=== PATIENT | female | born 1950 | race Caucasian/White ===

== ENCOUNTER → 2016-05-04 | Day surgery (SDC) | payer OTHER ==
[2016-04-28 13:15] VITALS: Ht 158.8 cm; Wt 145.4 kg
[~2016-05-04] VITALS: Ht 158.8 cm; Wt 145.4 kg
[~2016-05-04] MED LIST: 500ML BSS 0.3ML EPI 1:1000PF IRRIG ONE; ACET-1256 PO; ACETAMINOPHEN 325 MG TAB PO PRN; AMVISC PLUS 0.8ML SYRINGE INT OCU ONE; ASPI81TA28 PO; ATROPINE SULFATE 0.1 MG/ML 5ML SYR IV PRN; BRIMONIDINE TART 0.2% OP SOLN PER DROP CHARGE ONE; BSS FLUSH ONE; DXY100 PO; ENDOCOAT 0.85ML SYRINGE INT OCU ONE; EpHEDrine SULFATE INJ 50 MG/ML AMP IV PRN; EpINEphrine INJ 1MG/ML AMP 1 MG/ML AMP ONE; FENTANYL CITRATE INJ 50 MCG/1 ML 2 ML VIAL IV PRN; FURO-85 PO; HYDR-5688 PO; LACTATED RINGER'S 1000ML 500 ML IV SCH; LEVO1TAB34 PO; LIDOCAINE 4% OP SOLN DROP CHARGE ONE; LIDOCAINE 4% OP SOLN DROP CHARGE OPR SCH; LIDOCAINE HCL 1% MPF 2 ML VIAL ONE; LISI-789 PO; MELO7.5T5 PO; MIDAZOLAM HCL 1 MG/ML 2ML VIAL ONE; MOXIFLOXACIN OPH SOLN PER DROP CHARGE ONE; MOXIFLOXACIN OPH SOLN PER DROP CHARGE OPR SCH; ONDANSETRON INJ 2 MG/ML 2 ML VIAL IV PRN; POVIDONE-IODINE OP SOLN 30 ML BTL ONE; PROPARACAINE 0.5% OP SOLN PER DROP CHARGE OPR SCH; SULF800T23 PO; TOBRAMYCIN/DEXAMETHASONE OPH OINT PER APPLN CHARGE ONE; TRIMETHOPRIM/POLYMYXIN B ONE
[2016-05-04] MEDS: PHENYLEPHRINE HCL 2.5% OP SOLN PER DROP CHARGE OPR SCH ×2 (09:59→10:04)
[2016-05-04] MEDS: TROPICAMIDE 1% OP SOLN PER DROP CHARGE OPR SCH ×2 (10:00→10:05)
[2016-05-04] MEDS: CYCLOPENTOLATE HCL 1% OP SOLN PER DROP CHARGE OPR SCH ×2 (10:01→10:06)
[2016-05-04] MEDS: KETOROLAC 0.5% OP SOLN PER DROP CHARGE OPR SCH ×2 (10:02→10:07)
[2016-05-04] MEDS: TRIMETHOPRIM/POLYMYXIN B OP SCH ×2 (10:03→10:13)
--- NOTE | 2016-05-04 11:19 | History & Physical Bridge - [place] ---
H&P Re-Evaluation Bridge Note: I have examined the patient, reviewed the History & Physical and in the interval since the performance of the History & Physical I have noted the following changes of clinical significance: No changes noted
--- NOTE | 2016-05-04 11:44 | Discharge Instructions-SurgCtr ---
Discharge Instructions Visit Reason for Visit: Right Cataract Discharge Discharge Diagnosis / Problem: cataract right eye Discharge Goals Goal(s): Improve function Activity Recommendations Activity Limitations: per Instructions/Follow-up section Lifting Limitations: no more than 5 pounds Anesthesia . Post Anesthesia Instructions: If you have had General Anesthesia or IV Sedation: * Do not drive today. * Resume driving when surgeon permits. * Do not make important decisions or sign legal documents today. * Call surgeon for: 1. Temperature elevations greater than 101 degrees F. 2. Uncontrollable pain. 3. Excessive bleeding. 4. Persistent nausea and vomiting. 5. Medication intolerance (nausea, vomiting or rash). * For nausea and vomiting use only clear liquids such as: tea, soda, bouillon until nausea subsides, then gradually increase diet as tolerated. * If you have any concerns or questions, call your surgeon's office. If physician is unavailable and it is an emergency, call 911 or go to the nearest emergency room. . Instructions / Follow-Up Instructions / Follow-Up ACTIVITY RECOMMENDATIONS: * Light activities * You may walk outside, read, watch television. * Mild irritation and blurred vision are common for the first few days, redness around the white part of the eye is common. MEDICATIONS: Resume previous medications unless instructed otherwise by your surgeon. Eye drops (today and tomorrow): Polytrim - one drop in operative eye every 2 hours while awake Prednisolone 1% - one drop in operative eye every 2 hours while awake Ketorolac - one drop in operative eye every 2 hours while awake SPECIAL CARE INSTRUCTIONS: * If any problems or concerns, please call Dr. Almodovar's office at . * Keep plastic shield taped over eye to sleep at night. * Keep plastic shield taped over eye except to administer eye drops. * Keep plastic shield on until office visit the following day. FOLLOW UP VISIT: Follow-up with Dr. Almodovar in the [place] office as scheduled. If not already scheduled, please call the office at . Diet Recommendations Home Diet: resume previous diet Procedures Procedures Performed: Right Cataract Phacoemulsification With Intraocular Lens Implant Pending Studies Studies pending at discharge: no Medical Emergencies . Who to Call and When: Medical Emergencies: If at any time you feel your situation is an emergency, please call 911 immediately. . Non-Emergent Contact Non-Emergency issues call your: Day Porter . . "Provider Documentation" section prepared by Olvin Almodovar.
--- NOTE | 2016-05-04 11:44 | [facility] Post Operative Brief Note ---
Immediate Operative Summary Operative Date May 04, 2016. Pre-Operative Diagnosis Cataract Right Eye Post-Operative Diagnosis Same Procedure(s) Performed Right Cataract Phacoemulsification With Intraocular Lens Implant Surgeon Dr. Almodovar Home Health Care Case Manager Surgeon(s) None Estimated Blood Loss 0 mL Findings cataract right eye Specimens None Complication(s) None Disposition Recovery Room / PACU
[2016-05-04 11:46] VITALS: TEMP 36.1
[2016-05-04 12:20] VITALS: BP 156/64; PULSE 84; O2SAT 96
--- NOTE | 2016-05-04 12:28 | OPERATIVE REPORT ---
DATE OF OPERATION: 05/04/2016 PREOPERATIVE DIAGNOSIS: Cataract, right eye. POSTOPERATIVE DIAGNOSIS: Cataract, right eye. PROCEDURE: Phacoemulsification cataract extraction with intraocular lens placement, right eye. SURGEON: Dr. Almodovar. COMPLICATIONS: None. ESTIMATED BLOOD LOSS: None. ANESTHESIA: Topical with sedation. OPERATION AND FINDINGS: After informed consent was obtained in the holding area the patient was wheeled back to the Operating Room where cardiac monitoring leads and oxygen by nasal cannula was administered by Anesthesia. Gentle IV sedation was given, and the patient's right eye was prepped and draped in usual sterile fashion. A wire lid speculum was placed into the right eye and the operating microscope was swung into position. Using 0.12 forceps and a Supersharp blade a paracentesis port was made 3 o'clock hours away from the 9 o'clock position of patient's right eye. 1% non-preserved Lidocaine was then injected into the anterior chamber for anesthesia. A 2.2 mm keratotome blade was then used to make a shelved clear corneal incision at the 9 o'clock position of the patient's right eye. Amvisc was injected into the anterior chamber and a cystotome and Utrata forceps were used to perform a curvilinear capsulorrhexis. BSS on a hydrodissection cannula was used to hydrodissect the lens nucleus away from the capsular bag. The phacoemulsification handpiece was then used in a stop and chop fashion to remove the lens nucleus. The irrigation and aspiration handpiece was then used to remove the residual cortical material. Amvisc was injected into the capsular bag and anterior chamber and a Bausch \T\ Lomb MX60, 21.5 Diopter intraocular lens was injected into the capsular bag. Irrigation and aspiration handpiece was used to remove the residual viscoelastic material. The wounds were hydrated and noted to be watertight. The wire lid speculum was removed from the eye. Vigamox, Brimonidine, and TobraDex ointment were placed on the eye and it was shielded. It should be noted that EndoCoat was used throughout the case to protect the cornea endothelium. DISPOSITION: The patient tolerated the procedure well and was wheeled to the post anesthesia care unit in stable condition. I attest to the content of the Intraoperative Record and any orders documented therein. Any exceptions are noted below. I attest to the content of the Intraoperative Record and any orders documented therein. Any exceptio ns are noted below.
--- NOTE | 2016-05-04 12:32 | Anesthesia Progress Nt - [facility] ---
Anesthesia Post Op Note Date & Time May 04, 2016 at 12:31 Vital Signs Pain Intensity: 0 Vital Signs Past 12 Hours Date Time Temp Pulse Resp B/P Pulse Ox O2 Delivery O2 Flow Rate FiO2 05/04/16 11:46 36.1 85 18 120/60 97 Room Air 05/04/16 09:52 36.8 88 20 142/75 94 Room Air Notes Mental Status: alert / awake / arousable, participated in evaluation Pt Amnestic to Procedure: Yes Nausea / Vomiting: adequately controlled Pain: adequately controlled Airway Patency, RR, SpO2: stable & adequate BP & HR: stable & adequate Hydration State: stable & adequate Anesthetic Complications: no major complications apparent
== END | disposition home or self-care (01) ==
LOC: X.SURG 09:35
PROVIDERS: ATTEND Ophthalmology
DX: H25.11 Age-related nuclear cataract, right eye (principal); I10 Essential (primary) hypertension

== ENCOUNTER → 2016-05-25 | Outpatient (CLI) | payer OTHER ==
[~2016-05-25] MED LIST changes: -500ML BSS 0.3ML EPI 1:1000PF IRRIG ONE; -ACETAMINOPHEN 325 MG TAB PO PRN; -AMVISC PLUS 0.8ML SYRINGE INT OCU ONE; -ATROPINE SULFATE 0.1 MG/ML 5ML SYR IV PRN; -BRIMONIDINE TART 0.2% OP SOLN PER DROP CHARGE ONE; -BSS FLUSH ONE; -ENDOCOAT 0.85ML SYRINGE INT OCU ONE; -EpHEDrine SULFATE INJ 50 MG/ML AMP IV PRN; -EpINEphrine INJ 1MG/ML AMP 1 MG/ML AMP ONE; -FENTANYL CITRATE INJ 50 MCG/1 ML 2 ML VIAL IV PRN; -LACTATED RINGER'S 1000ML 500 ML IV SCH; -LIDOCAINE 4% OP SOLN DROP CHARGE ONE; -LIDOCAINE 4% OP SOLN DROP CHARGE OPR SCH; -LIDOCAINE HCL 1% MPF 2 ML VIAL ONE; -MIDAZOLAM HCL 1 MG/ML 2ML VIAL ONE; -MOXIFLOXACIN OPH SOLN PER DROP CHARGE ONE; -MOXIFLOXACIN OPH SOLN PER DROP CHARGE OPR SCH; -ONDANSETRON INJ 2 MG/ML 2 ML VIAL IV PRN; -POVIDONE-IODINE OP SOLN 30 ML BTL ONE; -PROPARACAINE 0.5% OP SOLN PER DROP CHARGE OPR SCH; -TOBRAMYCIN/DEXAMETHASONE OPH OINT PER APPLN CHARGE ONE; -TRIMETHOPRIM/POLYMYXIN B ONE
--- NOTE | 2016-05-25 16:42 | MAMMOGRAPHY REPORT ---
BILATERAL DIGITAL SCREENING MAMMOGRAM WITH CAD: 05/25/2016 CLINICAL HISTORY: Routine screening examination. TECHNIQUE: Bilateral CC, MLO and left CC M views were obtained. Current study was also evaluated wi th a Computer Aided Detection (CAD) system. COMPARISON: Comparison is made to exams dated: 02/26/2015 mammogram, 10/11/2013 mammogram, 09/23/2011 mammogram, 09/15/2010 mammogram, 09/10/2009 mammogram - [facility], and 08/29/2008. BREAST COMPOSITION: There are scattered areas of fibroglandular density in both breasts. FINDINGS: There is a 6.5 mm mass in the 12:00 middle one third of the left breast, for which additi onal spot compression tomosynthesis views and targeted ultrasound are recommended. No other suspicious mass, architectural distortion or cluster of microcalcifications is seen bilater ally. IMPRESSION: ACR BI-RADS CATEGORY 0: INCOMPLETE EVALUATION: NEED ADDITIONAL IMAGING EVALUATION The 6.5 mm mass in the 12:00 left breast needs additional evaluation. The patient will be called to schedule an appointment. Approximately 10% of breast cancers are not detected with mammography. A negative mammographic repor t should not delay biopsy if a clinically suggestive mass is present. Kristin Harding M.D. ay/:05/25/2016 15:36:52 Gas Line Installer: Norma TOMLIN)(M), [facility] letter sent: Addl Imaging 0 BI-RADS Code: ACR BI-RADS Category 0: Incomplete Evaluation: Need Additional Imaging Evaluation
== END | disposition home or self-care (01) ==
LOC: C.MAMM 14:35
PROVIDERS: ATTEND Family Medicine
DX: Z12.31 Encounter for screening mammogram for malignant neoplasm of breast (principal); N63 Unspecified lump in breast

== ENCOUNTER → 2016-06-17 | Outpatient (CLI) | payer OTHER ==
[~2016-06-17] MED LIST changes: -LEVO1TAB34 PO
--- NOTE | 2016-06-17 13:35 | MAMMOGRAPHY REPORT ---
UNILATERAL LEFT DIGITAL DIAGNOSTIC MAMMOGRAM TOMOSYNTHESIS AND TARGETED LEFT ULTRASOUND: 06/17/2016 CLINICAL HISTORY: 66 rolled woman with a history of prior trauma to the left breast proximally 1 yea r ago called back from screening mammography for increasingly conspicuous subcentimeter mass in the 12:00 to 1:00 axis. TECHNIQUE: Spot compression left CC and MLO 2-D digital and tomosynthesis images were obtained. COMPARISON: Comparison is made to exams dated: 05/25/2016 mammogram, 02/26/2015 mammogram, and 014 mammogram - [facility]. BREAST COMPOSITION: The tissue of the left breast is almost entirely fatty. FINDINGS: On the spot compression CC view there is persistence of a low-density circumscribed 8.6 x 5.9 mm mass. This is thought to project superiorly on the MLO view and measures 5.4 mm in cranioca udal dimension. No associated architectural distortion or obvious calcification. No other definite mass is seen mammographically. Targeted ultrasound was performed throughout the superior, lateral and inferior left breast. The ex am is slightly suboptimal due to inability of the patient to position for the exam. Within this rubio itation, there is an isoechoic lobulated solid appearing mass in the 2:00 left breast, 2 cm from the nipple, measuring 3.3 x 3.3 x 6.3 mm. It is unclear if this possibly correlates with the mammograp hic mass given differences in patient positioning. Nevertheless given the solid nature it is indete rminate and warranting further evaluation with tissue sampling. No other discrete solid or cystic m ass is seen. No other suspicious mass, architectural distortion or cluster of microcalcifications is seen. IMPRESSION: ACR BI-RADS CATEGORY 4: SUSPICIOUS, TARGETED ULTRASOUND ACR BI-RADS CATEGORY 4: SUSPICI OUS 1. Ultrasound guided core needle biopsy is recommended for an isoechoic solid 6.3 mm mass in the 2: 00 left breast. It is unclear if this correlates with the low-density circumscribed mammographic ma ss as that was expected in the 12:00 to 1:00 axis. However, correlation with postprocedure mammogra ms is recommended and additional follow-up recommendations may be made based on post procedure imagi ng. 2. These results and recommendations were discussed with the patient at the time of the exam. She tentatively scheduled the biopsy prior to leaving our department. Approximately 10% of breast cancers are not detected with mammography. A negative mammographic repor t should not delay biopsy if a clinically suggestive mass is present. Kristin Harding M.D. ay/:06/17/2016 12:20:38 Mechanical Manufacturing Engineer: Delmis ABEEB (R)), [facility] letter sent: Abnormal 4/5 BI-RADS Code: ACR BI-RADS Category 4: Suspicious Ultrasound BI-RADS: ACR BI-RADS Category 4: Suspic ious
== END | disposition home or self-care (01) ==
LOC: C.MAMM 11:00
PROVIDERS: ATTEND Family Medicine
DX: N63 Unspecified lump in breast (principal)

== ENCOUNTER → 2016-06-24 | Outpatient (CLI) | payer OTHER ==
--- NOTE | 2016-06-24 15:05 | Discharge Instructions ---
Discharge Instructions Procedure Procedure Date: Jun 24, 2016. Reason for visit: Left Mass. Discharge Discharge Date: Jun 24, 2016. Discharge Diagnosis: post left breast ultrasound guided core biopsy Medications Restart Stopped Medication(s): May restart Aspirin today Instructions Activity Recommendations: Additional Limitations (see below) Return to School/Work: no limitations Recommended Home Diet: No Limitations Provider Instructions: ACTIVITY RECOMMENDATIONS: * No lifting, pushing, pulling or exercising the affected side for three days. RETURN TO SCHOOL/WORK: * You may return to work/school after the procedure, but do not perform any strenuous activities for 24 to 48 hours. MEDICATIONS: * Tylenol (two 325 mg) every four to six hours if needed for mild pain (if not allergic to Tylenol). DIET: * Resume previous diet. SPECIAL CARE INSTRUCTIONS: * Keep biopsy site dry for 24 hours. May shower after 24 hours, but do not soak (bathe) incision. * May remove Tegaderm (plastic patch) tomorrow AFTER showering. * Leave the steri-strips on for one week. Allow the steri-strips to fall off by themselves. If not off after one week, you may remove them. You may place a Bandaid crosswise over the strips, if desired. * Apply ice 10 minutes on and 10 minutes off as needed. * Wear a bra at bedtime to sleep more comfortably for 2-3 days. * Your referring physician should have the results after approximately 5 to 7 business days. * Call for unusual bleeding, fever, drainage, etc or if you have any questions call [phone] during normal business hours or after hours call Dr Harding, . FOLLOW UP VISIT: Follow-up with Referring Physician as scheduled. Allergies Coded Allergies: Ciprofloxacin (Verified Adverse Reaction, Intermediate, makes mouth feel funny, 05/04/16) Metronidazole (Verified Adverse Reaction, Intermediate, makes mouth feel funny, 05/04/16) Shirley Ernandez Recommendations: Call your doctor if: * Temperature above 101 degrees * Pain not relieved by pain medicine ordered * There is increased drainage or redness from any incision * You have any unanswered questions or concerns. Your Doctors Instructions noted above were prepared by provider Kristin Harding. Patient Signature Section: Patient Instructions Signature Page Jena Colin Patient (or Guardian) Signature/Date: I have read and understand the instructions given to me by my caregivers. Caregiver/RN/Doctor Signature/Date: The above-named patient and/or guardian has received patient instructions on this date. + Original Patient Signature Page (only) stays with chart. Please make copy for patient.
--- NOTE | 2016-06-24 15:58 | MAMMOGRAPHY REPORT ---
UNILATERAL LEFT DIGITAL DIAGNOSTIC MAMMOGRAM TOMOSYNTHESIS: 06/24/2016 CLINICAL HISTORY: Status post ultrasound guided core biopsy in the left 2:00 breast. Please refer to the report from left breast ultrasound guided core biopsy performed at the same time for full detail. IMPRESSION: POST PROCEDURE IMAGING FOR MARKER PLACEMENT Please refer to the report from left breast ultrasound guided core biopsy performed at the same time for full detail. Approximately 10% of breast cancers are not detected with mammography. A negative mammographic repor t should not delay biopsy if a clinically suggestive mass is present. Kristin Harding M.D. ay/:06/24/2016 15:07:55 Entry Level Software Developer: Erma HARMON(R)(M), [facility] BI-RADS Code: Post Procedure Imaging For Marker Placement
--- NOTE | 2016-06-24 15:58 | MAMMOGRAPHY REPORT ---
ULTRASOUND GUIDED BIOPSY LEFT BREAST: 06/24/2016 CLINICAL HISTORY: Indeterminate isoechoic solid mass in the 2:00 left breast possibly correlating wi th a 6.5 mm mass in the 12:00 to 1:00 left breast. Patient presents for ultrasound-guided core need le biopsy. COMPARISON: Comparison is made to exams dated: 06/17/2016 ultrasound, 06/17/2016 mammogram, 05/25/2016 mammogram, 02/26/2015 mammogram, and 10/11/2013 mammogram - [facility]. PATIENT CONSENT: The procedure, risks and benefits were discussed with the patient and informed writ ten consent was obtained. Specific risks to this procedure include: bleeding, infection, puncture of adjacent structure, nontarget biopsy, sampling error, metal allergy and medication reaction. PROCEDURE DESCRIPTION: A time out was performed and the left breast was agreed as the site of biopsy . The skin was prepped and draped in the usual sterile fashion. The solid isoechoic mass in the 2:00 left breast was chosen as the target for biopsy. Subcutaneous and intraparenchymal 1% buffered lido darcie was administered as local anesthesia. A skin incision was made. Through the incision, 4 sampl es were taken with a 14 gauge Achieve biopsy device. A metallic marker was placed at the biopsy site . Hemostasis was achieved after manual compression. The patient tolerated the procedure well and the re was no immediate complication. The samples were sent to pathology in an appropriately labeled co ntainer. Postprocedure left CC and MLO to the digital and tomosynthesis images were obtained. There is a new ribbon-shaped metallic biopsy marker and no significant hematoma in the 2:00 anterior left breast, at the site of the biopsied isoechoic mass seen on ultrasound. The biopsy marker clip does not alig n with the 6.5 mm circumscribed mass in the 12:00 to 1:00 left breast. When comparing to prior full -field mammograms, this mass appears stable in size dating back to at least 09/15/2010. Given 6 yea rs of stability it is most likely benign, however, repeat assessment at follow-up diagnostic left ma mmograms with possible ultrasound is recommended in 6 months. IMPRESSION: ULTRASOUND GUIDED BIOPSY Status post ultrasound guided core biopsy of an isoechoic solid mass in the 2:00 left breast, with b iopsy marker placed at the site. Pending benign pathology results, follow-up diagnostic mammograms and possible ultrasound of the lef t breast are recommended in 6 months, to reassess the 6 mm circumscribed mass in the 12:00 to 1:00 m iddle one third of the left breast. The patient will receive written notification of the results. Kristin Harding M.D. ay/:06/24/2016 15:47:41 Associate Quality Engineer: Erma TOMLIN)(Malaika), [facility]
== END | disposition home or self-care (01) ==
LOC: C.MAMM 13:33
PROVIDERS: ATTEND Family Medicine
DX: N60.82 Other benign mammary dysplasias of left breast (principal)

== ENCOUNTER → 2016-06-29 | Outpatient (CLI) | payer OTHER ==
[2016-06-29 13:47] LABS: HEMATOCRIT 40.1 % (37-47); MEAN CELL VOLUME 86.2 fL (80-100); MEAN CORPUSCULAR HEMOGLOBIN 27.7 pg (25-34); MEAN CORPUSCULAR HGB CONC 32.2 g/dl (32-36); MEAN PLATELET VOLUME 9.8 fL (7.4-10.4); PLATELET COUNT 228 K/uL (130-400); RED BLOOD COUNT 4.65 M/uL (4.2-5.4)
[2016-06-29 13:55] LABS: ALT/SGPT 18 U/L (12-78); BLOOD UREA NITROGEN 11 mg/dl (7-18); BUN/CREATININE RATIO 20.4 (10-20); CALCIUM 8.8 mg/dl (8.5-10.1); CARBON DIOXIDE 24 mmol/L (21-32); CHLORIDE 107 mmol/L (98-107); CREATININE 0.54 mg/dl (0.60-1.20); GLUCOSE 93 mg/dl (70-99); POTASSIUM 4.1 mmol/L (3.5-5.1); SODIUM 141 mmol/L (136-145)
[2016-06-29 13:58] LABS: ALB/GLOB RATIO 0.8 (0.9-2); ALKALINE PHOSPHATASE 69 U/L (45-117); AST/SGOT 16 U/L (15-37)
--- NOTE | 2016-06-30 13:45 | CODING QUERY NO DIAGNOSIS ---
: 1950 TREATMENT RENDERED WITHOUT A DIAGNOSIS To promote full compliance with coding requirements relating to patient care, physician participation is requested in all cases of optoelectronic technician uncertainty. Please assist us with providing a diagnosis/symptom for the test(s) below: A diagnosis/symptom was not documented on your Order. A valid diagnosis/symptom is required to bill all insurances. Please remember that we are unable to code a diagnosis of rule out, probable, possible, questionable, or suspected. Tests that require a diagnosis: DOS: 06/29/16 * CBC W/O Differential DIAGNOSIS: * Comprehensive Metabolic Panel DIAGNOSIS: * Erythrocyte Sedimentation Rate DIAGNOSIS: Provider Signature: Date: Thank you Romy Guerin Health Information Management Once completed, please kindly fax back to [phone] For questions please call [phone]
== END | disposition home or self-care (01) ==
LOC: C.LABSPEC 12:27
PROVIDERS: ATTEND Internal Medicine Infectious Disease
DX: L03.119 Cellulitis of unspecified part of limb (principal)

== ENCOUNTER → 2016-07-06 | Outpatient (CLI) | payer OTHER ==
[2016-07-06 16:02] LABS: HEMATOCRIT 39.5 % (37-47); MEAN CELL VOLUME 86.8 fL (80-100); MEAN CORPUSCULAR HEMOGLOBIN 28.4 pg (25-34); MEAN CORPUSCULAR HGB CONC 32.7 g/dl (32-36); MEAN PLATELET VOLUME 9.8 fL (7.4-10.4); PLATELET COUNT 215 K/uL (130-400); RED BLOOD COUNT 4.55 M/uL (4.2-5.4); WHITE BLOOD COUNT 6.63 K/uL (4.8-10.8)
[2016-07-06 16:10] LABS: ALT/SGPT 16 U/L (12-78); BLOOD UREA NITROGEN 11 mg/dl (7-18); CALCIUM 8.8 mg/dl (8.5-10.1); CARBON DIOXIDE 24 mmol/L (21-32); CHLORIDE 108 mmol/L (98-107); CREATININE 0.53 mg/dl (0.60-1.20); GLUCOSE 85 mg/dl (70-99); POTASSIUM 3.7 mmol/L (3.5-5.1); SODIUM 142 mmol/L (136-145)
[2016-07-06 16:13] LABS: ALB/GLOB RATIO 0.8 (0.9-2); ALKALINE PHOSPHATASE 61 U/L (45-117); AST/SGOT 16 U/L (15-37)
--- NOTE | 2016-07-07 14:28 | CODING QUERY NO DIAGNOSIS ---
TREATMENT RENDERED WITHOUT A DIAGNOSIS To promote full compliance with coding requirements relating to patient care, physician participation is requested in all cases of radiosonde operator uncertainty. Please assist us with providing a diagnosis/symptom for the test(s) below: A diagnosis/symptom was not documented on your Order. A valid diagnosis/symptom is required to bill all insurances. Please remember that we are unable to code a diagnosis of rule out, probable, possible, questionable, or suspected. Tests that require a diagnosis for test performed on 07/06/16: * CBC DIAGNOSIS: * COMPREHENSIVE METABOLIC PROFILE DIAGNOSIS: * ERYTHROCYTE SEDIMENTATION RATE DIAGNOSIS: Provider Signature: Date: Thank you Aurora [facility] Information Management Once completed, please kindly fax back to [phone] For questions please call [phone]
== END ==
LOC: C.LABSPEC 12:59
PROVIDERS: ATTEND Internal Medicine Infectious Disease
DX: L03.119 Cellulitis of unspecified part of limb (principal)

== ENCOUNTER → 2016-07-13 | Outpatient (CLI) | payer OTHER ==
[2016-07-13 12:36] LABS: HEMATOCRIT 39.5 % (37-47); MEAN CELL VOLUME 86.1 fL (80-100); MEAN CORPUSCULAR HEMOGLOBIN 28.1 pg (25-34); MEAN CORPUSCULAR HGB CONC 32.7 g/dl (32-36); MEAN PLATELET VOLUME 9.8 fL (7.4-10.4); PLATELET COUNT 221 K/uL (130-400); RED BLOOD COUNT 4.59 M/uL (4.2-5.4); WHITE BLOOD COUNT 6.38 K/uL (4.8-10.8)
[2016-07-13 13:13] LABS: ALT/SGPT 17 U/L (12-78); AST/SGOT 13 U/L (15-37); BLOOD UREA NITROGEN 14 mg/dl (7-18); CALCIUM 8.9 mg/dl (8.5-10.1); CARBON DIOXIDE 26 mmol/L (21-32); CHLORIDE 107 mmol/L (98-107); CREATININE 0.54 mg/dl (0.60-1.20); GLUCOSE 87 mg/dl (70-99); POTASSIUM 3.9 mmol/L (3.5-5.1); SODIUM 141 mmol/L (136-145)
[2016-07-13 13:18] LABS: ALB/GLOB RATIO 0.8 (0.9-2); ALKALINE PHOSPHATASE 62 U/L (45-117)
--- NOTE | 2016-07-15 13:46 | CODING QUERY NO DIAGNOSIS ---
TREATMENT RENDERED WITHOUT A DIAGNOSIS To promote full compliance with coding requirements relating to patient care, physician participation is requested in all cases of broadcast designer uncertainty. Please assist us with providing a diagnosis/symptom for the test(s) below: A diagnosis/symptom was not documented on your Order. A valid diagnosis/symptom is required to bill all insurances. Please remember that we are unable to code a diagnosis of rule out, probable, possible, questionable, or suspected. Tests that require a diagnosis: DOS: 07/13/16 * CMP DIAGNOSIS: * CBC DIAGNOSIS: * ESR DIAGNOSIS: Provider Signature: Date: Thank you Cleine Cunningham [facility] Information Management Once completed, please kindly fax back to [phone] For questions please call [phone]
== END | disposition home or self-care (01) ==
LOC: C.LABSPEC 12:08
PROVIDERS: ATTEND Internal Medicine Infectious Disease
DX: L03.119 Cellulitis of unspecified part of limb (principal); B96.5 Pseudomonas (aeruginosa) (mallei) (pseudomallei) as the cause of diseases classified elsewhere

== ENCOUNTER → 2016-07-20 | Outpatient (CLI) | payer OTHER ==
[~2016-07-20] MED LIST changes: +CEPH500C2 PO
[2016-07-20 12:37] LABS: HEMATOCRIT 39.4 % (37-47); MEAN CELL VOLUME 87.8 fL (80-100); MEAN CORPUSCULAR HEMOGLOBIN 28.7 pg (25-34); MEAN CORPUSCULAR HGB CONC 32.7 g/dl (32-36); PLATELET COUNT 202 K/uL (130-400); RED BLOOD COUNT 4.49 M/uL (4.2-5.4); WHITE BLOOD COUNT 5.52 K/uL (4.8-10.8)
[2016-07-20 13:04] LABS: ALT/SGPT 17 U/L (12-78); BLOOD UREA NITROGEN 13 mg/dl (7-18); BUN/CREATININE RATIO 23.5 (10-20); CALCIUM 9.1 mg/dl (8.5-10.1); CARBON DIOXIDE 26 mmol/L (21-32); CHLORIDE 108 mmol/L (98-107); CREATININE 0.54 mg/dl (0.60-1.20); GLUCOSE 96 mg/dl (70-99); POTASSIUM 3.6 mmol/L (3.5-5.1); SODIUM 143 mmol/L (136-145)
[2016-07-20 13:07] LABS: ALB/GLOB RATIO 0.8 (0.9-2); ALKALINE PHOSPHATASE 61 U/L (45-117); AST/SGOT 17 U/L (15-37)
--- NOTE | 2016-07-22 07:06 | CODING QUERY NO DIAGNOSIS ---
: 1950 TREATMENT RENDERED WITHOUT A DIAGNOSIS To promote full compliance with coding requirements relating to patient care, physician participation is requested in all cases of solar development engineer uncertainty. Please assist us with providing a diagnosis/symptom for the test(s) below: A diagnosis/symptom was not documented on your Order. A valid diagnosis/symptom is required to bill all insurances. Please remember that we are unable to code a diagnosis of rule out, probable, possible, questionable, or suspected. Tests that require a diagnosis: DOS: 07/20/16 * CBC w/o Differential DIAGNOSIS: * Comprehensive Metabolic Panel DIAGNOSIS: * Erythrocyte Sedimentation Rate DIAGNOSIS: Provider Signature: Date: Thank you Romy Guerin Health Information Management Once completed, please kindly fax back to [phone] For questions please call [phone]
== END | disposition home or self-care (01) ==
LOC: C.LABSPEC 12:10
PROVIDERS: ATTEND Internal Medicine Infectious Disease
DX: L03.119 Cellulitis of unspecified part of limb (principal); B96.5 Pseudomonas (aeruginosa) (mallei) (pseudomallei) as the cause of diseases classified elsewhere

== ENCOUNTER 2016-12-20 14:03 | Inpatient (IN) | payer OTHER ==
[~2016-12-20] VITALS: Ht 160 cm; Wt 145.4 kg
[~2016-12-20 14:03] MED LIST changes: -CEPH500C2 PO; -DXY100 PO; -HYDR-5688 PO
[2016-12-20] MEDS ORDERED: CEFTRIAXONE SOD INJ 1 GM ADDVIAL IV STA (14:37)
[2016-12-20] MEDS ORDERED: VANCOMYCIN INJ 2,500 MG in SODIUM CHLORIDE 0.9% 500ML 500 ML IV STA (15:08)
[2016-12-20 15:26] LABS: BASO % 0.5 %; BASO ABS # 0.05 K/uL (0-0.2); COMPLETE YES; HEMATOCRIT 41.8 % (37-47); IG% 0.2 %; LYMPH % 12.9 %; MEAN CELL VOLUME 86.2 fL (80-100); MEAN CORPUSCULAR HEMOGLOBIN 27.4 pg (25-34); MEAN CORPUSCULAR HGB CONC 31.8 g/dl (32-36); MEAN PLATELET VOLUME 9.8 fL (7.4-10.4); MONO % 9.7 %; NEUT % 75.7 %; PLATELET COUNT 253 K/uL (130-400); RED BLOOD COUNT 4.85 M/uL (4.2-5.4); WHITE BLOOD COUNT 9.28 K/uL (4.8-10.8)
[2016-12-20] MEDS ORDERED: HYDR-5688 PO (15:29)
[2016-12-20 15:43] LABS: ALT/SGPT 16 U/L (12-78); AST/SGOT 11 U/L (15-37); BLOOD UREA NITROGEN 10 mg/dl (7-18); CALCIUM 9.2 mg/dl (8.5-10.1); CARBON DIOXIDE 31 mmol/L (21-32); CHLORIDE 107 mmol/L (98-107); CREATININE 0.52 mg/dl (0.60-1.20); GLUCOSE 92 mg/dl (70-99); SODIUM 141 mmol/L (136-145)
[2016-12-20 15:46] LABS: ALKALINE PHOSPHATASE 79 U/L (45-117)
--- NOTE | 2016-12-20 17:42 | DIAGNOSTIC IMAGING REPORT ---
BILATERAL LOWER EXTREMITY VENOUS DOPPLER HISTORY: Acute lower leg swelling, redness, L>R COMPARISON STUDY: None. FINDINGS: There is normal compressibility, flow, and augmentation within the bilateral lower extremity deep venous systems. Bilateral calf veins are not diagnostically visualized secondary to edema and body habitus. IMPRESSION: No DVT within the right or left lower extremity. Bilateral calf veins are not diagnostically visualized secondary to edema and body habitus. Electronically signed by: Jacques Yanes M.D. 12/20/2016 5:41 PM Dictated Date/Time: 12/20/2016 5:40 PM
--- NOTE | 2016-12-20 18:01 | EMERGENCY ROOM VISIT NOTE ---
History Report prepared by Asa: Obdulio Pacheco Under the Supervision of: Dr. Ivan Rain M.D. First contact with patient: 14:20 Chief Complaint: WOUND INFECTION Stated Complaint: OPEN WOUNDS ON BOTH LOWER LEGS History of Present Illness The patient is a 66 year old female who presents to the Emergency Room with complaints of a worsening wound infection to her bilateral lower extremities that started this week. She reports that she has been having wound infections in her legs for two years. The patient states that she has been put on antibiotics in the past through a PICC line and admits that it had worked. She states that shortly after, the infections returned. The patient states that the past week she has been more sedentary. She states that she has been changing her bandages and undressed them recently around 1700 yesterday. The patient states that she went to the [facility] recently and went to change her bandages after visiting the fair when she found white worms in her infection areas. She describes the worms like "rice". The patient also reports a burning and itching sensation in her left leg. The patient reports that the erythema in her legs has also been spreading up to her knees, which is not usual. She states that her legs have also been brighter and more erythematous than usual. The patient also reports an intermittent burning sensation when urinating, a "fluid" sensation in her left shoulder, diarrhea, and chills. She admits that she has been going to the lymphedema clinic. The patient states that she has had a history of cellulitis in the past. She states that she broke her hip 7 years ago and had pins in her hip. The patient states that she has an upcoming surgery to take the pins out and have a hip replacement. She denies taking blood thinners, a history of blood clots, any allergies, headache, fevers, diaphoresis, visual changes, neck pain, chest pain, breathing difficulties, nausea, vomiting, abdominal pain, back pain, melena, hematochezia, numbness, weakness, lymphadenopathy, rash, or other complaints. Source of History: patient Onset: this week Position: leg (bilateral) Quality: other (white mite like) Timing: worsening Associated Symptoms: + chills, + diarrhea, + urinary symptoms Review of Systems See HPI for pertinent positives and negatives. A total of ten systems were reviewed and were otherwise negative. Past Medical & Surgical Medical Problems: (1) Chronic Liver Dis Nec (2) Concussion (3) Concussion (4) Diverticulitis Colon (W/O Ment Of Hemorrhage) (5) Diverticulosis Colon (W/O Ment Of Hemorrhage) (6) Hyperglycemia (7) Hypertension Nos (8) Leukocytosis (9) Morbid Obesity (10) Nasal fracture (11) Osteoarthros Nos-L/Leg (12) Vitamin D Deficiency Nos Surgical Problems: (1) Fracture Acetabulum-Clos (2) Hx of cholecystectomy (3) Hx of colonoscopy Family History Patient reports no known family medical history. Social History Smoking Status: Never Smoker Alcohol Use: none Drug Use: none Marital Status: Occupation Status: retired Current/Historical Medications Scheduled Aspirin (Aspirin Ec), 81 MG PO DAILY Furosemide (Lasix), 20 MG PO 3XWK Lisinopril (Zestril), 2.5 MG PO QAM Scheduled PRN Acetaminophen (Tylenol), 500 MG PO Q8 PRN for Pain Hydrocodone/Acetaminophen 5MG/325MG ([place] 5MG/325MG), 1 TAB PO Q8H PRN for Pain Allergies Coded Allergies: Ciprofloxacin (Verified Adverse Reaction, Intermediate, makes mouth feel funny, 12/20/16) Metronidazole (Verified Adverse Reaction, Intermediate, makes mouth feel funny, 12/20/16) Physical Exam Vital Signs Date Time Temp Pulse Resp B/P (MAP) Pulse Ox O2 Delivery O2 Flow Rate FiO2 12/20/16 15:37 76 16 115/50 97 Room Air 12/20/16 14:08 37.2 70 18 154/73 99 Room Air Physical Exam GENERAL: Awake, alert, uncomfortable-appearing, in no distress HENT: Normocephalic, atraumatic. Oropharynx unremarkable. EYES: Normal conjunctiva. Sclera non-icteric. NECK: Supple. No nuchal rigidity. FROM. No JVD. RESPIRATORY: Clear to auscultation. CARDIAC: Regular rate, normal rhythm. Extremities warm and well perfused. Pulses equal. ABDOMEN: Soft, non-distended. No tenderness to palpation. No rebound or guarding. No masses. RECTAL: Deferred. MUSCULOSKELETAL: Chest examination reveals no tenderness. The back is symmetrical on inspection without obvious abnormality. There is no CVA tenderness to palpation. No joint edema. LOWER EXTREMITIES: Calves are equal size bilaterally and non-tender. No edema. Redness and induration to lower extremities, with left being worse than the right. The left redness is up to her knee joint. NEURO: Normal sensorium. No sensory or motor deficits noted. SKIN: No rash or jaundice noted. Medical Decision & Procedures ER Provider Diagnostic Interpretation: Radiology results as stated below per my review and radiologist interpretation: BILATERAL LOWER EXTREMITY VENOUS DOPPLER HISTORY: Acute lower leg swelling, redness, L>R COMPARISON STUDY: None. FINDINGS: There is normal compressibility, flow, and augmentation within the bilateral lower extremity deep venous systems. Bilateral calf veins are not diagnostically visualized secondary to edema and body habitus. IMPRESSION: No DVT within the right or left lower extremity. Bilateral calf veins are not diagnostically visualized secondary to edema and body habitus. Electronically signed by: Jacques Yanes M.D. 12/20/2016 5:41 PM Dictated Date/Time: 12/20/2016 5:40 PM Laboratory Results 12/20/16 15:06 Red Blood Count 4.85, Mean Corpuscular Volume 86.2, Mean Corpuscular Hemoglobin 27.4, Mean Corpuscular Hemoglobin Concent 31.8, Mean Platelet Volume 9.8, Neutrophils (%) (Auto) 75.7, Lymphocytes (%) (Auto) 12.9, Monocytes (%) (Auto) 9.7, Eosinophils (%) (Auto) 1.0, Basophils (%) (Auto) 0.5, Neutrophils # (Auto) 7.02, Lymphocytes # (Auto) 1.20, Monocytes # (Auto) 0.90, Eosinophils # (Auto) 0.09, Basophils # (Auto) 0.05 12/20/16 15:06 Test 12/20/16 15:06 White Blood Count 9.28 K/uL (4.8-10.8) Red Blood Count 4.85 M/uL (4.2-5.4) Hemoglobin 13.3 g/dL (12.0-16.0) Hematocrit 41.8 % (37-47) Mean Corpuscular Volume 86.2 fL (80-100) Mean Corpuscular Hemoglobin 27.4 pg (25-34) Mean Corpuscular Hemoglobin Concent 31.8 g/dl (32-36) Platelet Count 253 K/uL (130-400) Mean Platelet Volume 9.8 fL (7.4-10.4) Neutrophils (%) (Auto) 75.7 % Lymphocytes (%) (Auto) 12.9 % Monocytes (%) (Auto) 9.7 % Eosinophils (%) (Auto) 1.0 % Basophils (%) (Auto) 0.5 % Neutrophils # (Auto) 7.02 K/uL (1.4-6.5) Lymphocytes # (Auto) 1.20 K/uL (1.2-3.4) Monocytes # (Auto) 0.90 K/uL (0.11-0.59) Eosinophils # (Auto) 0.09 K/uL (0-0.5) Basophils # (Auto) 0.05 K/uL (0-0.2) RDW Standard Deviation 43.4 fL (36.4-46.3) RDW Coefficient of Variation 13.9 % (11.5-14.5) Immature Granulocyte % (Auto) 0.2 % Immature Granulocyte # (Auto) 0.02 K/uL (0.00-0.02) Anion Gap 3.0 mmol/L (3-11) Est Creatinine Clear Calc Drug Dose 152.5 ml/min Estimated GFR () 116.2 Estimated GFR (Non- 100.3 BUN/Creatinine Ratio 20.0 (10-20) Calcium Level 9.2 mg/dl (8.5-10.1) Total Bilirubin 0.3 mg/dl (0.2-1) Direct Bilirubin < 0.1 mg/dl (0-0.2) Aspartate Amino Transf (AST/SGOT) 11 U/L (15-37) Alanine Aminotransferase (ALT/SGPT) 16 U/L (12-78) Alkaline Phosphatase 79 U/L (45-117) Total Protein 7.2 gm/dl (6.4-8.2) Albumin 3.0 gm/dl (3.4-5.0) Laboratory results reviewed by me Medications Administered Medications (Trade) Dose Ordered Sig/Arielle Route Start Time Stop Time Status Last Admin Dose Admin Ceftriaxone Sodium (Rocephin Inj) 1 gm NOW STAT IV 12/20/16 14:37 12/20/16 14:40 DC 12/20/16 15:35 1 GM Vancomycin HCl 2500 mg/Sodium Chloride 550 ml @ 200 mls/hr ONE STAT IV 12/20/16 15:08 8/27/17 17:52 DC 12/20/16 16:03 200 MLS/HR ED Course 1429: The patient was evaluated in room C10. A complete history and physical exam was performed. 1437: Ordered Rocephin Injection 1 gm IV. 1508: Ordered Vancomycin HCl 2500 mg/ Sodium Chloride 550 @ 200 mls/hr IV. 1743: I reevaluated the patient and she is still in ultrasound. Medical Decision Triage Nursing notes reviewed. The patient's presentation and history were concerning for leg swelling and probable maggot infestation. Etiologies such as cellulitis, DVT, joint effusion, infection, trauma, muscular , lymphedema, idiopathic, CHF, as well as others were entertained. the patient was evaluated. By the 's description the patient had numerous maggots in the wound her left leg. She has redness that is 50% of the left leg. Bilateral lower extremity ultrasounds were negative for DVT. The patient's blood work was unremarkable. She was treated with IV Rocephin and IV vancomycin. The patient declined analgesia. She was reassessed. Further evaluation and management in the hospital will be necessary. I did discuss the case with Dr. Bob of the [facility] hospitalist service. The patient was evaluated in the Emergency Room for further management. Medication Reconcilliation Current Medication List: was personally reviewed by me Blood Pressure Screening Patient's blood pressure: Normal blood pressure Consults Time Called: 1750 Consulting Physician: Dr. Bob Returned Call: [phone] Impression Primary Impression: Cellulitis of left lower extremity Additional Impression: Lymphedema Scribe Attestation The scribe's documentation has been prepared under my direction and personally reviewed by me in its entirety. I confirm that the note above accurately reflects all work, treatment, procedures, and medical decision making performed by me. Departure Information Dispostion Being Evaluated By Hospitalist Referrals No Doctor, Assigned (PCP) Patient Instructions My [facility] Problem Qualifiers
[2016-12-20] MEDS ORDERED: CONSULT PHARMACY STA (18:26)
[2016-12-20] MEDS ORDERED: ONDANSETRON INJ 2 MG/ML 2 ML VIAL IV PRN (18:30)
[2016-12-20] MEDS ORDERED: ACETAMINOPHEN 325 MG TAB PO PRN (18:30)
[2016-12-20] MEDS ORDERED: PIPERACILL/TAZOBAC CONSULT ACTIVE PRN (19:45)
[2016-12-20] MEDS ORDERED: VANCOMYCIN CONSULT ACTIVE PRN (19:45)
[2016-12-20 19:53] LABS: PROTHROMBIN TIME (PATIENT) 10.6 SECONDS (9.0-12.0)
[2016-12-20] MEDS ORDERED: PIPERACILL/TAZOBAC IV 4.5 GM in DEXTROSE 5% 100ML IV ONE (20:00)
--- NOTE | 2016-12-20 20:02 | Pharmacy Progress Note ---
Pharmacy Antibiotic Consult Date of Service: Dec 20, 2016. Pharmacy Dosing Scope Pharmacy is consulted to initiate Vancomycin IV dosing therapy, order appropriate labs and adjust drug dose/frequency. Subjective The patient is a 66 year old female admitted on Dec 20, 2016 at 18:23 with bilateral lower extremity wound infections. Objective Height (Feet): 5 Height (Inches): 3.00 Weight (Kilograms): 145.400 Lab Results (24hrs): Test 12/20/16 15:06 12/20/16 18:39 White Blood Count 9.28 K/uL (4.8-10.8) Red Blood Count 4.85 M/uL (4.2-5.4) Hemoglobin 13.3 g/dL (12.0-16.0) Hematocrit 41.8 % (37-47) Mean Corpuscular Volume 86.2 fL (80-100) Mean Corpuscular Hemoglobin 27.4 pg (25-34) Mean Corpuscular Hemoglobin Concent 31.8 g/dl (32-36) Platelet Count 253 K/uL (130-400) Mean Platelet Volume 9.8 fL (7.4-10.4) Neutrophils (%) (Auto) 75.7 % Lymphocytes (%) (Auto) 12.9 % Monocytes (%) (Auto) 9.7 % Eosinophils (%) (Auto) 1.0 % Basophils (%) (Auto) 0.5 % Neutrophils # (Auto) 7.02 K/uL (1.4-6.5) Lymphocytes # (Auto) 1.20 K/uL (1.2-3.4) Monocytes # (Auto) 0.90 K/uL (0.11-0.59) Eosinophils # (Auto) 0.09 K/uL (0-0.5) Basophils # (Auto) 0.05 K/uL (0-0.2) RDW Standard Deviation 43.4 fL (36.4-46.3) RDW Coefficient of Variation 13.9 % (11.5-14.5) Immature Granulocyte % (Auto) 0.2 % Immature Granulocyte # (Auto) 0.02 K/uL (0.00-0.02) Sodium Level 141 mmol/L (136-145) Potassium Level 4.0 mmol/L (3.5-5.1) Chloride Level 107 mmol/L (98-107) Carbon Dioxide Level 31 mmol/L (21-32) Anion Gap 3.0 mmol/L (3-11) Blood Urea Nitrogen 10 mg/dl (7-18) Creatinine 0.52 mg/dl (0.60-1.20) Est Creatinine Clear Calc Drug Dose 152.5 ml/min Estimated GFR () 116.2 Estimated GFR (Non- 100.3 BUN/Creatinine Ratio 20.0 (10-20) Random Glucose 92 mg/dl (70-99) Calcium Level 9.2 mg/dl (8.5-10.1) Total Bilirubin 0.3 mg/dl (0.2-1) Direct Bilirubin < 0.1 mg/dl (0-0.2) Aspartate Amino Transf (AST/SGOT) 11 U/L (15-37) Alanine Aminotransferase (ALT/SGPT) 16 U/L (12-78) Alkaline Phosphatase 79 U/L (45-117) Total Protein 7.2 gm/dl (6.4-8.2) Albumin 3.0 gm/dl (3.4-5.0) Micro Results: Item Value Date Time Blood Culture Received 12/20/16 1515 Blood Pending Blood Culture Received 12/20/16 1506 Blood Pending Recent Pertinent Medications Item Value Date Time Vancomycin HCl 550 ml @ 200 mls/hr 12/20/16 1508 2500 mg/Sodium ONE STAT/IV 12/20/16 1603 Chloride Ceftriaxone Sodium 1 gm 12/20/16 1437 (Rocephin Inj) NOW STAT/IV 12/20/16 1535 Piperacillin Sod/ 120 ml @ 200 mls/hr 12/20/161999 Tazobactam Sod 2000 ONCE/IV 4.5 gm/Dextrose Piperacillin Sod/ 1 ea 12/20/161944 Tazobactam Sod UD PRN/N/A (Consult) Vancomycin HCl 1 ea 12/20/161944 (Consult) UD PRN/N/A Assessment & Plan [age] yo female patient, morbidly obese with BLE wound infection empirically starting IV Zosyn and IV Vancomycin. Due to BMI >35, will expect dose accumulation throughout course. Loading dose: Vancomycin 2500 mg (17.2 mg/kg) IV X 1 dose then: Vancomycin 2000 mg (13.7 mg/kg) IV every 12 hours. Goal peak level estimate: between 25 - 35 mcg/mL. Goal trough level estimate: between 13 - 20 mcg/mL. Vancomycin trough level has been ordered for: 12/22/18 prior to the 1500 hours dose Zosyn initiated at 4.5 gram IV q8 hours extended infusion per protocol for BMI > 35 and CrCl > 20 ml/minutes Pharmacy will continue to follow and will adjust dose/frequency as necessary. Thank you
[2016-12-20 20:15] LABS: HEMATOCRIT 41.4 % (37-47); MEAN CELL VOLUME 83.6 fL (80-100); MEAN CORPUSCULAR HEMOGLOBIN 27.7 pg (25-34); MEAN CORPUSCULAR HGB CONC 33.1 g/dl (32-36); PLATELET COUNT 231 K/uL (130-400); RED BLOOD COUNT 4.95 M/uL (4.2-5.4); WHITE BLOOD COUNT 9.78 K/uL (4.8-10.8)
--- NOTE | 2016-12-20 20:30 | HISTORY & PHYSICAL EXAMINATION ---
DATE OF ADMISSION: 12/20/2016 PRIMARY CARE PROVIDER: Dr. Dalila Mg. CHIEF COMPLAINT: Increasing swelling and worsening wound with redness involving both the lower legs. HISTORY OF PRESENT COMPLAINT: She is a 66-year-old female with significant past medical history including chronic venous stasis both the legs with lymphedema and chronic leg ulcers both sides with ongoing care at the wound care center, morbid obesity and lymphedema of both the legs, apparently has been going to the lymphedema clinic at [place] for chronic lymphedema of the legs. She was doing better with that, but for the last 2 weeks she has not been going there and since that time her leg wounds seems to be worsening. Her cleaned the wounds and dresses every day, as per their instructions. She has not been taking any antibiotics recently. The wound was noted to be very bad today with increasing swelling, redness, seeping and according to the patient when they took off the socks on both sides. She also did have some fever associated with it and increasing pain in both lower legs. In the Emergency Room, she was hemodynamically stable. She was noted to have bilateral leg ulceration with seeping and drainage of little yellow discharge, especially on the right side and ultrasound of the legs did not show any evidence of DVT. She was afebrile and her white count was not elevated. Blood cultures were taken, wound culture will be sent and she was started with intravenous vancomycin and ceftriaxone and asked for admission. She has had ongoing wound infection both the legs and previously the wound culture grew pseudomonas and MSSA, and she has been on Zosyn and Bactrim for the wound infection on multiple times. PAST MEDICAL HISTORY: Significant for: 1. Bilateral lymphedema with chronic leg ulcerations. 2. Morbid obesity. 3. Chronic venous stasis with chronic ulcers in both lower legs. PAST SURGICAL HISTORY: Carpal tunnel surgery, cholecystectomy, and repair of left hip in the past. FAMILY HISTORY: Significant that mother had a skin melanoma, father did have a high blood pressure and mother did have high blood pressure too. SOCIAL HISTORY: She is . She lives with her . She does not smoke and does not use any alcohol and she has been mobile with a walker. REVIEW OF SYSTEMS: CENTRAL NERVOUS SYSTEM: No headache, no blurred vision, no numbness or tingling in the extremities. No weakness involving any side of the body. RESPIRATORY: No fever, chills or rigors. No cough or phlegm. No shortness of breath. CARDIOVASCULAR: No chest pain, palpitation. GASTROINTESTINAL: No problem with nausea or vomiting or abdominal distention. GENITOURINARY: No problem with urine and/or bowel habit. MUSCULOSKELETAL: Does have some pain involving the left hip, but no acute arthritis in any other joints and generally she complained to have increasing redness and swelling involving both the legs. ALLERGIES: SHE IS ALLERGIC TO CIPROFLOXACIN AND METRONIDAZOLE. MEDICATIONS: She has been on Tylenol 500 mg q. 8 hourly as needed, furosemide 20 mg 3 times a week as directed, aspirin 81 mg daily, hydrocodone/acetaminophen 5/325 one tablet p.o. q. 8 hourly as needed, and lisinopril 2.5 mg in the morning. PHYSICAL EXAMINATION: GENERAL: On examination in the Emergency Room, she was not having any acute distress. VITAL SIGNS: Temperature 37.2, pulse of 78, blood pressure 133/72, saturation was 96% on room air. HEENT: Unremarkable. NECK: Supple. No JVD, no bruit. CHEST: Clear to auscultation bilaterally. HEART: S1, S2 regular. ABDOMEN: Soft and nontender, distended, difficult to feel for any organs. Bowel sounds present. EXTREMITIES: She has bilateral leg edema with chronic skin changes on both sides. She has ulceration involving the lower lateral part of leg on the left side with seeping of fluid and also at the back with a smaller lesion and on the right side she has a quarter-sized lesion on the anteromedial botello area and that has been oozing and seeping and there is some yellowish discharge as well. MUSCULOSKELETAL: No acute arthritis in any joint CENTRAL NERVOUS SYSTEM: She was alert, awake, oriented x3. LABORATORY DATA: Noted today - white count was 9.28, H&H 13.3/41.8, platelet was 253. Sodium 141, potassium 4.0, chloride 107, carbon dioxide 31, BUN 10, creatinine 0.52, random glucose 92. LFTs unremarkable. Venous Doppler of the legs - no evidence of deep venous thrombosis on the side. IMPRESSION AND PLAN: 1. Bilateral leg ulceration, worse in the left than the right, recurrent episode with a prior culture positive for methicillin- susceptible Staphylococcus aureus and pseudomonas and those are treated with Zosyn and Bactrim. She received one dose of ceftriaxone, will change it to Zosyn and will continue with vancomycin. ID consultation in the hospital and wound care consult while in the hospital too. Elevate the legs to decrease the edema. 2. Chronic lymphedema. She was advised to follow up with the lymphedema clinic at [place]. 3. Morbid obesity. She was again advised to lose weight and go to the obesity clinic. 4. Gastrointestinal prophylaxis with Maalox, Mylanta. 5. Deep venous thrombosis prophylaxis with subcutaneous heparin. 6. Code status - she will be a full code. In my clinical judgment, the beneficiary meets criteria as per CMS for 2-midnight stay in the hospital. SVETA
[2016-12-20 20:33] LABS: BUN/CREATININE RATIO 14.5 (10-20); CALCIUM 8.9 mg/dl (8.5-10.1); CREATININE 0.64 mg/dl (0.60-1.20); POTASSIUM 4.1 mmol/L (3.5-5.1)
[2016-12-20 20:34] LABS: PHOSPHORUS 3.1 mg/dl (2.5-4.9)
[2016-12-20] MEDS: HYDROCODONE/ACETAMOPHEN 5/325MG TAB PO PRN (20:51)
[2016-12-20] MEDS: HEPARIN SOD 5000 UNIT/0.5 ML CARP SQ SCH (21:53)
[2016-12-20 22:12] VITALS: BP 133/75; PULSE 83; TEMP 36.8; O2SAT 96; Ht 160 cm; Wt 145.4 kg
[2016-12-21 00:06] VITALS: BP 136/73; PULSE 80; TEMP 36.9; O2SAT 93
[2016-12-21] MEDS: VANCOMYCIN INJ 2,000 MG in SODIUM CHLORIDE 0.9% 500ML 500 ML IV SCH ×2 (02:35→14:41)
[2016-12-21] MEDS: PIPERACILL/TAZOBAC IV 4.5 GM in DEXTROSE 5% 100ML 100 ML IV SCH ×3 (02:35→17:52)
[2016-12-21] MEDS: HEPARIN SOD 5000 UNIT/0.5 ML CARP SQ SCH ×3 (06:27→20:47)
[2016-12-21 08:01] VITALS: BP 114/69; PULSE 83; TEMP 36.8; O2SAT 96
[2016-12-21] MEDS: LISINOPRIL 2.5 MG TAB PO SCH (08:11)
[2016-12-21] MEDS: ASPIRIN 81 MG ECTAB PO SCH (08:11)
--- NOTE | 2016-12-21 11:57 | Progress Note ---
Progress Note Date of Service Dec 21, 2016. Progress Note ID Consult Dictated #[id number] A/P: 1. b/l le wounds -continue abx, follow culture, if drainage, obtain wound culture -continue local wound care -Will follow, thank you
--- NOTE | 2016-12-21 14:20 | INFECT. DISEASE CONSULTATION ---
DATE OF CONSULTATION: 12/21/2016 REQUESTING PHYSICIAN: Dr. Bob. HISTORY OF PRESENT ILLNESS: This is a 66-year-old female who was admitted to the hospital after worsening lower extremity edema and pain. She was previously a patient at the wound care center for chronic lower extremity wounds; however, she was discharged from the wound clinic in May secondary to healing wound; however, a few months ago, she developed worsening edema and was referred by her primary care physician to the lymphedema clinic. She was following there regularly and states she was having significant results with this; however, for the past 2 weeks, she has not followed with her clinic as she was at the [facility]. She returned home on Wednesday and noticed worsening erythema and burning pain in her right lower extremity. She states she was doing dressing changes throughout this time with the help of her ; however, yesterday, she had worsening pain and unwrapped dressing and found maggots in her wound. She subsequently came to the Emergency Room for further treatment. She was placed empirically on vancomycin and Zosyn. Her white blood cell count has been normal at 9.7. She is afebrile. She does have a history of MSSA and pseudomonas growing from her wound back in March of 2016. She has not been on any antibiotics recently. She is tolerating her antibiotics. She states the pain and swelling are so much better today. She denies any nausea, vomiting, diarrhea or abdominal pain. She currently denies any fevers or chills. She denies any chest pain, cough or shortness of breath. Remaining review of systems are reviewed and are unremarkable. PAST MEDICAL HISTORY: Significant for lymphedema with chronic leg ulcerations, obesity and venous stasis ulcers. PAST SURGICAL HISTORY: Significant for carpal tunnel surgery, cholecystectomy and left hip repair. FAMILY HISTORY: Noncontributory. SOCIAL HISTORY: Negative for tobacco use, alcohol use or drug use. ALLERGIES: SHE STATES SHE IS ALLERGIC TO CIPRO AND FLAGYL, but is unable to recall her allergies. CURRENT MEDICATIONS: Include aspirin, lisinopril, vancomycin, Zosyn, subQ heparin, Percocet, Tylenol and Zofran. PHYSICAL EXAMINATION: VITAL SIGNS: She is afebrile since admission to the hospital, pulse 83, respiratory rate is 20, blood pressure is 114/69, and oxygen saturation is 96% on room air. GENERAL: She is awake, alert and oriented x3. She is in no acute distress. HEENT: Mucous membranes are moist. Extraocular muscles are intact. HEART: Regular. LUNGS: Clear bilaterally. ABDOMEN: Soft, nontender, and nondistended. EXTREMITIES: Lower extremity exam shows bilateral significant edema. Dressings are clean, dry and intact. There is some pain to palpation of the right lower extremity. LABORATORY STUDIES: CBC today reveals a white blood cell count of 9.7, hemoglobin 13.7, hematocrit 27.7 and platelets are 231. Chemistry panel reveals a sodium of 142, potassium 4.1, chloride 108, bicarbonate 26, BUN 9, creatinine 0.64, and glucose is 95. LFTs are within normal limits. A hep C antibody screen is negative. Blood cultures are pending. The wound culture has been obtained. Dopplers were done in the Emergency Room and are negative for DVT. ASSESSMENT AND PLAN: Bilateral lower extremity ulcerations. She can remain on empiric antibiotics. If there is any drainage from the wound, culture should be obtained. We will follow along with you. Thank you for this consultation.
[2016-12-21 15:40] VITALS: BP 125/70; PULSE 74; TEMP 36.6; O2SAT 94
--- NOTE | 2016-12-21 16:06 | Progress Note ---
Internal Med Progress Note Date of Service: Dec 21, 2016. Provider Documentation: SUBJECTIVE: The patient was seen and examined Clinically a lot better today Leg swelling is a little better Decreasing in sipping of fluid and no drainage OBJECTIVE: Vital Signs-as noted below Exam: General-No distress at rest Eyes-normal ENT-normal Neck-Supple Lungs-Decreased breath sound ,no crackles and or wheezing Heart-Regular Abdomen-Benign Extremities-1+ edema bilaterally,chronic lymphedema Both the legs are bandaged Neuro-AAOx3 Lab data as noted below. ASSESSMENT & PLAN: Bilateral leg ulceration, worse in the left than the right, -recurrent episode with a prior culture positive for MSSA and pseudomonas and those are treated with Zosyn and Bactrim. -She received one dose of ceftriaxone, will change it to Zosyn and continue with vancomycin. ID consultation in the hospital and wound care consult while in the hospital too. Elevate the legs to decrease the edema. Culture any Drainage Clinically better Appreciate ID input and Wound care nurse input Chronic lymphedema. She was advised to follow up with the lymphedema clinic at [place]. Not nakia going there for the last 2 weeks Advised to have regular follow up with them Morbid obesity. She was again advised to lose weight and go to the obesity clinic. Gastrointestinal prophylaxis with Maalox, Mylanta. Deep venous thrombosis prophylaxis with subcutaneous heparin. Code status - she will be a full code. Vital Signs: Date Time Temp Pulse Resp B/P (MAP) Pulse Ox O2 Delivery O2 Flow Rate FiO2 12/21/16 15:40 36.6 74 18 125/70 (88) 94 Room Air 12/21/16 08:01 36.8 83 20 114/69 (84) 96 Room Air 12/21/16 08:00 Room Air 12/21/16 00:59 Room Air 12/21/16 00:06 36.9 80 20 136/73 (94) 93 Room Air 12/20/16 22:12 36.8 83 20 133/75 96 Room Air 12/20/16 18:00 78 20 133/72 96 Room Air Lab Results: Results Past 24 Hours Test 12/20/16 20:00 Range/Units White Blood Count 9.78 4.8-10.8 K/uL Red Blood Count 4.95 4.2-5.4 M/uL Hemoglobin 13.7 12.0-16.0 g/dL Hematocrit 41.4 37-47 % Mean Corpuscular Volume 83.6 80-100 fL Mean Corpuscular Hemoglobin 27.7 25-34 pg Mean Corpuscular Hemoglobin Concent 33.1 32-36 g/dl RDW Standard Deviation 42.6 36.4-46.3 fL RDW Coefficient of Variation 13.9 11.5-14.5 % Platelet Count 231 130-400 K/uL Mean Platelet Volume 10.0 7.4-10.4 fL Sodium Level 142 136-145 mmol/L Potassium Level 4.1 3.5-5.1 mmol/L Chloride Level 108 98-107 mmol/L Carbon Dioxide Level 26 21-32 mmol/L Anion Gap 8.0 3-11 mmol/L Blood Urea Nitrogen 9 7-18 mg/dl Creatinine 0.64 0.60-1.20 mg/dl Est Creatinine Clear Calc Drug Dose 123.9 ml/min Estimated GFR () 108.5 Estimated GFR (Non- 93.6 BUN/Creatinine Ratio 14.5 10-20 Random Glucose 95 70-99 mg/dl Calcium Level 8.9 8.5-10.1 mg/dl Phosphorus Level 3.1 2.5-4.9 mg/dl Magnesium Level 2.0 1.8-2.4 mg/dl Hepatitis C Antibody Screen NEG NEG Microbiology Results 12/21/16 MRSA DNA Surveillance Screen - Final, Complete Specimen Negative for MRSA by DNA Probe
[2016-12-21] MEDS: HYDROCODONE/ACETAMOPHEN 5/325MG TAB PO PRN (20:44)
[2016-12-21] MEDS ORDERED: LACTOBACILLUS ACIDOPHILUS (FLORANEX) TAB PO ONE (22:00)
[2016-12-22 00:19] VITALS: BP 110/56; PULSE 69; TEMP 37; O2SAT 94
[2016-12-22] MEDS: PIPERACILL/TAZOBAC IV 4.5 GM in DEXTROSE 5% 100ML 100 ML IV SCH ×2 (02:19→08:10)
[2016-12-22] MEDS: VANCOMYCIN INJ 2,000 MG in SODIUM CHLORIDE 0.9% 500ML 500 ML IV SCH ×2 (02:20→14:45)
[2016-12-22] MEDS: HYDROCODONE/ACETAMOPHEN 5/325MG TAB PO PRN ×2 (06:05→21:52)
[2016-12-22] MEDS: HEPARIN SOD 5000 UNIT/0.5 ML CARP SQ SCH ×3 (06:12→21:49)
[2016-12-22 07:40] VITALS: BP 115/68; PULSE 68; TEMP 36.5; O2SAT 96
[2016-12-22] MEDS: LACTOBACILLUS ACIDOPHILUS (FLORANEX) TAB PO SCH ×3 (08:07→17:41)
[2016-12-22] MEDS: LISINOPRIL 2.5 MG TAB PO SCH (08:08)
[2016-12-22] MEDS: ASPIRIN 81 MG ECTAB PO SCH (08:08)
[2016-12-22 08:09] LABS: CREATININE 0.48 mg/dl (0.60-1.20)
[2016-12-22] MEDS ORDERED: VANCOMYCIN TROUGH SCH (14:30)
--- NOTE | 2016-12-22 14:42 | Progress Note ---
Medicine Progress Note Date & Time of Visit: Dec 22, 2016 at 14:28. Subjective Pt was seen and examined Sitting in chair comfortable with no distress Pt said her legs swelling improved She denies any fever, SOB, chest pain and palpitation Objective Last 8 Hrs Date Time Temp Pulse Resp B/P (MAP) Pulse Ox O2 Delivery O2 Flow Rate FiO2 12/22/16 08:00 Room Air 12/22/16 07:40 36.5 68 20 115/68 (84) 96 Room Air Physical Exam: General- No acute distress, obese Head- atraumatic Eyes- PERRL, EOMI ENT- oropharynx clear Neck- supple, no JVD Lungs- clear to auscultation Heart- regular rhythm; +murmur Abdomen- normal bowel sounds,nontender Extremities- +B/L edema, chronic lymphedema Neuro- alert, oriented x 3; PERRL, EOMI; no facial palsy Skin- warm & dry Laboratory Results: Last 24 Hours Test 12/22/16 07:22 Creatinine 0.48 mg/dl Est Creatinine Clear Calc Drug Dose 165.3 ml/min Estimated GFR () 119.3 Estimated GFR (Non- 102.9 Assessment & Plan Bilateral leg ulceration L>R Recurrent episode with a prior culture positive for MSSA and pseudomonas that was treated with Zosyn and Bactrim. Continue Zosyn and vancomycin. ID on board recommended to continue abx Continue daily wound care Advised pt to keep legs elevated Clinically improved Chronic lymphedema. She was advised to follow up with the lymphedema clinic at [place]. Not nakia going there for the last 2 weeks Advised to have regular follow up with them Morbid obesity. Counseling on weight loss Advised pt to follow up with the obesity clinic Gastrointestinal prophylaxis with Maalox, Mylanta. DVT px on heparin subQ Code status - full code. Consultants: Wound care ID Current Inpatient Medications: Current Inpatient Medications Medications (Trade) Dose Ordered Sig/Arielle Route Start Time Stop Time Status Last Admin Dose Admin Heparin Sodium (Porcine) (Heparin Sq 5000 Unit/0.5ml) 5,000 unit Q8H SQ 12/20/16 22:00 01/19/17 21:59 12/22/16 06:12 5,000 UNIT Acetaminophen (Tylenol Tab) 650 mg Q4H PRN PO 12/20/16 18:30 01/19/17 18:29 Ondansetron HCl (Zofran Inj) 4 mg Q6H PRN IV 12/20/16 18:30 01/19/17 18:29 Aspirin (Ecotrin Tab) 81 mg DAILY PO 12/21/16 08:00 01/20/17 08:59 12/22/16 08:08 81 MG Lisinopril (Zestril Tab) 2.5 mg QAM PO 12/21/16 08:00 01/20/17 08:59 12/22/16 08:08 2.5 MG Acetaminophen/ Hydrocodone Bitart ([place] 5/325 Tab) 1 tab Q8H PRN PO 12/20/16 19:30 01/03/17 19:29 12/22/16 06:05 1 TAB Piperacillin Sod/ Tazobactam Sod 4.5 gm/Dextrose 120 ml @ 30 mls/hr Q8H IV 12/21/16 02:00 12/31/16 01:59 12/22/16 08:10 30 MLS/HR Piperacillin Sod/ Tazobactam Sod (Consult) 1 ea UD PRN N/A 12/20/16 19:45 12/30/16 19:44 Vancomycin HCl (Consult) 1 ea UD PRN N/A 12/20/16 19:45 12/30/16 19:44 Vancomycin HCl 2000 mg/Sodium Chloride 540 ml @ 200 mls/hr Q12H IV 12/21/16 03:00 12/30/16 14:59 12/22/16 02:20 200 MLS/HR Lactobacillus Acidophilus (Floranex Tab) 4 tab TIDM PO 12/22/16 08:00 01/21/17 07:59 12/22/16 12:18 4 TAB
--- NOTE | 2016-12-22 15:00 | Progress Note ---
Subjective Date of Service: Dec 22, 2016. Subjective Pt evaluation today including: conversation w/ patient, physical exam, chart review, lab review pt seen in followup, doing better. less pain. states weeping from lle overnight , increased dressing change. blood cultures negative, afebrile overnight. wbc nml. tolerating abx but loose stool today, no abd pain, no n/v/d. all remaining ros reviewed and are negative. Problem List Medical Problems: (1) Cellulitis of left lower extremity Status: Acute (2) Chronic Liver Dis Nec Status: Chronic (3) Diverticulosis Colon (W/O Ment Of Hemorrhage) Status: Chronic (4) Hyperglycemia Status: Chronic (5) Hypertension Nos Status: Chronic (6) Lymphedema Status: Acute (7) Morbid Obesity Status: Chronic (8) Osteoarthros Nos-L/Leg Status: Chronic (9) Vitamin D Deficiency Nos Status: Chronic Objective Vital Signs Date Time Temp Pulse Resp B/P (MAP) Pulse Ox O2 Delivery O2 Flow Rate FiO2 12/22/16 08:00 Room Air 12/22/16 07:40 36.5 68 20 115/68 (84) 96 Room Air 12/22/16 00:19 37.0 69 20 110/56 (74) 94 Room Air 12/22/16 00:00 Room Air 12/21/16 20:00 Room Air 12/21/16 17:02 Room Air 12/21/16 15:40 36.6 74 18 125/70 (88) 94 Room Air Physical Exam General Appearance: WD/WN, no apparent distress Eyes: normal inspection, EOMI Neck: supple Respiratory/Chest: normal breath sounds, no respiratory distress Abdomen: soft Extremities: + inflammation, + swelling Neurologic/Psychiatric: alert, oriented x 3 Skin: normal color, warm/dry Comments: lle with erythema, dressing c/d/i. rle dressing removed. no erythema + b/l le edema Laboratory Results Item Value Date Time Blood Culture - Preliminary Resulted 12/20/16 1506 Blood NO GROWTH TO DATE. Blood Culture - Preliminary Resulted 12/20/16 1515 Blood NO GROWTH TO DATE. Last 24 Hours Test 12/22/16 07:22 12/22/16 14:47 Creatinine 0.48 mg/dl Est Creatinine Clear Calc Drug Dose 165.3 ml/min Estimated GFR () 119.3 Estimated GFR (Non- 102.9 Assessment and Plan (1) Cellulitis of left lower extremity Assessment & Plan: stop zosyn, continue vanco for now. continue local wound care. follow cultures. hopefully can change to po abx soon, planning on doxy 100mg po bid if cultures remain negative. will need continued follow up with lymphedema clinic post d/c. elevate legs.
[2016-12-22 15:39] VITALS: BP 121/57; PULSE 78; TEMP 36.7; O2SAT 100
--- NOTE | 2016-12-22 15:58 | Pharmacy Progress Note ---
Pharmacy Abx Dose Short Note Date of Service Dec 22, 2016. Assessment & Plan Assessment 66 year old female receiving vancomycin for treatment of wound infection. Day # 3 of antimicrobial therapy. Plan Vancomycin * Trough level of 15.2 mcg/mL is therapeutic * Continue dose of 2000 mg q12H * Goal trough level for 15-20 mcg/mL * Per ID plan to switch to po doxycyline if blood cultures remain negative. Pharmacy will continue to follow and will adjust dose/frequency as necessary. Thank you.
[2016-12-23 00:24] VITALS: BP 117/76; PULSE 81; TEMP 36.8; O2SAT 95
[2016-12-23] MEDS: VANCOMYCIN INJ 2,000 MG in SODIUM CHLORIDE 0.9% 500ML 500 ML IV SCH ×2 (03:17→14:23)
[2016-12-23] MEDS: HEPARIN SOD 5000 UNIT/0.5 ML CARP SQ SCH ×3 (05:47→21:37)
[2016-12-23] MEDS: LACTOBACILLUS ACIDOPHILUS (FLORANEX) TAB PO SCH ×3 (08:08→17:14)
[2016-12-23] MEDS: LISINOPRIL 2.5 MG TAB PO SCH (08:08)
[2016-12-23 08:09] VITALS: BP 117/73; PULSE 74; TEMP 36.6; O2SAT 98
[2016-12-23] MEDS: ASPIRIN 81 MG ECTAB PO SCH (08:09)
[2016-12-23] MEDS: HYDROCODONE/ACETAMOPHEN 5/325MG TAB PO PRN ×2 (08:11→21:36)
--- NOTE | 2016-12-23 14:18 | Progress Note ---
Subjective Date of Service: Dec 23, 2016. Subjective Pt evaluation today including: conversation w/ patient, physical exam, chart review, lab review pt feeling better, states overall rle improving, less pain, less burining, still with weeping but improved. no f/c. tolerating abx. deann stopped yesterday due to loose stools, she continues to deny diarrhea but states she has more frequent bowel movements. no pain. no bleeding. no cp, sob, n/v. no abd pain. All remaining ros reviewed and are negative. Problem List Medical Problems: (1) Cellulitis of left lower extremity Status: Acute (2) Chronic Liver Dis Nec Status: Chronic (3) Diverticulosis Colon (W/O Ment Of Hemorrhage) Status: Chronic (4) Hyperglycemia Status: Chronic (5) Hypertension Nos Status: Chronic (6) Lymphedema Status: Acute (7) Morbid Obesity Status: Chronic (8) Osteoarthros Nos-L/Leg Status: Chronic (9) Vitamin D Deficiency Nos Status: Chronic Objective Vital Signs Date Time Temp Pulse Resp B/P (MAP) Pulse Ox O2 Delivery O2 Flow Rate FiO2 12/23/16 08:10 Room Air 12/23/16 08:09 36.6 74 16 117/73 (88) 98 Room Air 12/23/16 00:24 36.8 81 20 117/76 (90) 95 Room Air 12/23/16 00:01 Room Air 12/22/16 20:00 Room Air 12/22/16 15:39 36.7 78 18 121/57 (78) 100 Room Air 12/22/16 15:37 Room Air Physical Exam General Appearance: WD/WN, no apparent distress Eyes: normal inspection, PERRL Neck: supple Respiratory/Chest: lungs clear, no respiratory distress Cardiovascular: regular rate, rhythm Abdomen: non tender, soft Extremities: + inflammation, + pedal edema Neurologic/Psychiatric: alert, oriented x 3 Skin: normal color, warm/dry Comments: pt rle improving erythema, warmth, tenderness. still with edema but suspect will be skilled nursing Laboratory Results Item Value Date Time Blood Culture - Preliminary Resulted 12/20/16 1506 Blood NO GROWTH TO DATE. Blood Culture - Preliminary Resulted 12/20/16 1515 Blood NO GROWTH TO DATE. Last 24 Hours Test 12/22/16 14:47 Vancomycin Level Trough 15.2 mcg/ml Assessment and Plan (1) Cellulitis of left lower extremity Assessment & Plan: stopped zosyn yesterday, monitor stool, follow. , continue vanco for now. continue local wound care. follow cultures. hopefully can change to po abx soon, planning on doxy 100mg po bid if cultures remain negative. will need continued follow up with lymphedema clinic post d/c. elevate legs.
[2016-12-23 15:45] VITALS: BP 165/84; PULSE 70; TEMP 36.4; O2SAT 90
--- NOTE | 2016-12-23 19:48 | Progress Note ---
Medicine Progress Note Date & Time of Visit: Dec 23, 2016 at 19:42. Subjective Pt was seen and examined Sitting in chair with no distress Pt said that the swelling improved she said that she is having diarrhea Denies any chest pain, palpitation, dizziness and SOB Objective Last 8 Hrs Date Time Temp Pulse Resp B/P (MAP) Pulse Ox O2 Delivery O2 Flow Rate FiO2 12/23/16 15:45 Room Air 12/23/16 15:45 36.4 70 18 165/84 (111) 90 Room Air Physical Exam: General- No acute distress, obese Head- atraumatic Eyes- PERRL, EOMI ENT- oropharynx clear Neck- supple, no JVD Lungs- clear to auscultation Heart- regular rhythm; +murmur Abdomen- normal bowel sounds,nontender Extremities- +B/L edema, chronic lymphedema Neuro- alert, oriented x 3; PERRL, EOMI; no facial palsy Skin- warm & dry Assessment & Plan Bilateral leg ulceration L>R Recurrent episode with a prior culture positive for MSSA and pseudomonas that was treated with Zosyn and Bactrim. Continue Zosyn and vancomycin. ID on board recommended to continue abx Continue daily wound care Advised pt to keep legs elevated Clinically improved 12/23 Zosyn d/c yesterday blood cx no growth Continue Vanco as per ID If cx remains negative, will change abx to doxycycline as per ID continue monitor cbc Diarrhea possible related to abx if diarrhea worsening, will check stool for Cdiff Chronic lymphedema. She was advised to follow up with the lymphedema clinic at [place]. Not nakia going there for the last 2 weeks Advised to have regular follow up with lymphedema clinic once discharge Morbid obesity. Counseling on weight loss Advised pt to follow up with the obesity clinic Gastrointestinal prophylaxis with Maalox, Mylanta. DVT px on heparin subQ Code status - full code. Consultants: Wound care ID Current Inpatient Medications: Current Inpatient Medications Medications (Trade) Dose Ordered Sig/Arielle Route Start Time Stop Time Status Last Admin Dose Admin Heparin Sodium (Porcine) (Heparin Sq 5000 Unit/0.5ml) 5,000 unit Q8H SQ 12/20/16 22:00 01/19/17 21:59 12/23/16 14:25 5,000 UNIT Acetaminophen (Tylenol Tab) 650 mg Q4H PRN PO 12/20/16 18:30 01/19/17 18:29 Ondansetron HCl (Zofran Inj) 4 mg Q6H PRN IV 12/20/16 18:30 01/19/17 18:29 Aspirin (Ecotrin Tab) 81 mg DAILY PO 12/21/16 08:00 01/20/17 08:59 12/23/16 08:09 81 MG Lisinopril (Zestril Tab) 2.5 mg QAM PO 12/21/16 08:00 01/20/17 08:59 12/23/16 08:08 2.5 MG Acetaminophen/ Hydrocodone Bitart ([place] 5/325 Tab) 1 tab Q8H PRN PO 12/20/16 19:30 01/03/17 19:29 12/23/16 08:11 1 TAB Vancomycin HCl (Consult) 1 ea UD PRN N/A 12/20/16 19:45 12/30/16 19:44 Vancomycin HCl 2000 mg/Sodium Chloride 540 ml @ 200 mls/hr Q12H IV 12/21/16 03:00 12/30/16 14:59 12/23/16 14:23 200 MLS/HR Lactobacillus Acidophilus (Floranex Tab) 4 tab TIDM PO 12/22/16 08:00 01/21/17 07:59 12/23/16 17:14 4 TAB
[2016-12-23 23:07] VITALS: BP 147/76; PULSE 74; TEMP 36.6; O2SAT 97
[2016-12-24] MEDS: VANCOMYCIN INJ 2,000 MG in SODIUM CHLORIDE 0.9% 500ML 500 ML IV SCH ×2 (03:15→14:48)
[2016-12-24] MEDS: HEPARIN SOD 5000 UNIT/0.5 ML CARP SQ SCH ×3 (06:22→21:42)
[2016-12-24 07:49] VITALS: BP 120/72; PULSE 75; TEMP 36.6; O2SAT 97
[2016-12-24] MEDS: LACTOBACILLUS ACIDOPHILUS (FLORANEX) TAB PO SCH ×3 (07:55→17:20)
[2016-12-24] MEDS: ASPIRIN 81 MG ECTAB PO SCH (07:55)
[2016-12-24] MEDS: LISINOPRIL 2.5 MG TAB PO SCH (07:56)
[2016-12-24] MEDS: HYDROCODONE/ACETAMOPHEN 5/325MG TAB PO PRN ×2 (10:16→21:41)
--- NOTE | 2016-12-24 13:34 | Progress Note ---
Subjective Date of Service: Dec 24, 2016. Subjective Pt evaluation today including: conversation w/ patient, physical exam, chart review, lab review Pt seen in followup, diarrhea improving, almost resolved. tolerating IV abx. less pain overall in legs but still with weeping from rle. no f/c. blood cultures remain negative. she is asking to go home, feeling much better. has plans to follow at edema clinic post d/c.No new labs. all remaining ros reviewed and are negative. Problem List Medical Problems: (1) Cellulitis of left lower extremity Status: Acute (2) Chronic Liver Dis Nec Status: Chronic (3) Diverticulosis Colon (W/O Ment Of Hemorrhage) Status: Chronic (4) Hyperglycemia Status: Chronic (5) Hypertension Nos Status: Chronic (6) Lymphedema Status: Acute (7) Morbid Obesity Status: Chronic (8) Osteoarthros Nos-L/Leg Status: Chronic (9) Vitamin D Deficiency Nos Status: Chronic Objective Vital Signs Date Time Temp Pulse Resp B/P (MAP) Pulse Ox O2 Delivery O2 Flow Rate FiO2 12/24/16 08:00 Room Air 12/24/16 07:49 36.6 75 20 120/72 (88) 97 Room Air 12/24/16 00:42 Room Air 12/23/16 23:07 36.6 74 20 147/76 (99) 97 Room Air 12/23/16 15:45 Room Air 12/23/16 15:45 36.4 70 18 165/84 (111) 90 Room Air Physical Exam General Appearance: WD/WN, no apparent distress Eyes: normal inspection, EOMI Neck: supple Respiratory/Chest: lungs clear, normal breath sounds, no respiratory distress Cardiovascular: regular rate, rhythm Abdomen: non tender, soft Extremities: + pedal edema, + swelling, + pertinent finding (dressing b/l le c/ d/i. less erythema rle, no warmth, no tenderness) Neurologic/Psychiatric: alert, oriented x 3 Skin: normal color, warm/dry Laboratory Results Item Value Date Time Blood Culture - Preliminary Resulted 12/20/16 1506 Blood NO GROWTH TO DATE. Blood Culture - Preliminary Resulted 12/20/16 1515 Blood NO GROWTH TO DATE. Assessment and Plan (1) Cellulitis of left lower extremity Assessment & Plan: diarrhea resolved, feeling better, blood cultures negative, ok from ID standpoint to d/c on po doxy x 14 days with plans to follow at edema clinic.
[2016-12-24] MEDS ORDERED: VANCOMYCIN TROUGH SCH (14:30)
[2016-12-24 15:09] VITALS: BP 147/72; PULSE 70; TEMP 36.9; O2SAT 97
--- NOTE | 2016-12-24 19:06 | Progress Note ---
Medicine Progress Note Date & Time of Visit: Dec 24, 2016 at 19:02. Subjective Pt was seen and examined Sitting in chair with no distress Pt said that her legs was sipping a lot last night she said that her diarrhea improved denies any chest pain, palpitation, dizziness and sob Objective Last 8 Hrs Date Time Temp Pulse Resp B/P (MAP) Pulse Ox O2 Delivery O2 Flow Rate FiO2 12/24/16 15:45 Room Air 12/24/16 15:09 36.9 70 18 147/72 (97) 97 Room Air Physical Exam: General- No acute distress, obese Head- atraumatic Eyes- PERRL, EOMI ENT- oropharynx clear Neck- supple, no JVD Lungs- clear to auscultation Heart- regular rhythm; +murmur Abdomen- normal bowel sounds,nontender Extremities- +B/L edema, chronic lymphedema Neuro- alert, oriented x 3; PERRL, EOMI; no facial palsy Skin- warm & dry Laboratory Results: Last 24 Hours Test 12/24/16 14:42 Vancomycin Level Trough 19.2 mcg/ml Assessment & Plan Bilateral leg ulceration L>R Recurrent episode with a prior culture positive for MSSA and pseudomonas that was treated with Zosyn and Bactrim. Continue Zosyn and vancomycin. ID on board recommended to continue abx Continue daily wound care Advised pt to keep legs elevated Clinically improved 12/24 Zosyn d/c on 12/22 blood cx no growth Continue Vanco as per ID OK from ID to discharge on doxycycline 100mg BID for 14 days as per ID Will need to follow with the lymphedema clinic Diarrhea possible related to abx if diarrhea worsening, will check stool for Cdiff improved Chronic lymphedema. She was advised to follow up with the lymphedema clinic at [place]. Not nakia going there for the last 2 weeks Advised to have regular follow up with lymphedema clinic once discharge Morbid obesity. Counseling on weight loss Advised pt to follow up with the obesity clinic Gastrointestinal prophylaxis with Maalox, Mylanta. DVT px on heparin subQ Code status - full code. Disposition Will discharge home tomorrow Consultants: Wound care ID Current Inpatient Medications: Current Inpatient Medications Medications (Trade) Dose Ordered Sig/Arielle Route Start Time Stop Time Status Last Admin Dose Admin Heparin Sodium (Porcine) (Heparin Sq 5000 Unit/0.5ml) 5,000 unit Q8H SQ 12/20/16 22:00 01/19/17 21:59 12/24/16 14:48 5,000 UNIT Acetaminophen (Tylenol Tab) 650 mg Q4H PRN PO 12/20/16 18:30 01/19/17 18:29 Ondansetron HCl (Zofran Inj) 4 mg Q6H PRN IV 12/20/16 18:30 01/19/17 18:29 Aspirin (Ecotrin Tab) 81 mg DAILY PO 12/21/16 08:00 01/20/17 08:59 12/24/16 07:55 81 MG Lisinopril (Zestril Tab) 2.5 mg QAM PO 12/21/16 08:00 01/20/17 08:59 12/24/16 07:56 2.5 MG Acetaminophen/ Hydrocodone Bitart ([place] 5/325 Tab) 1 tab Q8H PRN PO 12/20/16 19:30 01/03/17 19:29 12/24/16 10:16 1 TAB Lactobacillus Acidophilus (Floranex Tab) 4 tab TIDM PO 12/22/16 08:00 01/21/17 07:59 12/24/16 17:20 4 TAB Doxycycline Hyclate (Vibramycin Cap) 100 mg BID PO 12/24/16 20:00 01/07/17 19:59
[2016-12-24] MEDS: DOXYCYCLINE HYCLATE 100 MG CAP PO SCH (20:17)
[2016-12-24 23:49] VITALS: BP 120/70; PULSE 76; TEMP 36.8; O2SAT 95
[2016-12-25] MEDS: HEPARIN SOD 5000 UNIT/0.5 ML CARP SQ SCH ×2 (06:45→14:19)
[2016-12-25 07:22] VITALS: BP 169/76; PULSE 70; TEMP 36.5; O2SAT 97
[2016-12-25] MEDS: ASPIRIN 81 MG ECTAB PO SCH (08:17)
[2016-12-25] MEDS: LACTOBACILLUS ACIDOPHILUS (FLORANEX) TAB PO SCH ×2 (08:17→12:21)
[2016-12-25] MEDS: LISINOPRIL 2.5 MG TAB PO SCH (08:18)
[2016-12-25] MEDS: DOXYCYCLINE HYCLATE 100 MG CAP PO SCH (08:18)
[2016-12-25] MEDS: HYDROCODONE/ACETAMOPHEN 5/325MG TAB PO PRN (12:23)
[2016-12-25 14:20] VITALS: BP 169/76; PULSE 70; TEMP 36.5; O2SAT 97
--- NOTE | 2016-12-25 14:39 | Progress Note ---
Medicine Progress Note Date & Time of Visit: Dec 25, 2016 at 14:36. Subjective Pt was seen and examined Sitting in chair comfortable with no distress Pt said that she feels fine she said she does not have any diarrhea she said that her legs improved she denies any chest pain, palpitation, dizziness and sob Objective Last 8 Hrs Date Time Temp Pulse Resp B/P (MAP) Pulse Ox O2 Delivery O2 Flow Rate FiO2 12/25/16 14:20 36.5 70 20 97 Room Air 12/25/16 08:20 Room Air 12/25/16 07:22 36.5 70 20 169/76 (107) 97 Room Air Physical Exam: General- No acute distress, obese Head- atraumatic Eyes- PERRL, EOMI ENT- oropharynx clear Neck- supple, no JVD Lungs- clear to auscultation Heart- regular rhythm; +murmur Abdomen- normal bowel sounds,nontender Extremities- +B/L edema, chronic lymphedema Neuro- alert, oriented x 3; PERRL, EOMI; no facial palsy Skin- warm & dry Laboratory Results: Last 24 Hours Test 12/24/16 14:42 Vancomycin Level Trough 19.2 mcg/ml Assessment & Plan Bilateral leg ulceration L>R Recurrent episode with a prior culture positive for MSSA and pseudomonas that was treated with Zosyn and Bactrim. Continue Zosyn and vancomycin. ID on board recommended to continue abx Continue daily wound care Advised pt to keep legs elevated Clinically improved 12/25 Zosyn d/c on 12/22 blood cx no growth Continue Vanco as per ID OK from ID to discharge on doxycycline 100mg BID for 14 days as per ID follow with the lymphedema clinic Diarrhea possible related to abx if diarrhea worsening, will check stool for Cdiff Resolved Chronic lymphedema. She was advised to follow up with the lymphedema clinic at [place]. Not nakia going there for the last 2 weeks Advised to have regular follow up with lymphedema clinic once discharge Morbid obesity. Counseling on weight loss Advised pt to follow up with the obesity clinic Gastrointestinal prophylaxis with Maalox, Mylanta. DVT px on heparin subQ Code status - full code. Disposition Will discharge home today Consultants: Wound care ID Current Inpatient Medications: Current Inpatient Medications Medications (Trade) Dose Ordered Sig/Arielle Route Start Time Stop Time Status Last Admin Dose Admin Heparin Sodium (Porcine) (Heparin Sq 5000 Unit/0.5ml) 5,000 unit Q8H SQ 12/20/16 22:00 01/19/17 21:59 12/25/16 14:19 5,000 UNIT Acetaminophen (Tylenol Tab) 650 mg Q4H PRN PO 12/20/16 18:30 01/19/17 18:29 Ondansetron HCl (Zofran Inj) 4 mg Q6H PRN IV 12/20/16 18:30 01/19/17 18:29 Aspirin (Ecotrin Tab) 81 mg DAILY PO 12/21/16 08:00 01/20/17 08:59 12/25/16 08:17 81 MG Lisinopril (Zestril Tab) 2.5 mg QAM PO 12/21/16 08:00 01/20/17 08:59 12/25/16 08:18 2.5 MG Acetaminophen/ Hydrocodone Bitart ([place] 5/325 Tab) 1 tab Q8H PRN PO 12/20/16 19:30 01/03/17 19:29 12/25/16 12:23 1 TAB Lactobacillus Acidophilus (Floranex Tab) 4 tab TIDM PO 12/22/16 08:00 01/21/17 07:59 12/25/16 12:21 4 TAB Doxycycline Hyclate (Vibramycin Cap) 100 mg BID PO 12/24/16 20:00 01/07/17 19:59 12/25/16 08:18 100 MG
[2016-12-25] MEDS ORDERED: DXY100 PO (14:44)
--- NOTE | 2016-12-25 15:08 | Discharge Instructions ---
Discharge Instructions Date of Service Dec 25, 2016. Admission Reason for Admission: Bilateral Lower Leg Cellulitis Discharge Discharge Diagnosis / Problem: Bilateral leg ulceration L>R , Chronic lymphedema, Diarrhea Discharge Goals Goal(s): Decrease discomfort, Improve function, Improve disease control Activity Recommendations Activity Limitations: resume your previous activity (as tolerated) . Instructions / Follow-Up Instructions / Follow-Up Follow up with your primary care provider Dr. Mg on 12/31/16 @ 4:45 PM Follow up with the lymphedema clinic Follow up appointment with Infectious disease Complete the course of doxycycline Daily wound care Keep legs elevate Current Hospital Diet Patient's current hospital diet: Regular Diet Discharge Diet Recommended Diet: Regular Diet Pending Studies Studies pending at discharge: no Medical Emergencies . Who to Call and When: Medical Emergencies: If at any time you feel your situation is an emergency, please call 911 immediately. . Non-Emergent Contact Non-Emergency issues call your: Primary Care Provider Call Non-Emergent contact if: you have a fever, you have any medication questions . . "Provider Documentation" section prepared by Sridhar Suero. . VTE Core Measure Inpt VTE Proph given/why not?: Unfractionated heparin SQ
--- NOTE | 2016-12-27 16:19 | Discharge Summary ---
Discharge Summary Date of Service Dec 27, 2016. Discharge Summary Admission Date: Dec 20, 2016 at 18:23 Discharge Date: Dec 25, 2016 Discharge Disposition: Home Principal Diagnosis: Bilateral leg ulceration L>R with hx Chronic lymphedema Secondary Diagnoses/Problems: Chronic lymphedema Diarrhea Morbid obesity Procedures: BILATERAL LOWER EXTREMITY VENOUS DOPPLER HISTORY: Acute lower leg swelling, redness, L>R COMPARISON STUDY: None. FINDINGS: There is normal compressibility, flow, and augmentation within the bilateral lower extremity deep venous systems. Bilateral calf veins are not diagnostically visualized secondary to edema and body habitus. IMPRESSION: No DVT within the right or left lower extremity. Bilateral calf veins are not diagnostically visualized secondary to edema and body habitus. Electronically signed by: Jacques Yanes M.D. 12/20/2016 5:41 PM Dictated Date/Time: 12/20/2016 5:40 PM Consultations: Wound care ID Medication Reconciliation New Medications: Doxycycline Hyclate (Doxycycline Hyclate) 100 Mg Cap 100 MG PO BID for 13 Days, CAP Continued Medications: Acetaminophen (Tylenol) 500 Mg Tab 500 MG PO Q8 PRN for Pain for 3 Days, #10 TAB Aspirin (Aspirin Ec) 81 Mg Tab 81 MG PO DAILY Furosemide (Lasix) 20 Mg Tab 20 MG PO 3XWK, TAB PT TAKES 3X A WEEK FOR LEG EDEMA Hydrocodone/Acetaminophen 5MG/325MG ([place] 5MG/325MG) Unknown Strength Tab 1 TAB PO Q8H PRN for Pain, TAB PRN PAIN Lisinopril (Zestril) 2.5 Mg Tab 2.5 MG PO QAM Admission Information HPI (per Admitting provider): CHIEF COMPLAINT: Increasing swelling and worsening wound with redness involving both the lower legs. HISTORY OF PRESENT COMPLAINT: She is a 66-year-old female with significant past medical history including chronic venous stasis both the legs with lymphedema and chronic leg ulcers both sides with ongoing care at the wound care center, morbid obesity and lymphedema of both the legs, apparently has been going to the lymphedema clinic at [place] for chronic lymphedema of the legs. She was doing better with that, but for the last 2 weeks she has not been going there and since that time her leg wounds seems to be worsening. Her cleaned the wounds and dresses every day, as per their instructions. She has not been taking any antibiotics recently. The wound was noted to be very bad today with increasing swelling, redness, seeping and according to the patient when they took off the socks on both sides. She also did have some fever associated with it and increasing pain in both lower legs. In the Emergency Room, she was hemodynamically stable. She was noted to have bilateral leg ulceration with seeping and drainage of little yellow discharge, especially on the right side and ultrasound of the legs did not show any evidence of DVT. She was afebrile and her white count was not elevated. Blood cultures were taken, wound culture will be sent and she was started with intravenous vancomycin and ceftriaxone and asked for admission. She has had ongoing wound infection both the legs and previously the wound culture grew pseudomonas and MSSA, and she has been on Zosyn and Bactrim for the wound infection on multiple times. Physical Exam (per Admitting): PHYSICAL EXAMINATION: GENERAL: On examination in the Emergency Room, she was not having any acute distress. VITAL SIGNS: Temperature 37.2, pulse of 78, blood pressure 133/72, saturation was 96% on room air. HEENT: Unremarkable. NECK: Supple. No JVD, no bruit. CHEST: Clear to auscultation bilaterally. HEART: S1, S2 regular. ABDOMEN: Soft and nontender, distended, difficult to feel for any organs. Bowel sounds present. EXTREMITIES: She has bilateral leg edema with chronic skin changes on both sides. She has ulceration involving the lower lateral part of leg on the left side with seeping of fluid and also at the back with a smaller lesion and on the right side she has a quarter-sized lesion on the anteromedial botello area and that has been oozing and seeping and there is some yellowish discharge as well. MUSCULOSKELETAL: No acute arthritis in any joint CENTRAL NERVOUS SYSTEM: She was alert, awake, oriented x3. Hospital Course Bilateral leg ulceration L>R Recurrent episode with a prior culture positive for MSSA and pseudomonas that was treated with Zosyn and Bactrim. Continue Zosyn and vancomycin. ID on board recommended to continue abx Continue daily wound care Advised pt to keep legs elevated Clinically improved 12/25 Zosyn d/c on 12/22 blood cx no growth Continue Vanco as per ID OK from ID to discharge on doxycycline 100mg BID for 14 days as per ID follow with the lymphedema clinic Diarrhea possible related to abx if diarrhea worsening, will check stool for Cdiff Resolved Chronic lymphedema. She was advised to follow up with the lymphedema clinic at [place]. Not nakia going there for the last 2 weeks Advised to have regular follow up with lymphedema clinic once discharge Morbid obesity. Counseling on weight loss Advised pt to follow up with the obesity clinic Gastrointestinal prophylaxis with Maalox, Mylanta. DVT px on heparin subQ Code status - full code. Disposition Will discharge home today Total time spent on discharge = 35 minutes This includes examination of the patient, discharge planning, medication reconciliation, and communication with other providers. Discharge Instructions Discharge Instructions Date of Service Dec 25, 2016. Admission Reason for Admission: Bilateral Lower Leg Cellulitis Discharge Discharge Diagnosis / Problem: Bilateral leg ulceration L>R , Chronic lymphedema, Diarrhea Discharge Goals Goal(s): Decrease discomfort, Improve function, Improve disease control Activity Recommendations Activity Limitations: resume your previous activity (as tolerated) . Instructions / Follow-Up Instructions / Follow-Up Follow up with your primary care provider Dr. Mg on 12/31/16 @ 4:45 PM Follow up with the lymphedema clinic Follow up appointment with Infectious disease Complete the course of doxycycline Daily wound care Keep legs elevate Current Hospital Diet Patient's current hospital diet: Regular Diet Discharge Diet Recommended Diet: Regular Diet Pending Studies Studies pending at discharge: no Medical Emergencies . Who to Call and When: Medical Emergencies: If at any time you feel your situation is an emergency, please call 911 immediately. . Non-Emergent Contact Non-Emergency issues call your: Primary Care Provider Call Non-Emergent contact if: you have a fever, you have any medication questions . . "Provider Documentation" section prepared by Sridhar Suero. . VTE Core Measure Inpt VTE Proph given/why not?: Unfractionated heparin SQ Additional Copies To Dalila Mg D.O.
[2017-01-08] MEDS ORDERED: SULF800T23 PO (14:04)
[2017-01-21] MEDS ORDERED: SULF800T23 PO (15:08)
== END 2016-12-25 15:45 | disposition home or self-care (01) | DRG 603 ==
LOC: C.EDB 14:05 → C.4E 18:23 → ENRESERV 18:53
PROVIDERS: ADMIT Internal Medicine; ATTEND Internal Medicine
DX: L03.116 Cellulitis of left lower limb (principal); Z68.43 Body mass index [BMI] 50.0-59.9, adult; I10 Essential (primary) hypertension; R19.7 Diarrhea, unspecified; E66.01 Morbid (severe) obesity due to excess calories; I89.0 Lymphedema, not elsewhere classified; Z90.49 Acquired absence of other specified parts of digestive tract; Z79.82 Long term (current) use of aspirin

== ENCOUNTER → 2017-04-27 | Outpatient (CLI) | payer OTHER ==
[~2017-04-27] MED LIST changes: +HYDR-5688 PO; -MELO7.5T5 PO
== END | disposition home or self-care (01) ==
LOC: C.LABSPEC 13:30
PROVIDERS: ATTEND Physician Assistant
DX: T81.9XXA Unspecified complication of procedure, initial encounter (principal); X58.XXXA Exposure to other specified factors, initial encounter

== ENCOUNTER 2019-05-26 17:57 | Inpatient (IN) ==
--- OUTSIDE RECORDS SUMMARY | 2019-05-26 17:59 | External Medical Summary | Continuity of Care Document ---
:1950 Author Name Michael Lama, Provider Address Unavailable Unavailable , Care Team Providers Name Role Phone Aurora Dong DO Unavailable [email or web address] Vascular, Studies SC1 Unavailable Angie Lama, [email or web address] Malaika SYED Unavailable Unavailable Unavailable Unavailable Unavailable Problems History of Closed Fracture Of The Left Acetabulum (808.0) Status: Resolved A Fall Due To Slipping, Tripping, Or Stumbling (E885.9) Fracture Of The Nasal Bones (802.0) Fever (780.60) (R50.9) Diarrhea (787.91) (R19.7) Abdominal pain (789.00) (R10.9) Diverticulitis of colon (562.11) (K57.32) Hypertension (401.9) (I10) Intertrigo (695.89) (L30.4) Urinary tract infection (599.0) (N39.0) Open wound of face (873.40) (S01.80XA) Encounter for routine gynecological examination (V72.31) (Z0 1.419) Morbid obesity (278.01) (E66.01) Vitamin D deficiency (268.9) (E55.9) Nonspecific abnormal finding (796.9) (R68.89) Gait disturbance (781.2) (R26.9) Osteoarthritis of knee (715.36) (M17.10) Solitary pulmonary nodule (793.11) (R91.1) Infected ulcer of skin (707.9) (L98.499) MSSA (methicillin susceptible Staphyloco ccus aureus) infection (041.11) (A49.01) Pseudomonas infection (041.7) (A49.8) Colitis (558.9) (K52.9) Allergies and Adverse Reactions Cipro TABS (Allergy) Flagyl CAPS (Allergy) Medications Aleve 220 MG Oral Capsule; 1-2 tablets daily as needed Refills: 0 Aspirin 81 MG TABS; TAKE 1 TABLET DAILY. Start: 11-Apr-2013 Refills: 0 Roxicodone 5 MG Oral Tablet; TAKE 1 TO 2 TABLETS EVERY 4 TO 6 HOURS NEEDED FOR PAIN. Start: 16-Nov-2013 Refills: 0 Augmentin 875-125 MG TABS; TAKE 1 TABLET TWICE DAILY AFTER M EALS Start: 16-Nov-2013 Refills: 0 levoFLOXacin 500 MG Oral Tablet; TAKE 1 TABLET DAILY A S DIRECTED. DO Aurora Dong Start: 23-Apr-2016 Quantity: 21 Refills: 0 Sulfamethoxazole-Trimethoprim 800-160 MG Oral Tablet; TAKE ONE TABLET BY MOUTH 2 TIMES A DAY Kelby Adams Start: 19-May-2016 Quantity: 30 Refills: 0 Procedures History of Gallbladder Surgery Status: C ompleted History of Cholecystectomy Status: Compl eted History of Complete Colonoscopy Status: Completed History of Open Treatment Of Fracture Of Proximal Femoral Ne ck Status: Completed Immunizations Td On: 16-Mar-1996 Influenza On: 30-Mar-2012 10:28 Lot #: [id number], [employer] Influenza On: Mar-2013 Social History - Smoking Status Unknown if ever smoked Never smoker Plan of Treatment Planned Observations Planned Goals not documented Results No Known Results Results not documented Encounters Appointment; Vascular, Studies MO1 21-Jan-2017 14:00 Encounter Diagnosis: Problem not documented
--- OUTSIDE RECORDS SUMMARY | 2019-05-26 17:59 | External Medical Summary | Continuity of Care Document ---
:1950 Author Name Michael Lama, Provider Address Unavailable Unavailable , Care Team Providers Name Role Phone Aurora Dong DO Unavailable [email or web address] Vascular, Studies SC1 Unavailable Angie Lama, Florencio Torres Unavailable [email or web address] Malaika SYED Unavailable Unavailable Unavailable Unavailable Unavailable Problems A Fall Due To Slipping, Tripping, Or Stumbling (E885.9) Fever (780.60) (R50.9) Diarrhea (787.91) (R19.7) Abdominal pain (789.00) (R10.9) Osteoarthritis of knee (715.36) (M17.10) Colitis (558.9) (K52.9) Pseudomonas infection (041.7) (A49.8) MSSA (methicillin susceptible Staphyloco ccus aureus) infection (041.11) (A49.01) Solitary pulmonary nodule (793.11) (R91.1) Nonspecific abnormal finding (796.9) (R68.89) Encounter for routine gynecological examination (V72.31) (Z0 1.419) Diverticulitis of colon (562.11) (K57.32) Gait disturbance (781.2) (R26.9) Intertrigo (695.89) (L30.4) Hypertension (401.9) (I10) Vitamin D deficiency (268.9) (E55.9) Morbid obesity (278.01) (E66.01) Urinary tract infection (599.0) (N39.0) Open wound of face (873.40) (S01.80XA) Infected ulcer of skin (707.9) (L98.499) Fracture Of The Nasal Bones (802.0) History of Closed Fracture Of The Left Acetabulum (808.0) Status: Resolved Allergies and Adverse Reactions Cipro TABS (Allergy) Flagyl CAPS (Allergy) Medications Aspirin 81 MG TABS; TAKE 1 TABLET [...] Adams Start: 19-May-2016 Quantity: 30 Refills: 0 Aleve 220 MG Oral Capsule; 1-2 tablets daily as needed Refills: 0 Procedures History of Gallbladder Surgery Status: C ompleted History of Cholecystectomy Status: Compl eted History of Complete Colonoscopy Status: Completed History of Open Treatment Of Fracture Of Proximal Femoral Ne ck Status: Completed Immunizations Td On: 16-Mar-1996 Influenza On: 30-Mar-2012 10:28 Lot #: [id number], [employer] Influenza On: Mar-2013 Social History - Smoking Status Unknown if ever smoked Never smoker Plan of Treatment Planned Observations Planned Goals not documented Results No Known Results Results not documented Encounters Appointment; Vascular, Studies PR1 21-Jan-2017 14:00 Encounter Diagnosis: Problem not documented
[2019-05-26] MEDS ORDERED: ACETAMINOPHEN 500 MG TAB PO STA (18:33)
[2019-05-26] MEDS ORDERED: SODIUM CHLORIDE 0.9% 1000ML 500 ML IV ONE (18:34)
[2019-05-26] MEDS ORDERED: SODIUM CHLORIDE 0.9% 1000ML 1,000 ML IV STA (18:34)
[2019-05-26] MEDS ORDERED: ALBUT/IPRATROP 3MG/0.5MG NEB 3 ML VIAL NEB STA (18:37)
[2019-05-26 19:12] LABS: Basophils # (auto) 0.01 K/uL (0-0.2); Basophils % (auto) 0.1 %; Eosinophils # (auto) 0.01 K/uL (0-0.5); Eosinophils % (auto) 0.1 %; Hematocrit (blood only) 43.7 % (37-47); Hemoglobin 13.9 g/dL (12.0-16.0); Immature Granulocytes # (auto) 0.03 K/uL (0.00-0.02); Immature Granulocytes % (auto) 0.3 %; Lymphocytes # (auto) 0.39 K/uL (1.2-3.4); Lymphocytes % (auto) 4.1 %; Mean Corpuscular Hgb Conc 31.8 g/dL (32-36); Mean Corpuscular Volume 87.9 fL (80-100); Mean Platelet Volume 9.8 fL (7.4-10.4); Monocytes # (auto) 0.08 K/uL (0.11-0.59); Monocytes % (auto) 0.8 %; Neutrophils # (auto) 8.99 K/uL (1.4-6.5); Neutrophils % (auto) 94.6 %; Platelet Count 224 K/uL (130-400); RDW Coefficient of Variation 13.9 % (11.5-14.5); RDW Standard Deviation 45.1 fL (36.4-46.3); Red Blood Count 4.97 M/uL (4.2-5.4); White Blood Count 9.51 K/uL (4.8-10.8)
--- NOTE | 2019-05-26 19:20 | XRay Report ---
XR chest 1V portable HISTORY: 69 years-old Female SEPSIS acute sepsis COMPARISON: Chest radiograph 11/10/2013 TECHNIQUE: Portable AP view of the chest FINDINGS: Cardiac silhouette is enlarged, unchanged. Pulmonary vascular congestion. No pneumothorax, or pleural effusion. Mild ill-defined bibasilar densities. Degenerative changes of the shoulders and spine. IMPRESSION: 1. Cardiomegaly with pulmonary vascular congestion. 2. Ill-defined bibasilar densities are likely secondary to summation density with atelectasis. Pneumo nitis considered less likely. Findings could be correlated with PA and lateral views of the chest is of further clinical concern. ACT 112: Negative or not required by law. The above report was generated using voice recognition software. It may contain grammatical, syntax o r spelling errors. Electronically signed by: Jacques Yanes M.D. 05/26/2019 7:19 PM
[2019-05-26 19:24] LABS: Partial Thromboplastin Ratio 0.8; Partial Thromboplastin Time 21.1 Seconds (21.0-31.0); Prothrombin Time 10.7 Seconds (9.0-12.0)
[2019-05-26 19:29] LABS: BUN Creatinine Ratio 18.1 (10-20); Creatinine Clr Calc Pharmacy 99.9 ml/min; Est GFR (African American) 90.5; Est GFR (Non-African American) 78.1; Magnesium 1.8 mg/dl (1.8-2.4); Potassium 3.9 mmol/L (3.5-5.1)
[2019-05-26 19:42] LABS: Albumin Globulin Ratio 0.6 (0.9-2); Bilirubin,Total 0.4 mg/dl (0.2-1); Globulin 4.7 gm/dl (2.5-4.0); Total Protein 7.7 gm/dl (6.4-8.2); Troponin I 0.125 ng/ml (0-0.045)
[2019-05-26] MEDS ORDERED: PIPERACILL/TAZOBAC CONSULT ACTIVE PRN (20:02)
[2019-05-26] MEDS ORDERED: VANCOMYCIN HCL 2,750 MG in SODIUM CHLORIDE 0.9% 500 ML IV ONE (20:02)
[2019-05-26] MEDS ORDERED: PIPERACILLIN/TAZOBACTAM 4.5 GM/120 ML BAG IV ONE (20:02)
[2019-05-26] MEDS ORDERED: VANCOMYCIN CONSULT ACTIVE PRN (20:02)
[2019-05-26] MEDS ORDERED: OPTIRAY 320 125ml IV PRN (20:30)
--- NOTE | 2019-05-26 20:52 | CT Scan Report ---
CT angio chest PE protocol CT DOSE: 794.44 mGy.cm HISTORY: 69 years-old Female with PE. Acute shortness of breath TECHNIQUE: Multiple CTA images of the chest were obtained after the intravenous administration of 118 ml Optiray 320. Coronal and sagittal MIPS were obtained from the axial data set and were submitted for review. All measurements were obtained according to NASCET criteria. A dose lowering technique w as utilized adhering to the principles of ALARA. COMPARISON: Chest radiograph of same day, chest CT 07/03/2013 FINDINGS: CTA: Moderate cardiomegaly. No pericardial effusion. Moderate coronary arterial calcifications. No thoraci c aortic aneurysm or dissection. 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 Patenc y of the imaged great vessels. Mild to moderate mixed plaque of the aorta. Main pulmonary artery is d ilated, 3.9 cm. Pulmonary artery is opacified to the level of the lobar branches. The segmental and s ubsegmental branches are not well opacified secondary to contrast bolus timing. No central pulmonary emboli are identified. CT CHEST: Calcification noted within the expected location of the right thyroid lobe. No adenopathy by CT size criteria. The inferior right lung base is not imaged, outside the [id number]. There is no pneumoth orax or pleural effusion. Mild bibasilar groundglass and linear consolidative opacities are noted, le ft greater than right suggestive of atelectasis. No overt pulmonary edema, suspicious pulmonary nodul es or masses identified. 7 mm fissural nodule of the right midlung on image 108 series 4 suggests pro bable lymph node and is unchanged. Unchanged 5 mm fissural nodule of the left lung base on image 111 series 4 compatible with benign etiology. 5 mm nodular opacity of the right upper lobe, image 141 ser ies 4 is new from comparison. There are a few additional ill-defined nodular opacities of the right u pper lobe apical segment. Central airways appear patent. Hepatosplenomegaly with probable hepatic steatosis. No acute processes of the imaged upper abdomen. S oft tissues are unremarkable. Degenerative changes of the shoulders and spine. Right shoulder rotator cuff calcific tendinosis. 1.4 cm lesion lesion of the manubrium is unchanged and likely a benign hem angioma. Previously noted left adrenal gland is not imaged. IMPRESSION: 1. Suboptimal contrast opacification of the pulmonary arterial tree. No central pulmonary emboli iden tified. 2. Cardiomegaly with findings suggestive of pulmonary arterial hypertension. 3. No adenopathy or pleural effusion. 4. Left greater than right dependent bibasilar predominant opacities suggest atelectasis. Minimal nod ular consolidative opacities of the right upper lobe are suggestive of a nonspecific infectious or in flammatory pneumonitis. 5. Additional findings as above include aberrant course of the right subclavian artery.. ACT 112: Negative or not required by law. The above report was generated using voice recognition software. It may contain grammatical, syntax o r spelling errors. Electronically signed by: Jacques Yanes M.D. 05/26/2019 8:50 PM
[2019-05-26 21:34] LABS: Appearance Urine Clear (Clear); Bilirubin Urine Negative (Negative); Blood Urine 3+ (Negative); Color Urine Yellow; Glucose Urine UA Negative (Negative); Ketones Urine Negative (Negative); Leukocyte Esterase Urine 1+ (Negative); Nitrite Urine Negative (Negative); Protein Urine Trace (Negative); RBC Urine Automated >30 /hpf (0-4); Specific Gravity Urine > 1.045 (1.000-1.030); Urobilinogen Urine Negative (Negative); WBC Urine Automated >30 /hpf (0-5)
[2019-05-26] MEDS ORDERED: SODIUM CHLORIDE 0.9% 1000ML 1,000 ML IV ONE (21:35)
[2019-05-26 21:44] LABS: Bacteria Urine Automated 1+ (Negative)
[2019-05-26 21:45] LABS: Epithelial Cell Urine Auto >30 /lpf (0-5)
[2019-05-26] MEDS ORDERED: DOXYCYCLINE HYCLATE 100 MG in DEXTROSE 5% 100 ML IV STA (21:50)
[2019-05-26 22:21] LABS: Thyroid Stimulating Hormone 4.97 uIu/ml (0.300-4.500)
[2019-05-26] MEDS: MAGNESIUM SULFATE / D5W 1 GM/100 ML BAG IV SCH (22:24)
[2019-05-26 22:25] LABS: Amphetamines+Metham, Urine Neg (Neg); Barbiturates, Urine Neg (Neg); Benzodiazepine, Urine Neg (Neg); Cocaine, Urine Neg (Neg); MDMA (Ecstacy), Urine Neg (Neg); Methadone, Urine Neg (Neg); Opiate, Urine Pos (Neg); Phencyclidine, Urine Neg (Neg)
[2019-05-26 22:34] LABS: T4 Free Thyroxine 0.85 ng/dl (0.8-1.6)
[2019-05-26] MEDS ORDERED: NORMOSOL-R 1,000 ML IV ONE (22:35)
--- NOTE | 2019-05-26 22:52 | History & Physical Report ---
Date of Service May 26, 2019 Assessment & Plan (1) Severe sepsis: SIRS plus lactic acid elevation plus hypoxemia (suspect OHS given patient family account of snoring/apneic events at home, patient averse to sleep study recommendation by PCP as per family) Possible sources : atypical pneumonia LLE cellulitis, hx chronic lymphedema rule out DVT hypertension, BP on the lower side Troponin elevation secondary to illness mood disorder, at baseline Hyperglycemia, possible prediabetes, hemoglobin A1c of 5.9 in 2014 PCU Continue BiPAP for now Baseline ABG Cultures, Doxycycline Nebs, steroids given pneumonia causing hypoxemia IVF, follow lactic acid Hold home diuretics, antihypertensives until BP stable Follow troponin, TTE RE troponin elevation LLE Dopplers rule out DVT Outpatient sleep study Check hemoglobin A1c DVT prophylaxis. Lovenox subcu Full code Total critical care time was 50 minutes. History of Present Illness Retired [employer] employee Chief Complaint: Shortness of breath Primary Care Provider: Dalila Mg, DO History obtained from patient, family, and records. Medical history significant for hypertension, hyperlipidemia, mood disorder, chronic lymphedema. Recent confinement December 2016 for bilateral leg ulcerations/colitis status post antibiotic Rx. Few days ago, patient noted dry cough symptoms without chest pain and shortness of breath.. Patient somewhat confused as per . No aspiration. Subsequent worsening of symptoms along with worsening swelling of the left leg. At the ER, patient received vancomycin and and Zosyn for sepsis. BiPAP initiated for hypoxemia, respiratory distress. SBP initially 70s, currently 90s after IVF administration. Medical History as above Recent [facility] wound care center follow-up for recurrent BLE edema/stasis related ulceration last week. 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 Allergies Allergy/AdvReac Type Severity Reaction Status Date / Time Cipro AdvReac Intermediate makes Verified 12/20/16 15:25 mouth feel funny ciprofloxacin AdvReac Intermediate makes Verified 05/26/19 19:50 mouth feel funny metronidazole AdvReac Intermediate makes Verified 05/26/19 19:50 mouth feel funny Home Medications Home Medications Medication Instructions Recorded Confirmed Type acetaminophen [Tylenol Extra 500 - 1,000 mg PO DIRECTED PRN 05/26/19 05/26/19 History Strength] aspirin [Aspir-81] 81 mg PO DAILY 05/26/19 05/26/19 History furosemide [Lasix] 20 mg PO DAILY 05/26/19 05/26/19 History hydrocodone-acetaminophen [[place]] 1 tab PO Q8H PRN 05/26/19 05/26/19 History lisinopril 2.5 mg PO DAILY 05/26/19 05/26/19 History Past Med/Surg History Medical History Fall Hip fracture Surgical History History of hip surgery Social History Preferred Language: Niuean Communication Ability: Effective 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 Beliefs That Will Affect Care: None marital status: Current Living Situation: Spouse Other Information That Helps Us Care for You: No Feels Safe at Home: Yes Safety Concerns: Feels Safe At This Time Smoking Status: Never smoker Do You Dip or Chew Tobacco: No ; Second Hand Exposure: No ; Tobacco Cessation Education Requested by Patient: No Hx Alcohol Use: No Hx Substance Use: No Review of Systems Review of Systems: As per HPI, all 10 systems reviewed, all other ROS negative Physical Exam Physical Exam: GENERAL: Slightly uncomfortable, morbidly obese, minimal respiratory distress SKIN: Normal color, warm HEENT: [place] palpebral conjunctivae, no ptosis, short neck, dry buccal mucosa; BiPAP in place NECK : Supple, short neck, no tenderness CHEST : Decreased breath sounds, occasional expiratory wheezes, no tenderness HEART : Tachycardic , no obvious murmurs ABDOMEN: Some distention, nontender EXTREMITIES : Bilateral LE swelling L> R, LLE noted to be erythematous, minimal LLE tenderness, no other conspicuous deformities noted NEUROLOGIC : Coherent, no facial asymmetry, no other gross focality Results & Data Vital Signs (Past 12 Hours) Vital Signs Temp Pulse Pulse Resp BP BP Pulse Ox 05/26/19 22:45 106 H 25 H 100/53 L 97 05/26/19 22:30 107 H 26 H 89/54 L 97 05/26/19 21:57 109 H 21 93/43 L 97 05/26/19 21:30 108 H 20 76/55 L 97 05/26/19 20:59 37.5 C 116 H 24 109/73 97 05/26/19 20:39 114 H 24 97/65 L 98 05/26/19 20:03 121 H 28 H 99/53 L 100 05/26/19 19:46 124 H 28 H 99/61 L 100 05/26/19 19:31 127 H 33 H 105/52 L 98 05/26/19 19:30 127 H 30 H 100 05/26/19 19:01 132 H 38 H 107/43 L 100 05/26/19 18:43 142 H 98 05/26/19 18:32 138 H 26 H 114/72 98 05/26/19 18:30 138 H 48 H 96 05/26/19 18:17 39.2 C H 139 H 22 156/68 H 83 L Laboratory Results Laboratory Results WBC 9.51 K/uL (4.8-10.8) 05/26/19 19:00 RBC 4.97 M/uL (4.2-5.4) 05/26/19 19:00 Hgb 13.9 g/dL (12.0-16.0) 05/26/19 19:00 Hct 43.7 % (37-47) 05/26/19 19:00 MCV 87.9 fL (80-100) 05/26/19 19:00 MCH 28.0 pg (25-34) 05/26/19 19:00 MCHC 31.8 g/dL (32-36) L 05/26/19 19:00 RDW Std Deviation 45.1 fL (36.4-46.3) 05/26/19 19:00 RDW Coeff of Brittny 13.9 % (11.5-14.5) 05/26/19 19:00 Plt Count 224 K/uL (130-400) 05/26/19 19:00 MPV 9.8 fL (7.4-10.4) 05/26/19 19:00 Immature Gran % (Auto) 0.3 % 05/26/19 19:00 Neut % (Auto) 94.6 % 05/26/19 19:00 Lymph % (Auto) 4.1 % 05/26/19 19:00 [place] % (Auto) 0.8 % 05/26/19 19:00 Eos % (Auto) 0.1 % 05/26/19 19:00 Baso % (Auto) 0.1 % 05/26/19 19:00 Immature Gran # (Auto) 0.03 K/uL (0.00-0.02) H 05/26/19 19:00 Neut # (Auto) 8.99 K/uL (1.4-6.5) H 05/26/19 19:00 Lymph # (Auto) 0.39 K/uL (1.2-3.4) L 05/26/19 19:00 [place] # (Auto) 0.08 K/uL (0.11-0.59) L 05/26/19 19:00 Eos # (Auto) 0.01 K/uL (0-0.5) 05/26/19 19:00 Baso # (Auto) 0.01 K/uL (0-0.2) 05/26/19 19:00 PT 10.7 Seconds (9.0-12.0) 05/26/19 19:00 INR 1.0 (0.9-1.1) 05/26/19 19:00 APTT 21.1 Seconds (21.0-31.0) 05/26/19 19:00 PTT Ratio 0.8 05/26/19 19:00 Sodium 139 mmol/L (136-145) 05/26/19 19:00 Potassium 3.9 mmol/L (3.5-5.1) 05/26/19 19:00 Chloride 105 mmol/L (98-107) 05/26/19 19:00 Carbon Dioxide 28 mmol/L (21-32) 05/26/19 19:00 Anion Gap 6.0 (3-11) 05/26/19 19:00 BUN 14 mg/dl (7-18) 05/26/19 19:00 Creatinine 0.78 mg/dl (0.6-1.2) 05/26/19 19:00 Est Cr Clr Drug Dosing 99.9 ml/min 05/26/19 19:00 Est GFR ( Amer) 90.5 05/26/19 19:00 Est GFR (Non-Af Amer) 78.1 05/26/19 19:00 BUN/Creatinine Ratio 18.1 (10-20) 05/26/19 19:00 Glucose 151 mg/dl (70-99) H 05/26/19 19:00 Lactate 2.4 mmol/L (0.4-2.0) H* 05/26/19 20:49 Calcium 9.0 mg/dl (8.5-10.1) 05/26/19 19:00 Magnesium 1.8 mg/dl (1.8-2.4) 05/26/19 19:00 Total Bilirubin 0.4 mg/dl (0.2-1) 05/26/19 19:00 AST 23 U/L (15-37) 05/26/19 19:00 ALT 19 U/L (12-78) 05/26/19 19:00 Alkaline Phosphatase 126 U/L (45-117) H 05/26/19 19:00 Troponin I 0.125 ng/ml (0-0.045) H* 05/26/19 19:00 NT-Pro-B Natriuret Pep 209 pg/ml (0-900) 05/26/19 19:00 Total Protein 7.7 gm/dl (6.4-8.2) 05/26/19 19:00 Albumin 3.0 gm/dl (3.4-5.0) L 05/26/19 19:00 Globulin 4.7 gm/dl (2.5-4.0) H 05/26/19 19:00 Albumin/Globulin Ratio 0.6 (0.9-2) L 05/26/19 19:00 TSH 4.970 uIu/ml (0.300-4.500) H 05/26/19 19:00 Free T4 0.85 ng/dl (0.8-1.6) 05/26/19 19:00 Urine Color Yellow 05/26/19 21:16 Urine Appearance Clear (Clear) 05/26/19 21:16 Urine pH 5.0 (4.5-7.5) 05/26/19 21:16 Ur Specific [place] > 1.045 (1.000-1.030) H 05/26/19 21:16 Urine Protein Trace (Negative) H 05/26/19 21:16 Urine Glucose (UA) Negative (Negative) 05/26/19 21:16 Urine Ketones Negative (Negative) 05/26/19 21:16 Urine Blood 3+ (Negative) H 05/26/19 21:16 Urine Nitrite Negative (Negative) 01/31/20 21:16 Urine Bilirubin Negative (Negative) 05/26/19 21:16 Urine Urobilinogen Negative (Negative) 05/26/19 21:16 Ur Leukocyte Esterase 1+ (Negative) H 05/26/19 21:16 Urine WBC (Auto) >30 /hpf (0-5) H 05/26/19 21:16 Urine RBC (Auto) >30 /hpf (0-4) H 05/26/19 21:16 U Hyaline Cast (Auto) Not Reportable 05/26/19 21:16 U Epithel Cells (Auto) >30 /lpf (0-5) H 05/26/19 21:16 Urine Bacteria (Auto) 1+ (Negative) H 05/26/19 21:16 Urine Opiates Screen Pos (Neg) H 05/26/19 21:15 Ur Methadone, Qual Neg (Neg) 05/26/19 21:15 Urine Barbiturates Neg (Neg) 05/26/19 21:15 Ur Phencyclidine (PCP) Neg (Neg) 05/26/19 21:15 U Amphetamin/Meth Scrn Neg (Neg) 05/26/19 21:15 MDMA (Ecstasy) Screen Neg (Neg) 05/26/19 21:15 U Benzodiazepines Scrn Neg (Neg) 05/26/19 21:15 Ur Cocaine Metabolite Neg (Neg) 05/26/19 21:15 U Marijuana (THC) Screen Neg (Neg) 05/26/19 21:15 Influenza Type A Ag Neg for Influ A (Neg) 05/26/19 18:40 Influenza Type B Ag Neg for Influ B (Neg) 05/26/19 18:[address] chest: 1. Suboptimal contrast opacification of the pulmonary arterial tree. No central pulmonary emboli identified. 2. Cardiomegaly with findings suggestive of pulmonary arterial hypertension. 3. No adenopathy or pleural effusion. 4. Left greater than right dependent bibasilar predominant opacities suggest atelectasis. Minimal nodular consolidative opacities of the right upper lobe are suggestive of a nonspecific infectious or inflammatory pneumonitis. 5. Additional findings as above include aberrant course of the right subclavian artery.. EKG as per my interpretation rate 140, sinus tachycardia, LAD, LAFB ST depression anterolateral leads, low voltage
[2019-05-26 23:41] LABS: Base Excess ABG -3.3 mEq/L (-9-1.8); HCO3 ABG 24 mmol/L (19-24); Oxygen Saturation ABG 97.2 % (90-95); PCO2 ABG 51 mmHg (35-46); PO2 ABG 102 mmHg (80-95); pH ABG 7.29 (7.35-7.45)
[2019-05-27] MEDS ORDERED: PROMETHAZINE HCL 12.5 MG in SODIUM CHLORIDE 0.9% 50 ML IV PRN (00:18)
[2019-05-27] MEDS ORDERED: MoRPHine SULFATE 2 MG/ML CARP IV PRN (00:18)
[2019-05-27] MEDS ORDERED: INSULIN GLARGINE SOLOSTAR 100 UNITS/ML 3 ML PEN SC STA (00:18)
[2019-05-27] MEDS ORDERED: HYDROCODONE/ACETAMOPHEN 5/325MG TAB PO PRN (00:18)
[2019-05-27] MEDS ORDERED: GLUCOSE 10 TABS/TUBE PO PRN (00:18)
[2019-05-27] MEDS ORDERED: GLUCAGON FOR INJ 1 MG VIAL SQ PRN (00:18)
[2019-05-27] MEDS ORDERED: DEXTROSE 50% 50 ML SYRINGE IV PRN (00:18)
[2019-05-27] MEDS ORDERED: CARBOHYDRATES FOR HYPOGLYCEMIA PO PRN (00:18)
[2019-05-27] MEDS ORDERED: GLUCOSE 40% GEL 15 GM TUBE PO PRN (00:18)
[2019-05-27] MEDS: LEVALBUTEROL 1.25MG/0.5ML NEB INH SCH ×4 (00:58→19:09)
[2019-05-27] MEDS: IPRATROPIUM BROMIDE NEB SOLN 0.02% 2.5 ML VIAL INH SCH ×4 (00:58→19:09)
[2019-05-27] MEDS ORDERED: XOPENEX/ATROVENT 1.25mg/0.5MG NEB COMBO NEB SCH (01:00)
[2019-05-27] MEDS: MAGNESIUM SULFATE / D5W 1 GM/100 ML BAG IV SCH (01:33)
[2019-05-27] MEDS: INSULIN ASPART 100 UNITS/ML 3 ML PEN SC SCH ×5 (01:34→20:45)
[2019-05-27] MEDS: guaiFENesin 600 MG TABCR PO SCH ×3 (01:35→20:44)
--- NOTE | 2019-05-27 01:53 | Emergency Department Note ---
Entered by Jade Yu acting as a scribe for Ivan Rain MD ED Provider Note CHIEF COMPLAINT: Flu like symptoms HISTORY OF PRESENT ILLNESS: The patient is a 69 year old female who presents to the Emergency Room with complaints of flu like symptoms. The patient states that she has been experiencing intermittent shortness of breath for the past 3 months. Today she experienced a worsened episode of SOB around 3:30PM. Additionally she has been experiencing recent chills and tiredness as well as a fever in the ED today. The patient admits that she does not wear oxygen at home and has not had any recent sickness exposure. Of note, she reports a history of severe bilateral leg edema and follows with [facility] wound care for this. The patient also does not have a history of CHF. Pt denies LOC, headache, diaphoresis, visual changes, neck pain, chest pain, nausea, vomiting, abdominal pain, back pain, melena, hematochezia, urinary symptoms, numbness, lymphadenopathy, rash, or other complaints. REVIEW OF SYSTEMS: See HPI for pertinent positives and negatives. A total of ten systems were reviewed and were otherwise negative. PMHx/PSHx: Bilateral leg edema, bilateral lower leg cellulitis, fall, hip fracture, hip surgery SOCIAL HISTORY: Patient lives at home. PHYSICAL EXAM: GENERAL: Awake, alert, uncomfortable-appearing, in no distress HENT: Normocephalic, atraumatic. Oropharynx unremarkable. EYES: PERRL. Normal conjunctiva. Sclera non-icteric. NECK: Inspection normal. Non-tender. Supple. No nuchal rigidity. FROM. No masses. RESPIRATORY: Clear to auscultation. No wheezes. No rales. Diminished breath sounds bilaterally. Increased work of breathing. CARDIAC: Tachycardic rate. Normal rhythm. No murmurs. No rubs. Extremities warm and well perfused. Pulses equal. No JVD. GI: Soft, non-distended. No tenderness to palpation. No rebound or guarding. No masses. RECTAL: Deferred. MUSCULOSKELETAL: Atraumatic. Chest examination reveals no tenderness. The back is symmetrical on inspection without obvious abnormality. There is no CVA tenderness to palpation. No joint edema. LOWER EXTREMITIES: Calves are equal size bilaterally and non-tender. 2+ LE edema. Erythematous discoloration worse on the left side and mild skin breakdown on left side. NEURO: Normal sensorium. No sensory or motor deficits noted. SKIN: No rash or jaundice noted. EMERGENCY DEPARTMENT COURSE: 1830: Past medical records reviewed. The patient was evaluated in room B01, and a complete history and physical examination were performed. 1924: I checked on the patient and she states that she is feeling improved. Her dressings have been removed from her legs and family states that her skin breakdown has improved compared to her last check up and her erythema still persists. 2009: I re-checked the patient and she is breathing easier and feeling better after bi-pap placement. I discussed getting a CT and starting her on antibiotics and she is agreeable. CT and antibiotics were ordered. 2137: I re-assessed the patient and updated him on plan to admit. I spoke to Dr. Huggins who will further evaluate the patient. MEDICAL DECISION MAKING: Prior records/ancillary studies reviewed. Triage Nursing notes reviewed and agree them. Additional history obtained from the family. The patient's history was concerning for flulike symptoms and shortness of breath. Differential diagnosis: Etiologies such as pneumonia, COPD, reactive airway disease, CHF, cardiac ischemia, pulmonary embolism, pneumothorax, musculoskeletal, infections, gastrointestinal, as well as others were entertained. Physical examination: The patient was acutely ill. She was tachypneic. Increased work of breathing. She was tachycardic. ER treatment provided: Supplemental oxygen BiPAP Saline hydration Oral Tylenol IV vancomycin IV Zosyn On reassessment the patient felt better. Diagnostic interpretation by me: The electrocardiogram was negative for pathologic change. The labs revealed an unremarkable CBC and chemistry panel. Flu testing negative . Troponin and lactate were both elevated. Imaging studies: Chest x-ray revealed vascular congestion. CT PE study was performed. No pulmonary embolus. There is pneumonitis present. Patient had hypoxia and impending respiratory failure. With BiPAP and the above treatment she felt much better. She has pneumonitis on CT scan. She does have an elevated troponin. She will need further management in the hospital. Consultation: A consultation was placed with the hospitalist. The case was discussed and diagnostics were reviewed. The patient was evaluated in the ER for further treatment. CRITICAL CARE TIME: I have personally spent 80 minutes of critical care time in the direct management of this patient. This includes bedside care, interpretation of diagnostic studies, and testing, discussion with consultants, patient, and family members, and other required patient management activities. This 80 minutes is in excess of all separately billable procedures. IMPRESSION: Pneumonitis, elevated troponin, sepsis, hypoxia PLAN: Admitted; being evaluated by hospitalist The renata's documentation has been prepared under my direction and personally reviewed by me in its entirety. I confirm that the note above accurately reflects all work, treatment, procedures, and medical decision making performed by me. 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 Required: No Beliefs That Will Affect Care: None Current Living Situation: Spouse Other Information That Helps Us Care for You: No Feels Safe at Home: Yes Safety Concerns: Feels Safe At This Time Smoking Status: Never smoker Do You Dip or Chew Tobacco: No ; Second Hand Exposure: No ; Tobacco Cessation Education Requested by Patient: No Hx Alcohol Use: No Hx Substance Use: No Results & Data Vital Signs Vital Signs - 24 hr 05/26/19 18:17 05/26/19 18:30 05/26/19 18:32 Temperature 39.2 C H Temperature Source Oral Pulse Rate 139 H 138 H Pulse Rate [Right Finger] 138 H Pulse Rhythm Regular Pulse Strength Normal Respiratory Rate 22 48 H 26 H Respiratory Effort / Characteristics Non-Labored Respiratory Depth Respiratory Pattern Regular Blood Pressure 156/68 H Blood Pressure [Right Arm] 114/72 Blood Pressure Mean 97 Blood Pressure Mean [Right Arm] 86 Blood Pressure Position Sitting Pulse Oximetry 83 L 96 98 Oxygen Delivery Method Room Air Nasal Cannula Nasal Cannula Oxygen Flow Rate 6 6 Fraction of Inspired Oxygen Sepsis Recent Fever Within 48 Hours No Sepsis Action Taken by Nursing No Action Required 05/26/19 18:43 05/26/19 19:01 05/26/19 19:30 Temperature Temperature Source Pulse Rate 142 H 127 H Pulse Rate [Right Finger] 132 H Pulse Rhythm Pulse Strength Respiratory Rate 38 H 30 H Respiratory Effort / Characteristics Non-Labored Spontaneous Respiratory Depth Normal Respiratory Pattern Regular Blood Pressure Blood Pressure [Right Arm] 107/43 L Blood Pressure Mean Blood Pressure Mean [Right Arm] 64 Blood Pressure Position Pulse Oximetry 98 100 100 Oxygen Delivery Method Nasal Cannula Nasal Cannula Oxygen Flow Rate 6 6 Fraction of Inspired Oxygen 40 Sepsis Recent Fever Within 48 Hours Sepsis Action Taken by Nursing 05/26/19 19:31 05/26/19 19:46 05/26/19 20:03 Temperature Temperature Source Pulse Rate Pulse Rate [Right Finger] 127 H 124 H 121 H Pulse Rhythm Pulse Strength Respiratory Rate 33 H 28 H 28 H Respiratory Effort / Characteristics Respiratory Depth Respiratory Pattern Blood Pressure Blood Pressure [Right Arm] 105/52 L 99/61 L 99/53 L Blood Pressure Mean Blood Pressure Mean [Right Arm] 69 73 68 Blood Pressure Position Pulse Oximetry 98 100 100 Oxygen Delivery Method Nasal Cannula BiPAP BiPAP Oxygen Flow Rate 6 Fraction of Inspired Oxygen Sepsis Recent Fever Within 48 Hours Sepsis Action Taken by Nursing 05/26/19 20:39 05/26/19 20:59 05/26/19 21:30 Temperature 37.5 C Temperature Source Oral Pulse Rate Pulse Rate [Right Finger] 114 H 116 H 108 H Pulse Rhythm Pulse Strength Respiratory Rate 24 24 20 Respiratory Effort / Characteristics Respiratory Depth Respiratory Pattern Blood Pressure Blood Pressure [Right Arm] 97/65 L 109/73 76/55 L Blood Pressure Mean Blood Pressure Mean [Right Arm] 75 85 62 Blood Pressure Position Pulse Oximetry 98 97 97 Oxygen Delivery Method BiPAP BiPAP BiPAP Oxygen Flow Rate Fraction of Inspired Oxygen Sepsis Recent Fever Within 48 Hours Sepsis Action Taken by Nursing 05/26/19 21:57 05/26/19 22:30 05/26/19 22:45 Temperature Temperature Source Pulse Rate Pulse Rate [Right Finger] 109 H 107 H 106 H Pulse Rhythm Pulse Strength Respiratory Rate 21 26 H 25 H Respiratory Effort / Characteristics Respiratory Depth Respiratory Pattern Blood Pressure Blood Pressure [Right Arm] 93/43 L 89/54 L 100/53 L Blood Pressure Mean Blood Pressure Mean [Right Arm] 59 65 68 Blood Pressure Position Pulse Oximetry 97 97 97 Oxygen Delivery Method BiPAP BiPAP BiPAP Oxygen Flow Rate Fraction of Inspired Oxygen Sepsis Recent Fever Within 48 Hours Sepsis Action Taken by Retirement Medications Current Medication List: was personally reviewed by me Laboratory Data Attestation: I reviewed the patient's lab results. Result diagrams: 05/26/19 19:00 05/26/19 19:00 Lab Results 05/26/19 05/26/19 05/26/19 Range/Units 18:40 19:00 19:00 WBC 9.51 (4.8-10.8) K/uL RBC 4.97 (4.2-5.4) M/uL Hgb 13.9 (12.0-16.0) g/dL Hct 43.7 (37-47) % MCV 87.9 (80-100) fL MCH 28.0 (25-34) pg MCHC 31.8 L (32-36) g/dL RDW Std Deviation 45.1 (36.4-46.3) fL RDW Coeff of Brittny 13.9 (11.5-14.5) % Plt Count 224 (130-400) K/uL MPV 9.8 (7.4-10.4) fL Immature Gran % (Auto) 0.3 % Neut % (Auto) 94.6 % Lymph % (Auto) 4.1 % [place] % (Auto) 0.8 % Eos % (Auto) 0.1 % Baso % (Auto) 0.1 % Immature Gran # (Auto) 0.03 H (0.00-0.02) K/uL Neut # (Auto) 8.99 H (1.4-6.5) K/uL Lymph # (Auto) 0.39 L (1.2-3.4) K/uL Baldwin # (Auto) 0.08 L (0.11-0.59) K/uL Eos # (Auto) 0.01 (0-0.5) K/uL Baso # (Auto) 0.01 (0-0.2) K/uL PT 10.7 (9.0-12.0) Seconds INR 1.0 (0.9-1.1) APTT 21.1 (21.0-31.0) Seconds PTT Ratio 0.8 Sodium (136-145) mmol/L Potassium (3.5-5.1) mmol/L Chloride (98-107) mmol/L Carbon Dioxide (21-32) mmol/L Anion Gap (3-11) BUN (7-18) mg/dl Creatinine (0.6-1.2) mg/dl Est Cr Clr Drug Dosing ml/min Est GFR ( Amer) Est GFR (Non-Af Amer) BUN/Creatinine Ratio (10-20) Glucose (70-99) mg/dl Lactate (0.4-2.0) mmol/L Calcium (8.5-10.1) mg/dl Magnesium (1.8-2.4) mg/dl Total Bilirubin (0.2-1) mg/dl AST (15-37) U/L ALT (12-78) U/L Alkaline Phosphatase (45-117) U/L Troponin I (0-0.045) ng/ml NT-Pro-B Natriuret Pep (0-900) pg/ml Total Protein (6.4-8.2) gm/dl Albumin (3.4-5.0) gm/dl Globulin (2.5-4.0) gm/dl Albumin/Globulin Ratio (0.9-2) TSH (0.300-4.500) uIu/ml Free T4 (0.8-1.6) ng/dl Urine Color Urine Appearance (Clear) Urine pH (4.5-7.5) Ur Specific [place] (1.000-1.030) Urine Protein (Negative) Urine Glucose (UA) (Negative) Urine Ketones (Negative) Urine Blood (Negative) Urine Nitrite (Negative) Urine Bilirubin (Negative) Urine Urobilinogen (Negative) Ur Leukocyte Esterase (Negative) Urine WBC (Auto) (0-5) /hpf Urine RBC (Auto) (0-4) /hpf U Hyaline Cast (Auto) U Epithel Cells (Auto) (0-5) /lpf Urine Bacteria (Auto) (Negative) Urine Opiates Screen (Neg) Ur Methadone, Qual (Neg) Urine Barbiturates (Neg) Ur Phencyclidine (PCP) (Neg) U Amphetamin/Meth Scrn (Neg) MDMA (Ecstasy) Screen (Neg) U Benzodiazepines Scrn (Neg) Ur Cocaine Metabolite (Neg) U Marijuana (THC) Screen (Neg) Influenza Type A Ag Neg for Influ A (Neg) Influenza Type B Ag Neg for Influ B (Neg) 05/26/19 05/26/19 05/26/19 Range/Units 19:00 19:00 19:00 WBC (4.8-10.8) K/uL RBC (4.2-5.4) M/uL Hgb (12.0-16.0) g/dL Hct (37-47) % MCV (80-100) fL MCH (25-34) pg MCHC (32-36) g/dL RDW Std Deviation (36.4-46.3) fL RDW Coeff of Brittny (11.5-14.5) % Plt Count (130-400) K/uL MPV (7.4-10.4) fL Immature Gran % (Auto) % Neut % (Auto) % Lymph % (Auto) % [place] % (Auto) % Eos % (Auto) % Baso % (Auto) % Immature Gran # (Auto) (0.00-0.02) K/uL Neut # (Auto) (1.4-6.5) K/uL Lymph # (Auto) (1.2-3.4) K/uL [place] # (Auto) (0.11-0.59) K/uL Eos # (Auto) (0-0.5) K/uL Baso # (Auto) (0-0.2) K/uL PT (9.0-12.0) Seconds INR (0.9-1.1) APTT (21.0-31.0) Seconds PTT Ratio Sodium 139 (136-145) mmol/L Potassium 3.9 (3.5-5.1) mmol/L Chloride 105 (98-107) mmol/L Carbon Dioxide 28 (21-32) mmol/L Anion Gap 6.0 (3-11) BUN 14 (7-18) mg/dl Creatinine 0.78 (0.6-1.2) mg/dl Est Cr Clr Drug Dosing 99.9 ml/min Est GFR ( Amer) 90.5 Est GFR (Non-Af Amer) 78.1 BUN/Creatinine Ratio 18.1 (10-20) Glucose 151 H (70-99) mg/dl Lactate 3.6 H* (0.4-2.0) mmol/L Calcium 9.0 (8.5-10.1) mg/dl Magnesium 1.8 (1.8-2.4) mg/dl Total Bilirubin 0.4 (0.2-1) mg/dl AST 23 (15-37) U/L ALT 19 (12-78) U/L Alkaline Phosphatase 126 H (45-117) U/L Troponin I 0.125 H* (0-0.045) ng/ml NT-Pro-B Natriuret Pep 209 (0-900) pg/ml Total Protein 7.7 (6.4-8.2) gm/dl Albumin 3.0 L (3.4-5.0) gm/dl Globulin 4.7 H (2.5-4.0) gm/dl Albumin/Globulin Ratio 0.6 L (0.9-2) TSH 4.970 H (0.300-4.500) uIu/ml Free T4 0.85 (0.8-1.6) ng/dl Urine Color Urine Appearance (Clear) Urine pH (4.5-7.5) Ur Specific [place] (1.000-1.030) Urine Protein (Negative) Urine Glucose (UA) (Negative) Urine Ketones (Negative) Urine Blood (Negative) Urine Nitrite (Negative) Urine Bilirubin (Negative) Urine Urobilinogen (Negative) Ur Leukocyte Esterase (Negative) Urine WBC (Auto) (0-5) /hpf Urine RBC (Auto) (0-4) /hpf U Hyaline Cast (Auto) U Epithel Cells (Auto) (0-5) /lpf Urine Bacteria (Auto) (Negative) Urine Opiates Screen (Neg) Ur Methadone, Qual (Neg) Urine Barbiturates (Neg) Ur Phencyclidine (PCP) (Neg) U Amphetamin/Meth Scrn (Neg) MDMA (Ecstasy) Screen (Neg) U Benzodiazepines Scrn (Neg) Ur Cocaine Metabolite (Neg) U Marijuana (THC) Screen (Neg) Influenza Type A Ag (Neg) Influenza Type B Ag (Neg) 05/26/19 05/26/19 05/26/19 Range/Units 20:49 21:15 21:16 WBC (4.8-10.8) K/uL RBC (4.2-5.4) M/uL Hgb (12.0-16.0) g/dL Hct (37-47) % MCV (80-100) fL MCH (25-34) pg MCHC (32-36) g/dL RDW Std Deviation (36.4-46.3) fL RDW Coeff of Brittny (11.5-14.5) % Plt Count (130-400) K/uL MPV (7.4-10.4) fL Immature Gran % (Auto) % Neut % (Auto) % Lymph % (Auto) % [place] % (Auto) % Eos % (Auto) % Baso % (Auto) % Immature Gran # (Auto) (0.00-0.02) K/uL Neut # (Auto) (1.4-6.5) K/uL Lymph # (Auto) (1.2-3.4) K/uL [place] # (Auto) (0.11-0.59) K/uL Eos # (Auto) (0-0.5) K/uL Baso # (Auto) (0-0.2) K/uL PT (9.0-12.0) Seconds INR (0.9-1.1) APTT (21.0-31.0) Seconds PTT Ratio Sodium (136-145) mmol/L Potassium (3.5-5.1) mmol/L Chloride (98-107) mmol/L Carbon Dioxide (21-32) mmol/L Anion Gap (3-11) BUN (7-18) mg/dl Creatinine (0.6-1.2) mg/dl Est Cr Clr Drug Dosing ml/min Est GFR ( Amer) Est GFR (Non-Af Amer) BUN/Creatinine Ratio (10-20) Glucose (70-99) mg/dl Lactate 2.4 H* (0.4-2.0) mmol/L Calcium (8.5-10.1) mg/dl Magnesium (1.8-2.4) mg/dl Total Bilirubin (0.2-1) mg/dl AST (15-37) U/L ALT (12-78) U/L Alkaline Phosphatase (45-117) U/L Troponin I (0-0.045) ng/ml NT-Pro-B Natriuret Pep (0-900) pg/ml Total Protein (6.4-8.2) gm/dl Albumin (3.4-5.0) gm/dl Globulin (2.5-4.0) gm/dl Albumin/Globulin Ratio (0.9-2) TSH (0.300-4.500) uIu/ml Free T4 (0.8-1.6) ng/dl Urine Color Yellow Urine Appearance Clear (Clear) Urine pH 5.0 (4.5-7.5) Ur Specific [place] > 1.045 H (1.000-1.030) Urine Protein Trace H (Negative) Urine Glucose (UA) Negative (Negative) Urine Ketones Negative (Negative) Urine Blood 3+ H (Negative) Urine Nitrite Negative (Negative) Urine Bilirubin Negative (Negative) Urine Urobilinogen Negative (Negative) Ur Leukocyte Esterase 1+ H (Negative) Urine WBC (Auto) >30 H (0-5) /hpf Urine RBC (Auto) >30 H (0-4) /hpf U Hyaline Cast (Auto) Not Reportable U Epithel Cells (Auto) >30 H (0-5) /lpf Urine Bacteria (Auto) 1+ H (Negative) Urine Opiates Screen Pos H (Neg) Ur Methadone, Qual Neg (Neg) Urine Barbiturates Neg (Neg) Ur Phencyclidine (PCP) Neg (Neg) U Amphetamin/Meth Scrn Neg (Neg) MDMA (Ecstasy) Screen Neg (Neg) U Benzodiazepines Scrn Neg (Neg) Ur Cocaine Metabolite Neg (Neg) U Marijuana (THC) Screen Neg (Neg) Influenza Type A Ag (Neg) Influenza Type B Ag (Neg) Administered Medications Guaifenesin (Mucinex) 600 mg PO Q12 [facility] Stop: 06/26/19 00:17 Last Admin: 05/27/19 01:35 Dose: 600 mg Documented by: [id number] Parenteral Electrolytes (Normosol-R) 1,000 mls @ 250 mls/hr IV .Q4H ONE Stop: 05/27/19 02:34 Last Admin: 05/26/19 22:24 Dose: 250 mls/hr Documented by: [id number] Insulin Aspart (Novolog Flexpen) 0 units SC Q6 [facility] Stop: 06/26/19 00:17 Last Admin: 05/27/19 01:34 Dose: Not Given Documented by: [id number] Cosigned by: [id number] Ipratropium [place] (Atrovent 0.02% 0.5mg/2.5ml) 0.5 mg INH Q6R [facility] Stop: 06/26/19 00:59 Last Admin: 05/27/19 00:58 Dose: 0.5 mg Documented by: [id number] Levalbuterol HCl (Xopenex 1.25mg/0.5ml Neb) 1.25 mg INH Q6R [facility] Stop: 06/26/19 00:59 Last Admin: 05/27/19 00:58 Dose: 1.25 mg Documented by: [id number] Discontinued Medications Acetaminophen (Tylenol) 1,000 mg PO NOW STA Stop: 05/26/19 18:34 Last Admin: 05/26/19 19:04 Dose: 1,000 mg Documented by: [id number] Albuterol (Duoneb) 3 ml NEB NOW STA Stop: 05/26/19 18:38 Last Admin: 05/26/19 19:23 Dose: Not Given Documented by: [id number] Sodium Chloride (Nss 1000ml) 500 mls @ 999 mls/hr IV .Q31M ONE Stop: 05/26/19 19:04 Last Infusion: 05/26/19 19:42 Dose: 0 mls/hr Documented by: [id number] Admin: 05/26/19 19:06 Dose: 999 mls/hr Documented by: [id number] Sodium Chloride (Nss 1000ml) 1,000 mls @ 125 mls/hr IV .Q8H STA Stop: 05/27/19 02:33 Last Infusion: 05/26/19 22:32 Dose: 0 mls/hr Documented by: [id number] Admin: 05/26/19 19:05 Dose: 125 mls/hr Documented by: [id number] Piperacillin Sod/Tazobactam Sod (Zosyn) 4.5 gm in 120 mls @ 240 mls/hr IV NOW ONE Stop: 05/26/19 20:31 Last Infusion: 05/26/19 21:24 Dose: 0 mls/hr Documented by: [id number] Admin: 05/26/19 20:38 Dose: 240 mls/hr Documented by: [id number] Vancomycin HCl 2,750 mg/ (Sodium Chloride) 555 mls @ 200 mls/hr IV NOW ONE Stop: 05/26/19 22:48 Last Infusion: 05/27/19 01:07 Dose: 0 mls/hr Documented by: [id number] Admin: 05/26/19 21:21 Dose: 200 mls/hr Documented by: [id number] Sodium Chloride (Nss 1000ml) 1,000 mls @ 999 mls/hr IV .Q1H1M ONE Stop: 05/26/19 22:35 Last Infusion: 05/26/19 22:46 Dose: 0 mls/hr Documented by: [id number] Admin: 05/26/19 21:39 Dose: 999 mls/hr Documented by: [id number] Magnesium Sulfate/Dextrose (Magnesium Sulfate / D5w) 1 gm in 100 mls @ 100 mls/hr IV Q1H LIZZY Stop: 05/26/19 23:46 Last Admin: 05/27/19 01:33 Dose: 100 mls/hr Documented by: [id number] Infusion: 05/27/19 00:13 Dose: 0 mls/hr Documented by: [id number] Admin: 05/26/19 22:24 Dose: 100 mls/hr Documented by: [id number] Doxycycline Hyclate 100 mg/ (Dextrose) 110 mls @ 50 mls/hr IV NOW STA Stop: 05/27/19 00:01 Last Infusion: 05/27/19 01:07 Dose: 0 mls/hr Documented by: [id number] Admin: 05/26/19 22:41 Dose: 50 mls/hr Documented by: [id number] Insulin Glargine (Lantus Solostar Pen) 5 units SC NOW STA Stop: 05/27/19 00:19 Last Admin: 05/27/19 01:35 Dose: 5 units Documented by: [id number] Cosigned by: [id number] Ioversol (Optiray 320 125ml) 118 ml IV ONCE PRN PRN Reason: Interaction Checking Stop: 05/30/19 20:29 Last Admin: 05/26/19 20:30 Dose: 118 ml Documented by: [id number] Methylprednisolone (Solumedrol) 40 mg IV NOW STA Stop: 05/26/19 21:47 Last Admin: 05/26/19 22:23 Dose: 40 mg Documented by: [id number] Imaging Data Radiologist's Impression: Radiology results as stated below per my review and the radiologist's interpretation: XR chest 1V portable HISTORY: 69 years-old Female SEPSIS acute sepsis COMPARISON: Chest radiograph 11/10/2013 TECHNIQUE: Portable AP view of the chest FINDINGS: Cardiac silhouette is enlarged, unchanged. Pulmonary vascular congestion. No pneumothorax, or pleural effusion. Mild ill-defined bibasilar densities. Degenerative changes of the shoulders and spine. IMPRESSION: 1. Cardiomegaly with pulmonary vascular congestion. 2. Ill-defined bibasilar densities are likely secondary to summation density with atelectasis. Pneumonitis considered less likely. Findings could be correlated with PA and lateral views of the chest is of further clinical concern. ACT 112: Negative or not required by law. The above report was generated using voice recognition software. It may contain grammatical, syntax or spelling errors. Electronically signed by: Jacques Yanes M.D. 05/26/2019 7:[address] angio chest PE protocol CT DOSE: 794.44 mGy.cm HISTORY: 69 years-old Female with PE. Acute shortness of breath TECHNIQUE: Multiple CTA images of the chest were obtained after the intravenous administration of 118 ml Optiray 320. Coronal and sagittal MIPS were obtained from the axial data set and were submitted for review. All measurements were obtained according to NASCET criteria. A dose lowering technique was utilized adhering to the principles of ALARA. COMPARISON: Chest radiograph of same day, chest CT 07/03/2013 FINDINGS: CTA: Moderate cardiomegaly. No pericardial effusion. Moderate coronary arterial calcifications. No thoracic aortic aneurysm or dissection. 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 Patency of the imaged great vessels. Mild to moderate mixed plaque of the aorta. Main pulmonary artery is dilated, 3.9 cm. Pulmonary artery is opacified to the level of the lobar branches. The segmental and subsegmental branches are not well opacified secondary to contrast bolus timing. No central pulmonary emboli are identified. CT CHEST: Calcification noted within the expected location of the right thyroid lobe. No adenopathy by CT size criteria. The inferior right lung base is not imaged, outside the [id number]. There is no pneumothorax or pleural effusion. Mild bibasilar groundglass and linear consolidative opacities are noted, left greater than right suggestive of atelectasis. No overt pulmonary edema, suspicious pulmonary nodules or masses identified. 7 mm fissural nodule of the right midlung on image 108 series 4 suggests probable lymph node and is unchanged. Unchanged 5 mm fissural nodule of the left lung base on image 111 series 4 compatible with benign etiology. 5 mm nodular opacity of the right upper lobe, image 141 series 4 is new from comparison. There are a few additional ill- defined nodular opacities of the right upper lobe apical segment. Central airways appear patent. Hepatosplenomegaly with probable hepatic steatosis. No acute processes of the imaged upper abdomen. Soft tissues are unremarkable. Degenerative changes of the shoulders and spine. Right shoulder rotator cuff calcific tendinosis. 1.4 cm le catherine lesion of the manubrium is unchanged and likely a benign hemangioma. Previously noted left adrenal gland is not imaged. IMPRESSION: 1. Suboptimal contrast opacification of the pulmonary arterial tree. No central pulmonary emboli identified. 2. Cardiomegaly with findings suggestive of pulmonary arterial hypertension. 3. No adenopathy or pleural effusion. 4. Left greater than right dependent bibasilar predominant opacities suggest atelectasis. Minimal nodular consolidative opacities of the right upper lobe are suggestive of a nonspecific infectious or inflammatory pneumonitis. 5. Additional findings as above include aberrant course of the right subclavian artery.. ACT 112: Negative or not required by law. The above report was generated using voice recognition software. It may contain grammatical, syntax or spelling errors. Electronically signed by: Jacques Yanes M.D. 05/26/2019 8:50 PM ECG Data Attestation: I personally reviewed and interpreted this ECG as follows: Indication: + other (sepsis) Rate (beats per minute): 138 Rhythm: sinus tachycardia ECG Intervals/blocks: + Normal QRS ECG [place]: + Normal ECG Findings: + Other (Nonspecific ST changes ); no PVCs Blood Pressure Blood Pressure Findings: Low blood pressure Blood Pressure Disposition: further management by hospitalist Discharge Plan Visit Data *Final* Discharge Date/Time: 05/26/19 23:25 Chief Complaint: Flu Like Symptoms Stated Complaint: CHILLS, ACHES [facility], [facility] ED Provider: Ivan Rain Discharge Problem: Sepsis, Pneumonitis, Elevated troponin, Hypoxia Patient Disposition: Admitted As Inpatient Discharge Instructions Interventions: ED Discharge Assessment Last Done: 05/26/19 23:25 Discharge Problem: Sepsis Qualifiers: Sepsis type: sepsis due to unspecified organism Sepsis acute organ dysfunction status: unspecified Qualified Code(s): A41.9 - Sepsis, unspecified organism The scribe's documentation has been prepared under my direction and personally reviewed by me in its entirety. I confirm that the note above accurately refle cts all work, treatment, procedures, and medical decision making performed by me.
[2019-05-27 03:33] LABS: Base Excess ABG 5.5 mEq/L (-9-1.8); HCO3 ABG 31 mmol/L (19-24); Oxygen Saturation ABG 96.6 % (90-95); PCO2 ABG 50 mmHg (35-46); PO2 ABG 88 mmHg (80-95); pH ABG 7.41 (7.35-7.45)
[2019-05-27 03:34] LABS: Allen Test Pos (Pos)
[2019-05-27 03:46] LABS: BUN Creatinine Ratio 19.1 (10-20); Calcium 8.2 mg/dl (8.5-10.1); Creatinine Clr Calc Pharmacy 103.8 ml/min; Est GFR (African American) 104.2; Est GFR (Non-African American) 89.9; Potassium 4.1 mmol/L (3.5-5.1)
[2019-05-27 03:55] LABS: Troponin I 0.994 ng/ml (0-0.045)
[2019-05-27] MEDS: NORMOSOL-R 1,000 ML IV SCH ×3 (04:54→14:01)
[2019-05-27 06:32] LABS: Estimated Average Glucose 128 mg/dl; Hemoglobin A1C 6.1 % (4.5-5.6)
[2019-05-27] MEDS: DOXYCYCLINE HYCLATE 100 MG CAP PO SCH ×2 (08:12→20:44)
[2019-05-27] MEDS: ASPIRIN 81 MG ECTAB PO SCH (08:13)
[2019-05-27] MEDS: ENOXAPARIN INJ 40 MG/0.4 ML SYR SQ SCH (08:13)
[2019-05-27] MEDS: INSULIN GLARGINE SOLOSTAR 100 UNITS/ML 3 ML PEN SC SCH (08:14)
[2019-05-27 08:29] LABS: Partial Thromboplastin Time 27.1 Seconds (21.0-31.0)
[2019-05-27] MEDS ORDERED: methylPREDNISolone 40 MG in SYRINGE 0 ML IV SCH (09:00)
[2019-05-27] MEDS: cefTRIAXone SODIUM 2,000 MG in DEXTROSE 5% 50 ML IV SCH ×2 (10:20→11:44)
--- NOTE | 2019-05-27 12:17 | Ultrasound Report ---
LEFT LOWER EXTREMITY VENOUS DOPPLER HISTORY: Left leg swelling. COMPARISON STUDY: None. FINDINGS: There is normal compressibility, flow, and augmentation within the left lower extremity tim p venous system. IMPRESSION: No DVT within the left lower extremity. ACT 112: Negative or not required by law. Electronically signed by: Kam Clark M.D. 05/27/2019 12:16 PM
--- NOTE | 2019-05-27 16:59 | Hospitalist Progress Note ---
Date of Service May 27, 2019 Assessment & Plan (1) Severe sepsis: Present on admission with fever, tachycardia, elevated lactic acid and low BP CXR showed cardiomegaly with pulmonary vascular congestion. CTA chest showed left greater than right dependent bibasilar predominant opacities suggest atelectasis. Minimal nodular consolidative opacities of the right upper lobe are suggestive of a nonspecific infectious or inflammatory pneumonitis. Blood cx positive for gram negative bacilli Received IV vanco and Zosyn in the ER Starting on IV doxycycline, now transition to oral Rocephin 2g IV added since blood cx positive for gram negative bacilli Received IVF Lactic acid trending down to normal Will repeat Blood cx in am Continue monitor closely Acute hypoxia respiratory failure ABG on admission showed respiratory acidosis with pH 7.29 and PCO2 51 CTA chest showed no PE Received IV Solumedrol Was placed on Bipap, now transition to NC Does not use oxygen Continue oxygen supplement Consider pulmonology consult if no improvement Will need outpatient sleep study will resume lasix once BP stable Bacteremia Blood cx positive for gram negative bacilli Continue IV Rocephin and doxy Repeat blood cx in am Follow up sensitivity Elevated Troponin Mostly related to sepsis EKG showed no ischemic changes Trop trending down ECHO pending Continue aspirin denies any chest pain Hypotension Related to sever sepsis received adequate IVF hydration Lisinopril on hold Monitor for sign of overload while on IVF Continue monitor BP DM type 2 HBa1c 6.1 on 05/27/19 Continue insulin sliding scale Monitor BS B/L LE extremity Edema Left LE erythema Doppler of LLE negative for DVT Continue Doxycycline Will consult wound care DVT prophylaxis on Lovenox subcu CODE Full code Subjective Pt was seen and examined Sitting in chair with no distress Pt said that she is hungry and would like to eat something She said that her breathing is not back to baseline because she continue to require oxygen Denies any chest pain, palpitation and fever Physical Exam Physical Exam: General- No acute distress Head- atraumatic Eyes- PERRL, EOMI, ENT- oropharynx clear Neck- supple, no JVD Lungs- Diminished BS Heart- regular rhythm; no murmur Abdomen- normal bowel sounds, soft, nontender Extremities- no calf tenderness, +edema, open skin area in left LE with no drainage, LLE with mild erythema Neuro- alert, oriented x 3; PERRL, EOMI; no facial palsy; no dysarthria Skin- warm & dry Results & Data ([facility]) Vital Signs (Past 12 Hours) Vital Signs Temp Pulse Pulse Resp BP Pulse Ox 05/27/19 15:51 36.7 C 68 18 115/68 96 05/27/19 13:22 67 18 96 05/27/19 07:12 96 H 96 H 30 H 96
--- NOTE | 2019-05-27 17:09 | Electrocardiogram Report ---
Test Reason : Blood Pressure : / mmHG Vent. Rate : 138 BPM Atrial Rate : 138 BPM P-R Int : 176 ms QRS Dur : 070 ms QT Int : 274 ms P-R-T Axes : 000 -19 049 degrees QTc Int : 415 ms Poor data quality, interpretation may be adversely affected Possible Sinus tachycardia Low voltage QRS Nonspecific ST abnormality Abnormal ECG When compared with ECG of 11-SEP-2015 16:00, Vent. rate has increased BY 73 BPM T wave inversion no longer evident in Inferior leads Confirmed by Rajan Renee ([id number]) on 05/27/2019 5:08:50 PM Referred By: REFERRED SELF Confirmed By:Rajan Renee
[2019-05-28] MEDS: IPRATROPIUM BROMIDE NEB SOLN 0.02% 2.5 ML VIAL INH SCH ×4 (00:42→19:09)
[2019-05-28] MEDS: LEVALBUTEROL 1.25MG/0.5ML NEB INH SCH ×4 (00:42→19:09)
[2019-05-28] MEDS: ASPIRIN 81 MG ECTAB PO SCH (07:32)
[2019-05-28] MEDS: guaiFENesin 600 MG TABCR PO SCH ×2 (07:32→20:08)
[2019-05-28] MEDS: ENOXAPARIN INJ 40 MG/0.4 ML SYR SQ SCH (07:33)
[2019-05-28] MEDS: DOXYCYCLINE HYCLATE 100 MG CAP PO SCH ×2 (07:33→20:08)
[2019-05-28] MEDS: predniSONE 20 MG TAB PO SCH (07:33)
[2019-05-28] MEDS: ACETAMINOPHEN 325 MG TAB PO PRN (07:36)
[2019-05-28] MEDS: INSULIN ASPART 100 UNITS/ML 3 ML PEN SC SCH ×4 (07:52→20:08)
[2019-05-28] MEDS: cefTRIAXone SODIUM 2,000 MG in DEXTROSE 5% 50 ML IV SCH (08:30)
[2019-05-28] MEDS: INSULIN GLARGINE SOLOSTAR 100 UNITS/ML 3 ML PEN SC SCH (08:30)
[2019-05-28 08:35] LABS: Hematocrit (blood only) 40.5 % (37-47); Hemoglobin 12.7 g/dL (12.0-16.0); Mean Corpuscular Hemoglobin 27.8 pg (25-34); Mean Corpuscular Hgb Conc 31.4 g/dL (32-36); Mean Corpuscular Volume 88.6 fL (80-100); Mean Platelet Volume 9.5 fL (7.4-10.4); Platelet Count 212 K/uL (130-400); RDW Coefficient of Variation 14.2 % (11.5-14.5); RDW Standard Deviation 46.1 fL (36.4-46.3); Red Blood Count 4.57 M/uL (4.2-5.4); White Blood Count 15.35 K/uL (4.8-10.8)
[2019-05-28 08:41] LABS: BUN Creatinine Ratio 31.6 (10-20); Calcium 8.9 mg/dl (8.5-10.1); Creatinine Clr Calc Pharmacy 140.4 ml/min; Est GFR (Non-African American) 95.8; Potassium 3.8 mmol/L (3.5-5.1)
[2019-05-28] MEDS: FUROSEMIDE 20 MG TAB PO SCH (11:28)
--- NOTE | 2019-05-28 17:15 | Hospitalist Progress Note ---
Date of Service May 28, 2019 Assessment & Plan (1) Severe sepsis: Present on admission with fever, tachycardia, elevated lactic acid and low BP CXR showed cardiomegaly with pulmonary vascular congestion. CTA chest showed left greater than right dependent bibasilar predominant opacities suggest atelectasis. Minimal nodular consolidative opacities of the right upper lobe are suggestive of a nonspecific infectious or inflammatory pneumonitis. Blood cx positive for gram negative bacilli Received IV vanco and Zosyn in the ER Starting on IV doxycycline, now transition to oral Continue Rocephin 2g IV since blood cx positive for gram negative bacilli Lactic acid trending down to normal Repeat Blood cx pending Continue monitor closely Acute hypoxia respiratory failure ABG on admission showed respiratory acidosis with pH 7.29 and PCO2 51 CTA chest showed no PE Received IV Solumedrol Was placed on Bipap, now transition to NC Does not use oxygen at home Continue oxygen supplement was not able to tolerate Bipap machine last night Will get an ABG in am Consider pulmonology consult if no improvement Will need outpatient sleep study Resumed lasix po Bacteremia Blood cx positive for gram negative bacilli Continue IV Rocephin and doxy Repeat blood cx pending Follow up sensitivity Elevated Troponin Mostly related to sepsis EKG showed no ischemic changes Trop trending down No information was able to obtain on the ECHO, will repeat the ECHO in am Continue aspirin denies any chest pain Hypotension Related to sever sepsis received adequate IVF hydration Continue to hold Lisinopril Monitor for sign of overload while on IVF Continue monitor BP Resolved DM type 2 HBa1c 6.1 on 05/27/19 Continue insulin sliding scale Monitor BS B/L LE extremity Edema Left LE erythema Doppler of LLE negative for DVT Continue Doxycycline Wound care nurse consulted DVT prophylaxis on Lovenox subcu CODE Full code Subjective Pt was seen and examined Sitting in chair with no distress Pt said that breathing alittle better She said last night she could not tolerate the BIpap machine She does not want to take lasix 40mg because it will cause her to urinate too much Denies any chest pain, palpitation dizziness and fever Physical Exam Physical Exam: General- No acute distress Head- atraumatic Eyes- PERRL, EOMI, ENT- oropharynx clear Neck- supple, no JVD Lungs- Diminished BS Heart- regular rhythm; no murmur Abdomen- normal bowel sounds, soft, nontender Extremities- no calf tenderness, +edema, open skin area in left LE with no drainage, LLE with mild erythema Neuro- alert, oriented x 3; PERRL, EOMI; no facial palsy; no dysarthria Skin- warm & dry Results & Data ([facility]) Vital Signs (Past 12 Hours) Vital Signs Temp Pulse Resp BP Pulse Ox 05/28/19 15:39 36.7 C 85 18 116/64 93 05/28/19 13:29 94 H 18 91 05/28/19 12:04 37.1 C 84 20 149/70 H 91 05/28/19 07:04 36.5 C 82 19 135/72 94 05/28/19 06:48 81 18 94
[2019-05-29] MEDS: IPRATROPIUM BROMIDE NEB SOLN 0.02% 2.5 ML VIAL INH SCH ×4 (00:55→19:08)
[2019-05-29] MEDS: LEVALBUTEROL 1.25MG/0.5ML NEB INH SCH ×4 (00:55→19:08)
[2019-05-29 07:19] LABS: Base Excess ABG 3.7 mEq/L (-9-1.8); HCO3 ABG 30 mmol/L (19-24); Oxygen Saturation ABG 95.5 % (90-95); PCO2 ABG 50 mmHg (35-46); PO2 ABG 77 mmHg (80-95); pH ABG 7.39 (7.35-7.45)
[2019-05-29 07:20] LABS: Allen Test Pos (Pos)
[2019-05-29 07:44] LABS: Calcium 8.8 mg/dl (8.5-10.1); Creatinine Clr Calc Pharmacy 137.2 ml/min; Est GFR (African American) 110.4; Est GFR (Non-African American) 95.3; Potassium 3.7 mmol/L (3.5-5.1)
[2019-05-29 08:01] LABS: Codeine Urine NEGATIVE ng/mL (<50); Hydrocodone Urine 1040 ng/mL (<50); Hydromor Urine NEGATIVE ng/mL (<50); Morphine Urine NEGATIVE ng/mL (<50); Norhydrocodone Conf Ur 476 ng/mL (<50); Noroxycodone Urine NEGATIVE ng/mL (<50); Oxycodone Urine NEGATIVE ng/mL (<50); Oxymorph Urine NEGATIVE ng/mL (<50)
[2019-05-29] MEDS: guaiFENesin 600 MG TABCR PO SCH ×2 (08:12→20:37)
[2019-05-29] MEDS: INSULIN GLARGINE SOLOSTAR 100 UNITS/ML 3 ML PEN SC SCH (08:12)
[2019-05-29] MEDS: ASPIRIN 81 MG ECTAB PO SCH (08:12)
[2019-05-29] MEDS: predniSONE 20 MG TAB PO SCH (08:12)
[2019-05-29] MEDS: DOXYCYCLINE HYCLATE 100 MG CAP PO SCH ×2 (08:12→20:37)
[2019-05-29] MEDS: ENOXAPARIN INJ 40 MG/0.4 ML SYR SQ SCH (08:12)
[2019-05-29] MEDS: INSULIN ASPART 100 UNITS/ML 3 ML PEN SC SCH ×4 (08:14→21:08)
[2019-05-29] MEDS: cefTRIAXone SODIUM 2,000 MG in DEXTROSE 5% 50 ML IV SCH (08:18)
[2019-05-29] MEDS: FUROSEMIDE 20 MG TAB PO SCH (13:08)
[2019-05-29] MEDS ORDERED: FUROSEMIDE 40 MG in SYRINGE 0 ML IV ONE (16:15)
--- NOTE | 2019-05-29 18:58 | Hospitalist Progress Note ---
Date of Service May 29, 2019 Assessment & Plan (1) Severe sepsis: Present on admission with fever, tachycardia, elevated lactic acid and low BP CXR showed cardiomegaly with pulmonary vascular congestion. CTA chest showed left greater than right dependent bibasilar predominant opacities suggest atelectasis. Minimal nodular consolidative opacities of the right upper lobe are suggestive of a nonspecific infectious or inflammatory pneumonitis. Blood cx positive for gram negative bacilli Received IV vanco and Zosyn in the ER Starting on IV doxycycline, now transition to oral Continue Rocephin 2g IV since blood cx positive for gram negative bacilli Lactic acid trending down to normal Blood cx on 05/26 positive for Ecoli (tsang sentitive) Repeat Blood cx on 05/28, no growth so far Continue monitor closely Acute hypoxia respiratory failure ABG on admission showed respiratory acidosis with pH 7.29 and PCO2 51 CTA chest showed no PE Received IV Solumedrol Was placed on Bipap, now transition to NC Does not use oxygen at home Continue oxygen supplement was not able to tolerate Bipap machine last night Will get an ABG in am Consider pulmonology consult if no improvement Will need outpatient sleep study lasix 40mg IV given today Monitor BMP Bacteremia Blood cx positive for gram negative bacilli Continue IV Rocephin and doxy Blood cx on 05/26 positive for Ecoli (tsang sentitive) Repeat Blood cx on 05/28, no growth so far Elevated Troponin Mostly related demand ischemia from sepsis and hypoxia EKG showed no ischemic changes Trop trending down No information was able to obtain on the ECHO ( discussed with cardiology and said it is due to her body size) No point to repeat it because cardiology will not be able to read it Continue aspirin denies any chest pain Hypotension Related to sever sepsis received adequate IVF hydration Continue to hold Lisinopril Monitor for sign of overload while on IVF Continue monitor BP Resolved DM type 2 HBa1c 6.1 on 05/27/19 Continue insulin sliding scale Monitor BS B/L LE extremity Edema Left LE erythema Doppler of LLE negative for DVT Continue Doxycycline Continue daily wound care Has appt with [facility] wound care Morbid Obesity BMP above 50 Counseling on weight loss DVT prophylaxis on Lovenox subcu CODE Full code Subjective Pt was seen and examined Pt said that breathing is slightly improves Pt refused to take the lasix this morning Pt said that she does not take the lasix every day I explained to her that she needs the lasix to keep the watter to accumulate in her lung She agreed to take 40mg IV lasix today Se said that she does not like the lasix because she has to urinate alot after taking the lasix She would like to go home tomorrow Denies any chest pain, palpitation, dizziness and SOB Physical Exam Physical Exam: General- No acute distress Head- atraumatic Eyes- PERRL, EOMI, ENT- oropharynx clear Neck- supple, no JVD Lungs- Diminished BS Heart- regular rhythm; no murmur Abdomen- normal bowel sounds, soft, nontender Extremities- no calf tenderness, +edema, open skin area in left LE with no drainage, LLE with mild erythema Neuro- alert, oriented x 3; PERRL, EOMI; no facial palsy; no dysarthria Skin- warm & dry Results & Data ([facility]) Vital Signs (Past 12 Hours) Vital Signs Temp Pulse Pulse Resp BP Pulse Ox 05/29/19 16:13 37.0 C 80 18 156/66 H 92 05/29/19 15:50 88 05/29/19 13:13 93 H 16 95 05/29/19 11:08 37.0 C 77 20 136/63 92 05/29/19 07:05 79 16 98
[2019-05-30] MEDS: IPRATROPIUM BROMIDE NEB SOLN 0.02% 2.5 ML VIAL INH SCH ×4 (01:04→19:20)
[2019-05-30] MEDS: LEVALBUTEROL 1.25MG/0.5ML NEB INH SCH ×4 (01:05→19:20)
[2019-05-30 07:46] LABS: Hematocrit (blood only) 38.9 % (37-47); Hemoglobin 12.2 g/dL (12.0-16.0); Mean Corpuscular Hemoglobin 26.9 pg (25-34); Mean Corpuscular Hgb Conc 31.4 g/dL (32-36); Mean Corpuscular Volume 85.9 fL (80-100); Mean Platelet Volume 9.1 fL (7.4-10.4); Platelet Count 205 K/uL (130-400); Red Blood Count 4.53 M/uL (4.2-5.4)
[2019-05-30] MEDS: FUROSEMIDE 20 MG TAB PO SCH (07:53)
[2019-05-30 08:13] LABS: BUN Creatinine Ratio 33.6 (10-20); Calcium 8.9 mg/dl (8.5-10.1); Creatinine Clr Calc Pharmacy 145.6 ml/min; Est GFR (African American) 113.1; Est GFR (Non-African American) 97.6; Potassium 3.5 mmol/L (3.5-5.1)
[2019-05-30] MEDS: INSULIN ASPART 100 UNITS/ML 3 ML PEN SC SCH ×4 (08:16→20:53)
[2019-05-30] MEDS: ASPIRIN 81 MG ECTAB PO SCH (08:22)
[2019-05-30] MEDS: INSULIN GLARGINE SOLOSTAR 100 UNITS/ML 3 ML PEN SC SCH (08:24)
[2019-05-30] MEDS: ENOXAPARIN INJ 40 MG/0.4 ML SYR SQ SCH (08:26)
[2019-05-30] MEDS: predniSONE 20 MG TAB PO SCH (08:27)
[2019-05-30] MEDS: guaiFENesin 600 MG TABCR PO SCH ×2 (08:27→20:07)
[2019-05-30] MEDS: DOXYCYCLINE HYCLATE 100 MG CAP PO SCH ×2 (08:28→20:06)
[2019-05-30] MEDS: cefTRIAXone SODIUM 2,000 MG in DEXTROSE 5% 50 ML IV SCH (08:42)
[2019-05-30] MEDS ORDERED: FUROSEMIDE 40 MG in SYRINGE 0 ML IV ONE (09:00)
[2019-05-30] MEDS ORDERED: POTASSIUM CHLORIDE 20 MEQ TABCR PO STA (11:48)
--- NOTE | 2019-05-30 19:31 | Hospitalist Progress Note ---
Date of Service May 30, 2019 Assessment & Plan (1) Severe sepsis: Present on admission with fever, tachycardia, elevated lactic acid and low BP CXR showed cardiomegaly with pulmonary vascular congestion. CTA chest showed left greater than right dependent bibasilar predominant opacities suggest atelectasis. Minimal nodular consolidative opacities of the right upper lobe are suggestive of a nonspecific infectious or inflammatory pneumonitis. Blood cx positive for gram negative bacilli Received IV vanco and Zosyn in the ER Starting on IV doxycycline, now transition to oral Continue Rocephin 2g IV since blood cx positive for gram negative bacilli Lactic acid trending down to normal Blood cx on 05/26 positive for Ecoli (tsang sentitive) Repeat Blood cx on 05/28, no growth so far Continue monitor closely Will transition to oral abx on discharge Acute hypoxia respiratory failure ABG on admission showed respiratory acidosis with pH 7.29 and PCO2 51 CTA chest showed no PE Received IV Solumedrol Was placed on Bipap, now transition to [place] Does not use oxygen at home Continue oxygen supplement was not able to tolerate Bipap machine last night Will get an ABG in am Consider pulmonology consult if no improvement Will need outpatient sleep study lasix 40mg IV given today Will give an additional 20mg lasix later Monitor BMP while getting IV diuresis Bacteremia Blood cx positive for gram negative bacilli Continue IV Rocephin and doxy Blood cx on 05/26 positive for Ecoli (tsang sentitive) Repeat Blood cx on 05/28, no growth so far Will transition to oral abx on discharge Elevated Troponin Mostly related demand ischemia from sepsis and hypoxia EKG showed no ischemic changes Trop trending down No information was able to obtain on the ECHO ( discussed with cardiology and said it is due to her body size) No point to repeat it because cardiology will not be able to read it Continue aspirin denies any chest pain Hypotension Related to sever sepsis received adequate IVF hydration Continue to hold Lisinopril Monitor for sign of overload while on IVF Continue monitor BP Resolved DM type 2 HBa1c 6.1 on 05/27/19 Continue insulin sliding scale Monitor BS B/L LE extremity Edema Left LE erythema Doppler of LLE negative for DVT Continue Doxycycline Continue daily wound care Has appt with [facility] wound care Morbid Obesity BMP above 50 Counseling on weight loss DVT prophylaxis on Lovenox subcu CODE Full code Disposition Possible discharge tomorrow Subjective Pt was seen and examined Sitting in chair with no distress Pt said that she feels a little better She said that she urinated alot after getting lasix She continues to require oxygen Denies any chest pain, palpitation, dizziness and SOB Physical Exam Physical Exam: General- No acute distress Head- atraumatic Eyes- PERRL, EOMI, ENT- oropharynx clear Neck- supple, no JVD Lungs- Diminished BS Heart- regular rhythm; no murmur Abdomen- normal bowel sounds, soft, nontender Extremities- no calf tenderness, +edema, open skin area in left LE with no drainage, LLE with mild erythema Neuro- alert, oriented x 3; PERRL, EOMI; no facial palsy; no dysarthria Skin- warm & dry Results & Data ([facility]) Vital Signs (Past 12 Hours) Vital Signs Temp Pulse Resp BP Pulse Ox 05/30/19 19:20 84 18 94 05/30/19 18:59 36.7 C 86 18 144/73 H 94 05/30/19 15:12 37.2 C 75 18 137/76 96 05/30/19 13:03 83 18 97 05/30/19 11:03 36.7 C 72 20 133/76 94 05/30/19 07:43 37.0 C 71 22 172/87 H 95
[2019-05-30] MEDS ORDERED: FUROSEMIDE 20 MG in SYRINGE 0 ML IV ONE (20:00)
[2019-05-30] MEDS: ACETAMINOPHEN 325 MG TAB PO PRN (20:52)
[2019-05-31] MEDS: IPRATROPIUM BROMIDE NEB SOLN 0.02% 2.5 ML VIAL INH SCH ×4 (00:27→19:03)
[2019-05-31] MEDS: LEVALBUTEROL 1.25MG/0.5ML NEB INH SCH ×4 (00:29→19:04)
[2019-05-31 07:54] LABS: BUN Creatinine Ratio 35.4 (10-20); Calcium 9.1 mg/dl (8.5-10.1); Creatinine Clr Calc Pharmacy 121.2 ml/min; Est GFR (African American) 106.8; Est GFR (Non-African American) 92.2; Potassium 3.6 mmol/L (3.5-5.1)
[2019-05-31] MEDS: INSULIN ASPART 100 UNITS/ML 3 ML PEN SC SCH ×4 (08:05→21:21)
[2019-05-31] MEDS: INSULIN GLARGINE SOLOSTAR 100 UNITS/ML 3 ML PEN SC SCH (08:06)
[2019-05-31] MEDS: DOXYCYCLINE HYCLATE 100 MG CAP PO SCH ×2 (08:07→21:19)
[2019-05-31] MEDS: ENOXAPARIN INJ 40 MG/0.4 ML SYR SQ SCH (08:07)
[2019-05-31] MEDS: guaiFENesin 600 MG TABCR PO SCH ×2 (08:07→21:19)
[2019-05-31] MEDS: predniSONE 20 MG TAB PO SCH (08:07)
[2019-05-31] MEDS: ASPIRIN 81 MG ECTAB PO SCH (08:07)
[2019-05-31] MEDS: cefTRIAXone SODIUM 2,000 MG in DEXTROSE 5% 50 ML IV SCH (08:42)
[2019-05-31] MEDS ORDERED: FUROSEMIDE 40 MG in SYRINGE 0 ML IV ONE (14:00)
--- NOTE | 2019-05-31 17:11 | Hospitalist Progress Note ---
Date of Service May 31, 2019 Assessment & Plan (1) Severe sepsis: Present on admission with fever, tachycardia, elevated lactic acid and low BP CXR showed cardiomegaly with pulmonary vascular congestion. CTA chest showed left greater than right dependent bibasilar predominant opacities suggest atelectasis. Minimal nodular consolidative opacities of the right upper lobe are suggestive of a nonspecific infectious or inflammatory pneumonitis. Blood cx positive for gram negative bacilli -pansensitive Received IV vanco and Zosyn in the ER Starting on IV doxycycline, now transition to oral Continue Rocephin 2g IV since blood cx positive for gram negative bacilli Repeat Blood cx on 05/28, no growth so far Like to have a third-generation cephalosporin on discharge orally and to continue 14 days in total Acute hypoxia respiratory failure ABG on admission showed respiratory acidosis with pH 7.29 and PCO2 51 CTA chest showed no PE Received IV Solumedrol Was placed on Bipap, now transition to NC Does not use oxygen at home Continue oxygen supplement Will need outpatient sleep study Received intermittent doses of Lasix intravenously for the last day or 2 Will give another dose of 40 mg Lasix intravenously today Check chest x-ray Likely discharge tomorrow on oral Lasix Bacteremia As above Elevated Troponin Mostly related demand ischemia from sepsis and hypoxia EKG showed no ischemic changes Trop trending down No information was able to obtain on the ECHO ( discussed with cardiology and said it is due to her body size) No point to repeat it because cardiology will not be able to read it Continue aspirin denies any chest pain Hypotension Related to sever sepsis received adequate IVF hydration Continue to hold Lisinopril Monitor for sign of overload while on IVF Blood pressure remains stable DM type 2 HBa1c 6.1 on 05/27/19 Continue insulin sliding scale Monitor BS B/L LE extremity Edema Left LE erythema Doppler of LLE negative for DVT Continue Doxycycline Continue daily wound care Has appt with [facility] wound care Morbid Obesity BMP above 50 Counseling on weight loss DVT prophylaxis on Lovenox subcu CODE Full code Disposition Continue PT and OT Increase ambulation Discharge tomorrow 2 steps O2 saturation before discharge Subjective 05/31/2019 The patient was seen and examined in telemetry unit She has been tired and denies any shortness of breath at rest Complains to have shortness of breath with exertion He is worried about fluid retention in the chest and in the legs Denies any fever and/or chills Review of Systems Review of Systems: All systems reviewed and are unremarkable except as noted below Respiratory: + cough and + dyspnea on exertion Cardiovascular: + edema (Bilateral leg edema more on the left than the right with ulcers over left lateral leg); no chest pain Physical Exam Physical Exam: Lying in bed comfortably Constitutional: well developed, well nourished and + obese; no acute distress and not ill appearing Eyes: PERRL, conjunctivae normal, anicteric sclerae ENMT: external ear and nose normal, oropharynx normal Neck: trachea midline, no thyromegaly Respiratory: normal respiratory effort; no respiratory distress Auscultation: + diminished lung sounds and + crackles (Minimal crackles b ibasilar) Cardiovascular: Rate/Rhythm: regular rate and regular rhythm Heart Sounds: no murmur Gastrointestinal (Abdomen): Inspection/Auscultation: abdomen normal to inspection, + abdomen distended and normal bowel sounds Percussion/Palpation: abdomen soft; abdomen nontender Musculoskeletal: No acute arthritis in any joints Skin: Chronic bilateral skin changes involving the legs with left lateral leg ulceration Lymphatic: no cervical or axillary lymphadenopathy Results & Data ([facility]) Vital Signs (Past 12 Hours) Vital Signs Temp Pulse Pulse Resp BP Pulse Ox 05/31/19 15:27 97 H 05/31/19 15:05 36.7 C 94 H 20 134/72 93 05/31/19 14:02 96 H 16 98 05/31/19 11:10 37.1 C 67 22 127/73 91 05/31/19 08:00 68 05/31/19 07:16 36.7 C 72 20 148/68 H 93 05/31/19 06:46 74 16 98 Laboratory Results [facility] 05/31/19 06:56 Sodium 140 Potassium 3.6 Chloride 104 Carbon Dioxide 32 BUN 22 H Creatinine 0.63 Glucose 101 H Calcium 9.1 Medications Administered Current Inpatient Medications Acetaminophen (Tylenol) 650 mg PO Q4H PRN PRN Reason: Pain or Fever Stop: 06/26/19 00:17 Last Admin: 05/30/19 20:52 Dose: 650 mg Documented by: Hydrocodone Bitart/Acetaminophen ([place] 5/325) 1 tab PO Q8H PRN PRN Reason: Pain Stop: 06/10/19 00:17 Aspirin (Ecotrin Ectab) 81 mg PO DAILY LIZZY Stop: 06/26/19 08:59 Last Admin: 05/31/19 08:07 Dose: 81 mg Documented by: Dextrose (Dextrose 50%) 25 - 50 ml IV UD PRN; Protocol PRN Reason: Hypoglycemia Protocol Stop: 06/26/19 00:17 Doxycycline Hyclate (Vibramycin) 100 mg PO BID [facility] Stop: 06/03/19 08:59 Last Admin: 05/31/19 08:07 Dose: 100 mg Documented by: Enoxaparin Sodium (Lovenox) 40 mg SQ QAM [facility] Stop: 06/26/19 08:59 Last Admin: 05/31/19 08:07 Dose: 40 mg Documented by: Furosemide (Lasix) 20 mg PO QAM [facility] Stop: 06/27/19 10:29 Last Admin: 05/30/19 07:53 Dose: 20 mg Documented by: Glucagon (Glucagen) 1 mg SQ UD PRN; Protocol PRN Reason: Hypoglycemia Protocol Stop: 06/26/19 00:17 Glucose (Dex4 Glucose) 4 - 8 tabs PO UD PRN; Protocol PRN Reason: Hypoglycemia Protocol Stop: 06/26/19 00:17 Glucose (Glucose 40%) 15 - 30 gm PO UD PRN; Protocol PRN Reason: Hypoglycemia Protocol Stop: 06/26/19 00:17 Guaifenesin (Mucinex) 600 mg PO Q12 [facility] Stop: 06/26/19 00:17 Last Admin: 05/31/19 08:07 Dose: 600 mg Documented by: Promethazine HCl 12.5 mg/ (Sodium Chloride) 50.5 mls @ 202 mls/hr IV Q6H PRN PRN Reason: Nausea And Vomiting Stop: 06/26/19 00:17 Ceftriaxone Sodium 2,000 mg/ (Dextrose) 70 mls @ 100 mls/hr IV DAILY [facility]; Protocol Stop: 06/10/19 09:59 Last Infusion: 05/31/19 09:28 Dose: Infused Documented by: Insulin Aspart (Novolog Flexpen) 0 units SC ACHS [facility] Stop: 06/26/19 16:29 Last Admin: 05/31/19 12:15 Dose: 2 units Documented by: Insulin Glargine (Lantus Solostar Pen) 5 units SC DAILY [facility] Stop: 06/26/19 08:59 Last Admin: 05/31/19 08:06 Dose: 5 units Documented by: Ipratropium [place] (Atrovent 0.02% 0.5mg/2.5ml) 0.5 mg INH Q6R [facility] Stop: 06/26/19 00:59 Last Admin: 05/31/19 14:01 Dose: 0.5 mg Documented by: Levalbuterol HCl (Xopenex 1.25mg/0.5ml Neb) 1.25 mg INH Q6R [facility] Stop: 06/26/19 00:59 Last Admin: 05/31/19 14:01 Dose: 1.25 mg Documented by: Miscellaneous (Carbohydrates For Hypoglycemia) 15 - 30 gm PO UD PRN PRN Reason: Hypoglycemia Protocol Stop: 06/26/19 00:17 Prednisone (Prednisone) 40 mg PO DAILY [facility] Stop: 06/27/19 08:59 Last Admin: 05/31/19 08:07 Dose: 40 mg Documented by:
--- NOTE | 2019-05-31 18:02 | XRay Report ---
TWO VIEW CHEST CLINICAL HISTORY: Congestive heart failure.. FINDINGS: AP and lateral chest radiographs are compared to chest x-ray and chest CT dated 05/26/2019. The examination is degraded by large body habitus. The heart is enlarged noting atherosclerotic calci fication of the thoracic ureter. The pulmonary vasculature is noncongested. Chronic residual thickeni ng is similar to previous. No airspace consolidation or pleural effusion is identified. There is no p neumothorax. The skeletal structures are osteopenic. The bony thorax appears intact. Degenerative jenae nges noted in the thoracic spine. There is calcific tendinopathy of the right shoulder. Cholecystecto my clips are noted in the right upper quadrant. IMPRESSION: Cardiomegaly with no acute cardiopulmonary abnormality. ACT 112: Negative or not required by law. Electronically signed by: Reyes Aldridge M.D. 05/31/2019 6:01 PM
[2019-05-31] MEDS: ACETAMINOPHEN 325 MG TAB PO PRN (21:28)
[2019-06-01] MEDS: IPRATROPIUM BROMIDE NEB SOLN 0.02% 2.5 ML VIAL INH SCH ×3 (00:43→13:38)
[2019-06-01] MEDS: LEVALBUTEROL 1.25MG/0.5ML NEB INH SCH ×3 (00:43→13:38)
[2019-06-01 07:53] LABS: Basophils # (auto) 0.04 K/uL (0-0.2); Basophils % (auto) 0.4 %; Eosinophils # (auto) 0.11 K/uL (0-0.5); Hematocrit (blood only) 44.1 % (37-47); Hemoglobin 13.8 g/dL (12.0-16.0); Immature Granulocytes # (auto) 0.07 K/uL (0.00-0.02); Immature Granulocytes % (auto) 0.7 %; Mean Corpuscular Hemoglobin 27.5 pg (25-34); Mean Corpuscular Hgb Conc 31.3 g/dL (32-36); Mean Corpuscular Volume 87.8 fL (80-100); Mean Platelet Volume 9.4 fL (7.4-10.4); Monocytes # (auto) 0.92 K/uL (0.11-0.59); Monocytes % (auto) 8.8 %; Neutrophils # (auto) 7.36 K/uL (1.4-6.5); Neutrophils % (auto) 70.1 %; Platelet Count 242 K/uL (130-400); RDW Coefficient of Variation 14.2 % (11.5-14.5); RDW Standard Deviation 45.3 fL (36.4-46.3); Red Blood Count 5.02 M/uL (4.2-5.4)
[2019-06-01] MEDS: ASPIRIN 81 MG ECTAB PO SCH (08:02)
[2019-06-01] MEDS: predniSONE 20 MG TAB PO SCH (08:02)
[2019-06-01] MEDS: DOXYCYCLINE HYCLATE 100 MG CAP PO SCH (08:02)
[2019-06-01] MEDS: guaiFENesin 600 MG TABCR PO SCH (08:02)
[2019-06-01] MEDS: ENOXAPARIN INJ 40 MG/0.4 ML SYR SQ SCH (08:02)
[2019-06-01] MEDS: cefTRIAXone SODIUM 2,000 MG in DEXTROSE 5% 50 ML IV SCH (08:12)
[2019-06-01] MEDS: INSULIN GLARGINE SOLOSTAR 100 UNITS/ML 3 ML PEN SC SCH (08:13)
[2019-06-01] MEDS: INSULIN ASPART 100 UNITS/ML 3 ML PEN SC SCH ×2 (08:13→12:42)
[2019-06-01 08:34] LABS: BUN Creatinine Ratio 33.9 (10-20); Calcium 9.1 mg/dl (8.5-10.1); Est GFR (African American) 105.7; Est GFR (Non-African American) 91.2; Magnesium 2.3 mg/dl (1.8-2.4); Phosphorus 4.1 mg/dl (2.5-4.9); Potassium 3.5 mmol/L (3.5-5.1)
[2019-06-01] MEDS ORDERED: FUROSEMIDE 40 MG TAB PO SCH (09:00)
[2019-06-01] MEDS ORDERED: CEFDINIR 300 MG CAP PO SCH (09:00)
--- NOTE | 2019-06-01 13:33 | Hospitalist Progress Note ---
Date of Service June 01, 2019 Assessment & Plan (1) Severe sepsis: Present on admission with fever, tachycardia, elevated lactic acid and low BP CXR showed cardiomegaly with pulmonary vascular congestion. CTA chest showed left greater than right dependent bibasilar predominant opacities suggest atelectasis. Minimal nodular consolidative opacities of the right upper lobe are suggestive of a nonspecific infectious or inflammatory pneumonitis. Blood cx positive for gram negative bacilli -pansensitive Received IV vanco and Zosyn in the ER Starting on IV doxycycline, now transition to oral Continue Rocephin 2g IV since blood cx positive for gram negative bacilli Repeat Blood cx on 05/28, no growth so far Like to have a third-generation cephalosporin on discharge orally and to continue 14 days in total Started on Cefdinir 300 mg twice daily Acute hypoxia respiratory failure ABG on admission showed respiratory acidosis with pH 7.29 and PCO2 51 CTA chest showed no PE Received IV Solumedrol Was placed on Bipap, now transition to [place] Does not use oxygen at home Continue oxygen supplement Will need outpatient sleep study Received intermittent doses of Lasix intravenously for the last day or 2 Will give another dose of 40 mg Lasix intravenously today Check chest x-ray Likely discharge tomorrow on oral Lasix Past 2 days step O2 saturation test Bacteremia As above Elevated Troponin Mostly related demand ischemia from sepsis and hypoxia EKG showed no ischemic changes Trop trending down No information was able to obtain on the ECHO ( discussed with cardiology and said it is due to her body size) No point to repeat it because cardiology will not be able to read it Continue aspirin denies any chest pain Hypotension Related to sever sepsis received adequate IVF hydration Continue to hold Lisinopril Monitor for sign of overload while on IVF Blood pressure remains stable DM type 2 HBa1c 6.1 on 05/27/19 Continue insulin sliding scale Monitor BS B/L LE extremity Edema Left LE erythema Doppler of LLE negative for DVT Continue Doxycycline Continue daily wound care Has appt [facility] Morbid Obesity BMP above 50 Counseling on weight loss DVT prophylaxis on Lovenox subcu CODE Full code Disposition Continue PT and OT Increase ambulation Will go home this afternoon Subjective 05/31/2019 The patient was seen and examined in telemetry unit She has been tired and denies any shortness of breath at rest Complains to have shortness of breath with exertion He is worried about fluid retention in the chest and in the legs Denies any fever and/or chills 06/01/2019 The patient was seen and examined in medical telemetry unit She has been doing a lot better and denies any symptoms whatsoever She has had 2 steps saturation test and that came out to be negative Review of Systems Review of Systems: All systems reviewed and are unremarkable except as noted below Respiratory: no cough and no dyspnea on exertion Cardiovascular: + edema (Bilateral leg edema more on the left than the right with ulcers over left lateral leg); no chest pain Physical Exam Physical Exam: Lying in bed comfortably Sitting on a chair outside bed without any symptoms Constitutional: well developed, well nourished and + obese; no acute distress and not ill appearing Eyes: PERRL, conjunctivae normal, anicteric sclerae ENMT: external ear and nose normal, oropharynx normal Neck: trachea midline, no thyromegaly Respiratory: normal respiratory effort; no respiratory distress Auscultation: + diminished lung sounds and + crackles (Minimal crackles bibasilar) Cardiovascular: Rate/Rhythm: regular rate and regular rhythm Heart Sounds: no murmur Gastrointestinal (Abdomen): Inspection/Auscultation: abdomen normal to inspection, + abdomen distended and normal bowel sounds Percussion/Palpation: abdomen soft; abdomen nontender Musculoskeletal: No acute arthritis in any joints Neurologic: Alert, awake and oriented x3. No focal neuro deficit Lymphatic: no cervical or axillary lymphadenopathy Results & Data ([facility]) Vital Signs (Past 12 Hours) Vital Signs Temp Pulse Pulse Pulse Pulse Resp Resp 06/01/19 11:13 36.9 C 65 18 06/01/19 09:06 112 H 85 75 22 06/01/19 07:43 36.7 C 76 20 06/01/19 06:58 77 18 06/01/19 04:11 36.5 C 67 18 Resp Resp BP Pulse Ox Pulse Ox Pulse Ox Pulse Ox 06/01/19 11:13 119/70 94 06/01/19 09:06 18 18 90 91 94 06/01/19 07:43 122/72 91 06/01/19 06:58 94 06/01/19 04:11 129/65 97 Laboratory Results Short CBC 06/01/19 Range/Units 07:25 WBC 10.50 (4.8-10.8) K/uL Hgb 13.8 (12.0-16.0) g/dL Hct 44.1 (37-47) % Plt Count 242 (130-400) K/uL BMP 06/01/19 07:25 Sodium 138 Potassium 3.5 Chloride 103 Carbon Dioxide 30 BUN 22 H Creatinine 0.65 Glucose 105 H Calcium 9.1 Medications Administered Current Inpatient Medications Acetaminophen (Tylenol) 650 mg PO Q4H PRN PRN Reason: Pain or Fever Stop: 06/26/19 00:17 Last Admin: 05/31/19 21:28 Dose: 325 mg Documented by: Hydrocodone Bitart/Acetaminophen ([place] 5/325) 1 tab PO Q8H PRN PRN Reason: Pain Stop: 06/10/19 00:17 Aspirin (Ecotrin Ectab) 81 mg PO DAILY [facility] Stop: 06/26/19 08:59 Last Admin: 06/01/19 08:02 Dose: 81 mg Documented by: Cefdinir (Omnicef Cap) 300 mg PO BID LIZZY Stop: 06/15/19 08:59 Last Admin: 06/01/19 10:59 Dose: 300 mg Documented by: Dextrose (Dextrose 50%) 25 - 50 ml IV UD PRN; Protocol PRN Reason: Hypoglycemia Protocol Stop: 06/26/19 00:17 Doxycycline Hyclate (Vibramycin) 100 mg PO BID [facility] Stop: 06/03/19 08:59 Last Admin: 06/01/19 08:02 Dose: 100 mg Documented by: Enoxaparin Sodium (Lovenox) 40 mg SQ QAM LIZZY Stop: 06/26/19 08:59 Last Admin: 06/01/19 08:02 Dose: 40 mg Documented by: Furosemide (Lasix) 40 mg PO QAM LIZZY Stop: 07/01/19 08:59 Glucagon (Glucagen) 1 mg SQ UD PRN; Protocol PRN Reason: Hypoglycemia Protocol Stop: 06/26/19 00:17 Glucose (Dex4 Glucose) 4 - 8 tabs PO UD PRN; Protocol PRN Reason: Hypoglycemia Protocol Stop: 06/26/19 00:17 Glucose (Glucose 40%) 15 - 30 gm PO UD PRN; Protocol PRN Reason: Hypoglycemia Protocol Stop: 06/26/19 00:17 Guaifenesin (Mucinex) 600 mg PO Q12 LIZZY Stop: 06/26/19 00:17 Last Admin: 06/01/19 08:02 Dose: 600 mg Documented by: Promethazine HCl 12.5 mg/ (Sodium Chloride) 50.5 mls @ 202 mls/hr IV Q6H PRN PRN Reason: Nausea And Vomiting Stop: 06/26/19 00:17 Insulin Aspart (Novolog Flexpen) 0 units SC ACHS [facility] Stop: 06/26/19 16:29 Last Admin: 06/01/19 12:42 Dose: 3 units Documented by: Insulin Glargine (Lantus Solostar Pen) 5 units SC DAILY [facility] Stop: 06/26/19 08:59 Last Admin: 06/01/19 08:13 Dose: 5 units Documented by: Ipratropium [place] (Atrovent 0.02% 0.5mg/2.5ml) 0.5 mg INH Q6R [facility] Stop: 06/26/19 00:59 Last Admin: 06/01/19 06:56 Dose: 0.5 mg Documented by: Levalbuterol HCl (Xopenex 1.25mg/0.5ml Neb) 1.25 mg INH Q6R [facility] Stop: 06/26/19 00:59 Last Admin: 06/01/19 06:56 Dose: 1.25 mg Documented by: Miscellaneous (Carbohydrates For Hypoglycemia) 15 - 30 gm PO UD PRN PRN Reason: Hypoglycemia Protocol Stop: 06/26/19 00:17 Prednisone (Prednisone) 40 mg PO DAILY [facility] Stop: 06/27/19 08:59 Last Admin: 06/01/19 08:02 Dose: 40 mg Documented by:
--- NOTE | 2019-06-12 09:46 | Discharge Summary ---
Date of Service June 12, 2019 Admission HPI Per Admitting Provider History obtained from patient, family, and records. Medical history significant for hypertension, hyperlipidemia, mood disorder, chronic lymphedema. Recent confinement December 2016 for bilateral leg ulcerations/colitis status post antibiotic Rx. Few days ago, patient noted dry cough symptoms without chest pain and shortness of breath.. Patient somewhat confused as per . No aspiration. Subsequent worsening of symptoms along with worsening swelling of the left leg. At the ER, patient received vancomycin and and Zosyn for sepsis. BiPAP initiated for hypoxemia, respiratory distress. SBP initially 70s, currently 90s after IVF administration. Medical History as above Recent [facility] [place] follow-up for recurrent BLE edema/stasis related ulceration last week. 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 Admission Exam Per Admitting Provider Physical Exam: GENERAL: Slightly uncomfortable, morbidly obese, minimal respiratory distress SKIN: Normal color, warm HEENT: [place] palpebral conjunctivae, no ptosis, short neck, dry buccal mucosa; BiPAP in place NECK : Supple, short neck, no tenderness CHEST : Decreased breath sounds, occasional expiratory wheezes, no tenderness HEART : Tachycardic , no obvious murmurs ABDOMEN: Some distention, nontender EXTREMITIES : Bilateral LE swelling L> R, LLE noted to be erythematous, minimal LLE tenderness, no other conspicuous deformities noted NEUROLOGIC : Coherent, no facial asymmetry, no other gross focality Principal Diagnosis Severe sepsis, E. coli bacteremia, hypoxic respiratory failure -resolved ,hypertension, type 2 diabetes, bilateral leg edema with leg ulcer on the left side Discharge Exam Constitutional well developed, well nourished and + obese; no acute distress and not ill appearing Eyes PERRL, conjunctivae normal, anicteric sclerae ENMT external ear and nose normal, oropharynx normal Neck trachea midline, no thyromegaly Respiratory normal respiratory effort; no respiratory distress Auscultation: + diminished lung sounds and + crackles (Minimal crackles bibasilar) Cardiovascular Rate/Rhythm: regular rate and regular rhythm Heart Sounds: no murmur Gastrointestinal (Abdomen) Inspection/Auscultation: abdomen normal to inspection, + abdomen distended and normal bowel sounds Percussion/Palpation: abdomen soft; abdomen nontender Lymphatic no cervical or axillary lymphadenopathy Discharge Data Allergies Allergy/AdvReac Type Severity Reaction Status Date / Time Cipro AdvReac Intermediate makes Verified 12/20/16 15:25 mouth feel funny ciprofloxacin AdvReac Intermediate makes Verified 05/26/19 19:50 mouth feel funny metronidazole AdvReac Intermediate makes Verified 05/26/19 19:50 mouth feel funny Consultations 05/26/19 21:50 ED Decision to Admit Stat 05/27/19 00:18 Consult Case Management - Discharge Planning Routine Ordered Studies 05/26/19 20:03 CT angio chest PE protocol Stat 05/27/19 00:18 US venous doppler LE LT Urgent Hospital Course (1) Severe sepsis: Present on admission with fever, tachycardia, elevated lactic acid and low BP CXR showed cardiomegaly with pulmonary vascular congestion. CTA chest showed left greater than right dependent bibasilar predominant opacities suggest atelectasis. Minimal nodular consolidative opacities of the right upper lobe are suggestive of a nonspecific infectious or inflammatory pneumonitis. Blood cx positive for gram negative bacilli -pansensitive Received IV vanco and Zosyn in the ER Starting on IV doxycycline, now transition to oral Continue Rocephin 2g IV since blood cx positive for gram negative bacilli Repeat Blood cx on 05/28, no growth so far Like to have a third-generation cephalosporin on discharge orally and to continue 14 days in total Started on Cefdinir 300 mg twice daily Acute hypoxia respiratory failure ABG on admission showed respiratory acidosis with pH 7.29 and PCO2 51 CTA chest showed no PE Received IV Solumedrol Was placed on Bipap, now transition to [place] Does not use oxygen at home Continue oxygen supplement Will need outpatient sleep study Received intermittent doses of Lasix intravenously for the last day or 2 Will give another dose of 40 mg Lasix intravenously today Check chest x-ray Likely discharge tomorrow on oral Lasix Past 2 days step O2 saturation test Bacteremia As above Elevated Troponin Mostly related demand ischemia from sepsis and hypoxia EKG showed no ischemic changes Trop trending down No information was able to obtain on the ECHO ( discussed with cardiology and said it is due to her body size) No point to repeat it because cardiology will not be able to read it Continue aspirin denies any chest pain Hypotension Related to sever sepsis received adequate IVF hydration Continue to hold Lisinopril Monitor for sign of overload while on IVF Blood pressure remains stable DM type 2 HBa1c 6.1 on 05/27/19 Continue insulin sliding scale Monitor BS B/L LE extremity Edema Left LE erythema Doppler of LLE negative for DVT Continue Doxycycline Continue daily wound care Has appt with [facility] wound care Morbid Obesity BMP above 50 Counseling on weight loss DVT prophylaxis on Lovenox subcu CODE Full code Disposition Continue PT and OT Increase ambulation Will go home this afternoon Total Time Total Time Spent Total Time Spent (In Minutes): 35 mnutes Total Time Includes: Examination of the Patient, Discharge Planning, Medication Reconciliation and Communication With Other Providers Discharge Plan Discharge Items Patient Disposition: Home - Self-Care Reason For Visit: RESPIRATORY FAILURE Discharge Diagnosis: Severe sepsis, E. coli bacteremia, hypoxic respiratory failure -resolved ,hypertension, type 2 diabetes, bilateral leg edema with leg ulcer on the left side Condition on Discharge: Fair Activity: Resume your previous activity Non-emergency contact: Primary Care Provider Call non-emergency contact if: you have any medication questions and your symptoms worsen Follow-up/Referrals: Dalila Mg DO [Primary Care Provider] - 06/07/19 10:45 am (If you need to change this appointment, please call [phone].) Diet: Carb Consistent or DM2 and Heart Healthy Addtl Attending Provider Instructions: Please take precaution to avoid falls. Keep appointment with wound clinic at [facility] Pending Studies at Discharge: No Stand-Alone Forms: [facility] Sm[facility] Cessation Medications and DC Order Prescriptions: New Lactinex 1 million cell tablet,chewable 1 tab PO BID Qty: 30 RF: 0 Continued hydrocodone-acetaminophen [[place]] 5-325 mg Tablet 1 tab PO Q8H PRN (Reason: Pain) RF: 0 aspirin [Aspir-81] 81 mg Tablet,Delayed Release (Dr/Ec) 81 mg PO DAILY RF: 0 acetaminophen [Tylenol Extra Strength] 500 mg Tablet 500 - 1,000 mg PO DIRECTED PRN (Reason: Fever Or Pain) RF: 0 lisinopril 2.5 mg Tablet 2.5 mg PO DAILY RF: 0 Changed furosemide [Lasix] 20 mg Tablet 40 mg PO DAILY Qty: 0 RF: 0 Discharge Orders: Discharge Order (Routine); Ordered 06/01/19 Ordered By: Papo Clement/Other Patient Handouts: Prediabetes, A1C Admission Data Admit Date/Time: 05/26/19 22:55 Attending Provider: Papo Bob Admit Provider: Hussain Huggins Primary Care Provider: Dalila Mg Other Providers: Sridhar Suero ; Hussain Huggins Other Interventions: Discharge Summary Assessment (RN) Last Done: 06/01/19 14:01 DC Date/Time DO NOT enter until pt leaves facility: 06/01/19 14:59
== END 2019-06-01 14:59 | disposition home or self-care (01) | DRG 871 ==
LOC: ED 17:57 → 2S 22:55 → SUATTDRO 22:55 → 2S 23:25 → 2N 06-01 07:20

== ENCOUNTER 2020-01-16 08:57 | Inpatient (IN) ==
[2020-01-16] MEDS ORDERED: NALOXONE HCL 0.4 MG/1 ML VIAL/CARP IV STA (09:04)
[2020-01-16] MEDS ORDERED: LEVALBUTEROL HCL 1.25 MG/3 ML NEB NEB STA ×3 (09:10→09:11)
[2020-01-16] MEDS ORDERED: methylPREDNISolone 125 MG/2 ML VIAL IV STA (09:11)
[2020-01-16] MEDS ORDERED: MAGNESIUM SULFATE / D5W 1 GM/100 ML BAG IV ONE (09:11)
[2020-01-16] MEDS ORDERED: VANCOMYCIN HCL 2,000 MG in SODIUM CHLORIDE 0.9% 500 ML IV ONE (09:13)
[2020-01-16] MEDS ORDERED: PIPERACILL/TAZOBAC CONSULT ACTIVE PRN ×2 (09:13→13:34)
[2020-01-16] MEDS ORDERED: VANCOMYCIN CONSULT ACTIVE PRN (09:13)
[2020-01-16] MEDS ORDERED: PIPERACILLIN/TAZOBACTAM 4.5 GM/120 ML BAG IV ONE (09:13)
[2020-01-16] MEDS ORDERED: LEVOFLOXACIN/D5W 750 MG/150 ML BAG IV STA (09:13)
[2020-01-16] MEDS ORDERED: SODIUM CHLORIDE 0.9% 1000ML 1,000 ML IV ONE (09:15)
[2020-01-16 09:21] LABS: Basophils # (auto) 0.04 K/uL (0-0.2); Basophils % (auto) 0.2 %; Hematocrit (blood only) 45.2 % (37-47); Hemoglobin 13.8 g/dL (12.0-16.0); Immature Granulocytes # (auto) 0.12 K/uL (0.00-0.02); Immature Granulocytes % (auto) 0.7 %; Lymphocytes % (auto) 12.2 %; Mean Corpuscular Hemoglobin 27.8 pg (25-34); Mean Corpuscular Hgb Conc 30.5 g/dL (32-36); Mean Corpuscular Volume 90.9 fL (80-100); Monocytes % (auto) 6.1 %; Neutrophils # (auto) 14.56 K/uL (1.4-6.5); Neutrophils % (auto) 80.8 %; Platelet Count 291 K/uL (130-400); RDW Coefficient of Variation 14.6 % (11.5-14.5); RDW Standard Deviation 47.8 fL (36.4-46.3); Red Blood Count 4.97 M/uL (4.2-5.4); White Blood Count 18.02 K/uL (4.8-10.8)
--- NOTE | 2020-01-16 09:24 | XRay Report ---
XR chest 1V portable HISTORY: SEPSIS COMPARISON: Chest 05/31/2019. FINDINGS: No pneumothorax. The heart is enlarged. There is progressive interstitial and vascular thic kening consistent with mild pulmonary edema. Possible trace right pleural effusion. No new focal lung consolidations to suggest pneumonia. IMPRESSION: Interval progression of the cardiomegaly and mild interstitial pulmonary edema. ACT 112: Negative or not required by law. Electronically signed by: Kam Clark M.D. 01/16/2020 9:23 AM
[2020-01-16 09:26] LABS: Base Excess VBG -8.2 mEq/L; Oxygen Saturation VBG 87.2 %; pH VBG 7.19 (7.36-7.41)
[2020-01-16 09:29] LABS: iSTAT Creatinine 1.2 mg/dl (0.6-1.3); iSTAT Hemoglobin 15.3 g/dl (12.0-16.0); iSTAT Ionized Calcium 1.18 mmol/l (1.12-1.32); iSTAT Potassium 4.2 mmol/L (3.3-5.0)
[2020-01-16] MEDS ORDERED: NALOXONE HCL 5 MG in 0.9 % SODIUM CHLORIDE 100 ML IV SCH (09:40)
[2020-01-16 09:42] LABS: INR 1.1 (0.9-1.1); Partial Thromboplastin Ratio 0.9; Partial Thromboplastin Time 24.9 Seconds (21.0-31.0); Prothrombin Time 11.9 Seconds (9.0-12.0)
[2020-01-16 10:00] LABS: Alanine Aminotransferase 50 U/L (12-78); Albumin Globulin Ratio 0.6 (0.9-2); Albumin Level 2.8 gm/dl (3.4-5.0); Alkaline Phosphatase 160 U/L (45-117); Aspartate Aminotransferase 80 U/L (15-37); BUN Creatinine Ratio 13.7 (10-20); Bilirubin,Total 0.4 mg/dl (0.2-1); Blood Urea Nitrogen 20 mg/dl (7-18); Calcium 8.8 mg/dl (8.5-10.1); Carbon Dioxide 24 mmol/L (21-32); Chloride 106 mmol/L (98-107); Creatine Kinase 43 U/L (26-192); Creatine Kinase MB 3.2 ng/ml (0.5-3.6); Est GFR (African American) 42.1; Est GFR (Non-African American) 36.3; Ferritin 1906.1 ng/ml (8-388); Globulin 4.8 gm/dl (2.5-4.0); Glucose 295 mg/dl (70-99); Magnesium 2.4 mg/dl (1.8-2.4); Potassium 4.3 mmol/L (3.5-5.1); Sodium 141 mmol/L (136-145); Total Protein 7.6 gm/dl (6.4-8.2); Troponin I 0.403 ng/ml (0-0.045)
[2020-01-16] MEDS ORDERED: OPTIRAY 320 125ml IV ONE (10:00)
[2020-01-16] MEDS ORDERED: ALTEPLASE 100mg IV over 2hr **For PE (FDA Approved) IV ONE (10:15)
[2020-01-16] MEDS ORDERED: PRIMARY PLUMSET--Send if TPA given as SVP IV ONE (10:15)
[2020-01-16] MEDS ORDERED: NSS 50 ML--Send if TPA given as SVP IV ONE ×2 (10:15→12:00)
--- NOTE | 2020-01-16 10:16 | CT Scan Report ---
HEAD CT NONCONTRAST CT DOSE: HISTORY: Pt obtunded, Resp failure TECHNIQUE: Multiaxial CT images of the head were performed without the use of intravenous contrast. A utomated exposure control was utilized for this study. A dose lowering technique was utilized adheri ng to the principles of ALARA. Comparison: Head CT 11/10/2013. Findings: Mild mucosal thickening within the left maxillary sinus. The mastoid air cells are clear. M ild motion artifact results in suboptimal evaluation. The calvarium and skull base are intact. The ve ntricles and sulci are within normal limits. There is no mass, hematoma, midline shift, or acute infa rct. Impression: No acute intracranial abnormality. ACT 112: Negative or not required by law. Electronically signed by: Kam Clark M.D. 01/16/2020 10:15 AM
--- NOTE | 2020-01-16 10:19 | CT Scan Report ---
CT angio chest PE protocol CT DOSE: 3425.87 mGy.cm HISTORY: 69 years-old Female with PE. Acute respiratory failure with obesity and acute renal failur e. TECHNIQUE: Multiple CTA images of the chest were obtained after the intravenous administration of 120 ml Optiray 320. Coronal and sagittal MIPS were obtained from the axial data set and were submitted for review. All measurements were obtained according to NASCET criteria. A dose lowering technique w as utilized adhering to the principles of ALARA. COMPARISON: CTA chest 05/26/2019 FINDINGS: CTA: Moderate cardiomegaly with moderate coronary artery calcifications. There is no thoracic aortic aneur ysm or dissection. Aberrant course of the right subclavian artery. Dilated pulmonary artery redemonst rated suggestive of pulmonary artery hypertension. Filling defects are present within the left distal main pulmonary artery with extensive pulmonary bullae of the bilateral lobar, segmental and subsegme ntal branches. There is straightening of the intraventricular septum. CT CHEST: No large thyroid nodule or adenopathy. There is no pneumothorax, pleural effusion or overt pulmonary edema. Respiratory motion artifact limits evaluation of the lungs. There is minimal subsegmental biba silar atelectasis. Decreased AP dimension of the trachea and bronchi may reflect a component of trach eobronchomalacia. Previously noted fissural nodules are not well seen on today's study. Cholecystectomy. 3.2 cm left adrenal gland adenoma. Patient body habitus limits the study. Degenerati ve changes of the shoulders and spine. Lesion of the manubrium suggestive of a hemangioma appears sta ble. Subcentimeter sclerotic focus of the posterior left eighth rib suggestive of bone island is unch anged. IMPRESSION: 1. Extensive bilateral pulmonary emboli with straightening of the intraventricular septum suggestive of right heart strain. 2. No pleural effusion or pulmonary infarct. 3. Moderate cardiomegaly with findings suggestive of pulmonary artery hypertension. 4. Additional findings as above. ACT 112: Negative or not required by law. The above report was generated using voice recognition software. It may contain grammatical, syntax o r spelling errors. Electronically signed by: Jacques Yanes M.D. 01/16/2020 10:17 AM
--- NOTE | 2020-01-16 10:22 | CT Scan Report ---
CT SCAN OF THE ABDOMEN AND PELVIS WITH IV CONTRAST CLINICAL HISTORY: Acute renal failure. Respiratory failure. COMPARISON STUDY: Abdominal CT dated 12/15/2014. TECHNIQUE: Following the IV administration of 120 cc of Optiray 320, CT scan of the abdomen and pelv is is performed from the lung bases to the proximal femora. Images are reviewed in the axial, sagitta l, and coronal planes. IV contrast was administered without complication. A dose lowering technique w as utilized adhering to the principles of ALARA. The examination is degraded by large body habitus, a nd by streak artifact from the body wall abutting the CT gantry. There is also streak artifact from t he arms which could not be elevated above the abdomen and motion artifact. FINDINGS: Lung bases: The heart is top normal in size and without pericardial effusion. There are coronary fransisca ry calcifications. There is lipomatous hypertrophy of the interatrial septum. There is a small hiatal hernia. The lung bases are clear. There are bilateral lower lobe pulmonary emboli. Liver: The contrast-enhanced liver is enlarged, measuring 23.4 cm in length. The liver demonstrates d iffusely diminished attenuation consistent with hepatic steatosis. There is no intrahepatic biliary d uctal dilatation. The hepatic veins and portal veins are patent. Gallbladder: Surgically absent noting clips in the gallbladder fossa. Spleen: The spleen is mildly enlarged measuring 14.6 cm in length. Pancreas: Atrophic and grossly unremarkable. Adrenal glands: A 3.1 cm left adrenal nodule is unchanged from 2015. The right adrenal gland is denice l in appearance. Kidneys: The contrast enhanced kidneys demonstrate mild cortical atrophy and are without hydronephros is. The kidneys enhance symmetrically. Abdominal vasculature: The abdominal aorta is normal in course and caliber noting moderate to advance d atherosclerotic calcification. Bowel: There is moderate colonic diverticulosis without CT evidence of acute diverticulitis. No bowel obstruction is seen. A large umbilical hernia contains nonobstructed small bowel loops. The appendix is well-visualized and normal. Peritoneum: There is no intraperitoneal free air or abdominal ascites. Lymphadenopathy: None. Pelvic viscera: The bladder is decompressed and cannot be evaluated. The uterus and adnexa are normal as imaged. Skeletal structures: The skeletal structures are osteopenic. There is moderate to advanced lumbosacra l spondylosis. No lytic or blastic lesions are seen. Advanced arthritic and postoperative change is s een in the left hip. IMPRESSION: 1. Streak and motion compromised examination. 2. There are bilateral lower lobe pulmonary emboli. 3. No acute infectious or inflammatory findings are identified in the abdomen or pelvis. 4. Hepatomegaly and hepatic steatosis. 5. Splenomegaly. 6. Moderate colonic diverticulosis without CT evidence of acute diverticulitis. 7. A large umbilical hernia contains nonobstructed small bowel loops. 8. Additional findings as above. ACT 112: Negative or not required by law. Electronically signed by: Reyes Aldridge M.D. 01/16/2020 10:21 AM
[2020-01-16] MEDS ORDERED: ALTEPLASE IV ONE ×2 (10:30→10:45)
[2020-01-16] MEDS ORDERED: ALTEPLASE, RECOMBINANT 10 MG in SYRINGE 0 ML IV ONE (10:30)
[2020-01-16] MEDS ORDERED: RECOMBINANT IV ONE ×2 (10:30→10:45)
--- NOTE | 2020-01-16 11:10 | XRay Report ---
XR chest 1V portable HISTORY: Central venous catheter placement. COMPARISON: Chest 01/16/2020. FINDINGS: The heart remains enlarged. Diffuse interstitial thickening, unchanged. This favors mild co ngestive change. No pneumothorax. No pleural effusions. Interval placement left jugular central venou s catheter. This terminates in the expected location of the distal left brachiocephalic vein when com pared to the same day chest CTA. IMPRESSION: 1. Interval placement of a left jugular central venous catheter. This terminates at the expected loca tion of the distal left brachiocephalic vein. No pneumothorax. 2. No change in the cardiomegaly and mild congestive change. ACT 112: Negative or not required by law. Electronically signed by: Kam Clark M.D. 01/16/2020 11:09 AM
--- NOTE | 2020-01-16 11:29 | History & Physical Report ---
Date of Service January 16, 2020 Assessment & Plan (1) Acute respiratory failure with hypoxia: (2) Bilateral pulmonary embolism: (3) Acute respiratory acidosis: (4) Lactic acidosis: (5) Elevated troponin: (6) Acute heart failure: (7) CHERRY (acute kidney injury): (8) Hyperglycemia: (9) Leukocytosis: This is a 69-year-old female who has significant past medical history of hypertension, hyperlipidemia, morbid obesity, depression, bilateral lymphedema who presents to ED secondary to shortness of breath x2 days. Pt is being admitted to ICU s/p TPA 2/2 to bilateral pulmonary emboli Continue BIPAP Continue TPA NPO Please refer to bottom sprayer consultation for details regarding ICU assessment and plan. (10) HTN (hypertension): controlled on lisinopril as outpt (11) HLD (hyperlipidemia): on atorvastatin 20mg as outpt (12) Lymphedema: follows wound clinic [place] 05/28 to recurrent BLE edema/stasis ulcerations with compressive dressings/lymphedema pumps as outpt Per wound clinic: Ag foam/Coban 2 (with extra cohesive layer for additional compression) to LLE, changed weekly with size F tubigrips (13) Depression: on prozac as outpt (14) Morbid obesity: BMI 54.9 encourage lifestyle and diet modifications when able Disposition: admit to ICU under care of Machine Tailer Dr. Carrion Follow up: PCP Dr. Mg upon discharge Pt was seen and examined in collaboration with Dr. Solo, please see addendum History of Present Illness Chief Complaint: SOB x 2 days. Primary Care Provider: Dalila Mg, This is a 69-year-old female who has significant past medical history of hypertension, hyperlipidemia, morbid obesity, depression, bilateral lymphedema who presents to ED secondary to shortness of breath x2 days. History obtained from patient medical records and communication with ED provider. Unable to obtain history from patient secondary to reduced consciousness and on BiPAP therapy. According to notes patient developed shortness of breath Wednesday afternoon, initially was intermittent but has been constant since yesterday. She has been tachycardic and has never had similar symptoms in past. Per ED provider patient arrived to ED with acute respiratory distress, tachypnea and tachycardia. She was placed on BiPAP therapy. Imaging revealed extensive bilateral pulmonary emboli with straightening of the interventricular septum suggestive of right heart strain, no pleural effusion, moderate cardiomegaly with findings suggestive of pulmonary arterial hypertension.Head CT was without acute abnormality. CT scan of abdomen pelvis revealed bilateral no PE otherwise no acute infectious or inflammatory findings. ICU physician called and notified. A central line was placed and pt was given TPA. She is being admitted to ICU under bottom sprayer for further management of acute hypoxic respiratory failure secondary to extensive bilateral pulmonary emboli with right heart strain, respiratory acidosis, lactic acidosis, acute heart failure, elevated troponin, CHERRY, hyperglycemia and leukocytosis. She did receive IV TPA in ED along with broad-spectrum IV antibiotics including vancomycin, Zosyn and Levaquin until severe sepsis ruled out. She is also undergoing COVID screening and [employer] fire screening. Allergies Allergy/AdvReac Type Severity Reaction Status Date / Time Cipro AdvReac Intermediate makes Verified 12/20/16 15:25 mouth feel funny ciprofloxacin AdvReac Intermediate makes Verified 05/26/19 19:50 mouth feel funny metronidazole AdvReac Intermediate makes Verified 05/26/19 19:50 mouth feel funny Home Medications Home Medications Medication Instructions Recorded Confirmed Type acetaminophen [Tylenol Extra 500 - 1,000 mg PO DIRECTED PRN 05/26/19 01/16/20 History Strength] aspirin [Aspir-81] 81 mg PO DAILY 05/26/19 01/16/20 History lisinopril 2.5 mg PO DAILY 05/26/19 01/16/20 History Lactobacillus acidoph-L.bulgar 1 tab PO BID #30 tab 06/01/19 01/16/20 Rx [Lactinex] atorvastatin 20 mg PO DAILY 01/16/20 01/16/20 History fluoxetine 20 mg PO DAILY 01/16/20 01/16/20 History furosemide 40 mg PO DAILY 01/16/20 01/16/20 History Past Med/Surg History Medical History Acute massive pulmonary embolism Depression Fall Hip fracture HLD (hyperlipidemia) HTN (hypertension) Hyperglycemia Lymphedema Morbid obesity Morbid obesity due to excess calories Rectal bleeding Right heart failure Shock Surgical History History of carpal tunnel surgery History of cholecystectomy History of colonoscopy History of hip surgery 2/2 to fracture Family History Mother Cancer melanoma AMD (age related macular degeneration) Father Hypertension Denies family history of Diabetes Stroke Social History Smoking Status: Never smoker Second Hand Exposure: No; Hx Alcohol Use: No Hx Substance Use: No Preferred Language: Greenlandic Communication Ability: Effective 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 Beliefs That Will Affect Care: None marital status: Current Living Situation: Spouse Feels Safe at Home: Yes Assistive Devices: None Review of Systems Review of Systems: Unobtainable due to reduced consciousness Physical Exam Physical Exam: Constitutional: WD/WN,obese, F, on bipap, vitals as above, tachypneic, sitting up in bed, reduced consciousness Head: Normocephalic, Atraumatic Eyes: PERRL, conjunctivae normal, anicteric sclerae ENMT: external ear and nose normal, oropharynx normal Neck: trachea midline, no thyromegaly normal visual inspection Respiratory: increased respiratory effort, on bipap, lungs clear to auscultation, no wheeze, rales, rhonchi. no accessory muscle use Cardiovascular: L jugular central venous cath, Tachycardic rate, regular rhythm, no murmur, bilateral lower extreme lymphedema with compressive dressings in place, bilateral pedal pulses +2 and equal Vessels: no JVD or carotid bruit Chest: normal inspection of chest Abdomen: obese abd, normal bowel sounds, soft, nontender, no hepatosplenomegaly Musculoskeletal: no cyanosis or clubbing, Skin: no rashes, warm and dry normal turgor Neurologic: unable to assess due to reduced consciousness Psychiatric: unable to assess due to reduced consciousness Lymphatic: no cervical or axillary lymphadenopathy : deferred Results & Data Results & Data ([facility]) Vital Signs (Past 12 Hours) Vital Signs Temp Pulse Resp BP Pulse Ox 01/16/20 11:16 105 H 30 H 99/56 L 98 01/16/20 11:15 101 H 28 H 93 01/16/20 11:10 104 H 27 H 138/103 H 98 01/16/20 11:01 108 H 30 H 99 01/16/20 11:00 109 H 27 H 117/57 L 97 01/16/20 10:46 105 H 28 H 94 01/16/20 10:45 106 H 25 H 100/68 95 01/16/20 10:31 107 H 22 94 01/16/20 10:30 107 H 31 H 86/60 L 93 01/16/20 10:16 110 H 27 H 95 01/16/20 10:15 109 H 31 H 116/48 L 97 01/16/20 10:01 114 H 38 H 91/50 L 96 01/16/20 10:00 114 H 31 H 01/16/20 09:58 115 H 36 H 86/67 L 95 01/16/20 09:55 117 H 34 H 01/16/20 09:30 116 H 39 H 95 01/16/20 09:22 36 H 97 01/16/20 09:20 123 H 37 H 97 01/16/20 09:15 125 H 46 H 96 01/16/20 09:09 94 01/16/20 09:06 92/66 L 95 01/16/20 08:50 36.7 C 125 H 47 H 100 Laboratory Results Short CBC 01/16/20 01/16/20 Range/Units 09:09 09:09 WBC 18.02 H (4.8-10.8) K/uL Hgb 13.8 (12.0-16.0) g/dL Hct 45.2 (37-47) % Plt Count 291 (130-400) K/uL Creatinine 1.47 H (0.6-1.2) mg/dl BMP 01/16/20 09:09 Sodium 141 Potassium 4.3 Chloride 106 Carbon Dioxide 24 BUN 20 H Creatinine 1.47 H Glucose 295 H Calcium 8.8 Cardiac Enzymes 01/16/20 Range/Units 09:09 Total Creatine Kinase 43 (26-192) U/L CK-MB (CK-2) 3.2 (0.5-3.6) ng/ml Troponin I 0.403 H* (0-0.045) ng/ml Liver Function 01/16/20 Range/Units 09:09 Total Bilirubin 0.4 (0.2-1) mg/dl AST 80 H (15-37) U/L ALT 50 (12-78) U/L Alkaline Phosphatase 160 H (45-117) U/L Albumin 2.8 L (3.4-5.0) gm/dl Diagnostic Findings CXR: IMPRESSION: Interval progression of the cardiomegaly and mild interstitial pulmonary edema. Head CT: Impression: No acute intracranial abnormality. CTA Chest: IMPRESSION: 1. Extensive bilateral pulmonary emboli with straightening of the intraventricular septum suggestive of right heart strain. 2. No pleural effusion or pulmonary infarct. 3. Moderate cardiomegaly with findings suggestive of pulmonary artery hypertension. 4. Additional findings as above. CT ABD/PELVIS: IMPRESSION: 1. Streak and motion compromised examination. 2. There are bilateral lower lobe pulmonary emboli. 3. No acute infectious or inflammatory findings are identified in the abdomen or pelvis. 4. Hepatomegaly and hepatic steatosis. 5. Splenomegaly. 6. Moderate colonic diverticulosis without CT evidence of acute diverticulitis. 7. A large umbilical hernia contains nonobstructed small bowel loops. 8. Additional findings as above. CXR2: HISTORY: Central venous catheter placement. COMPARISON: Chest 01/16/2020. FINDINGS: The heart remains enlarged. Diffuse interstitial thickening, unchanged. This favors mild congestive change. No pneumothorax. No pleural effusions. Interval placement left jugular central venous catheter. This terminates in the expected location of the distal left brachiocephalic vein when compared to the same day chest CTA. IMPRESSION: 1. Interval placement of a left jugular central venous catheter. This terminates at the expected location of the distal left brachiocephalic vein. No pneumothorax. 2. No change in the cardiomegaly and mild congestive change. Medications Administered Naloxone HCl 5 mg/ Sodium (Chloride) 112.5 mls @ 5.85 mls/hr IV .[id number] [facility]; Protocol Stop: 02/15/20 09:39 Last Admin: 01/16/20 10:49 Dose: Not Given Documented by: [id number] N/A (Primary [place], Pe Lined Tubing ([id number])) 1 mls @ 0.0033 mls/hr IV ONE ONE Stop: 01/29/20 01:16 Last Infusion: 01/16/20 11:12 Dose: 0 mls/hr Documented by: [id number] Admin: 01/16/20 10:49 Dose: 45 mls/hr Documented by: [id number] Alteplase, Recombinant 90 mg/ (EMPTY BAG) 90 mls @ 45 mls/hr IV NOW ONE; Protocol Stop: 01/16/20 12:44 Last Admin: 01/16/20 10:53 Dose: 45 mls/hr Documented by: [id number] Cosigned by: [id number] Discontinued Medications Magnesium Sulfate/Dextrose (Magnesium Sulfate / D5w) 1 gm in 100 mls @ 50 mls/hr IV ONE ONE Stop: 01/16/20 11:10 Last Infusion: 01/16/20 09:33 Dose: 0 mls/hr Documented by: [id number] Admin: 01/16/20 09:18 Dose: 400 mls/hr Documented by: [id number] Piperacillin Sod/Tazobactam Sod (Zosyn) 4.5 gm in 120 mls @ 240 mls/hr IV NOW ONE Stop: 01/16/20 09:42 Last Infusion: 01/16/20 11:20 Dose: 0 mls/hr Documented by: [id number] Admin: 01/16/20 10:50 Dose: 240 mls/hr Documented by: [id number] Levofloxacin/Dextrose (Levaquin/D5w) 750 mg in 150 mls @ 100 mls/hr IV NOW STA Stop: 01/16/20 10:42 Last Admin: 01/16/20 10:53 Dose: 100 mls/hr Documented by: [id number] Vancomycin HCl 2,000 mg/ (Sodium Chloride) 540 mls @ 200 mls/hr IV NOW ONE Stop: 01/16/20 11:42 Last Admin: 01/16/20 10:51 Dose: 200 mls/hr Documented by: [id number] Sodium Chloride (Nss 1000ml) 1,000 mls @ 999 mls/hr IV .[id number] ONE Stop: 01/16/20 10:15 Last Admin: 01/16/20 10:51 Dose: Not Given Documented by: [id number] Alteplase, Recombinant 10 mg/ (Syringe) 10 mls @ 600 mls/hr IV NOW ONE; Protocol Stop: 01/16/20 10:31 Last Infusion: 01/16/20 10:54 Dose: 0 mls/hr Documented by: [id number] Cosigned by: [id number] Admin: 01/16/20 10:52 Dose: 600 mls/hr Documented by: [id number] Cosigned by: [id number] Ioversol (Optiray 320 125ml) 120 ml IV ONCE ONE Stop: 01/16/20 10:01 Last Admin: 01/16/20 10:01 Dose: 120 ml Documented by: [id number] Levalbuterol HCl (Levalbuterol Hcl 1.25 Mg/3 Ml Neb) 1.25 mg NEB NOW STA Stop: 01/16/20 09:11 Last Admin: 01/16/20 09:19 Dose: 1.25 mg Documented by: [id number] Levalbuterol HCl (Levalbuterol Hcl 1.25 Mg/3 Ml Neb) 1.25 mg NEB NOW STA Stop: 01/16/20 09:11 Last Admin: 01/16/20 09:20 Dose: 1.25 mg Documented by: [id number] Levalbuterol HCl (Levalbuterol Hcl 1.25 Mg/3 Ml Neb) 1.25 mg NEB NOW STA Stop: 01/16/20 09:12 Last Admin: 01/16/20 09:20 Dose: 1.25 mg Documented by: [id number] Methylprednisolone (Methylprednisolone 125 Mg/2 Ml Vial) 125 mg IV NOW STA Stop: 01/16/20 09:12 Last Admin: 01/16/20 09:18 Dose: 125 mg Documented by: [id number] Naloxone HCl (Naloxone Hcl 0.4 Mg/1 Ml Vial/Carp) 0.4 mg IV NOW STA Stop: 01/16/20 09:05 Last Admin: 01/16/20 09:12 Dose: 0.4 mg Documented by: [id number] ECG Rate (beats per minute): 121 Rhythm: junctional and sinus tachycardia Findings: + RBBB Additional Comments: [id number] Code Status & VTE Plan Code Status Full Code VTE Prophylaxis Plan VTE Prophylaxis will be ordered: Yes Supervising Physician Co-Signing Physician Notes I saw this patient with the physician life science research assistant, I participated in the history, physical, review of systems, and physical exam. I reviewed the medications with the patient and the physician life science research assistant and helped reconcile the medications. I helped take a detailed family and social history as well. I formulated the assessment and plan personally with the physician life science research assistant and went over it with the patient. Physical Exam Gen-somnolent on BiPAP, obese Head-NCAT, EOMI, PERRLA, Anicteric Sclera Neck-Supple, No JVD, No Thyromegaly, No Masses, No LAD, No Bruits Lungs-Clear to Auscultation Bilaterally, No Rales, No Rhonchi, No Wheezing, No Crepitus Chest-No S4, +S1, +S2, No S3, No Murmurs, No Rubs, No Gallops, No Ectopy Abdomen-Soft, Bowel Sounds Present, Non Tender, obese, No Hepatomegaly, No Splenomegaly, No Palpable Masses, No Rebound, No Rigidity, No Guarding Musculoskeletal-not assessed Extremities-No Cyanosis, No Clubbing, No Edema, bilateral gauze wraps for lymphedema and compression stockings Nuero-Cranial Nerves II-XII grossly intact, Non Focal Psych-somnolent
[2020-01-16 12:19] LABS: Adenovirus PCR Not Detected (NotDetected); Bordetella parapertussis PCR Not Detected (NotDetected); Bordetella pertussis PCR Not Detected (NotDetected); Chlamydia pneumoniae PCR Not Detected (NotDetected); Coronavirus 229E PCR Not Detected (NotDetected); Coronavirus CoV-2 (COVID19)PCR Not Detected (NotDetected); Coronavirus HKU1 PCR Not Detected (NotDetected); Coronavirus NL63 PCR Not Detected (NotDetected); Coronavirus OC43PCR Not Detected (NotDetected); Human Metapneumovirus PCR Not Detected (NotDetected); Influenza A PCR Not Detected (NotDetected); Influenza B PCR Not Detected (NotDetected); Mycoplasma pneumoniae PCR Not Detected (NotDetected); Parainfluenza Virus 1 PCR Not Detected (NotDetected); Parainfluenza Virus 2 PCR Not Detected (NotDetected); Parainfluenza Virus 3 PCR Not Detected (NotDetected); Parainfluenza Virus 4 PCR Not Detected (NotDetected); Respiratory Syncytial VirusPCR Not Detected (NotDetected); Rhinovirus/Enterovirus PCR Not Detected (NotDetected)
[2020-01-16] MEDS ORDERED: ICU PROTOCOL FOR HYPERGLYCEMIA PRN (13:26)
[2020-01-16] MEDS ORDERED: PANTOPRAZOLE BOLUS/DRIP 1 EA IV STA (13:31)
--- NOTE | 2020-01-16 13:34 | Emergency Department Note ---
History of Present Illness General Chief complaint: Respiratory Distress Stated complaint: kathy arrest Source: patient, family (), EMS, RN notes reviewed and old records reviewed Mode of arrival: EMS Limitations: altered mental status History of Present Illness Provider complaint: Hypoxic, hypotension, tachycardia Onset (ago): day(s) 1 Location: chest Radiation: non-radiation Severity: severe Pain Consistency: + colicky Current Pain Intensity: 0 Quality: + aching Relieved By: + immobilization Exacerbated By: + movement Associated symptoms: + shortness of breath; no chest pain, no cough, no diaphoresis, no fever/chills, no headaches, no nausea/vomiting and no weakness Treatments prior to arrival: other (CPAP) This is a 69-year-old female who presents the emergency department in acute distress. The patient yesterday began complaining of shortness of breath. This morning the patient was found by her unresponsive. He immediately called EMS who arrived to find the patient hypoxic and bradycardic. The patient was placed on CPAP. She gradually became more responsive. Upon arrival to the emergency department the patient is hypoxic tachycardic and hypotensive. Home Medications Home Medications Medication Instructions Recorded Confirmed Type acetaminophen [Tylenol Extra 500 - 1,000 mg PO DIRECTED PRN 05/26/19 01/16/20 History Strength] aspirin [Aspir-81] 81 mg PO DAILY 05/26/19 01/16/20 History lisinopril 2.5 mg PO DAILY 05/26/19 01/16/20 History Lactobacillus acidoph-L.bulgar 1 tab PO BID #30 tab 06/01/19 01/16/20 Rx [Lactinex] atorvastatin 20 mg PO DAILY 01/16/20 01/16/20 History fluoxetine 20 mg PO DAILY 01/16/20 01/16/20 History furosemide 40 mg PO DAILY 01/16/20 01/16/20 History Allergies Allergy/AdvReac Type Severity Reaction Status Date / Time Cipro AdvReac Intermediate makes Verified 12/20/16 15:25 mouth feel funny ciprofloxacin AdvReac Intermediate makes Verified 05/26/19 19:50 mouth feel funny metronidazole AdvReac Intermediate makes Verified 05/26/19 19:50 mouth feel funny Past Med/Surg History Medical History Acute massive pulmonary embolism Depression Fall Hip fracture HLD (hyperlipidemia) HTN (hypertension) Hyperglycemia Lymphedema Morbid obesity Morbid obesity due to excess calories Rectal bleeding Right heart failure Shock Surgical History History of carpal tunnel surgery History of cholecystectomy History of colonoscopy History of hip surgery 2/2 to fracture Family History Mother Cancer melanoma AMD (age related macular degeneration) Father Hypertension Denies family history of Diabetes Stroke Social History Smoking Status: Never smoker Second Hand Exposure: No; Hx Alcohol Use: No Hx Substance Use: No Preferred Language: Irish Communication Ability: Effective Travel Manager Required: No Beliefs That Will Affect Care: None marital status: Current Living Situation: Spouse How many Children do You have: 2 Feels Safe at Home: Yes Assistive Devices: Oxygen - Continuous Review of Systems A total of 10 systems reviewed and were otherwise negative Physical Exam Vital Signs Vital Signs - 24 hr 01/16/20 08:50 01/16/20 09:04 01/16/20 09:06 Temperature 36.7 C Temperature Source Oral Pulse Rate 125 H Pulse Rate from SpO2 Sensor 122 H Pulse Rhythm Regular Pulse Strength Normal Respiratory Rate 47 H Respiratory Effort / Characteristics Short of Breath Short of Breath Respiratory Depth Shallow Respiratory Pattern Tachypnea Blood Pressure 92/66 L Blood Pressure Mean 77 Pulse Oximetry 100 95 Oxygen Delivery Method CPAP CPAP Fraction of Inspired Oxygen 40 SaO2/FiO2 Ratio 250 Sepsis Recent Fever Within 48 Hours No Sepsis New/Unexplained Change in Mental Status Yes Sepsis Action Taken by Nursing Physician Notified 01/16/20 09:09 01/16/20 09:15 01/16/20 09:20 Temperature Temperature Source Pulse Rate 125 H 123 H Pulse Rate from SpO2 Sensor 121 H 122 H Pulse Rhythm Pulse Strength Respiratory Rate 46 H 37 H Respiratory Effort / Characteristics Spontaneous Respiratory Depth Shallow Respiratory Pattern Tachypnea Blood Pressure Blood Pressure Mean Pulse Oximetry 94 96 97 Oxygen Delivery Method Fraction of Inspired Oxygen 40 SaO2/FiO2 Ratio Sepsis Recent Fever Within 48 Hours Sepsis New/Unexplained Change in Mental Status Sepsis Action Taken by Nursing 01/16/20 09:22 01/16/20 09:30 01/16/20 09:34 Temperature Temperature Source Pulse Rate 116 H Pulse Rate from SpO2 Sensor 115 H Pulse Rhythm Pulse Strength Respiratory Rate 36 H 39 H Respiratory Effort / Characteristics Spontaneous Short of Breath Respiratory Depth Respiratory Pattern Blood Pressure Blood Pressure Mean Pulse Oximetry 97 95 Oxygen Delivery Method BiPAP CPAP Fraction of Inspired Oxygen 40 SaO2/FiO2 Ratio Sepsis Recent Fever Within 48 Hours Sepsis New/Unexplained Change in Mental Status Sepsis Action Taken by Nursing 01/16/20 09:55 01/16/20 09:58 01/16/20 10:00 Temperature Temperature Source Pulse Rate 117 H 115 H 114 H Pulse Rate from SpO2 Sensor 115 H Pulse Rhythm Pulse Strength Respiratory Rate 34 H 36 H 31 H Respiratory Effort / Characteristics Respiratory Depth Respiratory Pattern Blood Pressure 86/67 L Blood Pressure Mean 72 Pulse Oximetry 95 Oxygen Delivery Method Fraction of Inspired Oxygen SaO2/FiO2 Ratio Sepsis Recent Fever Within 48 Hours Sepsis New/Unexplained Change in Mental Status Sepsis Action Taken by Nursing 01/16/20 10:01 01/16/20 10:04 01/16/20 10:15 Temperature Temperature Source Pulse Rate 114 H 109 H Pulse Rate from SpO2 Sensor 114 H 109 H Pulse Rhythm Pulse Strength Respiratory Rate 38 H 31 H Respiratory Effort / Characteristics Short of Breath Respiratory Depth Respiratory Pattern Blood Pressure 91/50 L 116/48 L Blood Pressure Mean 67 62 Pulse Oximetry 96 97 Oxygen Delivery Method CPAP Fraction of Inspired Oxygen SaO2/FiO2 Ratio Sepsis Recent Fever Within 48 Hours Sepsis New/Unexplained Change in Mental Status Sepsis Action Taken by Nursing 01/16/20 10:16 01/16/20 10:30 01/16/20 10:31 Temperature Temperature Source Pulse Rate 110 H 107 H 107 H Pulse Rate from SpO2 Sensor 111 H 107 H 107 H Pulse Rhythm Pulse Strength Respiratory Rate 27 H 31 H 22 Respiratory Effort / Characteristics Respiratory Depth Respiratory Pattern Blood Pressure 86/60 L Blood Pressure Mean 64 Pulse Oximetry 95 93 94 Oxygen Delivery Method Fraction of Inspired Oxygen SaO2/FiO2 Ratio Sepsis Recent Fever Within 48 Hours Sepsis New/Unexplained Change in Mental Status Sepsis Action Taken by Nursing 01/16/20 10:34 01/16/20 10:45 01/16/20 10:46 Temperature Temperature Source Pulse Rate 106 H 105 H Pulse Rate from SpO2 Sensor 106 H 106 H Pulse Rhythm Pulse Strength Respiratory Rate 25 H 28 H Respiratory Effort / Characteristics Short of Breath Respiratory Depth Respiratory Pattern Blood Pressure 100/68 Blood Pressure Mean 80 Pulse Oximetry 95 94 Oxygen Delivery Method CPAP Fraction of Inspired Oxygen SaO2/FiO2 Ratio Sepsis Recent Fever Within 48 Hours Sepsis New/Unexplained Change in Mental Status Sepsis Action Taken by Nursing VITAL SIGNS - Vital signs and nursing notes were reviewed. GENERAL - 69-year-old female appearing stated age who is in acute distress. Communicates poorly due to distress SKIN - Without rashes. HEAD - NC/AT. EYES - PERRL with EOMI bilaterally. Sclera anicteric. Palpebral conjunctiva pink and moist with no injection noted. EARS - No deformities of external structures noted on gross examination bilaterally. No pain elicited with palpation of the tragus bilaterally. External auditory canals without discharge or otorrhea. Tympanic membranes pearly naqvi without retraction or bulging. No fluid or purulent material visualized behind the TM. Handle of malleus, umbo, cone of light, pars tensa/flaccid all easily visualized. NOSE - Midline and without cyanosis. No epistaxis or purulent drainage noted. Septum midline without deviation or septal hematoma noted. MOUTH/OROPHARYNX - Without perioral cyanosis. Buccal mucosa pink and moist and without leukoplakia. Tongue midline with equal elevation of palate bilaterally. No tonsillar hypertrophy, erythema, or exudates noted. dentition noted. NECK - Neck with FROM. Supple to palpation. lymphadenopathy noted. No nuchal rigidity. LUNGS - Chest wall symmetric without accessory muscle use, intercostals retractions, or central cyanosis. Normal vesicular breath sounds CTA B/L. No wheezes, rales, or rhonchi appreciated. CARDIAC - RRR with S1/S2. No murmur, rubs, or gallops appreciated. ABDOMEN - Abdominal contour without pulsations or visible masses. BS normoactive all four quadrants. No tenderness, palpable masses, hepatosplenomegaly, or ascites noted. EXTREMITIES - No clubbing or peripheral cyanosis. No pretibial edema present. +3/5 radial, posterior tibial, and dorsalis pedis pulses palpated throughout. +5/5 strength noted in UE/LE bilaterally. NEUROLOGIC - Cranial nerves II through XII grossly intact. Sensory intact to light touch throughout. Patellar reflexes +2/4. PSYCH - originally obtunded, became more arouseable as pt woke up Procedures Central Line Placement Left IJ: Time Out Performed: Yes (I performed the procedure) Patient Placed on Monitor/Pulse Ox: Yes Prep: mask, gown and gloves Central Line Prep: Povidone-Iodine 1%, Chlorhexidine scrub and sterile drapes applied Local Anesthetic: lidocaine 1% Amount of anesthesia used (mL): 10 Ultrasound Used for Placement: Yes Central Line Lumen Inserted: triple Post Procedure: sutured in place, good blood return, all ports aspirated, flushed, capped and sterile dressing applied Post Procedure X-Ray: tip of catheter in good position and no pneumothorax seen Patient Tolerated Procedure: well and no complications Complications: none Course Administered Medications Atorvastatin Calcium (Atorvastatin 20 Mg Tab) 20 mg PO DAILY [facility] Stop: 02/17/20 08:59 Last Admin: 01/18/20 07:55 Dose: 20 mg Documented by: [id number] Fluoxetine HCl (Fluoxetine Hcl 20 Mg Cap) 20 mg PO DAILY [facility] Stop: 02/17/20 08:59 Last Admin: 01/18/20 07:55 Dose: 20 mg Documented by: [id number] Heparin Sodium/Dextrose (Heparin Sodium/Dextrose) 25,000 units in 500 mls @ 33 mls/hr IV .[id number] [facility]; Protocol Stop: 02/15/20 19:14 Last Admin: 01/18/20 16:35 Dose: 1,650 units/hr, 33 mls/hr Documented by: [id number] Cosigned by: [id number] Titration: 01/18/20 16:35 Dose: 1,650 units/hr, 33 mls/hr Documented by: [id number] Cosigned by: [id number] Titration: 01/18/20 06:49 Dose: 1,650 units/hr, 33 mls/hr Documented by: [id number] Cosigned by: [id number] Admin: 01/18/20 03:05 Dose: 1,650 units/hr, 33 mls/hr Documented by: [id number] Cosigned by: [id number] Titration: 01/18/20 03:05 Dose: 1,650 units/hr, 33 mls/hr Documented by: [id number] Cosigned by: [id number] Titration: 01/17/20 16:00 Dose: 1,650 units/hr, 33 mls/hr Documented by: [id number] Cosigned by: [id number] Admin: 01/17/20 11:55 Dose: 1,650 units/hr, 33 mls/hr Documented by: [id number] Cosigned by: [id number] Titration: 01/17/20 11:55 Dose: 1,650 units/hr, 33 mls/hr Documented by: [id number] Cosigned by: [id number] Titration: 01/17/20 06:52 Dose: 1,650 units/hr, 33 mls/hr Documented by: [id number] Cosigned by: [id number] Admin: 01/16/20 21:03 Dose: 1,650 units/hr, 33 mls/hr Documented by: [id number] Cosigned by: [id number] Ampicillin Sodium/Sulbactam Sodium 3,000 mg/ Sodium Chloride 108 mls @ 216 mls/hr IV Q6H [facility] Stop: 01/23/20 15:59 Last Infusion: 01/19/20 05:29 Dose: 0 mls/hr Documented by: [id number] Admin: 01/19/20 04:30 Dose: 216 mls/hr Documented by: [id number] Infusion: 01/18/20 21:37 Dose: 0 mls/hr Documented by: [id number] Admin: 01/18/20 20:39 Dose: 216 mls/hr Documented by: [id number] Infusion: 01/18/20 17:38 Dose: 0 mls/hr Documented by: [id number] Admin: 01/18/20 16:36 Dose: 216 mls/hr Documented by: [id number] Infusion: 01/18/20 10:58 Dose: 0 mls/hr Documented by: [id number] Admin: 01/18/20 10:13 Dose: 216 mls/hr Documented by: [id number] Infusion: 01/18/20 05:37 Dose: 0 mls/hr Documented by: [id number] Admin: 01/18/20 03:26 Dose: 216 mls/hr Documented by: [id number] Infusion: 01/17/20 23:00 Dose: 0 mls/hr Documented by: [id number] Admin: 01/17/20 21:17 Dose: 216 mls/hr Documented by: [id number] Infusion: 01/17/20 17:42 Dose: 0 mls/hr Documented by: [id number] Admin: 01/17/20 16:55 Dose: 216 mls/hr Documented by: [id number] Insulin Aspart (Insulin Aspart 100 Units/Ml 3 Ml Pen) 0 units SC ACHS [facility]; Protocol Stop: 02/16/20 16:29 Last Admin: 01/18/20 20:56 Dose: Not Given Documented by: [id number] Cosigned by: [id number] Admin: 01/18/20 16:38 Dose: 3 units Documented by: [id number] Cosigned by: [id number] Admin: 01/18/20 12:45 Dose: Not Given Documented by: [id number] Cosigned by: [id number] Admin: 01/18/20 07:54 Dose: 9 units Documented by: [id number] Cosigned by: [id number] Admin: 01/17/20 21:30 Dose: Not Given Documented by: [id number] Cosigned by: [id number] Admin: 01/17/20 16:58 Dose: 8 units Documented by: [id number] Cosigned by: [id number] Pantoprazole Sodium (Pantoprazole 40 Mg Tab) 40 mg PO BID [facility] Stop: 02/16/20 20:59 Last Admin: 01/18/20 20:38 Dose: 40 mg Documented by: [id number] Admin: 01/18/20 07:55 Dose: 40 mg Documented by: [id number] Admin: 01/17/20 21:11 Dose: 40 mg Documented by: [id number] Discontinued Medications Heparin Sodium/Dextrose (Heparin Iv Standard *No* Bolus) 1 ea IV Q15M [facility]; Protocol Stop: 02/15/20 19:09 Last Admin: 01/17/20 16:30 Dose: Not Given Documented by: [id number] Admin: 01/17/20 16:30 Dose: Not Given Documented by: [id number] Admin: 01/17/20 16:29 Dose: Not Given Documented by: [id number] Admin: 01/16/20 21:43 Dose: Not Given Documented by: [id number] Admin: 01/16/20 21:43 Dose: Not Given Documented by: [id number] Magnesium Sulfate/Dextrose (Magnesium Sulfate / D5w) 1 gm in 100 mls @ 50 mls/hr IV ONE ONE Stop: 01/16/20 11:10 Last Infusion: 01/16/20 09:33 Dose: 0 mls/hr Documented by: [id number] Admin: 01/16/20 09:18 Dose: 400 mls/hr Documented by: [id number] Piperacillin Sod/Tazobactam Sod (Zosyn) 4.5 gm in 120 mls @ 240 mls/hr IV NOW ONE Stop: 01/16/20 09:42 Last Infusion: 01/16/20 11:20 Dose: 0 mls/hr Documented by: [id number] Admin: 01/16/20 10:50 Dose: 240 mls/hr Documented by: [id number] Levofloxacin/Dextrose (Levaquin/D5w) 750 mg in 150 mls @ 100 mls/hr IV NOW STA Stop: 01/16/20 10:42 Last Infusion: 01/16/20 12:26 Dose: 0 mls/hr Documented by: [id number] Admin: 01/16/20 10:53 Dose: 100 mls/hr Documented by: [id number] Vancomycin HCl 2,000 mg/ (Sodium Chloride) 540 mls @ 200 mls/hr IV NOW ONE Stop: 01/16/20 11:42 Last Infusion: 01/16/20 13:44 Dose: 0 mls/hr Documented by: [id number] Admin: 01/16/20 10:51 Dose: 200 mls/hr Documented by: [id number] Sodium Chloride (Nss 1000ml) 1,000 mls @ 999 mls/hr IV .[id number] ONE Stop: 01/16/20 10:15 Last Admin: 01/16/20 10:51 Dose: Not Given Documented by: [id number] Naloxone HCl 5 mg/ Sodium (Chloride) 112.5 mls @ 5.85 mls/hr IV .[id number] [facility]; Protocol Stop: 02/15/20 09:39 Last Admin: 01/16/20 10:49 Dose: Not Given Documented by: [id number] N/A (Primary [place], [place] ([id number])) 1 mls @ 0.0033 mls/hr IV ONE ONE Stop: 01/29/20 01:16 Last Infusion: 01/16/20 11:12 Dose: 0 mls/hr Documented by: [id number] Admin: 01/16/20 10:49 Dose: 45 mls/hr Documented by: [id number] Alteplase, Recombinant 10 mg/ (Syringe) 10 mls @ 600 mls/hr IV NOW ONE; Protocol Stop: 01/16/20 10:31 Last Infusion: 01/16/20 10:54 Dose: 0 mls/hr Documented by: [id number] Cosigned by: [id number] Admin: 01/16/20 10:52 Dose: 600 mls/hr Documented by: [id number] Cosigned by: [id number] Alteplase, Recombinant 90 mg/ (EMPTY BAG) 90 mls @ 45 mls/hr IV NOW ONE; Protocol Stop: 01/16/20 12:44 Last Infusion: 01/16/20 12:53 Dose: 0 mls/hr Documented by: [id number] Cosigned by: [id number] Admin: 01/16/20 10:53 Dose: 45 mls/hr Documented by: [id number] Cosigned by: [id number] Sodium Chloride (Nss) 50 mls @ 45 mls/hr IV TODAY@1200 ONE; Protocol Stop: 01/16/20 13:06 Last Infusion: 01/16/20 13:43 Dose: 0 mls/hr Documented by: [id number] Admin: 01/16/20 12:45 Dose: 45 mls/hr Documented by: [id number] Pantoprazole Sodium 40 mg/ (Dextrose) 100 mls @ 20 mls/hr IV Q5H [facility] Stop: 02/15/20 13:54 Last Infusion: 01/17/20 09:35 Dose: 0 mg/hr, 0 mls/hr Documented by: [id number] Admin: 01/17/20 06:05 Dose: 8 mg/hr, 20 mls/hr Documented by: [id number] Infusion: 01/17/20 06:05 Dose: 8 mg/hr, 20 mls/hr Documented by: [id number] Admin: 01/17/20 01:05 Dose: 8 mg/hr, 20 mls/hr Documented by: [id number] Infusion: 01/17/20 01:05 Dose: 8 mg/hr, 20 mls/hr Documented by: [id number] Admin: 01/16/20 21:04 Dose: 8 mg/hr, 20 mls/hr Documented by: [id number] Infusion: 01/16/20 19:04 Dose: 8 mg/hr, 20 mls/hr Documented by: [id number] Admin: 01/16/20 14:04 Dose: 8 mg/hr, 20 mls/hr Documented by: [id number] Pantoprazole Sodium 80 mg/ (Dextrose) 120 mls @ 400 mls/hr IV NOW ONE Stop: 01/16/20 13:52 Last Infusion: 01/16/20 14:27 Dose: 0 mls/hr Documented by: [id number] Admin: 01/16/20 14:04 Dose: 400 mls/hr Documented by: [id number] Piperacillin Sod/Tazobactam (Sod 4.5 gm/ Dextrose) 120 mls @ 28.75 mls/hr IV Q8H [facility]; Protocol Stop: 01/18/20 15:59 Last Infusion: 01/17/20 11:44 Dose: 0 mls/hr Documented by: [id number] Admin: 01/17/20 08:16 Dose: 28.8 mls/hr Documented by: [id number] Infusion: 01/17/20 05:15 Dose: 28.8 mls/hr Documented by: [id number] Admin: 01/17/20 01:04 Dose: 28.8 mls/hr Documented by: [id number] Infusion: 01/16/20 20:11 Dose: 28.8 mls/hr Documented by: [id number] Admin: 01/16/20 16:00 Dose: 28.8 mls/hr Documented by: [id number] Insulin Aspart (Insulin Aspart 100 Units/Ml 3 Ml Pen) 0 units SC Q4 [facility]; Protocol Stop: 02/15/20 15:59 Last Admin: 01/17/20 11:56 Dose: 5 units Documented by: [id number] Cosigned by: [id number] Admin: 01/17/20 08:15 Dose: Not Given Documented by: [id number] Cosigned by: [id number] Admin: 01/17/20 04:26 Dose: 1 units Documented by: [id number] Cosigned by: [id number] Admin: 01/17/20 00:57 Dose: Not Given Documented by: [id number] Cosigned by: [id number] Admin: 01/16/20 21:04 Dose: 2 units Documented by: [id number] Cosigned by: [id number] Admin: 01/16/20 16:00 Dose: 2 units Documented by: [id number] Cosigned by: [id number] Ioversol (Optiray 320 125ml) 120 ml IV ONCE ONE Stop: 01/16/20 10:01 Last Admin: 01/16/20 10:01 Dose: 120 ml Documented by: [id number] Levalbuterol HCl (Levalbuterol Hcl 1.25 Mg/3 Ml Neb) 1.25 mg NEB NOW STA Stop: 01/16/20 09:11 Last Admin: 01/16/20 09:19 Dose: 1.25 mg Documented by: [id number] Levalbuterol HCl (Levalbuterol Hcl 1.25 Mg/3 Ml Neb) 1.25 mg NEB NOW STA Stop: 01/16/20 09:11 Last Admin: 01/16/20 09:20 Dose: 1.25 mg Documented by: [id number] Levalbuterol HCl (Levalbuterol Hcl 1.25 Mg/3 Ml Neb) 1.25 mg NEB NOW STA Stop: 01/16/20 09:12 Last Admin: 01/16/20 09:20 Dose: 1.25 mg Documented by: [id number] Methylprednisolone (Methylprednisolone 125 Mg/2 Ml Vial) 125 mg IV NOW STA Stop: 01/16/20 09:12 Last Admin: 01/16/20 09:18 Dose: 125 mg Documented by: [id number] Naloxone HCl (Naloxone Hcl 0.4 Mg/1 Ml Vial/Carp) 0.4 mg IV NOW STA Stop: 01/16/20 09:05 Last Admin: 01/16/20 09:12 Dose: 0.4 mg Documented by: [id number] Warfarin Sodium (Warfarin Sod 10 Mg Tab) 10 mg PO NOW ONE Stop: 01/17/20 15:31 Last Admin: 01/17/20 16:54 Dose: 10 mg Documented by: [id number] Warfarin Sodium (Warfarin Sod 10 Mg Tab) 10 mg PO ONE ONE Stop: 01/18/20 16:01 Last Admin: 01/18/20 16:36 Dose: 10 mg Documented by: [id number] Critical Care Time I have personally spent greater than 90 minutes of critical care time in the direct management of this patient. This includes bedside care, interpretation of diagnostic studies, and testing, discussion with consultants, patient, and family members, and other required patient management activities. This 90 minutes is in excess of all separately billable procedures. Medical Decision Making Differential Diagnosis Reactive airway disease, pneumonia, pneumothorax, COPD, CHF, infections, cardiac ischemia, pulmonary embolism, musculoskeletal, gastrointestinal, as well as other pathologies. Medical Records Attestation: I reviewed the patient's medical records. Home Medications Current Medication List: was personally reviewed by me Laboratory Data Attestation: I reviewed the patient's lab results. Result diagrams: 01/19/20 05:49 01/19/20 05:49 Lab Results 01/16/20 01/16/20 01/16/20 Range/Units 09:09 09:09 09:09 WBC 18.02 H (4.8-10.8) K/uL RBC 4.97 (4.2-5.4) M/uL Hgb 13.8 (12.0-16.0) g/dL POC Hgb (12.0-16.0) g/dl Hct 45.2 (37-47) % POC Hct (37-47) % MCV 90.9 (80-100) fL MCH 27.8 (25-34) pg MCHC 30.5 L (32-36) g/dL RDW Std Deviation 47.8 H (36.4-46.3) fL RDW Coeff of Brittny 14.6 H (11.5-14.5) % Plt Count 291 (130-400) K/uL MPV 10.0 (7.4-10.4) fL Immature Gran % (Auto) 0.7 % Neut % (Auto) 80.8 % Lymph % (Auto) 12.2 % [place] % (Auto) 6.1 % Eos % (Auto) 0.0 % Baso % (Auto) 0.2 % Neut # (Auto) 14.56 H (1.4-6.5) K/uL Lymph # (Auto) 2.20 (1.2-3.4) K/uL [place] # (Auto) 1.10 H (0.11-0.59) K/uL Eos # (Auto) 0.00 (0-0.5) K/uL Baso # (Auto) 0.04 (0-0.2) K/uL Immature Gran # (Auto) 0.12 H (0.00-0.02) K/uL ESR (0-21) mm/hr PT 11.9 (9.0-12.0) Seconds INR 1.1 (0.9-1.1) APTT 24.9 (21.0-31.0) Seconds PTT Ratio 0.9 VBG pH 7.19 L (7.36-7.41) VBG pCO2 54 H (38-50) mmHg VBG pO2 67 mmHg VBG HCO3 20 mmol/L VBG O2 Saturation 87.2 % VBG Base Excess -8.2 mEq/L Barometric Pressure 738.6 mm/Hg POC Sodium (135-144) mmol/L Sodium (136-145) mmol/L POC Potassium (3.3-5.0) mmol/L Potassium (3.5-5.1) mmol/L POC Chloride (101-112) mmol/L Chloride (98-107) mmol/L Carbon Dioxide (21-32) mmol/L POC Total CO2 (24-31) mmol/L Anion Gap (3-11) POC Anion Gap (16-25) mmol/L POC BUN (7-18) mg/dl BUN (7-18) mg/dl Creatinine (0.6-1.2) mg/dl POC Creatinine (0.6-1.3) mg/dl Est Cr Clr Drug Dosing Est GFR ( Amer) Est GFR (Non-Af Amer) BUN/Creatinine Ratio (10-20) Glucose (70-99) mg/dl POC Glucose (other) (70-99) mg/dl Lactate (0.4-2.0) mmol/L Calcium (8.5-10.1) mg/dl POC Ioniz Calcium Janice (1.12-1.32) mmol/l Magnesium (1.8-2.4) mg/dl Ferritin (8-388) ng/ml Total Bilirubin (0.2-1) mg/dl AST (15-37) U/L ALT (12-78) U/L Alkaline Phosphatase (45-117) U/L Lactate Dehydrogenase (84-246) U/L Total Creatine Kinase (26-192) U/L CK-MB (CK-2) (0.5-3.6) ng/ml CK/CKMB % Calc (0-3.0) Troponin I (0-0.045) ng/ml C-Reactive Protein (0-0.29) mg/dl NT-Pro-B Natriuret Pep (0-900) pg/ml Total Protein (6.4-8.2) gm/dl Albumin (3.4-5.0) gm/dl Globulin (2.5-4.0) gm/dl Albumin/Globulin Ratio (0.9-2) Procalcitonin (0-0.5) ng/ml Ethyl Alcohol mg/dL (0-3) mg/dl 01/16/20 01/16/20 01/16/20 Range/Units 09:09 09:09 09:09 WBC (4.8-10.8) K/uL RBC (4.2-5.4) M/uL Hgb (12.0-16.0) g/dL POC Hgb (12.0-16.0) g/dl Hct (37-47) % POC Hct (37-47) % MCV (80-100) fL MCH (25-34) pg MCHC (32-36) g/dL RDW Std Deviation (36.4-46.3) fL RDW Coeff of Brittny (11.5-14.5) % Plt Count (130-400) K/uL MPV (7.4-10.4) fL Immature Gran % (Auto) % Neut % (Auto) % Lymph % (Auto) % [place] % (Auto) % Eos % (Auto) % Baso % (Auto) % Neut # (Auto) (1.4-6.5) K/uL Lymph # (Auto) (1.2-3.4) K/uL [place] # (Auto) (0.11-0.59) K/uL Eos # (Auto) (0-0.5) K/uL Baso # (Auto) (0-0.2) K/uL Immature Gran # (Auto) (0.00-0.02) K/uL ESR 34 H (0-21) mm/hr PT (9.0-12.0) Seconds INR (0.9-1.1) APTT (21.0-31.0) Seconds PTT Ratio VBG pH (7.36-7.41) VBG pCO2 (38-50) mmHg VBG pO2 mmHg VBG HCO3 mmol/L VBG O2 Saturation % VBG Base Excess mEq/L Barometric Pressure mm/Hg POC Sodium (135-144) mmol/L Sodium 141 (136-145) mmol/L POC Potassium (3.3-5.0) mmol/L Potassium 4.3 (3.5-5.1) mmol/L POC Chloride (101-112) mmol/L Chloride 106 (98-107) mmol/L Carbon Dioxide 24 (21-32) mmol/L POC Total CO2 (24-31) mmol/L Anion Gap 11.0 (3-11) POC Anion Gap (16-25) mmol/L POC BUN (7-18) mg/dl BUN 20 H (7-18) mg/dl Creatinine 1.47 H (0.6-1.2) mg/dl POC Creatinine (0.6-1.3) mg/dl Est Cr Clr Drug Dosing Not Reportable Est GFR ( Amer) 42.1 Est GFR (Non-Af Amer) 36.3 BUN/Creatinine Ratio 13.7 (10-20) Glucose 295 H (70-99) mg/dl POC Glucose (other) (70-99) mg/dl Lactate 8.4 H* (0.4-2.0) mmol/L Calcium 8.8 (8.5-10.1) mg/dl POC Ioniz Calcium Janice (1.12-1.32) mmol/l Magnesium 2.4 (1.8-2.4) mg/dl Ferritin 1906.1 H (8-388) ng/ml Total Bilirubin 0.4 (0.2-1) mg/dl AST 80 H (15-37) U/L ALT 50 (12-78) U/L Alkaline Phosphatase 160 H (45-117) U/L Lactate Dehydrogenase (84-246) U/L Total Creatine Kinase 43 (26-192) U/L CK-MB (CK-2) 3.2 (0.5-3.6) ng/ml CK/CKMB % Calc 7.4 H (0-3.0) Troponin I 0.403 H* (0-0.045) ng/ml C-Reactive Protein 2.80 H (0-0.29) mg/dl NT-Pro-B Natriuret Pep (0-900) pg/ml Total Protein 7.6 (6.4-8.2) gm/dl Albumin 2.8 L (3.4-5.0) gm/dl Globulin 4.8 H (2.5-4.0) gm/dl Albumin/Globulin Ratio 0.6 L (0.9-2) Procalcitonin (0-0.5) ng/ml Ethyl Alcohol mg/dL (0-3) mg/dl 01/16/20 01/16/20 01/16/20 Range/Units 09:09 09:09 09:10 WBC (4.8-10.8) K/uL RBC (4.2-5.4) M/uL Hgb (12.0-16.0) g/dL POC Hgb (12.0-16.0) g/dl Hct (37-47) % POC Hct (37-47) % MCV (80-100) fL MCH (25-34) pg MCHC (32-36) g/dL RDW Std Deviation (36.4-46.3) fL RDW Coeff of Brittny (11.5-14.5) % Plt Count (130-400) K/uL MPV (7.4-10.4) fL Immature Gran % (Auto) % Neut % (Auto) % Lymph % (Auto) % [place] % (Auto) % Eos % (Auto) % Baso % (Auto) % Neut # (Auto) (1.4-6.5) K/uL Lymph # (Auto) (1.2-3.4) K/uL [place] # (Auto) (0.11-0.59) K/uL Eos # (Auto) (0-0.5) K/uL Baso # (Auto) (0-0.2) K/uL Immature Gran # (Auto) (0.00-0.02) K/uL ESR (0-21) mm/hr PT (9.0-12.0) Seconds INR (0.9-1.1) APTT (21.0-31.0) Seconds PTT Ratio VBG pH (7.36-7.41) VBG pCO2 (38-50) mmHg VBG pO2 mmHg VBG HCO3 mmol/L VBG O2 Saturation % VBG Base Excess mEq/L Barometric Pressure mm/Hg POC Sodium (135-144) mmol/L Sodium (136-145) mmol/L POC Potassium (3.3-5.0) mmol/L Potassium (3.5-5.1) mmol/L POC Chloride (101-112) mmol/L Chloride (98-107) mmol/L Carbon Dioxide (21-32) mmol/L POC Total CO2 (24-31) mmol/L Anion Gap (3-11) POC Anion Gap (16-25) mmol/L POC BUN (7-18) mg/dl BUN (7-18) mg/dl Creatinine (0.6-1.2) mg/dl POC Creatinine (0.6-1.3) mg/dl Est Cr Clr Drug Dosing Est GFR ( Amer) Est GFR (Non-Af Amer) BUN/Creatinine Ratio (10-20) Glucose (70-99) mg/dl POC Glucose (other) (70-99) mg/dl Lactate (0.4-2.0) mmol/L Calcium (8.5-10.1) mg/dl POC Ioniz Calcium Janice (1.12-1.32) mmol/l Magnesium (1.8-2.4) mg/dl Ferritin (8-388) ng/ml Total Bilirubin (0.2-1) mg/dl AST (15-37) U/L ALT (12-78) U/L Alkaline Phosphatase (45-117) U/L Lactate Dehydrogenase 281 H (84-246) U/L Total Creatine Kinase (26-192) U/L CK-MB (CK-2) (0.5-3.6) ng/ml CK/CKMB % Calc (0-3.0) Troponin I (0-0.045) ng/ml C-Reactive Protein (0-0.29) mg/dl NT-Pro-B Natriuret Pep 9221 H (0-900) pg/ml Total Protein (6.4-8.2) gm/dl Albumin (3.4-5.0) gm/dl Globulin (2.5-4.0) gm/dl Albumin/Globulin Ratio (0.9-2) Procalcitonin 1.37 H (0-0.5) ng/ml Ethyl Alcohol mg/dL (0-3) mg/dl 01/16/20 01/16/20 01/16/20 Range/Units 09:17 10:35 10:47 WBC (4.8-10.8) K/uL RBC (4.2-5.4) M/uL Hgb (12.0-16.0) g/dL POC Hgb 15.3 (12.0-16.0) g/dl Hct (37-47) % POC Hct 45 (37-47) % MCV (80-100) fL MCH (25-34) pg MCHC (32-36) g/dL RDW Std Deviation (36.4-46.3) fL RDW Coeff of Brittny (11.5-14.5) % Plt Count (130-400) K/uL MPV (7.4-10.4) fL Immature Gran % (Auto) % Neut % (Auto) % Lymph % (Auto) % [place] % (Auto) % Eos % (Auto) % Baso % (Auto) % Neut # (Auto) (1.4-6.5) K/uL Lymph # (Auto) (1.2-3.4) K/uL [place] # (Auto) (0.11-0.59) K/uL Eos # (Auto) (0-0.5) K/uL Baso # (Auto) (0-0.2) K/uL Immature Gran # (Auto) (0.00-0.02) K/uL ESR (0-21) mm/hr PT (9.0-12.0) Seconds INR (0.9-1.1) APTT (21.0-31.0) Seconds PTT Ratio VBG pH (7.36-7.41) VBG pCO2 (38-50) mmHg VBG pO2 mmHg VBG HCO3 mmol/L VBG O2 Saturation % VBG Base Excess mEq/L Barometric Pressure mm/Hg POC Sodium 141 (135-144) mmol/L Sodium (136-145) mmol/L POC Potassium 4.2 (3.3-5.0) mmol/L Potassium (3.5-5.1) mmol/L POC Chloride 103 (101-112) mmol/L Chloride (98-107) mmol/L Carbon Dioxide (21-32) mmol/L POC Total CO2 20 L (24-31) mmol/L Anion Gap (3-11) POC Anion Gap 23.0 (16-25) mmol/L POC BUN 20 H (7-18) mg/dl BUN (7-18) mg/dl Creatinine (0.6-1.2) mg/dl POC Creatinine 1.2 (0.6-1.3) mg/dl Est Cr Clr Drug Dosing Est GFR ( Amer) Est GFR (Non-Af Amer) BUN/Creatinine Ratio (10-20) Glucose (70-99) mg/dl POC Glucose (other) 306 H (70-99) mg/dl Lactate 2.9 H* (0.4-2.0) mmol/L Calcium (8.5-10.1) mg/dl POC Ioniz Calcium Janice 1.18 (1.12-1.32) mmol/l Magnesium (1.8-2.4) mg/dl Ferritin (8-388) ng/ml Total Bilirubin (0.2-1) mg/dl AST (15-37) U/L ALT (12-78) U/L Alkaline Phosphatase (45-117) U/L Lactate Dehydrogenase (84-246) U/L Total Creatine Kinase (26-192) U/L CK-MB (CK-2) (0.5-3.6) ng/ml CK/CKMB % Calc (0-3.0) Troponin I (0-0.045) ng/ml C-Reactive Protein (0-0.29) mg/dl NT-Pro-B Natriuret Pep (0-900) pg/ml Total Protein (6.4-8.2) gm/dl Albumin (3.4-5.0) gm/dl Globulin (2.5-4.0) gm/dl Albumin/Globulin Ratio (0.9-2) Procalcitonin (0-0.5) ng/ml Ethyl Alcohol mg/dL < 3.0 (0-3) mg/dl Imaging Data Radiologist's Impression: [place], [place] [phone] XRay Report Patient: YISSEL VENEGAS Admit Date: 01/16/20 MR#: [id number] Address1: [address] [place] [address] Acct ID:[id number] Address2: Date: [address] [facility] Zip: [place] [address] Age: 69 Location: ED Sex: F Room/Bed: Att Phy: Diagnosis: kathy arrest Rosina Phy: Dalila Mg DO Service Date: 01/16/20 Fam Phy: Interpreting Phy: Kam Clakr MD Admit Phy: Ordering Phy: Amos Sanford MD cc: ~ XR chest 1V portable HISTORY: Central venous catheter placement. COMPARISON: Chest 01/16/2020. FINDINGS: The heart remains enlarged. Diffuse interstitial thickening, unchanged. This favors mild congestive change. No pneumothorax. No pleural effusions. Interval placement left jugular central venous catheter. This terminates in the expected location of the distal left brachiocephalic vein when compared to the same day chest CTA. IMPRESSION: 1. Interval placement of a left jugular central venous catheter. This terminates at the expected location of the distal left brachiocephalic vein. No pneumothorax. 2. No change in the cardiomegaly and mild congestive change. ACT 112: Negative or not required by law. Electronically signed by: Kam Clark M.D. 01/16/2020 11:09 AM Dictated: 01/16/20 1106 Transcribed: 01/16/20 1106 [facility], [place] [phone] CT Scan Report Patient: YISSEL VENEGAS Admit Date: 01/16/20 MR#: [id number] Address1: [address] [facility] Acct ID:[id number] Address2: Date: [address] [facility] Zip: [place] [address] Age: 69 Location: ED Sex: F Room/Bed: Att Phy: Diagnosis: kathy arrest Rosina Phy: Dalila Mg DO Service Date: 01/16/20 Fam Phy: Interpreting Phy: Kam Clark MD Admit Phy: Ordering Phy: Amos Sanford MD cc: ~ HEAD CT NONCONTRAST CT DOSE: HISTORY: Pt obtunded, Resp failure TECHNIQUE: Multiaxial CT images of the head were performed without the use of intravenous contrast. Automated exposure control was utilized for this study. A dose lowering technique was utilized adhering to the principles of ALARA. Comparison: Head CT 11/10/2013. Findings: Mild mucosal thickening within the left maxillary sinus. The mastoid air cells are clear. Mild motion artifact results in suboptimal evaluation. The calvarium and skull base are intact. The ventricles and sulci are within normal limits. There is no mass, hematoma, midline shift, or acute infarct. Impression: No acute intracranial abnormality. ACT 112: Negative or not required by law. Electronically signed by: Kam Clark M.D. 01/16/2020 10:15 AM Dictated: 01/16/20 1010 Transcribed: 01/16/20 1010 [facility], [place] [phone] CT Scan Report Patient: YISSEL VENEGAS Admit Date: 01/16/20 MR#: [id number] Address1: [address] [facility] Acct ID:[id number] Address2: Date: [address] [facility] Zip: [place] [address] Age: 69 Location: ED Sex: F Room/Bed: Att Phy: Diagnosis: kathy arrest Rosina Phy: Dalila Mg DO Service Date: 01/16/20 [facility] Phy: Interpreting Phy: Jose A Yanes Admit Phy: Ordering Phy: Amos Sanford MD cc: ~ CT angio chest PE protocol CT DOSE: 3425.87 mGy.cm HISTORY: 69 years-old Female with PE. Acute respiratory failure with obesity and acute renal failure. TECHNIQUE: Multiple CTA images of the chest were obtained after the intravenous administration of 120 ml Optiray 320. Coronal and sagittal MIPS were obtained from the axial data set and were submitted for review. All measurements were obtained according to NASCET criteria. A dose lowering technique was utilized adhering to the principles of ALARA. COMPARISON: CTA chest 05/26/2019 FINDINGS: CTA: Moderate cardiomegaly with moderate coronary artery calcifications. There is no thoracic aortic aneurysm or dissection. Aberrant course of the right subclavian artery. Dilated pulmonary artery redemonstrated suggestive of pulmonary artery hypertension. Filling defects are present within the left distal main pulmonary artery with extensive pulmonary bullae of the bilateral lobar, segmental and subsegmental branches. There is straightening of the intraventricular septum. CT CHEST: No large thyroid nodule or adenopathy. There is no pneumothorax, pleural effusion or overt pulmonary edema. Respiratory motion artifact limits evaluation of the lungs. There is minimal subsegmental bibasilar atelectasis. Decreased AP dimension of the trachea and bronchi may reflect a component of tracheobronchomalacia. Previously noted fissural nodules are not well seen on today's study. Cholecystectomy. 3.2 cm left adrenal gland adenoma. Patient body habitus limits the study. Degenerative changes of the shoulders and spine. Lesion of the manubrium suggestive of a hemangioma appears stable. Subcentimeter sclerotic fo cus of the posterior left eighth rib suggestive of bone island is unchanged. IMPRESSION: 1. Extensive bilateral pulmonary emboli with straightening of the intraventricular septum suggestive of right heart strain. 2. No pleural effusion or pulmonary infarct. 3. Moderate cardiomegaly with findings suggestive of pulmonary artery hypertension. 4. Additional findings as above. ACT 112: Negative or not required by law. The above report was generated using voice recognition software. It may contain grammatical, syntax or spelling errors. Electronically signed by: Jacques Yanes M.D. 01/16/2020 10:17 AM Dictated: 01/16/20 1008 Transcribed: 01/16/20 1008 [place], [place] [phone] CT Scan Report Patient: YISSEL VENEGAS Admit Date: 01/16/20 MR#: [id number] Address1: [address] [facility] Acct ID:[id number] Address2: Date: [address] [facility] Zip: [place] [address] Age: 69 Location: ED Sex: F Room/Bed: Att Phy: Diagnosis: kathy arrest Rosina Phy: Dalila Mg DO Service Date: 01/16/20 Fam Phy: Interpreting Phy: Reyes Aldridge MD Admit Phy: Ordering Phy: Amos Sanford MD cc: ~ CT SCAN OF THE ABDOMEN AND PELVIS WITH IV CONTRAST CLINICAL HISTORY: Acute renal failure. Respiratory failure. COMPARISON STUDY: Abdominal CT dated 12/15/2014. TECHNIQUE: Following the IV administration of 120 cc of Optiray 320, CT scan of the abdomen and pelvis is performed from the lung bases to the proximal femora. Images are reviewed in the axial, sagittal, and coronal planes. IV contrast was administered without complication. A dose lowering technique was utilized adhering to the principles of ALARA. The examination is degraded by large body habitus, and by streak artifact from the body wall abutting the CT gantry. There is also streak artifact from the arms which could not be elevated above the abdomen and motion artifact. FINDINGS: Lung bases: The heart is top normal in size and without pericardial effusion. There are coronary artery calcifications. There is lipomatous hypertrophy of the interatrial septum. There is a small hiatal hernia. The lung bases are clear. There are bilateral lower lobe pulmonary emboli. Liver: The contrast-enhanced liver is enlarged, measuring 23.4 cm in length. The liver demonstrates diffusely diminished attenuation consistent with hepatic steatosis. There is no intrahepatic biliary ductal dilatation. The hepatic veins and portal veins are patent. Gallbladder: Surgically absent noting clips in the gallbladder fossa. Spleen: The spleen is mildly enlarged measuring 14.6 cm in length. Pancreas: Atrophic and grossly unremarkable. Adrenal glands: A 3.1 cm left adrenal nodule is unchanged from 2015. The right adrenal gland is normal in appearance. Kidneys: The contrast enhanced kidneys demonstrate mild cortical atrophy and are without hydronephrosis. The kidneys enhance symmetrically. Abdominal vasculature: The abdominal aorta is normal in course and caliber noting moderate to advanced atherosclerotic calcification. Bowel: There is moderate colonic diverticulosis without CT evidence of acute diverticulitis. No bowel obstruction is seen. A large umbilical hernia contains nonobstructed small bowel loops. The appendix is well-visualized and normal. Peritoneum: There is no intraperitoneal free air or abdominal ascites. Lymphadenopathy: None. Pelvic viscera: The bladder is decompressed and cannot be evaluated. The uterus and adnexa are normal as imaged. Skeletal structures: The skeletal structures are osteopenic. There is moderate to advanced lumbosacral spondylosis. No lytic or blastic lesions are seen. Advanced arthritic and postoperative change is seen in the left hip. IMPRESSION: 1. Streak and motion compromised examination. 2. There are bilateral lower lobe pulmonary emboli. 3. No acute infectious or inflammatory findings are identified in the abdomen or pelvis. 4. Hepatomegaly and hepatic steatosis. 5. Splenomegaly. 6. Moderate colonic diverticulosis without CT evidence of acute diverticulitis. 7. A large umbilical hernia contains nonobstructed small bowel loops. 8. Additional findings as above. ACT 112: Negative or not required by law. Electronically signed by: Reyes Aldridge M.D. 01/16/2020 10:21 AM Dictated: 01/16/20 1011 Transcribed: 01/16/20 1011 [place], [place] [phone] XRay Report Patient: YISSEL VENEGAS Admit Date: 01/16/20 MR#: [id number] Address1: [address] [facility] Acct ID:[id number] Address2: Date: [address] [facility] Zip: [place] [address] Age: 69 Location: ED Sex: F Room/Bed: Att Phy: Diagnosis: kathy arrest Rosina Phy: Dalila Mg DO Service Date: 01/16/20 [facility] Phy: Interpreting Phy: Kam Clark MD Admit Phy: Ordering Phy: Amos Sanford MD cc: ~ XR chest 1V portable HISTORY: SEPSIS COMPARISON: Chest 05/31/2019. FINDINGS: No pneumothorax. The heart is enlarged. There is progressive interstitial and vascular thickening consistent with mild pulmonary edema. Possible trace right pleural effusion. No new focal lung consolidations to suggest pneumonia. IMPRESSION: Interval progression of the cardiomegaly and mild interstitial pulmonary edema. ACT 112: Negative or not required by law. Electronically signed by: Kam Clark M.D. 01/16/2020 9:23 AM Dictated: 01/16/20921 Transcribed: 01/16/20921 ECG Data Attestation: I personally reviewed and interpreted this ECG as follows: Indication: + SOB/dyspnea Rate (beats per minute): 121 Rhythm: + junctional (tachycardia) ECG Intervals/blocks: + Incomplete right bundle branch block ECG [place]: + Normal ECG ST segments: + T-wave inversions (Anterior); no ST depression and no ST elevation Comparison ECG Date: from (05/26/2019) Change: the following changes noted (incomplete RBBB) Blood Pressure Blood Pressure Findings: Low blood pressure MDM Narrative Patient was seen and evaluated as above in room A1. Review was performed of nursing notes and vital signs. I did review pertinent previous visits and patient history. After obtaining a thorough history and physical examination the above work up was performed. This is a 69-year-old female who presents emergency department in acute distress. The patient arrives on BiPAP. The patient is hypotensive and tachycardic and hypoxic. Because of the sudden change in the patient's altered mental status she was originally given Narcan and a Narcan drip was ordered however on reassessment I suspect that this was more from the BiPAP. The patient began receiving Xopenex as well as Solu-Medrol magnesium. Due to the acute nature she was immediately sent for CAT scan of the chest which is concerning for bilateral PEs with cardiac strain. Based on this I had a lengthy discussion with both the patient and her about the acute nature of her medical problems. I recommended TPA based on the fact that the patient is hypotensive tachycardic and hypoxic. TPA checklist was gone over by both myself as well as nursing staff. I did discuss the case with the aviation ordnance officer who also recommended TPA. I did discuss the risks and benefits of TPA with the both pat ient and . signed the consent to give TPA. A central line was placed prior to TPA administration. I also discussed the case with the hospitalist service who did agreed admit the patient. An order was placed for continuous cardiac monitoring. The monitor shows a rate of NSR with 90 rhythm. The patient was evaluated during the global COVID-19 pandemic, and that diagnosis was suspected/considered upon their initial presentation. Their evaluation, treatment and testing was consistent with current guidelines for patients who present with complaints or symptoms that may be related to COVID- 19. Impression & Plan Shock, Acute massive pulmonary embolism, Hypoxia, Lactic acidosis, Elevated troponin Discharge Plan Visit Data Chief Complaint: Respiratory Distress Stated Complaint: kathy arrest ED Provider: Amos Sanford Discharge Problem: Shock, Acute massive pulmonary embolism, Hypoxia, Lactic acidosis, Elevated troponin Patient Disposition: Admitted As Inpatient Discharge Instructions Interventions: ED Discharge Assessment Last Done: 01/16/20 12:55
[2020-01-16] MEDS ORDERED: PANTOprazole 80 MG in DEXTROSE 5% 100 ML IV ONE (13:35)
[2020-01-16] MEDS: PANTOprazole 40 MG in DEXTROSE 5% 100 ML IV SCH ×2 (14:04→21:04)
[2020-01-16 14:08] LABS: Hematocrit (blood only) 43.1 % (37-47); Hemoglobin 13.4 g/dL (12.0-16.0); Mean Corpuscular Hemoglobin 27.9 pg (25-34); Mean Corpuscular Volume 89.8 fL (80-100); Mean Platelet Volume 9.3 fL (7.4-10.4); Platelet Count 175 K/uL (130-400); RDW Coefficient of Variation 14.4 % (11.5-14.5); RDW Standard Deviation 47.1 fL (36.4-46.3); White Blood Count 15.95 K/uL (4.8-10.8)
[2020-01-16 14:10] LABS: Mean Corpuscular Hgb Conc 31.1 g/dL (32-36)
--- NOTE | 2020-01-16 14:35 | Pulmonary Consultation ---
Date of Consultation January 16, 2020 Assessment & Plan (1) Acute massive pulmonary embolism: 69-year-old female with a past medical history of morbid obesity, hypertension and depression presenting to the hospital due to a massive pulmonary embolism requiring systemic TPA for thrombolysis. She has improved dramatically after TPA bolus infusion. She has some bleeding from her left IJ site and from her rectum. I empirically started her on a Protonix drip and asked gastroenterology to evaluate the patient. Will follow CBC every 6 hours. I will hold the heparin drip infusion until after the next CBC is available around 7 PM. If at that time the hemoglobin is stable, we will start heparin drip. Echocardiogram is currently being obtained. Likely to be used to be limited given her body habitus. Lower extremity Dopplers have been ordered as well. INR, PTT and fibrinogen labs are pending after TPA infusion. BiPAP is currently being used for increased work of breathing. She will need BiPAP at night. Blood pressure has improved substantially after thrombolysis. Lactic acid has also improved. She is hyperglycemic. Will have pharmacy manage her hyperglycemia. Given her elevated procalcitonin, I will continue Zosyn for now. MRSA screen is pending. We will repeat a procalcitonin level tomorrow. I discussed CODE STATUS with the patient and she indicated very clearly that she would like to be a DNR/DNI in the event that she has a respiratory or cardiac arrest. I had numerous discussions with the bedside nurse, pharmacist and emergency department physician regarding this patient's case. CRITICAL CARE TIME - I have personally spent 59 minutes of critical care time in the direct management of this patient. This is a life/limb threatening event. This includes time spent evaluating patient, direct bedside care, chart review, placing orders, interpretation of diagnostic studies, discussion with consultants, patient, and family members, as well as other required patient management activities. This time is exclusive of all separately billable procedures, and teaching time and separate from and in addition to any other critical care service time. (2) Right heart failure: (3) Lactic acidosis: (4) Rectal bleeding: (5) Hypoxia: (6) Morbid obesity due to excess calories: (7) Hyperglycemia: (8) Shock: History of Present Illness Reason for Consultation: Massive pulmonary embolism status post TPA administration Requesting Physician: Dr. Gerardo Attending Physician: Lobo Gerardo MD History of Present Illness 69-year-old female with a past medical history of morbid obesity, lymphedema, hyperlipidemia and hypertension who presented to the hospital via EMS on BiPAP due to hypotension, tachycardia and hypoxia. Patient notes that she has been short of breath since 10 AM yesterday morning and this morning she had altered mental status and her family called 911. Patient denies any history of prior pulmonary emboli. Currently she is feeling much better and her shortness of breath has improved. She is still requiring BiPAP due to some mild tachypnea. She denies any chest pain. She does have some rectal bleeding and some oozing and bleeding from the left IJ site. She is status post 100 mg IV TPA. CTA of her chest today demonstrated extensive bilateral pulmonary emboli with straightening of the interventricular septum suggestive of right heart strain. Moderate cardiomegaly with findings suggestive of pulmonary arterial hypertension were noted. Head CT was negative for acute intracranial abnormality. CT abdomen and pelvis demonstrated hepatomegaly, splenomegaly, moderate colonic diverticulosis without CT evidence of acute diverticulitis. Large umbilical hernia noted with nonobstructing small bowel loops. Her lactate on presentation was 8.4 and has down trended to 2.9. Nasal MRSA PCR is pending. VBG on presentation demonstrated respiratory acidosis with a pH of 7.19 and a PCO2 of 54. Viral PCR panel was negative in the ER along with COVID-19 testing. WBC count is currently 15,900. Hemoglobin is 13.4. Procalcitonin elevated to 1.37. Glucose is 306. BNP and troponin were both elevated. Allergies Allergy/AdvReac Type Severity Reaction Status Date / Time Cipro AdvReac Intermediate makes Verified 12/20/16 15:25 mouth feel funny ciprofloxacin AdvReac Intermediate makes Verified 05/26/19 19:50 mouth feel funny metronidazole AdvReac Intermediate makes Verified 05/26/19 19:50 mouth feel funny Home Medications Home Medications Medication Instructions Recorded Confirmed Type acetaminophen [Tylenol Extra 500 - 1,000 mg PO DIRECTED PRN 05/26/19 01/16/20 History Strength] aspirin [Aspir-81] 81 mg PO DAILY 05/26/19 01/16/20 History lisinopril 2.5 mg PO DAILY 05/26/19 01/16/20 History Lactobacillus acidoph-L.bulgar 1 tab PO BID #30 tab 06/01/19 01/16/20 Rx [Lactinex] atorvastatin 20 mg PO DAILY 01/16/20 01/16/20 History fluoxetine 20 mg PO DAILY 01/16/20 01/16/20 History furosemide 40 mg PO DAILY 01/16/20 01/16/20 History Patient History Medical History (Updated 01/16/20 @ 14:33 by Gregory Carrion MD) Acute massive pulmonary embolism Depression Fall Hip fracture HLD (hyperlipidemia) HTN (hypertension) Hyperglycemia Lymphedema Morbid obesity Morbid obesity due to excess calories Rectal bleeding Right heart failure Shock Surgical History History of carpal tunnel surgery History of cholecystectomy History of colonoscopy History of hip surgery 2/2 to fracture Family History Mother Cancer melanoma AMD (age related macular degeneration) Father Hypertension Denies family history of Diabetes Stroke Social History Smoking Status: Never smoker Second Hand Exposure: No; Do You Dip or Chew Tobacco: No; Hx Alcohol Use: No Hx Substance Use: No Preferred Language: Australian Communication Ability: Effective 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 Beliefs That Will Affect Care: None marital status: Current Living Situation: Spouse Other Information That Helps Us Care for You: No Feels Safe at Home: Yes Safety Concerns: Feels Safe At This Time Assistive Devices: None Review of Systems Review of Systems: All systems reviewed & are unremarkable except as noted in HPI & below Physical Exam Constitutional: + morbidly obese and + in distress Eyes: PERRL, conjunctivae normal, anicteric sclerae ENMT: external ear and nose normal, oropharynx normal Neck: + thick neck Respiratory: + labored breathing and + tachypneic Auscultation: + diminished lung sounds Cardiovascular: Rate/Rhythm: regular rate, regular rhythm and + tachycardic Gastrointestinal (Abdomen): Inspection/Auscultation: abdomen normal to inspection; abdomen not distended Rectal Exam: + heme positive stool and + rectal lesions Musculoskeletal: no cyanosis or clubbing, extremities motor strength 5/5 Skin: no rashes, warm and dry Neurologic: PERRL, EOMI, accommodation nl, no face palsy, no dysarthria Psychiatric: A+Ox3, euthymic affect Results & Data Results & Data ([facility]) Vital Signs (Past 12 Hours) Vital Signs Temp Pulse Pulse Resp BP BP Pulse Ox 01/16/20 14:03 100 H 33 H 98 01/16/20 13:52 98.6 F 20 L 20 120/72 97 01/16/20 13:29 88 01/16/20 13:26 24 120/76 95 01/16/20 13:10 99.0 F 92 H 24 120/76 96 01/16/20 12:52 87 28 H 108/56 L 97 01/16/20 12:37 92 H 28 H 99/70 L 98 01/16/20 12:22 94 H 25 H 93/66 L 98 01/16/20 12:07 107 H 26 H 104/65 97 01/16/20 11:52 91 H 30 H 96/59 L 96 01/16/20 11:37 89 38 H 90/62 L 96 01/16/20 11:32 101 H 23 96 01/16/20 11:31 100 H 32 H 83/67 L 96 01/16/20 11:30 98 H 25 H 77/61 L 96 01/16/20 11:17 103 H 28 H 97 01/16/20 11:16 105 H 30 H 99/56 L 98 01/16/20 11:15 101 H 28 H 93 01/16/20 11:10 104 H 27 H 138/103 H 98 01/16/20 11:01 108 H 30 H 99 01/16/20 11:00 109 H 27 H 117/57 L 97 01/16/20 10:46 105 H 28 H 94 01/16/20 10:45 106 H 25 H 100/68 95 01/16/20 10:31 107 H 22 94 01/16/20 10:30 107 H 31 H 86/60 L 93 01/16/20 10:16 110 H 27 H 95 01/16/20 10:15 109 H 31 H 116/48 L 97 01/16/20 10:01 114 H 38 H 91/50 L 96 01/16/20 10:00 114 H 31 H 01/16/20 09:58 115 H 36 H 86/67 L 95 01/16/20 09:55 117 H 34 H 01/16/20 09:30 116 H 39 H 95 01/16/20 09:22 36 H 97 01/16/20 09:20 123 H 37 H 97 01/16/20 09:15 125 H 46 H 96 01/16/20 09:09 94 01/16/20 09:06 92/66 L 95 01/16/20 08:50 98.1 F 125 H 47 H 100 I reviewed vital signs, labs and chest imaging PG Care Time/CCT Total # of Minutes Spent Total Time Spent with Patient: Total time spent is greater than 50% in coordination of care (as documented) at patient's floor/unit and/or counseling patient: Coding Diagnoses Acute massive pulmonary embolism I26.99 Right heart failure I50.810 Lactic acidosis E87.2 Rectal bleeding K62.5 Hypoxia R09.02 Morbid obesity due to excess calories E66.01 Hyperglycemia R73.9 Shock R57.9
[2020-01-16 14:41] LABS: INR 1.4 (0.9-1.1); Partial Thromboplastin Ratio 1.2; Partial Thromboplastin Time 33.8 Seconds (21.0-31.0); Prothrombin Time 14.1 Seconds (9.0-12.0)
[2020-01-16 14:43] LABS: Fibrinogen 128 mg/dl (184-400)
[2020-01-16] MEDS ORDERED: PHARMACY GLYCEMIC MGMT CONSULT PRN (14:54)
--- NOTE | 2020-01-16 14:55 | Critical Care Consultation ---
Date of Consultation January 16, 2020 Assessment & Plan (1) Acute massive pulmonary embolism: 69-year-old female with a past medical history of morbid obesity, hypertension and depression presenting to the hospital due to a massive pulmonary embolism requiring systemic TPA for thrombolysis. She has improved dramatically after TPA bolus infusion. She has some bleeding from her left IJ site and from her rectum. I empirically started her on a Protonix drip and asked gastroenterology to evaluate the patient. Will follow CBC every 6 hours. I will hold the heparin drip infusion until after the next CBC is available around 7 PM. If at that time the hemoglobin is stable, we will start heparin drip. Echocardiogram is currently being obtained. Likely to be used to be limited given her body habitus. Lower extremity Dopplers have been ordered as well. INR, PTT and fibrinogen labs are pending after TPA infusion. BiPAP is currently being used for increased work of breathing. She will need BiPAP at night. Blood pressure has improved substantially after thrombolysis. Lactic acid has also improved. She is hyperglycemic. Will have pharmacy manage her hyperglycemia. Given her elevated procalcitonin, I will continue Zosyn for now. MRSA screen is pending. We will repeat a procalcitonin level tomorrow. I discussed CODE STATUS with the patient and she indicated very clearly that she would like to be a DNR/DNI in the event that she has a respiratory or cardiac arrest. I had numerous discussions with the bedside nurse, pharmacist and emergency department physician regarding this patient's case. CRITICAL CARE TIME - I have personally spent 59 minutes of critical care time in the direct management of this patient. This is a life/limb threatening event. This includes time spent evaluating patient, direct bedside care, chart review, placing orders, interpretation of diagnostic studies, discussion with consultants, patient, and family members, as well as other required patient management activities. This time is exclusive of all separately billable procedures, and teaching time and separate from and in addition to any other critical care service time. (2) Right heart failure: (3) Lactic acidosis: (4) Rectal bleeding: (5) Hypoxia: (6) Morbid obesity due to excess calories: (7) Hyperglycemia: (8) Shock: History of Present Illness Reason for Consultation: Massive pulmonary embolism status post TPA administration Requesting Physician: Dr. Gerardo Attending Physician: Lobo Gerardo MD History of Present Illness 69-year-old female with a past medical history of morbid obesity, lymphedema, hyperlipidemia and hypertension who presented to the hospital via EMS on BiPAP due to hypotension, tachycardia and hypoxia. Patient notes that she has been short of breath since 10 AM yesterday morning and this morning she had altered mental status and her family called 911. Patient denies any history of prior pulmonary emboli. Currently she is feeling much better and her shortness of breath has improved. She is still requiring BiPAP due to some mild tachypnea. She denies any chest pain. She does have some rectal bleeding and some oozing and bleeding from the left IJ site. She is status post 100 mg IV TPA. CTA of her chest today demonstrated extensive bilateral pulmonary emboli with straightening of the interventricular septum suggestive of right heart strain. Moderate cardiomegaly with findings suggestive of pulmonary arterial hypertension were noted. Head CT was negative for acute intracranial abnormality. CT abdomen and pelvis demonstrated hepatomegaly, splenomegaly, moderate colonic diverticulosis without CT evidence of acute diverticulitis. Large umbilical hernia noted with nonobstructing small bowel loops. Her lactate on presentation was 8.4 and has down trended to 2.9. Nasal MRSA PCR is pending. VBG on presentation demonstrated respiratory acidosis with a pH of 7.19 and a PCO2 of 54. Viral PCR panel was negative in the ER along with COVID-19 testing. WBC count is currently 15,900. Hemoglobin is 13.4. Procalcitonin elevated to 1.37. Glucose is 306. BNP and troponin were both elevated. Allergies Allergy/AdvReac Type Severity Reaction Status Date / Time Cipro AdvReac Intermediate makes Verified 12/20/16 15:25 mouth feel funny ciprofloxacin AdvReac Intermediate makes Verified 05/26/19 19:50 mouth feel funny metronidazole AdvReac Intermediate makes Verified 05/26/19 19:50 mouth feel funny Home Medications Home Medications Medication Instructions Recorded Confirmed Type acetaminophen [Tylenol Extra 500 - 1,000 mg PO DIRECTED PRN 05/26/19 01/16/20 History Strength] aspirin [Aspir-81] 81 mg PO DAILY 05/26/19 01/16/20 History lisinopril 2.5 mg PO DAILY 05/26/19 01/16/20 History Lactobacillus acidoph-L.bulgar 1 tab PO BID #30 tab 06/01/19 01/16/20 Rx [Lactinex] atorvastatin 20 mg PO DAILY 01/16/20 01/16/20 History fluoxetine 20 mg PO DAILY 01/16/20 01/16/20 History furosemide 40 mg PO DAILY 01/16/20 01/16/20 History Patient History Medical History Acute massive pulmonary embolism Depression Fall Hip fracture HLD (hyperlipidemia) HTN (hypertension) Hyperglycemia Lymphedema Morbid obesity Morbid obesity due to excess calories Rectal bleeding Right heart failure Shock Surgical History History of carpal tunnel surgery History of cholecystectomy History of colonoscopy History of hip surgery 2/2 to fracture Family History Mother Cancer melanoma AMD (age related macular degeneration) Father Hypertension Denies family history of Diabetes Stroke Social History Smoking Status: Never smoker Second Hand Exposure: No; Do You Dip or Chew Tobacco: No; Hx Alcohol Use: No Hx Substance Use: No Preferred Language: Syriac Communication Ability: Effective Feed Miller Required: No Beliefs That Will Affect Care: None marital status: Current Living Situation: Spouse Other Information That Helps Us Care for You: No Feels Safe at Home: Yes Safety Concerns: Feels Safe At This Time Assistive Devices: None Physical Exam Constitutional: + morbidly obese and + in distress Eyes: PERRL, conjunctivae normal, anicteric sclerae ENMT: external ear and nose normal, oropharynx normal Neck: + thick neck Respiratory: + labored breathing and + tachypneic Auscultation: + diminished lung sounds Cardiovascular: Rate/Rhythm: regular rate, regular rhythm and + tachycardic Gastrointestinal (Abdomen): Inspection/Auscultation: abdomen normal to inspection; abdomen not distended Rectal Exam: + heme positive stool and + rectal lesions Musculoskeletal: no cyanosis or clubbing, extremities motor strength 5/5 Skin: no rashes, warm and dry Neurologic: PERRL, EOMI, accommodation nl, no face palsy, no dysarthria Psychiatric: A+Ox3, euthymic affect Results & Data Results & Data ([place]) Vital Signs (Past 12 Hours) Vital Signs Temp Pulse Pulse Resp BP BP Pulse Ox 01/16/20 14:03 100 H 33 H 98 01/16/20 13:52 98.6 F 20 L 20 120/72 97 01/16/20 13:29 88 01/16/20 13:26 24 120/76 95 01/16/20 13:10 99.0 F 92 H 24 120/76 96 01/16/20 12:52 87 28 H 108/56 L 97 01/16/20 12:37 92 H 28 H 99/70 L 98 01/16/20 12:22 94 H 25 H 93/66 L 98 01/16/20 12:07 107 H 26 H 104/65 97 01/16/20 11:52 91 H 30 H 96/59 L 96 01/16/20 11:37 89 38 H 90/62 L 96 01/16/20 11:32 101 H 23 96 01/16/20 11:31 100 H 32 H 83/67 L 96 01/16/20 11:30 98 H 25 H 77/61 L 96 01/16/20 11:17 103 H 28 H 97 01/16/20 11:16 105 H 30 H 99/56 L 98 01/16/20 11:15 101 H 28 H 93 01/16/20 11:10 104 H 27 H 138/103 H 98 01/16/20 11:01 108 H 30 H 99 01/16/20 11:00 109 H 27 H 117/57 L 97 01/16/20 10:46 105 H 28 H 94 01/16/20 10:45 106 H 25 H 100/68 95 01/16/20 10:31 107 H 22 94 01/16/20 10:30 107 H 31 H 86/60 L 93 01/16/20 10:16 110 H 27 H 95 01/16/20 10:15 109 H 31 H 116/48 L 97 01/16/20 10:01 114 H 38 H 91/50 L 96 01/16/20 10:00 114 H 31 H 01/16/20 09:58 115 H 36 H 86/67 L 95 01/16/20 09:55 117 H 34 H 01/16/20 09:30 116 H 39 H 95 01/16/20 09:22 36 H 97 01/16/20 09:20 123 H 37 H 97 01/16/20 09:15 125 H 46 H 96 01/16/20 09:09 94 01/16/20 09:06 92/66 L 95 01/16/20 08:50 98.1 F 125 H 47 H 100 Coding Level of Care Code Critical Care 1st 30-74 mins Diagnoses Acute massive pulmonary embolism I26.99 Right heart failure I50.810 Lactic acidosis E87.2 Rectal bleeding K62.5 Hypoxia R09.02 Morbid obesity due to excess calories E66.01 Hyperglycemia R73.9 Shock R57.9 Time Spent (min) 59
--- NOTE | 2020-01-16 14:57 | Gastrointestinal Consultation ---
Date of Consultation January 16, 2020 Assessment & Plan (1) Rectal bleeding: possibly diverticular bleeding s/p TPA vs. hemorrhoidal or other etiology such as PUD. No signs of further bleeding at this time, would monitor serial H/H, can continue PPI for now, protonix 40 mg IV BID. Recs: --protonix 40 mg BID for now --avoid NSAIDS as they can precipitate recurrent diverticular bleeding --trend H/H, transfuse prn hgb <7 --would benefit from a colonoscopy when more stable and able to tolerate a prep, likely as an outpatient --will continue to follow with you Thank you for allowing me to participate in the care of this patient (2) Diverticulosis: History of Present Illness Attending Physician: Lobo Gerardo MD 69 yo female with hx morbid obesity, HTN, HLD, depression, lymphedema here with dyspnea. GI consulted for rectal bleeding. She was found to be tachycardic and dyspneic in the ER in acute respiratory distress. She was placed on BIPAP, imaging revealed bilateral pulmonary emboli with findings suggestive of right heart strain. CT head unremarkable, CT A?p showed diverticulosis. She was given TPA with improvement and was noted to have some rectal bleeding and bleeding from her central line after TPA administration. Currently she is minimally arousable on BIPAP, HD stable in the ICU. She was given abx in the ER. labs reviewed, hgb wnl, BUN and creatinine elevated. Allergies Allergy/AdvReac Type Severity Reaction Status Date / Time Cipro AdvReac Intermediate makes Verified 12/20/16 15:25 mouth feel funny ciprofloxacin AdvReac Intermediate makes Verified 05/26/19 19:50 mouth feel funny metronidazole AdvReac Intermediate makes Verified 05/26/19 19:50 mouth feel funny Home Medications Home Medications Medication Instructions Recorded Confirmed Type acetaminophen [Tylenol Extra 500 - 1,000 mg PO DIRECTED PRN 05/26/19 01/16/20 History Strength] aspirin [Aspir-81] 81 mg PO DAILY 05/26/19 01/16/20 History lisinopril 2.5 mg PO DAILY 05/26/19 01/16/20 History Lactobacillus acidoph-L.bulgar 1 tab PO BID #30 tab 06/01/19 01/16/20 Rx [Lactinex] atorvastatin 20 mg PO DAILY 01/16/20 01/16/20 History fluoxetine 20 mg PO DAILY 01/16/20 01/16/20 History furosemide 40 mg PO DAILY 01/16/20 01/16/20 History Patient History Medical History Acute massive pulmonary embolism Depression Fall Hip fracture HLD (hyperlipidemia) HTN (hypertension) Hyperglycemia Lymphedema Morbid obesity Morbid obesity due to excess calories Rectal bleeding Right heart failure Shock Surgical History History of carpal tunnel surgery History of cholecystectomy History of colonoscopy History of hip surgery 2/2 to fracture Family History Mother Cancer melanoma AMD (age related macular degeneration) Father Hypertension Denies family history of Diabetes Stroke Social History Smoking Status: Never smoker Second Hand Exposure: No; Hx Alcohol Use: No Hx Substance Use: No Preferred Language: Lithuanian Communication Ability: Effective 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 Beliefs That Will Affect Care: None marital status: Current Living Situation: Spouse Feels Safe at Home: Yes Assistive Devices: None Review of Systems Review of Systems: Unobtainable due to reduced consciousness Physical Exam Constitutional: WD/WN, vitals as above Eyes: no eyelid abnormality Neck: normal visual inspection Respiratory: normal respiratory effort, lungs clear to auscultation Cardiovascular: RRR, no murmur, no edema Gastrointestinal (Abdomen): Inspection/Auscultation: abdomen normal to inspection (obese); abdomen not distended Percussion/Palpation: + abdomen tender (LUQ tenderness noted) and abdomen soft; no hepatosplenomegaly Musculoskeletal: Extremities: no cyanosis Gait: normal gait Skin: no rashes, warm and dry Neurologic: moves all extremities Psychiatric: A+Ox3, euthymic affect Results & Data ([facility]) Vital Signs (Past 12 Hours) Vital Signs Temp Pulse Pulse Resp BP BP Pulse Ox 01/16/20 14:03 100 H 33 H 98 01/16/20 13:52 37.0 C 20 L 20 120/72 97 01/16/20 13:29 88 01/16/20 13:26 24 120/76 95 01/16/20 13:10 37.2 C 92 H 24 120/76 96 01/16/20 12:52 87 28 H 108/56 L 97 01/16/20 12:37 92 H 28 H 99/70 L 98 01/16/20 12:22 94 H 25 H 93/66 L 98 01/16/20 12:07 107 H 26 H 104/65 97 01/16/20 11:52 91 H 30 H 96/59 L 96 01/16/20 11:37 89 38 H 90/62 L 96 01/16/20 11:32 101 H 23 96 01/16/20 11:31 100 H 32 H 83/67 L 96 01/16/20 11:30 98 H 25 H 77/61 L 96 01/16/20 11:17 103 H 28 H 97 01/16/20 11:16 105 H 30 H 99/56 L 98 01/16/20 11:15 101 H 28 H 93 01/16/20 11:10 104 H 27 H 138/103 H 98 01/16/20 11:01 108 H 30 H 99 01/16/20 11:00 109 H 27 H 117/57 L 97 01/16/20 10:46 105 H 28 H 94 01/16/20 10:45 106 H 25 H 100/68 95 01/16/20 10:31 107 H 22 94 01/16/20 10:30 107 H 31 H 86/60 L 93 01/16/20 10:16 110 H 27 H 95 01/16/20 10:15 109 H 31 H 116/48 L 97 01/16/20 10:01 114 H 38 H 91/50 L 96 01/16/20 10:00 114 H 31 H 01/16/20 09:58 115 H 36 H 86/67 L 95 01/16/20 09:55 117 H 34 H 01/16/20 09:30 116 H 39 H 95 01/16/20 09:22 36 H 97 01/16/20 09:20 123 H 37 H 97 01/16/20 09:15 125 H 46 H 96 01/16/20 09:09 94 01/16/20 09:06 92/66 L 95 01/16/20 08:50 36.7 C 125 H 47 H 100 PG Care Time/CCT Total # of Minutes Spent Total Time Spent with Patient: Total time spent is greater than 50% in coordination of care (as documented) at patient's floor/unit and/or counseling patient: Coding Level of Care Code 29970 Initial Inpt Care Lvl 3 Diagnoses Rectal bleeding K62.5 Diverticulosis K57.90
[2020-01-16] MEDS ORDERED: INSULIN REGULAR 250 UNITS in SODIUM CHLORIDE 0.9% 247.5 ML IV SCH (15:00)
[2020-01-16] MEDS ORDERED: GLUCOSE 10 TABS/TUBE PO PRN (15:15)
[2020-01-16] MEDS ORDERED: NovoLIN-R BOLUS FROM BAG IV ONE (15:15)
[2020-01-16] MEDS ORDERED: DEXTROSE 50% 50 ML SYRINGE IV PRN (15:15)
[2020-01-16] MEDS ORDERED: GLUCOSE 40% GEL 15 GM TUBE PO PRN (15:15)
[2020-01-16] MEDS ORDERED: GLUCAGON FOR INJ 1 MG VIAL IM PRN (15:15)
[2020-01-16] MEDS ORDERED: CARBOHYDRATES FOR HYPOGLYCEMIA PO PRN (15:15)
--- NOTE | 2020-01-16 15:37 | Pharmacy Report ---
Pharmacy Glycemic Short Note 2 - Date of Service January 16, 2020 - Glycemic Short BSG Results (Last 24 hours): 01/16/20 01/16/20 01/16/20 09:09 09:17 15:14 Glucose 295 H POC Glucose 172 H POC Glucose (other) 306 H OUTPATIENT ANTIDIABETIC REGIMEN: * None * Previous A1c indicative of pre-diabetes but outdated. Repeat ordered for tomorrow ASSESSMENT: * 69 yo F with previous HbA1c indicative of pre-diabetes on no outpatient medications for diabetes now with stress-induced hyperglycemia 2nd massive PE * BSG's initially ~300 mg/dL therefore insulin drip was going to start. However, BSG's trended down to 172 mg/dL with no insulin administration. Will therefore refrain from initiating insulin drip at this time. Patient may require it at some point if BSG's again severely increase * Will initiate weight-based Novolog for now and watch BSG trend after 1st dose of Novolog to determine if Lantus is indicated this evening PLAN FOR INPATIENT GLYCEMIC CONTROL: * Insulin drip - hold off for now. May require if BSG's again significantly increase * Basal insulin - none for now. May require some tonight * Bolus insulin * NovoLog per scale q4h * Goal Range: 120-150 mg/dL * Correction Factor: 15 mg/dL/unit * Nutritional / Prandial insulin per carb ratio of 1 unit per 5 grams CHO consumed
[2020-01-16] MEDS: INSULIN ASPART 100 UNITS/ML 3 ML PEN SC SCH ×2 (16:00→21:04)
[2020-01-16] MEDS: PIPERACILLIN/TAZOBACTAM 4.5 GM in DEXTROSE 5% 100 ML IV SCH (16:00)
[2020-01-16] MEDS ORDERED: INSULIN ASPART 100 UNITS/ML 3 ML PEN SC SCH (16:30)
[2020-01-16 18:14] LABS: Hematocrit (blood only) 41.9 % (37-47); Hemoglobin 12.7 g/dL (12.0-16.0); Mean Corpuscular Hemoglobin 27.3 pg (25-34); Mean Corpuscular Hgb Conc 30.3 g/dL (32-36); Mean Corpuscular Volume 89.9 fL (80-100); Mean Platelet Volume 9.5 fL (7.4-10.4); Platelet Count 177 K/uL (130-400); RDW Coefficient of Variation 14.6 % (11.5-14.5); RDW Standard Deviation 47.5 fL (36.4-46.3); Red Blood Count 4.66 M/uL (4.2-5.4); White Blood Count 13.46 K/uL (4.8-10.8)
[2020-01-16 20:52] LABS: Fibrinogen 112 mg/dl (184-400)
[2020-01-16] MEDS: HEPARIN SODIUM/DEXTROSE 25,000 UNITS/500 ML BAG IV SCH (21:03)
[2020-01-16] MEDS: Heparin IV Standard *NO* Bolus IV SCH (21:43)
[2020-01-17 00:42] LABS: Hematocrit (blood only) 39.5 % (37-47); Hemoglobin 12.3 g/dL (12.0-16.0); Mean Corpuscular Hemoglobin 28.1 pg (25-34); Mean Corpuscular Hgb Conc 31.1 g/dL (32-36); Mean Corpuscular Volume 90.2 fL (80-100); Mean Platelet Volume 9.8 fL (7.4-10.4); Platelet Count 175 K/uL (130-400); RDW Coefficient of Variation 14.4 % (11.5-14.5); RDW Standard Deviation 47.4 fL (36.4-46.3); Red Blood Count 4.38 M/uL (4.2-5.4); White Blood Count 14.21 K/uL (4.8-10.8)
[2020-01-17] MEDS: INSULIN ASPART 100 UNITS/ML 3 ML PEN SC SCH ×6 (00:57→21:30)
[2020-01-17] MEDS: PIPERACILLIN/TAZOBACTAM 4.5 GM in DEXTROSE 5% 100 ML IV SCH ×2 (01:04→08:16)
[2020-01-17] MEDS: PANTOprazole 40 MG in DEXTROSE 5% 100 ML IV SCH ×2 (01:05→06:05)
[2020-01-17 03:33] LABS: Partial Thromboplastin Ratio 2.2
[2020-01-17 03:34] LABS: Partial Thromboplastin Time 60.1 Seconds (21.0-31.0)
[2020-01-17 04:53] LABS: Basophils # (auto) 0.01 K/uL (0-0.2); Basophils % (auto) 0.1 %; Eosinophils # (auto) 0.01 K/uL (0-0.5); Eosinophils % (auto) 0.1 %; Hematocrit (blood only) 37.9 % (37-47); Hemoglobin 11.8 g/dL (12.0-16.0); Immature Granulocytes # (auto) 0.06 K/uL (0.00-0.02); Immature Granulocytes % (auto) 0.4 %; Lymphocytes # (auto) 1.19 K/uL (1.2-3.4); Lymphocytes % (auto) 8.4 %; Mean Corpuscular Hemoglobin 27.8 pg (25-34); Mean Corpuscular Hgb Conc 31.1 g/dL (32-36); Mean Corpuscular Volume 89.2 fL (80-100); Mean Platelet Volume 9.8 fL (7.4-10.4); Monocytes # (auto) 1.16 K/uL (0.11-0.59); Monocytes % (auto) 8.2 %; Neutrophils # (auto) 11.74 K/uL (1.4-6.5); Neutrophils % (auto) 82.8 %; Platelet Count 152 K/uL (130-400); RDW Coefficient of Variation 14.3 % (11.5-14.5); RDW Standard Deviation 46.5 fL (36.4-46.3); Red Blood Count 4.25 M/uL (4.2-5.4); White Blood Count 14.17 K/uL (4.8-10.8)
[2020-01-17 05:39] LABS: Albumin Level 2.5 gm/dl (3.4-5.0); BUN Creatinine Ratio 27.6 (10-20); Bilirubin Direct 0.1 mg/dl (0-0.2); Bilirubin,Total 0.3 mg/dl (0.2-1); Calcium 8.1 mg/dl (8.5-10.1); Creatinine Clr Calc Pharmacy 84.7 ml/min; Est GFR (African American) 74.2; Magnesium 2.4 mg/dl (1.8-2.4); Phosphorus 4.9 mg/dl (2.5-4.9); Potassium 4.2 mmol/L (3.5-5.1); Total Protein 6.5 gm/dl (6.4-8.2); Troponin I 0.819 ng/ml (0-0.045)
[2020-01-17 06:07] LABS: Estimated Average Glucose 134 mg/dl; Hemoglobin A1C 6.3 % (4.5-5.6)
--- NOTE | 2020-01-17 08:48 | Critical Care Progress Note ---
Date of Service January 17, 2020 Assessment & Plan (1) Acute massive pulmonary embolism: 69-year-old female with a past medical history of morbid obesity, hypertension and depression presenting to the hospital due to a massive pulmonary embolism requiring systemic TPA for thrombolysis. Patient continues to do very well today. No further bleeding noted. CBC has been stable. Continue heparin drip. Will start warfarin today. She is not a candidate for DOAC therapy given her obesity. Continue Zosyn empirically given her elevated procalcitonin. Urinalysis has been ordered. We will treat for 7 days with antibiotics. Left IJ will need to be removed after 24 hours of TPA. Will switch Protonix drip to twice daily dosing. Gastroenterology consult reviewed. They indicate a colonoscopy as an outpatient will be warranted. Echocardiogram reviewed which indicates right ventricular enlargement and hypokinesis with intraventricular septum flattening. Continue BiPAP at night for presumptive OHS/ANTONIETTA. She will need a polysomnography as an outpatient. Weight loss is advised. With regards to anticoagulation, this will likely need to be lifelong given the severity of her pulmonary embolism. I discussed CODE STATUS with the patient and she indicated very clearly that she would like to be a DNR/DNI in the event that she has a respiratory or cardiac arrest. Case discussed with nurse at bedside. She will be stable to transfer to the floor after 24 hours of TPA dosing. (2) Right heart failure: (3) Lactic acidosis: (4) Rectal bleeding: (5) Hypoxia: (6) Morbid obesity due to excess calories: (7) Hyperglycemia: (8) Shock: Admission and Anticipated Discharge Date Admission Date: January 16, 2020 Subjective Patient is lying in bed. She feels much better today. Denies any chest pain or significant shortness of breath. She has some mild back pain. No fevers or chills overnight. Hemodynamics have been adequate and not requiring vasopressor support. No further evidence of bleeding. Review of Systems Review of Systems: All systems reviewed & are unremarkable except as noted in HPI & below Physical Exam Constitutional: + morbidly obese and + in distress Eyes: PERRL, conjunctivae normal, anicteric sclerae ENMT: external ear and nose normal, oropharynx normal Neck: + thick neck Respiratory: normal respiratory effort, lungs clear to auscultation Cardiovascular: Rate/Rhythm: regular rate, regular rhythm and + tachycardic Gastrointestinal (Abdomen): Inspection/Auscultation: abdomen normal to inspection; abdomen not distended Musculoskeletal: no cyanosis or clubbing, extremities motor strength 5/5 Skin: no rashes, warm and dry Neurologic: PERRL, EOMI, accommodation nl, no face palsy, no dysarthria Psychiatric: A+Ox3, euthymic affect Results & Data Results & Data ([facility]) Vital Signs (Past 12 Hours) Vital Signs Temp Pulse Pulse Resp BP BP Pulse Ox 01/17/20 06:00 88 97 01/17/20 05:58 87 121/69 97 01/17/20 05:45 92 H 97 01/17/20 05:43 83 121/66 97 01/17/20 05:30 86 97 01/17/20 05:28 85 126/62 97 01/17/20 05:15 86 97 01/17/20 05:13 76 124/67 97 01/17/20 05:00 85 97 01/17/20 04:58 84 124/67 97 01/17/20 04:45 71 97 01/17/20 04:43 73 117/66 97 01/17/20 04:30 72 98 01/17/20 04:28 73 121/68 97 01/17/20 04:15 73 97 01/17/20 04:13 78 118/67 97 01/17/20 04:00 75 97 01/17/20 03:58 75 117/66 97 01/17/20 03:45 77 97 01/17/20 03:43 77 112/63 96 01/17/20 03:30 78 96 01/17/20 03:28 73 110/61 97 01/17/20 03:13 77 114/65 97 01/17/20 03:10 75 14 96 01/17/20 03:00 75 96 01/17/20 02:58 77 119/64 97 01/17/20 02:43 84 115/64 96 01/17/20 02:28 83 127/64 96 01/17/20 02:13 83 125/66 97 01/17/20 02:01 79 96 01/17/20 01:58 83 117/62 98 01/17/20 01:43 84 122/66 97 01/17/20 01:28 82 119/69 96 01/17/20 01:13 82 123/64 97 01/17/20 01:09 84 125/65 96 01/17/20 01:01 84 96 01/17/20 00:58 82 125/65 96 01/17/20 00:43 85 120/66 96 01/17/20 00:28 81 113/65 97 01/17/20 00:13 82 121/63 97 01/17/20 00:01 72 97 01/16/20 23:58 78 109/64 98 01/16/20 23:53 75 96 01/16/20 23:52 98.4 F 77 27 H 109/64 98 01/16/20 22:52 98.4 F 73 22 127/64 96 01/16/20 22:39 88 18 97 01/16/20 21:52 98.4 F 72 22 117/62 97 01/16/20 20:52 98.4 F 73 31 H 109/64 97 I reviewed vital signs, labs and imaging Coding Level of Care Code 97784 Subseq Hosp Care Lvl 3 Diagnoses Acute massive pulmonary embolism I26.99 Right heart failure I50.810 Lactic acidosis E87.2 Rectal bleeding K62.5 Hypoxia R09.02 Morbid obesity due to excess calories E66.01 Hyperglycemia R73.9 Shock R57.9
--- NOTE | 2020-01-17 10:15 | Gastroenterology Progress Note ---
Date of Service January 17, 2020 Assessment & Plan (1) Rectal bleeding: No signs of further bleeding. Patient is in good spirits. -Continue Protonix 40 mg BID empirically in the event PUD is contributing, though symptoms seem lower GI either hemorrhoidal vs diverticular exacerbated by TPA administration -Avoid NSAIDS -Continue to monitor H/H -Outpatient colonoscopy when patient is stable from a cardiopulmonary perspective Thank you for allowing me to participate in the care of this patient (2) Diverticulosis: Admission and Anticipated Discharge Date Admission Date: January 16, 2020 Supervising Physician Co-Signing Physician Notes Agree with SANDY Cooper Abd: Soft, NT, ND Continue current therapy and supportive care Outpatient colonoscopy once acute medical issues resolve. Subjective Patient is a 69 yo female hospitalized with a PE s/p administration of TPA. GI has been involved for rectal bleeding thought to be hemorrhoidal vs diverticular. The patient is not having further GI bleeding. H/H is 11.8/37.9 with no further signs of bleeding. She denies GI concerns at present time. She has been utilizing nocturnal bipap. Review of Systems Constitutional: no fever and no chills Respiratory: + dyspnea on exertion Cardiovascular: no chest pain Gastrointestinal: no abdominal pain no further overt bleeding Physical Exam Constitutional: WD/WN, vitals as above Respiratory: normal respiratory effort Cardiovascular: Extremities: no edema Gastrointestinal (Abdomen): Inspection/Auscultation: abdomen normal to inspection Skin: no rashes, warm and dry Psychiatric: A+Ox3, euthymic affect Results & Data Results & Data ([facility]) Vital Signs (Past 12 Hours) Vital Signs Temp Pulse Pulse Resp BP BP Pulse Ox 01/17/20 08:51 37.0 C 82 20 141/78 H 96 01/17/20 08:00 88 01/17/20 07:52 36.8 C 70 20 107/63 98 01/17/20 06:00 88 97 01/17/20 05:58 87 121/69 97 01/17/20 05:45 92 H 97 01/17/20 05:43 83 121/66 97 01/17/20 05:30 86 97 01/17/20 05:28 85 126/62 97 01/17/20 05:15 86 97 01/17/20 05:13 76 124/67 97 01/17/20 05:00 85 97 01/17/20 04:58 84 124/67 97 01/17/20 04:45 71 97 01/17/20 04:43 73 117/66 97 01/17/20 04:30 72 98 01/17/20 04:28 73 121/68 97 01/17/20 04:15 73 97 01/17/20 04:13 78 118/67 97 01/17/20 04:00 75 97 01/17/20 03:58 75 117/66 97 01/17/20 03:45 77 97 01/17/20 03:43 77 112/63 96 01/17/20 03:30 78 96 01/17/20 03:28 73 110/61 97 01/17/20 03:13 77 114/65 97 01/17/20 03:10 75 14 96 01/17/20 03:00 75 96 01/17/20 02:58 77 119/64 97 01/17/20 02:43 84 115/64 96 01/17/20 02:28 83 127/64 96 01/17/20 02:13 83 125/66 97 01/17/20 02:01 79 96 01/17/20 01:58 83 117/62 98 01/17/20 01:43 84 122/66 97 01/17/20 01:28 82 119/69 96 01/17/20 01:13 82 123/64 97 01/17/20 01:09 84 125/65 96 01/17/20 01:01 84 96 01/17/20 00:58 82 125/65 96 01/17/20 00:43 85 120/66 96 01/17/20 00:28 81 113/65 97 01/17/20 00:13 82 121/63 97 01/17/20 00:01 72 97 01/16/20 23:58 78 109/64 98 01/16/20 23:53 75 96 01/16/20 23:52 36.9 C 77 27 H 109/64 98 01/16/20 22:52 36.9 C 73 22 127/64 96 01/16/20 22:39 88 18 97 PG Care Time/CCT Total # of Minutes Spent Total Time Spent with Patient: Total time spent is greater than 50% in coordination of care (as documented) at patient's floor/unit and/or counseling patient: Coding Level of Care Code 05478 Subseq Hosp Care Lvl 2 Diagnoses Rectal bleeding K62.5 Diverticulosis K57.90
--- NOTE | 2020-01-17 11:45 | Ultrasound Report ---
BILATERAL LOWER EXTREMITY VENOUS DOPPLER CLINICAL HISTORY: massive pe COMPARISON STUDY: Lower extremities venous Doppler ultrasound May 27, 2019. Bilateral lower extr emity venous Doppler ultrasound December 20, 2016. TECHNIQUE: Sonography of the deep venous system of the bilateral lower extremities was performed. Co mpression and augmentation were evaluated. FINDINGS: Exam is compromised by suboptimal penetration. The bilateral common femoral, superficial fe moral and popliteal veins were compressible. Augmentation was normal. Flow was shown within the deep calf vessels. IMPRESSION: Technically difficult exam but evidence of deep venous thrombus within the bilateral lowe r extremities. ACT 112: Negative or not required by law. Electronically signed by: Kem Tolentino M.D. 01/17/2020 11:44 AM
[2020-01-17] MEDS: HEPARIN SODIUM/DEXTROSE 25,000 UNITS/500 ML BAG IV SCH (11:55)
--- NOTE | 2020-01-17 12:39 | Hospitalist Progress Note ---
Date of Service January 17, 2020 Assessment & Plan (1) Acute respiratory failure with hypoxia: (2) Leukocytosis: Patient is a 69 yr female with H/O Hypertension, hyperlipidemia, morbid obesity, depression, bilateral lymphedema who presents to ED secondary to shortness of breath x2 days. Acute Pulmonary Embolism Acute Hypoxic respiratory Failed Possible acute cor pulmonale Presumed OHS/ANTONIETTA S/P TPA CTA:Extensive bilateral pulmonary emboli with straightening of the intraventricular septum suggestive of right heart strain. Moderate cardiomegaly with findings suggestive of pulmonary artery hypertension. ECHO: Right ventricle is mildly enlarged and hypokinetic. There is flattening of the interventricular septum. EF 60 to 65%. No regional wall motion abnormalities of the left ventricle. Grade 2 diastolic dysfunction. Continue supplemental oxygen as needed. Continue IV heparin Plan to start on Coumadin if no recurrence of bleeding Appreciate critical care input Needs polysomnography and follow-up with pulmonology as outpatient Continue BiPAP HS/PRN Rectal bleeding DD:PUD/hemorrhoidal versus diverticular bleed Likely Exacerbated post TPA --CT ABD:No acute infectious or inflammatory findings are identified in the abdomen or pelvis. Hepatomegaly and hepatic steatosis. Splenomegaly. Moderate colonic diverticulosis without CT evidence of acute diverticulitis. A large umbilical hernia contains non obstructed small bowel loops. --Continue PPI Monitor CBC while on IV Heparin Needs colonoscopy as outpatient Appreciate GI input Avoid NSAIDs Aspirin on hold Leukocytosis Elevated procalcitonin Lactate levels normalized Biofire:Negative UA ? contaminated sample Unclear source of infection Blood cultures: Negative to date Urine culture pending Continue Zosyn>> transition to Unasyn empirically Monitor inflammatory markers (3) HTN (hypertension): Stable Resume lisinopril as able (4) HLD (hyperlipidemia): Continue Atorvastatin (5) Lymphedema: Follows wound clinic [place] 05/28 to recurrent BLE edema/stasis ulcerations Uses compressive dressings/lymphedema pumps as outpt Per wound clinic: Ag foam/Coban 2 (with extra cohesive layer for additional compression) to LLE, changed weekly with size F tubigrips Resume diuretics as able (6) Depression: Continue fluoxetine (7) Morbid obesity: BMI 54.9 Encourage lifestyle and diet modifications Prediabetes HbA1C:6.3 on ISS Pharmacy glycemic management consulted DVT Px: IV heparin Code Status DNI/DNR Disposition: PT/OT prior to discharge Admission and Anticipated Discharge Date Admission Date: January 16, 2020 Subjective Patient is seen and examined at bedside States feeling better today Shortness of breath much improved Denies chest pain, dizziness, nausea, abdominal pain No recurrence of bleeding per rectum this morning Discussed with critical care today Family at bedside Plan to be transferred out of ICU today. Review of Systems Review of Systems: All systems reviewed & are unremarkable except as noted in HPI & below Physical Exam Physical Exam: Physical Exam: Vitals signs as noted above General Appearance:Morbidly Obese, no apparent distress Head: normocephalic, Atraumatic Eyes: normal inspection, EOMI Neck: supple, Trachea midline Respiratory/Chest: Decreased , CTA, No accessory muscle use Cardiovascular: S1, S2, No murmur Abdomen/GI:Soft, Non tender, Bowel sounds present Extremities/Musculoskelatal:normal inspection, B/LE LE edema, +Chronic venous stasis changes Neurologic/Psych:AAOX3, grossly no focal neurological deficits Skin: normal color, warm Results & Data Results & Data ([facility]) Vital Signs (Past 12 Hours) Vital Signs Temp Pulse Pulse Resp BP BP Pulse Ox 01/17/20 12:00 88 01/17/20 10:52 36.6 C 79 20 133/72 99 01/17/20 09:52 36.9 C 92 H 22 122/71 94 01/17/20 08:51 37.0 C 82 20 141/78 H 96 01/17/20 08:00 88 01/17/20 07:52 36.8 C 70 20 107/63 98 01/17/20 06:00 88 97 01/17/20 05:58 87 121/69 97 01/17/20 05:45 92 H 97 01/17/20 05:43 83 121/66 97 01/17/20 05:30 86 97 01/17/20 05:28 85 126/62 97 01/17/20 05:15 86 97 01/17/20 05:13 76 124/67 97 01/17/20 05:00 85 97 01/17/20 04:58 84 124/67 97 01/17/20 04:45 71 97 01/17/20 04:43 73 117/66 97 01/17/20 04:30 72 98 01/17/20 04:28 73 121/68 97 01/17/20 04:15 73 97 01/17/20 04:13 78 118/67 97 01/17/20 04:00 75 97 01/17/20 03:58 75 117/66 97 01/17/20 03:45 77 97 01/17/20 03:43 77 112/63 96 01/17/20 03:30 78 96 01/17/20 03:28 73 110/61 97 01/17/20 03:13 77 114/65 97 01/17/20 03:10 75 14 96 01/17/20 03:00 75 96 01/17/20 02:58 77 119/64 97 01/17/20 02:43 84 115/64 96 01/17/20 02:28 83 127/64 96 01/17/20 02:13 83 125/66 97 01/17/20 02:01 79 96 01/17/20 01:58 83 117/62 98 01/17/20 01:43 84 122/66 97 01/17/20 01:28 82 119/69 96 01/17/20 01:13 82 123/64 97 01/17/20 01:09 84 125/65 96 01/17/20 01:01 84 96 01/17/20 00:58 82 125/65 96 01/17/20 00:43 85 120/66 96 Laboratory Results Short CBC 01/16/20 01/16/20 01/17/20 Range/Units 13:58 18:03 00:33 WBC 15.95 H 13.46 H 14.21 H (4.8-10.8) K/uL Hgb 13.4 12.7 12.3 (12.0-16.0) g/dL Hct 43.1 41.9 39.5 (37-47) % Plt Count 175 177 175 (130-400) K/uL 01/17/20 Range/Units 04:41 WBC 14.17 H (4.8-10.8) K/uL Hgb 11.8 L (12.0-16.0) g/dL Hct 37.9 (37-47) % Plt Count 152 (130-400) K/uL BMP 01/17/20 04:41 Sodium 141 Potassium 4.2 Chloride 107 Carbon Dioxide 30 BUN 25 H Creatinine 0.92 D Glucose 149 H Calcium 8.1 L Cardiac Enzymes 01/16/20 01/16/20 01/17/20 Range/Units 14:47 20:10 03:03 Troponin I 1.220 H* 1.380 H* 0.908 H* (0-0.045) ng/ml 01/17/20 Range/Units 04:41 Troponin I 0.819 H* (0-0.045) ng/ml Liver Function 01/17/20 Range/Units 04:41 Total Bilirubin 0.3 (0.2-1) mg/dl Direct Bilirubin 0.1 (0-0.2) mg/dl AST 29 (15-37) U/L ALT 38 (12-78) U/L Alkaline Phosphatase 112 (45-117) U/L Albumin 2.5 L (3.4-5.0) gm/dl
[2020-01-17 12:58] LABS: Appearance Urine Cloudy (Clear); Bacteria Urine Automated Negative (Negative); Bilirubin Urine Negative (Negative); Blood Urine 2+ (Negative); Color Urine Yellow; Epithelial Cell Urine Auto >30 /lpf (0-5); Glucose Urine UA Negative (Negative); Ketones Urine Negative (Negative); Leukocyte Esterase Urine Trace (Negative); Nitrite Urine Negative (Negative); Protein Urine 2+ (Negative); Specific Gravity Urine 1.045 (1.000-1.030); Urobilinogen Urine Negative (Negative); WBC Urine Automated >30 /hpf (0-5)
[2020-01-17 13:16] LABS: Hematocrit (blood only) 39.2 % (37-47); Mean Corpuscular Hemoglobin 27.5 pg (25-34); Mean Corpuscular Hgb Conc 30.6 g/dL (32-36); Mean Corpuscular Volume 89.9 fL (80-100); Mean Platelet Volume 9.9 fL (7.4-10.4); Platelet Count 158 K/uL (130-400); RDW Coefficient of Variation 14.3 % (11.5-14.5); RDW Standard Deviation 46.7 fL (36.4-46.3); Red Blood Count 4.36 M/uL (4.2-5.4); White Blood Count 14.69 K/uL (4.8-10.8)
--- NOTE | 2020-01-17 14:11 | Electrocardiogram Report ---
Test Reason : Blood Pressure : / mmHG Vent. Rate : 121 BPM Atrial Rate : 121 BPM P-R Int : 138 ms QRS Dur : 104 ms QT Int : 326 ms P-R-T Axes : 251 -09 041 degrees QTc Int : 462 ms Unusual P axis and short IA, probable junctional tachycardia vs long R-P SVT Incomplete right bundle branch block Abnormal ECG When compared with ECG of 26-MAY-2019 18:26, Junctional rhythm has replaced Sinus rhythm Incomplete right bundle branch block is now Present Confirmed by Andrés Craft ([id number]) on 01/17/2020 2:10:36 PM Referred By: Confirmed By:Andrés Craft
[2020-01-17 14:51] LABS: Amphetamines+Metham, Urine Neg (Neg); Barbiturates, Urine Neg (Neg); Benzodiazepine, Urine Neg (Neg); Cocaine, Urine Neg (Neg); MDMA (Ecstacy), Urine Neg (Neg); Methadone, Urine Neg (Neg); Opiate, Urine Pos (Neg); Phencyclidine, Urine Neg (Neg)
[2020-01-17] MEDS ORDERED: WARFARIN SOD 10 MG TAB PO ONE (15:30)
[2020-01-17] MEDS: Heparin IV Standard *NO* Bolus IV SCH ×2 (16:29→16:30)
[2020-01-17] MEDS: AMPICILLIN/SULBACTAM SOD 3,000 MG in 0.9 % SODIUM CHLORIDE 100 ML IV SCH ×2 (16:55→21:17)
[2020-01-17] MEDS ORDERED: CEFEPIME 2,000 MG in SYRINGE 0 ML IV SCH (18:00)
[2020-01-17 19:04] LABS: Hematocrit (blood only) 37.1 % (37-47); Hemoglobin 11.4 g/dL (12.0-16.0); Mean Corpuscular Hemoglobin 27.8 pg (25-34); Mean Corpuscular Hgb Conc 30.7 g/dL (32-36); Mean Corpuscular Volume 90.5 fL (80-100); Mean Platelet Volume 9.8 fL (7.4-10.4); Platelet Count 171 K/uL (130-400); RDW Coefficient of Variation 14.4 % (11.5-14.5); RDW Standard Deviation 47.4 fL (36.4-46.3); White Blood Count 13.97 K/uL (4.8-10.8)
[2020-01-17] MEDS: PANTOprazole 40 MG TAB PO SCH (21:11)
[2020-01-18 01:57] LABS: Hematocrit (blood only) 37.7 % (37-47); Hemoglobin 11.6 g/dL (12.0-16.0); Mean Corpuscular Hemoglobin 27.5 pg (25-34); Mean Corpuscular Hgb Conc 30.8 g/dL (32-36); Mean Corpuscular Volume 89.3 fL (80-100); Mean Platelet Volume 10.4 fL (7.4-10.4); Platelet Count 209 K/uL (130-400); RDW Coefficient of Variation 14.6 % (11.5-14.5); RDW Standard Deviation 47.1 fL (36.4-46.3); Red Blood Count 4.22 M/uL (4.2-5.4); White Blood Count 12.38 K/uL (4.8-10.8)
[2020-01-18] MEDS: HEPARIN SODIUM/DEXTROSE 25,000 UNITS/500 ML BAG IV SCH ×2 (03:05→16:35)
[2020-01-18] MEDS: AMPICILLIN/SULBACTAM SOD 3,000 MG in 0.9 % SODIUM CHLORIDE 100 ML IV SCH ×4 (03:26→20:39)
[2020-01-18 05:48] LABS: Hematocrit (blood only) 37.5 % (37-47); Hemoglobin 11.4 g/dL (12.0-16.0); Mean Corpuscular Hemoglobin 27.7 pg (25-34); Mean Corpuscular Hgb Conc 30.4 g/dL (32-36); Mean Platelet Volume 9.8 fL (7.4-10.4); Platelet Count 177 K/uL (130-400); RDW Coefficient of Variation 14.5 % (11.5-14.5); RDW Standard Deviation 47.6 fL (36.4-46.3); Red Blood Count 4.12 M/uL (4.2-5.4)
[2020-01-18 05:57] LABS: INR 1.2 (0.9-1.1); Prothrombin Time 12.6 Seconds (9.0-12.0)
[2020-01-18 06:25] LABS: Partial Thromboplastin Ratio 2.1
[2020-01-18 06:27] LABS: Partial Thromboplastin Time 59.8 Seconds (21.0-31.0)
[2020-01-18 06:30] LABS: BUN Creatinine Ratio 33.7 (10-20); Calcium 8.3 mg/dl (8.5-10.1); Creatinine Clr Calc Pharmacy 125.1 ml/min; Est GFR (African American) 107.4; Est GFR (Non-African American) 92.7; Magnesium 2.4 mg/dl (1.8-2.4); Potassium 3.8 mmol/L (3.5-5.1)
[2020-01-18] MEDS: INSULIN ASPART 100 UNITS/ML 3 ML PEN SC SCH ×4 (07:54→20:56)
[2020-01-18] MEDS: ATORVASTATIN 20 MG TAB PO SCH (07:55)
[2020-01-18] MEDS: PANTOprazole 40 MG TAB PO SCH ×2 (07:55→20:38)
[2020-01-18] MEDS: FLUOXETINE HCL 20 MG CAP PO SCH (07:55)
--- NOTE | 2020-01-18 12:05 | Pharmacy Report ---
Pharmacy Glycemic Short Note 2 - Date of Service January 18, 2020 - Glycemic Short BSG Results (Last 24 hours): 01/17/20 01/17/20 01/18/20 16:26 20:14 05:27 Glucose 104 H POC Glucose 145 H 120 H 01/18/20 01/18/20 07:30 11:44 Glucose POC Glucose 96 84 OUTPATIENT ANTIDIABETIC REGIMEN: * None * HbA1c 6.3% on 01/17/20 ASSESSMENT: 01/18/20 * BSG's have ranged 84-160 mg/dL over the last 36 hours * AM fasting BSG's have been in or below goal range with no Lantus administered - none needed at this time * Lowest BSG was today at lunch after the patient consumed the most CHO in a meal since admission with breakfast this AM (49 g). Will loosen Novolog parameters slightly 01/16/20 * 69 yo F with previous HbA1c indicative of pre-diabetes on no outpatient medications for diabetes now with stress-induced hyperglycemia 2nd massive PE * BSG's initially ~300 mg/dL therefore insulin drip was going to start. However, BSG's trended down to 172 mg/dL with no insulin administration. Will therefore refrain from initiating insulin drip at this time. Patient may require it at some point if BSG's again severely increase * Will initiate weight-based Novolog for now and watch BSG trend after 1st dose of Novolog to determine if Lantus is indicated this evening PLAN FOR INPATIENT GLYCEMIC CONTROL: * Basal insulin - none needed/administered this admission * Bolus insulin * NovoLog per scale ACHS * Goal Range: 110-140 mg/dL * Correction Factor: 20 mg/dL/unit * Nutritional / Prandial insulin per carb ratio of 1 unit per 6 grams CHO consumed
[2020-01-18] MEDS ORDERED: WARFARIN SOD 10 MG TAB PO ONE (16:00)
--- NOTE | 2020-01-18 16:32 | Hospitalist Progress Note ---
Date of Service January 18, 2020 Assessment & Plan (1) Acute respiratory failure with hypoxia: (2) Leukocytosis: Patient is a 69 yr female with H/O Hypertension, hyperlipidemia, morbid obesity, depression, bilateral lymphedema who presents to ED secondary to shortness of breath x2 days. Acute Pulmonary Embolism Acute Hypoxic respiratory Failed Possible acute cor pulmonale Presumed OHS/ANTONIETTA S/P TPA CTA:Extensive bilateral pulmonary emboli with straightening of the intraventricular septum suggestive of right heart strain. Moderate cardiomegaly with findings suggestive of pulmonary artery hypertension. ECHO: Right ventricle is mildly enlarged and hypokinetic. There is flattening of the interventricular septum. EF 60 to 65%. No regional wall motion abnormalities of the left ventricle. Grade 2 diastolic dysfunction. Venous Doppler: No DVT Continue supplemental oxygen as needed. Continue IV heparin Started on Coumadin PT/INR: 1.2 today Appreciate critical care input Needs polysomnography and follow-up with pulmonology as outpatient Continue BiPAP HS/PRN Monitor for any bleeding issues Rectal bleeding DD:PUD/hemorrhoidal versus diverticular bleed Likely Exacerbated post TPA --CT ABD:No acute infectious or inflammatory findings are identified in the abdomen or pelvis. Hepatomegaly and hepatic steatosis. Splenomegaly. Moderate colonic diverticulosis without CT evidence of acute diverticulitis. A large umbilical hernia contains non obstructed small bowel loops. --Continue PPI Monitor CBC while on IV Heparin Needs colonoscopy as outpatient Appreciate GI input Avoid NSAIDs Aspirin held Hb stable Plan to discontinue Aspirin upon discharge as no clear inditcation Leukocytosis Lactate, Procalcitonin levels normalized Biofire:Negative Urine Culture: No growth Unclear source of infection Blood cultures: Negative to date Continue Zosyn>> transition to Unasyn empirically Monitor (3) HTN (hypertension): Stable Resume lisinopril tomorrow (4) HLD (hyperlipidemia): Continue Atorvastatin (5) Lymphedema: Follows wound clinic [place] 2/2 to recurrent BLE edema/stasis ulcerations Uses compressive dressings/lymphedema pumps as outpt Per wound clinic: Ag foam/Coban 2 (with extra cohesive layer for additional compression) to LLE, changed weekly with size F tubigrips Resume diuretics as able (6) Depression: Continue fluoxetine (7) Morbid obesity: BMI 54.9 Encourage lifestyle and diet modifications Prediabetes HbA1C:6.3 on ISS Pharmacy glycemic management consulted DVT Px: IV heparin/Coumadin Code Status DNI/DNR Disposition: PT/OT prior to discharge Admission and Anticipated Discharge Date Admission Date: January 16, 2020 Subjective Patient is seen and examined at bedside Reports sleeping poorly overnight Poor Appetite Mild Dyspnea on exertion Denies chest pain, dizziness, nausea, abdominal pain No recurrence of bleeding per rectum Family at bedside Also reports Left leg pain Review of Systems Review of Systems: All systems reviewed & are unremarkable except as noted in HPI & below Physical Exam Physical Exam: Physical Exam: Vitals signs as noted above General Appearance:Morbidly Obese, no apparent distress Head: normocephalic, Atraumatic Eyes: normal inspection, EOMI Neck: supple, Trachea midline Respiratory/Chest: Decreased , CTA, No accessory muscle use Cardiovascular: S1, S2, No murmur Abdomen/GI:Soft, Non tender, Bowel sounds present Extremities/Musculoskelatal:normal inspection, B/LE LE edema, +Chronic venous stasis changes Neurologic/Psych:AAOX3, grossly no focal neurological deficits Skin: normal color, warm Results & Data Results & Data ([facility]) Vital Signs (Past 12 Hours) Vital Signs Temp Pulse Pulse Resp BP Pulse Ox 01/18/20 15:02 79 01/18/20 15:01 36.9 C 73 18 136/70 100 01/18/20 11:18 36.6 C 85 20 139/65 95 01/18/20 08:00 75 01/18/20 07:03 36.9 C 84 18 134/61 97 01/18/20 04:34 36.9 C 77 20 119/52 L 97 Laboratory Results Short CBC 01/17/20 01/18/20 01/18/20 Range/Units 18:55 01:06 05:27 WBC 13.97 H 12.38 H 11.90 H (4.8-10.8) K/uL Hgb 11.4 L 11.6 L 11.4 L (12.0-16.0) g/dL Hct 37.1 37.7 37.5 (37-47) % Plt Count 171 209 177 (130-400) K/uL BMP 01/18/20 05:27 Sodium 143 Potassium 3.8 Chloride 106 Carbon Dioxide 34 H BUN 21 H Creatinine 0.62 D Glucose 104 H Calcium 8.3 L
[2020-01-19] MEDS: AMPICILLIN/SULBACTAM SOD 3,000 MG in 0.9 % SODIUM CHLORIDE 100 ML IV SCH ×4 (04:30→21:43)
[2020-01-19 06:08] LABS: Hematocrit (blood only) 38.3 % (37-47); Hemoglobin 11.5 g/dL (12.0-16.0); Mean Corpuscular Hemoglobin 27.6 pg (25-34); Mean Corpuscular Volume 91.8 fL (80-100); Mean Platelet Volume 9.8 fL (7.4-10.4); Platelet Count 184 K/uL (130-400); RDW Coefficient of Variation 14.5 % (11.5-14.5); RDW Standard Deviation 48.3 fL (36.4-46.3); Red Blood Count 4.17 M/uL (4.2-5.4); White Blood Count 9.42 K/uL (4.8-10.8)
[2020-01-19 06:30] LABS: INR 1.9 (0.9-1.1); Partial Thromboplastin Ratio 2.3; Prothrombin Time 19.6 Seconds (9.0-12.0)
[2020-01-19 06:35] LABS: Partial Thromboplastin Time 62.8 Seconds (21.0-31.0)
[2020-01-19 06:36] LABS: BUN Creatinine Ratio 24.4 (10-20); Calcium 8.3 mg/dl (8.5-10.1); Creatinine Clr Calc Pharmacy 145.9 ml/min; Est GFR (African American) 113.1; Est GFR (Non-African American) 97.6; Potassium 4.1 mmol/L (3.5-5.1)
[2020-01-19] MEDS: HEPARIN SODIUM/DEXTROSE 25,000 UNITS/500 ML BAG IV SCH ×2 (07:10→21:37)
--- NOTE | 2020-01-19 08:14 | Pharmacy Report ---
Pharmacy Glycemic Sign Off Nt - Date of Service January 19, 2020 - Assessment & Plan ASSESSMENT: * 69 yo F not on any diabetes medications at home with A1c indicative of possible pre-diabetes initially hyperglycemic on admission 01/15 due to stress/massive PE and steroids x1. No basal insulin has been needed/administered this admission. BSG's the last few days have been on the low side, despite Novolog monotherapy with parameters looser than weight-based moderate stress estimate * BSG trended down from 112 mg/dL at HS to to 62 mg/dL this AM but patient was not administered any correctional insulin at HS that would have contributed nor has she received any basal insulin. This therefore may not be iatrogenic but rather a normal baseline for the patient. * Discussed with Dr. Gerardo - will stop insulin all together at this time. Pharmacy will sign off from a glycemic standpoint PLAN FOR INPATIENT GLYCEMIC CONTROL: * Discontinue insulin * Pharmacy is signing off of glycemic consult and will no longer be making adjustments to inpatient regimen. Please feel free to re-consult if needed. Thank you.
[2020-01-19] MEDS: INSULIN ASPART 100 UNITS/ML 3 ML PEN SC SCH (08:17)
[2020-01-19] MEDS: PANTOprazole 40 MG TAB PO SCH ×2 (08:58→21:37)
[2020-01-19] MEDS: ATORVASTATIN 20 MG TAB PO SCH (08:58)
[2020-01-19] MEDS: FLUOXETINE HCL 20 MG CAP PO SCH (08:58)
[2020-01-19] MEDS ORDERED: WARFARIN SOD 5 MG TAB PO SCH (16:00)
--- NOTE | 2020-01-19 19:33 | Hospitalist Progress Note ---
Date of Service January 19, 2020 Assessment & Plan (1) Acute respiratory failure with hypoxia: (2) Leukocytosis: Patient is a 69 yr female with H/O Hypertension, hyperlipidemia, morbid obesity, depression, bilateral lymphedema who presents to ED secondary to shortness of breath x2 days. Acute Pulmonary Embolism Acute Hypoxic respiratory Failed Possible acute cor pulmonale Presumed OHS/ANTONIETTA S/P TPA CTA:Extensive bilateral pulmonary emboli with straightening of the intraventricular septum suggestive of right heart strain. Moderate cardiomegaly with findings suggestive of pulmonary artery hypertension. ECHO: Right ventricle is mildly enlarged and hypokinetic. There is flattening of the interventricular septum. EF 60 to 65%. No regional wall motion abnormalities of the left ventricle. Grade 2 diastolic dysfunction. Venous Doppler: No DVT Continue IV heparin Started on Coumadin PT/INR: 1.9 today Appreciate critical care input Needs polysomnography and follow-up with pulmonology as outpatient Continue BiPAP HS/PRN Monitor for bleeding issues Titrate off of oxygen as able Continue current medications Rectal bleeding DD:PUD/hemorrhoidal versus diverticular bleed Likely Exacerbated post TPA --CT ABD:No acute infectious or inflammatory findings are identified in the abdomen or pelvis. Hepatomegaly and hepatic steatosis. Splenomegaly. Moderate colonic diverticulosis without CT evidence of acute diverticulitis. A large umbilical hernia contains non obstructed small bowel loops. --Continue PPI Monitor CBC while on IV Heparin Needs colonoscopy as outpatient Appreciate GI input Avoid NSAIDs Aspirin held Plan to discontinue Aspirin upon discharge as no clear indication Hb: 11.5 today Leukocytosis Lactate, Procalcitonin levels normalized Biofire:Negative Urine Culture: No growth Unclear source of infection Blood cultures: Negative to date Continue Zosyn>> transitioned to Unasyn Leukocytosis, Procalcitonin normalized Plan to complete 7 day course of antibiotics (3) HTN (hypertension): Stable Continue lisinopril (4) HLD (hyperlipidemia): Continue Atorvastatin (5) Lymphedema: Follows wound clinic [place] 2/2 to recurrent BLE edema/stasis ulcerations Uses compressive dressings/lymphedema pumps as outpt Per wound clinic: Ag foam/Coban 2 (with extra cohesive layer for additional compression) to LLE, changed weekly with size F tubigrips Resume lasix tomorrow (6) Depression: Continue fluoxetine (7) Morbid obesity: BMI 54.9 Encourage lifestyle and diet modifications Prediabetes HbA1C:6.3 on ISS Pharmacy glycemic management consulted DVT Px: IV heparin/Coumadin Code Status DNI/DNR Disposition: PT/OT prior to discharge Admission and Anticipated Discharge Date Admission Date: January 16, 2020 Subjective Patient is seen and examined at bedside States feeling much better today Reports minimal transient bleeding in stool Otherwise no new complaints Denies chest pain, SOB, dizziness, nausea, abdominal pain Review of Systems Review of Systems: All systems reviewed & are unremarkable except as noted in HPI & below Physical Exam Physical Exam: Physical Exam: Vitals signs as noted above General Appearance:Morbidly Obese, no apparent distress Head: normocephalic, Atraumatic Eyes: normal inspection, EOMI Neck: supple, Trachea midline Respiratory/Chest: Decreased , CTA, No accessory muscle use Cardiovascular: S1, S2, No murmur Abdomen/GI:Soft, Non tender, Bowel sounds present Extremities/Musculoskelatal:normal inspection, B/LE LE edema, +Chronic venous stasis changes Neurologic/Psych:AAOX3, grossly no focal neurological deficits Skin: normal color, warm Results & Data Results & Data ([facility]) Vital Signs (Past 12 Hours) Vital Signs Temp Pulse Pulse Resp BP Pulse Ox 01/19/20 16:00 36.6 C 74 75 20 123/66 100 01/19/20 11:41 36.8 C 75 20 171/69 H 96 01/19/20 08:00 36.7 C 73 78 20 139/75 98 Laboratory Results Short CBC 01/19/20 Range/Units 05:49 WBC 9.42 (4.8-10.8) K/uL Hgb 11.5 L (12.0-16.0) g/dL Hct 38.3 (37-47) % Plt Count 184 (130-400) K/uL BMP 01/19/20 05:49 Sodium 142 Potassium 4.1 Chloride 104 Carbon Dioxide 36 H BUN 13 Creatinine 0.53 L Glucose 100 H Calcium 8.3 L
[2020-01-20] MEDS: AMPICILLIN/SULBACTAM SOD 3,000 MG in 0.9 % SODIUM CHLORIDE 100 ML IV SCH (04:00)
[2020-01-20 06:38] LABS: Hematocrit (blood only) 42.3 % (37-47); Hemoglobin 12.7 g/dL (12.0-16.0); Mean Corpuscular Hemoglobin 27.8 pg (25-34); Mean Corpuscular Volume 92.6 fL (80-100); Platelet Count 188 K/uL (130-400); RDW Coefficient of Variation 14.5 % (11.5-14.5); RDW Standard Deviation 48.3 fL (36.4-46.3); Red Blood Count 4.57 M/uL (4.2-5.4); White Blood Count 7.96 K/uL (4.8-10.8)
[2020-01-20 06:48] LABS: INR 2.4 (0.9-1.1); Prothrombin Time 24.2 Seconds (9.0-12.0)
[2020-01-20] MEDS: PANTOprazole 40 MG TAB PO SCH ×2 (08:58→21:29)
[2020-01-20] MEDS: FLUOXETINE HCL 20 MG CAP PO SCH (08:58)
[2020-01-20] MEDS: FUROSEMIDE 40 MG TAB PO SCH (08:58)
[2020-01-20] MEDS: ATORVASTATIN 20 MG TAB PO SCH (08:58)
[2020-01-20] MEDS: lisinopriL 5 MG TAB PO SCH (09:34)
[2020-01-20 10:12] LABS: Partial Thromboplastin Ratio 2.2
[2020-01-20 10:13] LABS: Partial Thromboplastin Time 61.6 Seconds (21.0-31.0)
[2020-01-20] MEDS: HEPARIN SODIUM/DEXTROSE 25,000 UNITS/500 ML BAG IV SCH (13:40)
[2020-01-20 15:07] LABS: Codeine Urine NEGATIVE ng/mL (<50); Hydrocodone Urine NEGATIVE ng/mL (<50); Hydromor Urine NEGATIVE ng/mL (<50); Morphine Urine NEGATIVE ng/mL (<50); Norhydrocodone Conf Ur NEGATIVE ng/mL (<50); Noroxycodone Urine NEGATIVE ng/mL (<50); Oxycodone Urine NEGATIVE ng/mL (<50); Oxymorph Urine NEGATIVE ng/mL (<50)
--- NOTE | 2020-01-20 16:12 | Hospitalist Progress Note ---
Date of Service January 20, 2020 Assessment & Plan (1) Acute respiratory failure with hypoxia: (2) Leukocytosis: Patient is a 69 yr female with H/O Hypertension, hyperlipidemia, morbid obesity, depression, bilateral lymphedema who presents to ED secondary to shortness of breath x2 days. Acute Pulmonary Embolism Acute Hypoxic respiratory Failed Possible acute cor pulmonale Presumed OHS/[place]ONIETTA S/P TPA CTA:Extensive bilateral pulmonary emboli with straightening of the intraventricular septum suggestive of right heart strain. Moderate cardiomegaly with findings suggestive of pulmonary artery hypertension. ECHO: Right ventricle is mildly enlarged and hypokinetic. There is flattening of the interventricular septum. EF 60 to 65%. No regional wall motion abnormalities of the left ventricle. Grade 2 diastolic dysfunction. Venous Doppler: No DVT Continue IV heparin to complete 5 days of bridging with Coumadin or 2 therapeutic INR levels. Continue Coumadin PT/INR: 2.4 today Appreciate critical care input Needs polysomnography and follow-up with pulmonology as outpatient Continue BiPAP HS/PRN Monitor for bleeding issues Titrate off of oxygen as able Likely plan to discontinue IV heparin tomorrow if INR remains therapeutic We will obtain nocturnal pulse oximetry Check ABG in a.m. to check for requirement of BiPAP upon discharge May need 2 step prior to discharge Rectal bleeding DD:PUD/hemorrhoidal versus diverticular bleed Likely Exacerbated post TPA --CT ABD:No acute infectious or inflammatory findings are identified in the abdomen or pelvis. Hepatomegaly and hepatic steatosis. Splenomegaly. Moderate colonic diverticulosis without CT evidence of acute diverticulitis. A large umbilical hernia contains non obstructed small bowel loops. --Continue PPI Monitor CBC while on IV Heparin Needs colonoscopy as outpatient Appreciate GI input Avoid NSAIDs Aspirin held Plan to discontinue Aspirin upon discharge as no clear indication Hb: 12.7 today Leukocytosis Lactate, Procalcitonin levels normalized Biofire:Negative Urine Culture: No growth Unclear source of infection Blood cultures: Negative to date Continue Zosyn>> Unasyn>> Augmentin Leukocytosis, Procalcitonin normalized Plan to complete 7 day course of antibiotics (3) HTN (hypertension): Stable Continue lisinopril (4) HLD (hyperlipidemia): Continue Atorvastatin (5) Lymphedema: Follows wound clinic [place] / to recurrent BLE edema/stasis ulcerations Uses compressive dressings/lymphedema pumps as outpt Per wound clinic: Ag foam/Coban 2 (with extra cohesive layer for additional compression) to LLE, changed weekly with size F tubigrips Continue lasix (6) Depression: Continue fluoxetine (7) Morbid obesity: BMI 54.9 Encourage lifestyle and diet modifications Prediabetes HbA1C:6.3 on ISS Pharmacy glycemic management consulted DVT Px: IV heparin/Coumadin Code Status DNI/DNR Disposition: PT/OT: May benefit from SNF placement Gis Scientist consulted Admission and Anticipated Discharge Date Admission Date: January 16, 2020 Subjective Patient is seen and examined at bedside No new complaints today No recurrence of rectal bleeding Hemoglobin stable Denies chest pain, SOB, dizziness, nausea, abdominal pain Review of Systems Review of Systems: All systems reviewed & are unremarkable except as noted in HPI & below Physical Exam Physical Exam: Physical Exam: Vitals signs as noted above General Appearance:Morbidly Obese, no apparent distress Head: normocephalic, Atraumatic Eyes: normal inspection, EOMI Neck: supple, Trachea midline Respiratory/Chest: Decreased , CTA, No accessory muscle use Cardiovascular: S1, S2, No murmur Abdomen/GI:Soft, Non tender, Bowel sounds present Extremities/Musculoskelatal:normal inspection, B/LE LE edema, +Chronic venous stasis changes Neurologic/Psych:AAOX3, grossly no focal neurological deficits Skin: normal color, warm Results & Data Results & Data ([facility]) Vital Signs (Past 12 Hours) Vital Signs Temp Pulse Pulse Resp BP Pulse Ox 01/20/20 15:13 36.8 C 73 28 H 155/69 H 97 01/20/20 11:30 37.1 C 72 19 133/65 91 01/20/20 11:28 98 01/20/20 08:00 37.1 C 68 77 20 134/82 98 01/20/20 04:12 36.8 C 87 18 164/87 H 100 Laboratory Results Short CBC 01/20/20 Range/Units 06:17 WBC 7.96 (4.8-10.8) K/uL Hgb 12.7 (12.0-16.0) g/dL Hct 42.3 (37-47) % Plt Count 188 (130-400) K/uL
[2020-01-20] MEDS: WARFARIN SOD 4 MG TAB PO SCH (17:01)
[2020-01-20] MEDS: AMOXICILLIN/CLAVULANATE 500 MG TAB PO SCH (17:02)
[2020-01-20] MEDS ORDERED: ALBUT/IPRATROP 3MG/0.5MG NEB 3 ML VIAL NEB STA (22:35)
[2020-01-20] MEDS ORDERED: FUROSEMIDE 40 MG in SYRINGE 0 ML IV ONE (23:00)
[2020-01-20 23:06] LABS: Base Excess ABG 7.9 mEq/L (-9-1.8); HCO3 ABG 34 mmol/L (19-24); Oxygen Saturation ABG 89.9 % (90-95); PCO2 ABG 54 mmHg (35-46); PO2 ABG 69 mmHg (80-95); pH ABG 7.41 (7.35-7.45)
[2020-01-20 23:07] LABS: Allen Test POS (Pos)
[2020-01-21 00:15] LABS: BUN Creatinine Ratio 15.6 (10-20); Creatinine Clr Calc Pharmacy 120.1 ml/min; Est GFR (African American) 105.7; Est GFR (Non-African American) 91.2; Potassium 3.4 mmol/L (3.5-5.1)
[2020-01-21] MEDS ORDERED: POTASSIUM CHLORIDE 20 MEQ TABCR PO STA (00:50)
[2020-01-21 06:27] LABS: Hematocrit (blood only) 39.8 % (37-47); Hemoglobin 11.7 g/dL (12.0-16.0)
[2020-01-21 06:30] LABS: Allen Test Pos (Pos); Base Excess ABG 9.8 mEq/L (-9-1.8); HCO3 ABG 37 mmol/L (19-24); Oxygen Saturation ABG 99.2 % (90-95); PCO2 ABG 62 mmHg (35-46); PO2 ABG 167 mmHg (80-95); pH ABG 7.39 (7.35-7.45)
[2020-01-21] MEDS: HEPARIN SODIUM/DEXTROSE 25,000 UNITS/500 ML BAG IV SCH (06:40)
[2020-01-21 06:42] LABS: BUN Creatinine Ratio 18.5 (10-20); Creatinine Clr Calc Pharmacy 135.8 ml/min; Est GFR (African American) 110.4; Est GFR (Non-African American) 95.3; INR 2.4 (0.9-1.1); Potassium 3.6 mmol/L (3.5-5.1); Prothrombin Time 24.6 Seconds (9.0-12.0)
--- NOTE | 2020-01-21 08:41 | XRay Report ---
XR chest 1V portable HISTORY: 69 years-old Female low o2 acute hypoxia COMPARISON: Chest radiograph 01/16/2020 TECHNIQUE: Portable AP view of the chest FINDINGS: Moderate cardiomegaly. Interval removal of the left IJ central venous catheter. No pneumothorax. Trac e pleural effusions. Pulmonary vascular congestion. No airspace consolidation typical for pneumonia. Degenerative changes of the shoulders and spine. IMPRESSION: 1. Cardiomegaly with pulmonary vascular congestion. 2. Trace pleural effusions. 3. Interval removal of a left IJ central venous catheter. ACT 112: Negative or not required by law. The above report was generated using voice recognition software. It may contain grammatical, syntax o r spelling errors. Electronically signed by: Jacques Yanes M.D. 01/21/2020 8:39 AM
[2020-01-21] MEDS: ATORVASTATIN 20 MG TAB PO SCH (09:19)
[2020-01-21] MEDS: FLUOXETINE HCL 20 MG CAP PO SCH (09:19)
[2020-01-21] MEDS: AMOXICILLIN/CLAVULANATE 500 MG TAB PO SCH ×2 (09:19→17:31)
[2020-01-21] MEDS: lisinopriL 5 MG TAB PO SCH (09:19)
[2020-01-21] MEDS: FUROSEMIDE 40 MG TAB PO SCH (09:20)
[2020-01-21] MEDS: POTASSIUM CHLORIDE 20 MEQ TABCR PO SCH ×2 (09:20→17:32)
[2020-01-21] MEDS: PANTOprazole 40 MG TAB PO SCH ×2 (09:20→20:01)
--- NOTE | 2020-01-21 16:50 | Hospitalist Progress Note ---
Date of Service January 21, 2020 Assessment & Plan (1) Acute respiratory failure with hypoxia: (2) Leukocytosis: Patient is a 69 yr female with H/O Hypertension, hyperlipidemia, morbid obesity, depression, bilateral lymphedema who presents to ED secondary to shortness of breath x2 days. Acute Pulmonary Embolism Acute Hypoxic respiratory Failed Possible acute cor pulmonale Presumed OHS/[place]ONIETTA S/P TPA CTA:Extensive bilateral pulmonary emboli with straightening of the intraventricular septum suggestive of right heart strain. Moderate cardiomegaly with findings suggestive of pulmonary artery hypertension. ECHO: Right ventricle is mildly enlarged and hypokinetic. There is flattening of the interventricular septum. EF 60 to 65%. No regional wall motion abnormalities of the left ventricle. Grade 2 diastolic dysfunction. Venous Doppler: No DVT IV heparin discontinued Continue Coumadin PT/INR: 2.4 today Appreciate critical care input Needs polysomnography and follow-up with pulmonology as outpatient Continue BiPAP HS/PRN Monitor for bleeding issues Continue Lasix Titrate off of oxygen as able ABG suggestive of Hypercarbia Obtain nocturnal pulse oximetry and 2 step prior to discharge Discuss with Pulm regarding Home BiPAP setting Hypokalemia Due to diuretics Replete electrolytes as needed Monitor Rectal bleeding DD:PUD/hemorrhoidal versus diverticular bleed Likely Exacerbated post TPA --CT ABD:No acute infectious or inflammatory findings are identified in the abdomen or pelvis. Hepatomegaly and hepatic steatosis. Splenomegaly. Moderate colonic diverticulosis without CT evidence of acute diverticulitis. A large umbilical hernia contains non obstructed small bowel loops. --Continue PPI Needs colonoscopy as outpatient Appreciate GI input Avoid NSAIDs Aspirin held Plan to discontinue Aspirin upon discharge as no clear indication Hb stable Leukocytosis Lactate, Procalcitonin levels normalized Biofire:Negative Urine Culture: No growth Unclear source of infection Blood cultures: Negative to date Continue Zosyn>> Unasyn>> Augmentin Leukocytosis, Procalcitonin normalized Plan to complete 7 day course of antibiotics (3) HTN (hypertension): Stable Continue lisinopril (4) HLD (hyperlipidemia): Continue Atorvastatin (5) Lymphedema: Follows wound clinic [place] 05/28 to recurrent BLE edema/stasis ulcerations Uses compressive dressings/lymphedema pumps as outpt Per wound clinic: Ag foam/Coban 2 (with extra cohesive layer for additional compression) to LLE, changed weekly with size F tubigrips Continue lasix (6) Depression: Continue fluoxetine (7) Morbid obesity: BMI 54.9 Encourage lifestyle and diet modifications Prediabetes HbA1C:6.3 on ISS Pharmacy glycemic management consulted DVT Px: Coumadin Code Status DNI/DNR Disposition: PT/OT: May benefit from SNF placement Credit Review Manager consulted Admission and Anticipated Discharge Date Admission Date: January 16, 2020 Subjective Patient is seen and examined at bedside Reports having shortness of breath overnight Received IV Lasix overnight Doing well this morning Has chronic cough unchanged Denies dyspnea, chest pain, any significant bleeding issues INR therapeutic range IV heparin discontinued Could not complete nocturnal pulse oximetry study Family at bedside Offers no other complaints Review of Systems Review of Systems: All systems reviewed & are unremarkable except as noted in HPI & below Physical Exam Physical Exam: Physical Exam: Vitals signs as noted above General Appearance:Morbidly Obese, no apparent distress Head: normocephalic, Atraumatic Eyes: normal inspection, EOMI Neck: supple, Trachea midline Respiratory/Chest: Decreased , CTA, No accessory muscle use Cardiovascular: S1, S2, No murmur Abdomen/GI:Soft, Non tender, Bowel sounds present Extremities/Musculoskelatal:normal inspection, B/LE LE edema, +Chronic venous stasis changes Neurologic/Psych:AAOX3, grossly no focal neurological deficits Skin: normal color, warm Results & Data Results & Data ([facility]) Vital Signs (Past 12 Hours) Vital Signs Temp Pulse Resp BP Pulse Ox 01/21/20 15:52 36.9 C 74 24 149/57 H 92 01/21/20 11:17 36.5 C 67 20 125/60 90 01/21/20 07:19 36.5 C 66 19 123/63 98 Laboratory Results Short CBC 01/21/20 Range/Units 06:14 Hgb 11.7 L (12.0-16.0) g/dL Hct 39.8 (37-47) % BMP 01/20/20 01/21/20 22:47 06:14 Sodium 141 141 Potassium 3.4 L D 3.6 Chloride 102 100 Carbon Dioxide 32 36 H BUN 10 11 Creatinine 0.65 0.57 L Glucose 129 H 103 H Calcium 9.0 9.0
[2020-01-21] MEDS: WARFARIN SOD 4 MG TAB PO SCH (17:31)
[2020-01-22 06:05] LABS: Hematocrit (blood only) 41.1 % (37-47); Hemoglobin 12.7 g/dL (12.0-16.0)
[2020-01-22 06:30] LABS: BUN Creatinine Ratio 19.3 (10-20); Calcium 9.3 mg/dl (8.5-10.1); Creatinine Clr Calc Pharmacy 131.2 ml/min; Est GFR (African American) 109.2; Est GFR (Non-African American) 94.2; Potassium 3.5 mmol/L (3.5-5.1)
[2020-01-22] MEDS: FUROSEMIDE 40 MG TAB PO SCH (09:13)
[2020-01-22] MEDS: PANTOprazole 40 MG TAB PO SCH (09:13)
[2020-01-22] MEDS: lisinopriL 5 MG TAB PO SCH (09:14)
[2020-01-22] MEDS: AMOXICILLIN/CLAVULANATE 500 MG TAB PO SCH (09:14)
[2020-01-22] MEDS: FLUOXETINE HCL 20 MG CAP PO SCH (09:15)
[2020-01-22] MEDS: ATORVASTATIN 20 MG TAB PO SCH (09:15)
[2020-01-22] MEDS: POTASSIUM CHLORIDE 20 MEQ TABCR PO SCH (09:15)
--- NOTE | 2020-01-22 12:19 | Pulmonology Progress Note ---
Date of Service January 22, 2020 Assessment & Plan (1) Acute massive pulmonary embolism: 69-year-old female with a past medical history of morbid obesity, hypertension and depression presenting to the hospital due to a massive pulmonary embolism requiring systemic TPA for thrombolysis. (2) Chronic respiratory failure with hypoxia and hypercapnia: Massive pulmonary emboli with right heart strain. Patient was started on a heparin drip and converted to warfarin. She is not a candidate for DOAC therapy secondary to morbid obesity and difficulty with following accurate factor Xa levels Patient will require lifelong anticoagulation Is suspected the patient has severe restrictive disease and obesity hypoventilation syndrome. She will require trilogy for proper ventilation. Her significant morbid obesity has resulted in a restrictive thoracic cage abnormality. Because of this she does not fully expand her lungs for proper ventilation causing recurrent hypercapnic respiratory failure with a PaCo2 of 62 mmHg. Multiple underlying comorbidities are noted with a weight of 324.94 lbs (147.7 Kg). She would benefit greatly from noninvasive ventilation which would improve lung function and potentially reduce worsening of symptoms. A BiPAP would be ineffective as she requires a volume targeted mode. Interruption of ventilator support would lead to a decline of health status. The patient does not qualify for CPAP as she does not have documented or demonstrated obstructive sleep apnea. Bedside pulmonary function testing was completed for spirometry and revealed: * FEV1 of 0.85 * FVC of 1.17 * FEV1/FVC 73 Recommended settings for trilogy would be a AVAPsAE; tidal volume 350-450, EPAP min 6-12, EPAP max 10-16, min PS 4-10, max PS 12-20, max pressure 30-40, rate auto, AVAPs rate 1-5 Is recommended the patient follow-up with pulmonary/sleep with [facility] at the [facility] on discharge. She should have formal polysomnography completed as well as formal pulmonary function testing as an outpatient. Patient should also follow-up with the Coumadin clinic at [facility] to follow her PT/INR. (3) Bilateral pulmonary embolism: Heparin drip initiated and then converted to Coumadin. INR today is 2.0 Patient did receive TPA as an inpatient for thrombolysis The patient tolerated the procedures well during this inpatient stay Follow-up with pulmonary clinic outpatient status. (4) Morbid obesity: Weight loss was discussed with this patient during this hospital stay Her morbid obesity has resulted in restrictive thoracic cage abnormalities Patient required trilogy for noninvasive ventilatory support at this time Would recommend referral to obesity clinic at [facility]. Thank you for including us in the care of this patient. Please refer to Dr. Carrion's addendum for further recommendations. We will sign off of this patient from a pulmonary status at this time. It is anticipated that she will go home later today if home support can be arranged. (5) Right heart failure: (6) HLD (hyperlipidemia): (7) HTN (hypertension): Admission and Anticipated Discharge Date Admission Date: January 16, 2020 Subjective Attending: Dr. Carrion This is a pleasant 69-year-old female that was admitted with acute massive pulmonary emboli requiring systemic TPA for thrombolysis. She has a past medical history of morbid obesity and probable obesity hypoventilation syndrome. Patient was started on a heparin drip and then continued on warfarin. She is not a candidate for DOAC therapy secondary to morbid obesity with a BMI of 57.7 kg/m. Patient seen at bedside today and is currently on supplemental oxygen at 3 L/min via nasal cannula. She had a nocturnal pulse oximetry study done last night which revealed nocturnal hypoxia with an aggregate of greater than 33 minutes of oxygen saturation less than 88% SaO2. Pulmonary function testing was done at bedside this morning for spirometry and revealing FEV1/FVC of 73%. Patient also had arterial blood gases completed during this hospital stay which revealed hypercapnia with a PCO2 of 62 mmHg. Patient does have thoracic cage abnormality with severe restriction secondary to morbid obesity. She currently denies any chest pain or tightness. She has no fever or chills. She has no nausea or vomiting. She does have chronic wounds that are being managed by [facility]. She is agreeable to pulmonary follow-up as well as sleep follow-up with [facility] outpatient pulmonary/sleep clinic at [facility]. The patient has no other acute complaints at this time. Review of Systems Review of Systems: All systems reviewed & are unremarkable except as noted in Subjective Physical Exam Physical Exam: GENERAL : No acute distress. Sitting in bedside chair EYES: No icterus, gaze conjugate. Pupils equal round and reactive to light. NOSE: No evidence of epistaxis. Nasal cannula in place. MOUTH: No lesions or candidiasis NECK: Supple LUNGS: CTA B/L, no wheezes, rales or rhonchi. Breath sounds are decreased at the bilateral bases. HEART: Regular, rate controlled ABDOMEN: Soft, NT, ND, BS Present EXTREMITIES: No LE edema, pedal pulses intact and equal bilaterally. NEURO: A&OX3. No apparent focal deficits to cranial nerves II through XII Results & Data Results & Data ([facility]) Vital Signs (Past 12 Hours) Vital Signs Temp Pulse Pulse Resp BP Pulse Ox Pulse Ox 01/22/20 11:15 37.0 C 79 20 126/66 93 01/22/20 07:17 36.6 C 70 20 151/62 H 93 01/22/20 03:58 36.8 C 76 20 149/98 H 90 01/22/20 03:03 71 91 Laboratory Results INR 2.0 (0.9-1.1) H 01/22/20 05:37 01/16/20 01/20/20 01/21/20 09:09 22:47 06:14 ABG pH 7.41 7.39 ABG pCO2 54 H 62 H ABG pO2 69 L 167 H ABG HCO3 34 H 37 H ABG O2 Saturation 89.9 L 99.2 H ABG Base Excess 7.9 H 9.8 H VBG pH 7.19 L VBG pCO2 54 H VBG pO2 67 VBG HCO3 20 VBG O2 Saturation 87.2 VBG Base Excess -8.2 Diagnostic Findings XR chest 1V portable HISTORY: 69 years-old Female low o2 acute hypoxia COMPARISON: Chest radiograph 01/16/2020 TECHNIQUE: Portable AP view of the chest FINDINGS: Moderate cardiomegaly. Interval removal of the left IJ central venous catheter. No pneumothorax. Trace pleural effusions. Pulmonary vascular congestion. No airspace consolidation typical for pneumonia. Degenerative changes of the shoulders and spine. IMPRESSION: 1. Cardiomegaly with pulmonary vascular congestion. 2. Trace pleural effusions. 3. Interval removal of a left IJ central venous catheter. ACT 112: Negative or not required by law. The above report was generated using voice recognition software. It may contain grammatical, syntax or spelling errors. Electronically signed by: Jacques Yanes M.D. 01/21/2020 8:[address] angio chest PE protocol CT DOSE: 3425.87 mGy.cm HISTORY: 69 years-old Female with PE. Acute respiratory failure with obesity and acute renal failure. TECHNIQUE: Multiple CTA images of the chest were obtained after the intravenous administration of 120 ml Optiray 320. Coronal and sagittal MIPS were obtained from the axial data set and were submitted for review. All measurements were obtained according to NASCET criteria. A dose lowering technique was utilized adhering to the principles of ALARA. COMPARISON: CTA chest 05/26/2019 FINDINGS: CTA: Moderate cardiomegaly with moderate coronary artery calcifications. There is no thoracic aortic aneurysm or dissection. Aberrant course of the right subclavian artery. Dilated pulmonary artery redemonstrated suggestive of pulmonary artery hypertension. Filling defects are present within the left distal main pulmonary artery with extensive pulmonary bullae of the bilateral lobar, segmental and subsegmental branches. There is straightening of the intraventricular septum. CT CHEST: No large thyroid nodule or adenopathy. There is no pneumothorax, pleural effusion or overt pulmonary edema. Respiratory motion artifact limits evaluation of the lungs. There is minimal subsegmental bibasilar atelectasis. Decreased AP dimension of the trachea and bronchi may reflect a component of tracheobronchomalacia. Previously noted fissural nodules are not well seen on today's study. Cholecystectomy. 3.2 cm left adrenal gland adenoma. Patient body habitus limits the study. Degenerative changes of the shoulders and spine. Lesion of the manubrium suggestive of a hemangioma appears stable. Subcentimeter sclerotic focus of the posterior left eighth rib suggestive of bone island is unchanged. IMPRESSION: 1. Extensive bilateral pulmonary emboli with straightening of the intraventricular septum suggestive of right heart strain. 2. No pleural effusion or pulmonary infarct. 3. Moderate cardiomegaly with findings suggestive of pulmonary artery hypertension. 4. Additional findings as above. ACT 112: Negative or not required by law. The above report was generated using voice recognition software. It may contain grammatical, syntax or spelling errors. Electronically signed by: Jacques Yanes M.D. 01/16/2020 10:17 AM PG Care Time/CCT Total # of Minutes Spent Total Time Spent with Patient: Total time spent is greater than 50% in coordination of care (as documented) at patient's floor/unit and/or counseling patient: Coding Level of Care Code 33362 Subseq Hosp Care Lvl 3 Diagnoses Acute massive pulmonary embolism I26.99 Chronic respiratory failure with hypoxia and hypercapnia J96.11; J96.12 Bilateral pulmonary embolism I26.99 Morbid obesity E66.01 Right heart failure I50.810 HLD (hyperlipidemia) E78.5 HTN (hypertension) I10
--- NOTE | 2020-01-22 14:26 | Hospitalist Progress Note ---
Date of Service January 22, 2020 Assessment & Plan (1) Acute respiratory failure with hypoxia: (2) Leukocytosis: Patient is a 69 yr female with H/O Hypertension, hyperlipidemia, morbid obesity, depression, bilateral lymphedema who presents to ED secondary to shortness of breath x2 days. Acute Pulmonary Embolism Acute Hypoxic respiratory Failed Possible acute cor pulmonale Presumed OHS/ANTONIETTA S/P TPA CTA:Extensive bilateral pulmonary emboli with straightening of the intraventricular septum suggestive of right heart strain. Moderate cardiomegaly with findings suggestive of pulmonary artery hypertension. ECHO: Right ventricle is mildly enlarged and hypokinetic. There is flattening of the interventricular septum. EF 60 to 65%. No regional wall motion abnormalities of the left ventricle. Grade 2 diastolic dysfunction. Venous Doppler: No DVT IV heparin discontinued Continue Coumadin--Will give 5 mg today PT/INR: 2.0 today Appreciate critical care input BiPAP HS/PRN Monitor for bleeding issues Continue Lasix Saturating well on room air Oximetry study: Qualifies for 2 L of oxygen at bedtime 2 Step: Did not qualify for oxygen Patient did not qualify for CPAP as she does not have document or demonstrated obstructive sleep apnea As per Pulmonology Bedside pulmonary function testing was completed for spirometry and revealed: FEV1 of 0.85 FVC of 1.17 FEV1/FVC 73 Recommended settings for trilogy would be a AVAPsAE; tidal volume 350-450, EPAP min 6-12, EPAP max 10-16, min PS 4-10, max PS 12-20, max pressure 30-40, rate auto, AVAPs rate 1-5 Needs polysomnography and follow-up with pulmonology as outpatient Hypokalemia Due to diuretics Replete electrolytes as needed Monitor Rectal bleeding DD:PUD/hemorrhoidal versus diverticular bleed Likely Exacerbated post TPA --CT ABD:No acute infectious or inflammatory findings are identified in the abdomen or pelvis. Hepatomegaly and hepatic steatosis. Splenomegaly. Moderate colonic diverticulosis without CT evidence of acute diverticulitis. A large umbilical hernia contains non obstructed small bowel loops. --Continue PPI Needs colonoscopy as outpatient Appreciate GI input Avoid NSAIDs Aspirin held Plan to discontinue Aspirin upon discharge as no clear indication Hb stable Leukocytosis Lactate, Procalcitonin levels normalized Biofire:Negative Urine Culture: No growth Unclear source of infection Blood cultures: Negative to date Continue Zosyn>> Unasyn>> Augmentin Leukocytosis, Procalcitonin normalized Plan to complete 7 day course of antibiotics (3) HTN (hypertension): Stable Continue lisinopril (4) HLD (hyperlipidemia): Continue Atorvastatin (5) Lymphedema: Follows wound clinic [place] 2/2 to recurrent BLE edema/stasis ulcerations Uses compressive dressings/lymphedema pumps as outpt Per wound clinic: Ag foam/Coban 2 (with extra cohesive layer for additional compression) to LLE, changed weekly with size F tubigrips Continue lasix (6) Depression: Continue fluoxetine (7) Morbid obesity: BMI 54.9 Encourage lifestyle and diet modifications Prediabetes HbA1C:6.3 on ISS Pharmacy glycemic management consulted DVT Px: Coumadin Code Status DNI/DNR Disposition: Home with Home Health Admission and Anticipated Discharge Date Admission Date: January 16, 2020 Subjective Patient is seen and examined at bedside Slept poorly overnight No recurrence of bleeding Eager to get discharged Discussed with pulmonology today Denies dyspnea, chest pain, any significant bleeding issues, dizziness, nausea, abd pain INR therapeutic range Qualifies as trilogy and nocturnal oxygen Review of Systems Review of Systems: All systems reviewed & are unremarkable except as noted in HPI & below Physical Exam Physical Exam: Physical Exam: Vitals signs as noted above General Appearance:Morbidly Obese, no apparent distress Head: normocephalic, Atraumatic Eyes: normal inspection, EOMI Neck: supple, Trachea midline Respiratory/Chest: Decreased , CTA, No accessory muscle use Cardiovascular: S1, S2, No murmur Abdomen/GI:Soft, Non tender, Bowel sounds present Extremities/Musculoskelatal:normal inspection, B/LE LE edema, +Chronic venous stasis changes Neurologic/Psych:AAOX3, grossly no focal neurological deficits Skin: normal color, warm Results & Data Results & Data ([facility]) Vital Signs (Past 12 Hours) Vital Signs Temp Pulse Pulse Resp BP Pulse Ox Pulse Ox 01/22/20 11:15 37.0 C 79 20 126/66 93 01/22/20 07:17 36.6 C 70 20 151/62 H 93 01/22/20 03:58 36.8 C 76 20 149/98 H 90 01/22/20 03:03 71 91 Laboratory Results Short CBC 01/22/20 Range/Units 05:37 Hgb 12.7 (12.0-16.0) g/dL Hct 41.1 (37-47) % [facility] 01/22/20 05:37 Sodium 142 Potassium 3.5 Chloride 103 Carbon Dioxide 35 H BUN 11 Creatinine 0.59 L Glucose 107 H Calcium 9.3
[2020-01-22] MEDS ORDERED: WARFARIN SOD 5 MG TAB PO ONE (14:30)
--- NOTE | 2020-01-22 14:48 | Discharge Summary ---
Date of Service January 22, 2020 Admission HPI Per Admitting Provider This is a 69-year-old female who has significant past medical history of hypertension, hyperlipidemia, morbid obesity, depression, bilateral lymphedema who presents to ED secondary to shortness of breath x2 days. History obtained from patient medical records and communication with ED provider. Unable to obtain history from patient secondary to reduced consciousness and on BiPAP therapy. According to notes patient developed shortness of breath Wednesday afternoon, initially was intermittent but has been constant since yesterday. She has been tachycardic and has never had similar symptoms in past. Per ED pro vider patient arrived to ED with acute respiratory distress, tachypnea and tachycardia. She was placed on BiPAP therapy. Imaging revealed extensive bilateral pulmonary emboli with straightening of the interventricular septum suggestive of right heart strain, no pleural effusion, moderate cardiomegaly with findings suggestive of pulmonary arterial hypertension.Head CT was without acute abnormality. CT scan of abdomen pelvis revealed bilateral no PE otherwise no acute infectious or inflammatory findings. ICU physician called and notified. A central line was placed and pt was given TPA. She is being admitted to ICU under hydrometer tester for further management of acute hypoxic respiratory failure secondary to extensive bilateral pulmonary emboli with right heart strain, respiratory acidosis, lactic acidosis, acute heart failure, elevated troponin, CHERRY, hyperglycemia and leukocytosis. She did receive IV TPA in ED along with broad-spectrum IV antibiotics including vancomycin, Zosyn and Levaquin until severe sepsis ruled out. She is also undergoing COVID screening and bio fire screening. Admission Exam Per Admitting Provider Physical Exam Physical Exam: Constitutional: WD/WN,obese, F, on bipap, vitals as above, tachypneic, sitting up in bed, reduced consciousness Head: Normocephalic, Atraumatic Eyes: PERRL, conjunctivae normal, anicteric sclerae ENMT: external ear and nose normal, oropharynx normal Neck: trachea midline, no thyromegaly normal visual inspection Respiratory: increased respiratory effort, on bipap, lungs clear to auscultation, no wheeze, rales, rhonchi. no accessory muscle use Cardiovascular: L jugular central venous cath, Tachycardic rate, regular rhythm, no murmur, bilateral lower extreme lymphedema with compressive dressings in place, bilateral pedal pulses +2 and equal Vessels: no JVD or carotid bruit Chest: normal inspection of chest Abdomen: obese abd, normal bowel sounds, soft, nontender, no hepatosplenomegaly Musculoskeletal: no cyanosis or clubbing, Skin: no rashes, warm and dry normal turgor Neurologic: unable to assess due to reduced consciousness Psychiatric: unable to assess due to reduced consciousness Lymphatic: no cervical or axillary lymphadenopathy : deferred Principal Diagnosis Acute Pulmonary Embolism Acute Hypoxic respiratory failure Presumed obesity hypoventilation syndrome /obstructive sleep apnea Hypokalemia Discharge Data Allergies Allergy/AdvReac Type Severity Reaction Status Date / Time Cipro AdvReac Intermediate makes Verified 12/20/16 15:25 mouth feel funny ciprofloxacin AdvReac Intermediate makes Verified 05/26/19 19:50 mouth feel funny metronidazole AdvReac Intermediate makes Verified 05/26/19 19:50 mouth feel funny Consultations 01/16/20 09:14 Consult Life Claims Examiner Stat 01/16/20 13:15 ED Decision to Admit Stat 01/16/20 13:26 Consult Case Management - Discharge Planning Routine 01/16/20 13:32 Consult Gastroenterology Routine Ordered Studies 01/16/20 09:06 CT abd pelvis IV con only Stat CT angio chest PE protocol Stat CT head/brain wo con Stat 01/17/20 US venous doppler LE BI Urgent CTA:Extensive bilateral pulmonary emboli with straightening of the intraventricular septum suggestive of right heart strain. Moderate cardiomegaly with findings suggestive of pulmonary artery hypertension. ECHO: Right ventricle is mildly enlarged and hypokinetic. There is flattening of the interventricular septum. EF 60 to 65%. No regional wall motion abnormalities of the left ventricle. Grade 2 diastolic dysfunction. Venous Doppler: No DVT CT ABD:No acute infectious or inflammatory findings are identified in the abdomen or pelvis. Hepatomegaly and hepatic steatosis. Splenomegaly. Moderate colonic diverticulosis without CT evidence of acute diverticulitis. A large umbilical hernia contains non obstructed small bowel loops. CT Head:No acute intracranial abnormality. Hospital Course (1) Acute respiratory failure with hypoxia: (2) Leukocytosis: Patient is a 69 yr female with H/O Hypertension, hyperlipidemia, morbid obesity, depression, bilateral lymphedema who presents to ED secondary to shortness of breath x2 days. Acute Pulmonary Embolism Acute Hypoxic respiratory Failed Possible acute cor pulmonale Presumed OHS/ANTONIETTA S/P TPA CTA:Extensive bilateral pulmonary emboli with straightening of the intraventricular septum suggestive of right heart strain. Moderate cardiomegaly with findings suggestive of pulmonary artery hypertension. ECHO: Right ventricle is mildly enlarged and hypokinetic. There is flattening of the interventricular septum. EF 60 to 65%. No regional wall motion abnormalities of the left ventricle. Grade 2 diastolic dysfunction. Venous Doppler: No DVT IV heparin discontinued Continue Coumadin--Will give 5 mg today PT/INR: 2.0 today Appreciate critical care input BiPAP HS/PRN Monitor for bleeding issues Continue Lasix Saturating well on room air Oximetry study: Qualifies for 2 L of oxygen at bedtime 2 Step: Did not qualify for oxygen Patient did not qualify for CPAP as she does not have document or demonstrated obstructive sleep apnea As per Pulmonology Bedside pulmonary function testing was completed for spirometry and revealed: FEV1 of 0.85 FVC of 1.17 FEV1/FVC 73 Recommended settings for trilogy would be a AVAPsAE; tidal volume 350-450, EPAP min 6-12, EPAP max 10-16, min PS 4-10, max PS 12-20, max pressure 30-40, rate auto, AVAPs rate 1-5 Needs polysomnography and follow-up with pulmonology as outpatient Hypokalemia Due to diuretics Replete electrolytes as needed Monitor Rectal bleeding DD:PUD/hemorrhoidal versus diverticular bleed Likely Exacerbated post TPA --CT ABD:No acute infectious or inflammatory findings are identified in the abdomen or pelvis. Hepatomegaly and hepatic steatosis. Splenomegaly. Moderate colonic diverticulosis without CT evidence of acute diverticulitis. A large umbilical hernia contains non obstructed small bowel loops. --Continue PPI Needs colonoscopy as outpatient Appreciate GI input Avoid NSAIDs Aspirin held Plan to discontinue Aspirin upon discharge as no clear indication Hb stable Leukocytosis Lactate, Procalcitonin levels normalized Biofire:Negative Urine Culture: No growth Unclear source of infection Blood cultures: Negative to date Continue Zosyn>> Unasyn>> Augmentin Leukocytosis, Procalcitonin normalized Plan to complete 7 day course of antibiotics (3) HTN (hypertension): Stable Continue lisinopril (4) HLD (hyperlipidemia): Continue Atorvastatin (5) Lymphedema: Follows wound clinic [place] 05/28 to recurrent BLE edema/stasis ulcerations Uses compressive dressings/lymphedema pumps as outpt Per wound clinic: Ag foam/Coban 2 (with extra cohesive layer for additional compression) to LLE, changed weekly with size F tubigrips Continue lasix (6) Depression: Continue fluoxetine (7) Morbid obesity: BMI 54.9 Encourage lifestyle and diet modifications Prediabetes HbA1C:6.3 on ISS Pharmacy glycemic management consulted DVT Px: Coumadin Code Status DNI/DNR Disposition: Home with Home Health Total Time Total Time Spent Total Time Spent (In Minutes): 45 minutes Total Time Includes: Examination of the Patient, Discharge Planning, Medication Reconciliation, Communication With Other Providers and Other Discharge Plan Discharge Items Patient Disposition: Home - Home Health Services Reason For Visit: PE Discharge Diagnosis: Acute Pulmonary Embolism Acute Hypoxic respiratory failure Presumed obesity hypoventilation syndrome /obstructive sleep apnea Hypokalemia Activity: Per Instructions section Exercise/Sports: Gradually increase as tolerated Non-emergency contact: Primary Care Provider and Electronic Operator Call non-emergency contact if: you have any medication questions, your symptoms worsen, your pain is not controlled, your pain is worsening, your pain is unusual for you, your pain is concerning for you and you have a fever Follow-up/Referrals: Dalila Mg DO [Primary Care Provider] - 01/26/20 2:20 pm (Date & Time 01/26/2020 2:20 PM Provider Dalila Mg DO Department [facility] ) Alna Car MD [Outside Practitioners] - 01/24/20 1:00 pm (Date & Time 01/24/2020 1:00 PM Provider Alan Car MD Department Pulmonary Medicine, [facility] ) Diet: Carb Consistent or DM2 and Heart Healthy Ambulatory Orders: Prothrombin Time INR (Timed) Timeframe: [id number] Location: Determined by Patient Ordered By: Lobo Bell Attending Provider Instructions: Follow-up with your primary care physician Dr. Mg on January 26, 2020 at 2:20 PM Follow-up with your drill press operator helper --[facility] or ([facility]) of choice in 2-3 weeks as outpatient Follow-up with Coumadin clinic--as advised for monitoring your PT/INR levels and management of Coumadin dosing Get Blood Test (Hypercoagulable work up) when appropriate to determine the reason for your clotting problem. Consider discussing with your primary care physician/Welfare Service Aide ---for duration of using blood thinner. Get polysomnography and pulmonary function tests as outpatient and follow-up with your drill press operator helper for recommendations. Your PT/INR is 2.0 Today. You took 5mg coumadin today Get blood work (PT/INR ) tomorrow 01/23/20 and follow up with Coumadin clinic with results from Coumadin dosing Complete antibiotic course as prescribed. Use Trelegy, oxygen at bedtime as recommended by your drill press operator helper. Monitor for any bleeding issues while on blood thinner (Warfarin/Coumadin). Seek immediate medical attention if your symptoms reoccur or worsen Pending Studies at Discharge: No Stand-Alone Forms: [facility], Smoking Cessation Medications and DC Order Prescriptions: New potassium chloride [Klor-Con M20] 20 mEq Tablet,Er Particles/Crystals 20 meq PO DAILY Qty: 10 RF: 0 pantoprazole 40 mg Tablet,Delayed Release (Dr/Ec) 40 mg PO DAILY Qty: 30 RF: 1 lisinopril [Zestril] 5 mg Tablet 5 mg PO DAILY Qty: 30 RF: 1 amoxicillin-pot clavulanate 500-125 mg Tablet 1 tab PO BIDM Qty: 4 RF: 0 warfarin 1 mg tablet 1 mg PO UD Qty: 100 RF: 0 warfarin 2.5 mg tablet 2.5 mg PO UD Qty: 100 RF: 0 warfarin 5 mg tablet 5 mg PO UD Qty: 100 RF: 0 Continued acetaminophen [Tylenol Extra Strength] 500 mg Tablet 500 - 1,000 mg PO DIRECTED PRN (Reason: Fever Or Pain) RF: 0 Lactinex 1 million cell tablet,chewable 1 tab PO BID Qty: 30 RF: 0 furosemide 40 mg Tablet 40 mg PO DAILY RF: 0 atorvastatin 20 mg tablet 20 mg PO DAILY RF: 0 fluoxetine 20 mg capsule 20 mg PO DAILY RF: 0 Discontinued aspirin [Aspir-81] 81 mg Tablet,Delayed Release (Dr/Ec) 81 mg PO DAILY RF: 0 lisinopril 2.5 mg Tablet 2.5 mg PO DAILY RF: 0 Discharge Orders: Discharge Order (Routine); Ordered 01/22/20 Ordered By: Lobo Clement/Other Patient Handouts: Diabetes: Meal Planning, A1C Admission Data Admit Date/Time: 01/16/20 10:51 Attending Provider: Lobo Gerardo Admit Provider: Lobo Gerardo Primary Care Provider: Dalila Mg Other Providers: Gregory Carrion ; Lobo Gerardo ; Rehan Barnard ; Anuradha Mathews ; Mariama Sin ; Florentin Louis ; [facility] Other Interventions: Discharge Summary Assessment (RN) Last Done: 01/22/20 14:52
[2020-01-22] MEDS ORDERED: WARFARIN SOD 5 MG TAB PO SCH (16:00)
== END 2020-01-22 15:35 | disposition home health service (06) | DRG 175 ==
LOC: ED 08:57 → 1E 10:51 → 2E 01-17 15:35

== ENCOUNTER 2023-06-21 12:48 | Inpatient (IN) ==
[2023-06-21] MEDS: SODIUM CHLORIDE 0.9% 500 ML IV STA (13:26)
[2023-06-21 13:44] LABS: Basophils # (auto) 0.05 K/uL (0.00-0.20); Basophils % (auto) 0.5 %; Eosinophils # (auto) 0.05 K/uL (0.00-0.50); Eosinophils % (auto) 0.5 %; Hematocrit (blood only) 46.4 % (37.0-47.0); Hemoglobin 14.9 g/dl (12.0-16.0); Immature Granulocytes # (auto) 0.02 K/uL (0.01-0.20); Immature Granulocytes % (auto) 0.2 %; Lymphocytes # (auto) 1.25 K/uL (1.20-3.40); Lymphocytes % (auto) 13.2 %; Mean Corpuscular Hemoglobin 27.8 pg (25.0-34.0); Mean Corpuscular Hgb Conc 32.1 g/dL (32.0-36.0); Mean Corpuscular Volume 86.6 fL (80.0-100.0); Mean Platelet Volume 9.4 fL (9.4-12.4); Monocytes # (auto) 0.66 K/uL (0.11-0.59); Neutrophils # (auto) 7.44 K/uL (1.40-6.50); Neutrophils % (auto) 78.6 %; Platelet Count 243 K/uL (130-400); RDW Coefficient of Variation 13.2 % (11.5-14.5); RDW Standard Deviation 41.3 fL (36.4-46.3); Red Blood Count 5.36 M/uL (4.20-5.40); White Blood Count 9.47 K/ul (4.8-10.8)
[2023-06-21 13:51] LABS: Appearance Urine Clear (Clear); Bacteria Urine Automated Negative (Negative); Bilirubin Urine Negative (Negative); Blood Urine Trace (Negative); Cast Urine Automated 0 /lpf (0-5); Color Urine Yellow; Epithelial Cell Urine Auto >30 /lpf (0-5); Glucose Urine UA Negative (Negative); Ketones Urine Negative (Negative); Leukocyte Esterase Urine 1+ (Negative); Nitrite Urine Negative (Negative); Protein Urine Negative (Negative); RBC Urine Automated 0-4 /hpf (0-4); Specific Gravity Urine 1.007 (1.000-1.030); Urobilinogen Urine Negative (Negative); pH Urine 6.5 (4.5-7.5)
[2023-06-21 13:59] LABS: Alanine Aminotransferase 9 U/L (7-52); Albumin Globulin Ratio 1.2 (0.9-2); Alkaline Phosphatase 83 U/L (34-104); Anion Gap 8 (3-11); Aspartate Aminotransferase 14 U/L (13-39); BUN Creatinine Ratio 23.9 (10-20); Bilirubin,Total 0.6 mg/dl (0.2-1.0); Blood Urea Nitrogen 11 mg/dl (6-23); Calcium 9.8 mg/dl (8.6-10.3); Carbon Dioxide 26 mmol/L (21-32); Chloride 105 mmol/L (98-107); Est GFR (African American) 115.2 ml/min; Est GFR (Non-African American) 99.4 ml/min; Globulin 3.4 gm/dl (2.5-4.0); Glucose 95 mg/dl (70-99(Fasting)); Potassium 3.9 mmol/L (3.5-5.1); Sodium 139 mmol/L (136-145); Total Protein 7.4 gm/dl (6.0-8.3)
[2023-06-21 14:00] LABS: Partial Thromboplastin Time 56 Seconds (21-31); Prothrombin Time 86.9 Seconds (9.0-12.0)
[2023-06-21 14:04] LABS: Troponin I High Sensitivity 6.4 pg/ml (0-14)
[2023-06-21 14:06] LABS: INR 9.1 (0.9-1.1)
--- NOTE | 2023-06-21 14:08 | XRay Report ---
XR chest 1V not portable CLINICAL HISTORY: Chest pain, nonspecific TECHNIQUE: Single frontal radiograph of the chest was obtained. Comparison: Comparison is made to chest radiograph 11/20/2021 FINDINGS: Exam is limited by underpenetration. Cardiomegaly is noted. The lungs are clear. No evidence of pleur al effusion or pneumothorax. IMPRESSION: No acute chest disease. ACT 112: Negative or not required by law. Electronically signed by: Otis Callaway M.D. 06/21/2023 2:07 PM
--- NOTE | 2023-06-21 14:48 | Electrocardiogram Report ---
Test Reason : Blood Pressure : / mmHG Vent. Rate : 091 BPM Atrial Rate : 000 BPM P-R Int : 000 ms QRS Dur : 076 ms QT Int : 372 ms P-R-T Axes : 000 -29 076 degrees QTc Int : 457 ms Atrial fibrillation with premature ventricular or aberrantly conducted complexes Low voltage QRS Nonspecific ST and T wave abnormality Abnormal ECG When compared with ECG of 20-NOV-2021 13:03, No significant change was found Confirmed by Richardson Mary ([id number]) on 06/21/2023 2:47:31 PM Referred By: Confirmed By:Richardson Mary
--- NOTE | 2023-06-21 14:57 | CT Scan Report ---
CT abd pelvis wo con CLINICAL HISTORY: flank pain TECHNIQUE: Helical axial images of the abdomen and pelvis were obtained. Automated dose lowering tech niques and/or adjustment according to patient size were utilized for this exam. This exam was perfor med without intravenous contrast. CT DOSE: 1644.89 mGy.cm COMPARISON: Comparison is made to CT abdomen pelvis 01/16/2020 FINDINGS: Lower chest: Cardiomegaly is partially visualized. Liver: Unremarkable. No focal lesions are seen. Gallbladder and biliary tree: Patient is status post cholecystectomy. No intra- or extrahepatic bilia ry ductal dilation. Pancreas: Unremarkable, no focal lesions. Spleen: Unremarkable. Adrenals: 27 mm left adrenal nodule is again seen. Kidneys and ureters: Nonobstructive nephrolithiasis is seen. Bladder: Unremarkable. Reproductive organs: Unremarkable. Bowel: Diverticulosis is seen without diverticulitis. The appendix is normal. A hiatal hernia is seen . Lymph nodes Retroperitoneal: Unremarkable. Pelvic: Unremarkable. Mesenteric: Unremarkable. Peritoneum: Normal. Vessels: Atherosclerotic calcifications are seen. Abdominal wall: Umbilical hernia contains nondilated loops of bowel. Bones: Degenerative changes in the visualized spine. Orthopedic hardware is seen in the left hip. IMPRESSION: No acute abnormality and in particular no evidence of hydronephrosis/hydroureter. Nonobstructive ston es are seen. ACT 112: Negative or not required by law. Electronically signed by: Otis Callaway M.D. 06/21/2023 2:55 PM
[2023-06-21] MEDS: HYDROmorphone INJ 1 MG/ML SYRINGE IV STA (15:49)
[2023-06-21] MEDS: PHYTONADIONE 5 MG TAB PO STA (15:50)
[2023-06-21] MEDS ORDERED: CARBOHYDRATES FOR HYPOGLYCEMIA PO PRN (16:54)
[2023-06-21] MEDS ORDERED: ALUMINUM/MAGNESIUM SUSP 30 ML UDC PO PRN (16:54)
[2023-06-21] MEDS ORDERED: DEXTROSE 50% 50 ML SYRINGE IV PRN (16:54)
[2023-06-21] MEDS ORDERED: GLUCAGON FOR INJ 1 MG VIAL SQ PRN (16:54)
[2023-06-21] MEDS ORDERED: GLUCOSE 10 TAB/TUBE PO PRN (16:54)
[2023-06-21] MEDS ORDERED: ONDANSETRON INJ 2 MG/ML 2 ML VIAL IV PRN (16:54)
[2023-06-21] MEDS ORDERED: GLUCOSE 40% GEL 15 GM TUBE PO PRN (16:54)
--- NOTE | 2023-06-21 17:13 | History & Physical Report ---
Date of Service June 21, 2023 Assessment & Plan (1) Acute pain of left lower extremity: Plan Patient presented with left lower extremity pain, progressive in nature, affecting activities of daily living. She is being managed for the following: LLE pain Low back pain Per patient, worsening LLE and low back pain x left-sided since about 1 week [employer] DES[employer]. 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 Will send lumbar spine CT. Pain management, PT/OT. Bowel regimen. Fall precaution Follow lumbar spine CT. Supratherapeutic INR: Patient noted to have INR of 9.1 at admission, takes Coumadin 7.5 mg daily, recently tramadol was added as an outpatient in the last 1 week [employer] DES[employer]ER. Hold Coumadin, patient received 5 mg p.o. vitamin K in the ED, will add 2.5 mg IV vitamin K. Repeat PT/INR at around 8 PM today, if subtherapeutic plan to start low-dose heparin drip. Monitor PT/INR in a.m. as well. Pt denies any trauma, any blood in stool or urine. monitor. Other chronic medical conditions: T2DM, HLD, HTN, hypothyroidism, atrial fibrillation --- continue with/resume home meds as and when able DVT prophylaxis: Supratherapeutic INR, Coumadin on hold DNR/DNI History of Present Illness Chief Complaint: Bilateral hip pain Primary Care Provider: Dalila Mg DO 73-year-old female with PMH of T2DM on Ozempic, chronic hypoxemic respiratory failure, HLD, acquired hypothyroidism, HTN, atrial fibrillation on Coumadin, morbid obesity, lymphedema presented to the ED 06/21 with complaint of progressive BLE pain. Left more than right per patient. Per patient, she had her pain in the left lower back radiating down all the way to left ankle and it has been affecting her activities of daily living including sleep, ambulation [ambulates at baseline with walker], and using restroom. Patient does report progressive worsening since last 1 week. She denies any fever or numbness or tingling sensation or fall or trauma. She denies any chills or cough or chest pain or palpitation or abdominal pain. Patient reports her appetite has been so-and-so lately but no acute changes in her bowel or bladder habit. Patient denies use of tobacco/alcohol/recreational drugs Medications reviewed with the patient. She reports she takes 7.5 mg warfarin da jp. DNR/DNI per my discussion with the patient. Allergies Allergy/AdvReac Type Severity Reaction Status Date / Time ciprofloxacin AdvReac Intermediate makes Verified 06/21/23 16:14 mouth feel funny metronidazole AdvReac Intermediate makes Verified 11/20/21 09:31 mouth feel funny Home Medications Medication Instructions Recorded Confirmed Type acetaminophen 500 mg tablet 1,000 mg PO TID PRN Pain 05/26/19 06/21/23 History (Tylenol Extra Strength) atorvastatin 20 mg tablet 20 mg PO QAM 01/16/20 06/21/23 History fluoxetine 20 mg capsule 20 mg PO QAM 01/16/20 06/21/23 History furosemide 40 mg tablet 40 mg PO QAM 01/16/20 06/21/23 History warfarin 2.5 mg tablet 2.5 mg PO UD #100 tabs 01/22/20 06/21/23 Rx warfarin 5 mg tablet 5 mg PO UD #100 tabs 01/22/20 06/21/23 Rx lisinopril 5 mg tablet (Zestril) 5 mg PO QAM 11/14/21 06/21/23 History levothyroxine 75 mcg tablet 75 mcg PO DAILYBB 06/21/23 06/21/23 History potassium chloride 10 mEq 10 meq PO QAM 06/21/23 06/21/23 History capsule,extended release semaglutide 1 mg/dose (4 mg/3 mL) 1 mg subcut WK 06/21/23 06/21/23 History subcutaneous pen injector (Ozempic) tramadol 50 mg tablet 50 mg PO Q6H PRN pain,moderate 06/21/23 06/21/23 History Past Med/Surg History Medical History Acute massive pulmonary embolism Dec 2019 > Warfarin > unknown cause Chronic respiratory failure with hypoxia and hypercapnia approx 2 yrs ago Depression Diverticular disease HLD (hyperlipidemia) HTN (hypertension) Hyperglycemia Lymphedema bilat legs in wraps at present, treated by wound center at [place]. Gets changed every wednesday Morbid obesity Morbid obesity due to excess calories ANTONIETTA (obstructive sleep apnea) pt unsure if Bipap or cpap Right heart failure no specialist Surgical History History of carpal tunnel surgery bilat History of cholecystectomy History of colonoscopy History of hip surgery from fracture to left hip > has alot of pain Family History Mother Cancer melanoma AMD (age related macular degeneration) Father Hypertension Denies family history of Diabetes Stroke Social History Smoking Status: Never smoker Second Hand Exposure: Yes (parents smoked); Do You Dip or Chew Tobacco: No; Hx Alcohol Use: No Hx Substance Use: No Preferred Language: Persian Communication Ability: Effective Java Portal Developer Required: No Beliefs That Will Affect Care: None marital status: Current Living Situation: Spouse How many Children do You have: 2 Feels Safe at Home: Yes Assistive Devices: Glasses, Walker and Wheelchair Review of Systems Review of Systems: Negative otherwise mentioned in HPI. Physical Exam Physical Exam: GENERAL: Alert and oriented x3. NAD, on RA. Obese class III. HEENT: No pallor, no icterus. Pupils equal, round and reactive to light. Oral mucosa moist. NECK: No JVD, no neck masses. HEART: S1 and S2 heard. Regular rate and rhythm. No murmur, no gallop. RESPIRATORY SYSTEM: Normal AP diameter. No accessory muscle use. No wheezing, no crackles. ABDOMEN: Soft, bowel sounds present, nontender, + distention/obese. Abdominal hernia noted CENTRAL NERVOUS SYSTEM: No facial droop. Speech is clear. Obeys simple commands. Moves extremities. EXTREMITIES: BLE lymphedema and chronic skin changes noted. Bilateral hip tender but no signs of infection or trauma. Results & Data Results & Data Vital Signs (Past 12 Hours) Vital Signs Temp Pulse Pulse Resp BP BP Pulse Ox 06/21/23 15:58 92 H 18 139/81 91 06/21/23 12:53 36.9 C 91 H 20 159/73 H 96 O2 Del Method 06/21/23 15:58 Room Air 06/21/23 12:53 Room Air
[2023-06-21] MEDS: PHYTONADIONE 2.5 MG in DEXTROSE 5% 50 ML IV ONE (17:15)
--- NOTE | 2023-06-21 18:05 | CT Scan Report ---
CT lumbar spine wo con CLINICAL HISTORY: LLE radicular pain TECHNIQUE: Multidetector row helical CT of the lumbar spine was performed without administration of i ntravenous contrast. Coronal and sagittal reformations were obtained. Automated dose lowering techniq ues and/or adjustment according to patient size were utilized for this exam. Comparison: Comparison is made to CT abdomen pelvis 06/21/2023 FINDINGS: For counting purposes, the last complete intervertebral disc space is considered L5-S1. No acute fractures are identified. Degenerative changes are noted in the visualized spine. Orthopedic hardware is seen on the left. Vertebral body alignment is within normal limits. Surrounding soft tis sues are unremarkable. IMPRESSION: Degenerative changes without evidence of acute bony injury. ACT 112: Negative or not required by law. Electronically signed by: Otis Callaway M.D. 06/21/2023 6:04 PM
[2023-06-21 18:44] LABS: Prothrombin Time 81.3 Seconds (9.0-12.0)
[2023-06-21 19:04] LABS: INR 8.5 (0.9-1.1)
[2023-06-21] MEDS: INSULIN ASPART PER UNIT CHARGE SC SCH (20:54)
[2023-06-21] MEDS: POTASSIUM CHLORIDE CRTAB 20 MEQ TABCR PO STA (21:28)
[2023-06-21 21:42] LABS: Magnesium 1.9 mg/dl (1.7-2.4)
[2023-06-21 21:43] LABS: INR 3.4 (0.9-1.1); Prothrombin Time 34.2 Seconds (9.0-12.0)
[2023-06-21 21:59] LABS: Thyroid Stimulating Hormone 2.643 uIu/ml (0.300-4.500)
--- NOTE | 2023-06-21 23:04 | Emergency Department Note ---
History of Present Illness General Chief complaint: Flank Pain Stated complaint: L FLANK PAIN Time Seen by Provider: 06/21/23 14:36 History of Present Illness Provider complaint: Hip pain Onset (ago): month(s) 2 Maximum Pain Intensity: 10 73-year-old female presents emergency department for hip pain. Patient reports she has bilateral hip pain but mainly in her left hip. She reports that her pain goes from her left hip down into her left leg and is severe 10 out of 10 pain. No falls or traumas. Patient states that she had an MRI on at [place] and since then she has been having increasing pain. Patient states she is supposed to have her hernia repaired by general surgery and plastic surgery at [facility]. Home Medications Medication Instructions Recorded Confirmed Type acetaminophen 500 mg tablet 1,000 mg PO TID PRN Pain 05/26/19 06/21/23 History (Tylenol Extra Strength) atorvastatin 20 mg tablet 20 mg PO QAM 01/16/20 06/21/23 History fluoxetine 20 mg capsule 20 mg PO QAM 01/16/20 06/21/23 History furosemide 40 mg tablet 40 mg PO QAM 01/16/20 06/21/23 History warfarin 2.5 mg tablet 2.5 mg PO UD #100 tabs 01/22/20 06/21/23 Rx warfarin 5 mg tablet 5 mg PO UD #100 tabs 01/22/20 06/21/23 Rx lisinopril 5 mg tablet (Zestril) 5 mg PO QAM 11/14/21 06/21/23 History levothyroxine 75 mcg tablet 75 mcg PO DAILYBB 06/21/23 06/21/23 History potassium chloride 10 mEq 10 meq PO QAM 06/21/23 06/21/23 History capsule,extended release semaglutide 1 mg/dose (4 mg/3 mL) 1 mg subcut WK 06/21/23 06/21/23 History subcutaneous pen injector (Ozempic) tramadol 50 mg tablet 50 mg PO Q6H PRN pain,moderate 06/21/23 06/21/23 History Allergies Allergy/AdvReac Type Severity Reaction Status Date / Time ciprofloxacin AdvReac Intermediate makes Verified 06/21/23 16:14 mouth feel funny metronidazole AdvReac Intermediate makes Verified 11/20/21 09:31 mouth feel funny Past Med/Surg History Medical History Diverticular disease ANTONIETTA (obstructive sleep apnea) pt unsure if Bipap or cpap Chronic respiratory failure with hypoxia and hypercapnia approx 2 yrs ago Hyperglycemia Morbid obesity due to excess calories Right heart failure no specialist Acute massive pulmonary embolism Dec 2019 > Warfarin > unknown cause Depression Lymphedema bilat legs in wraps at present, treated by wound center at [place]. Gets changed every wednesday Morbid obesity HLD (hyperlipidemia) HTN (hypertension) Surgical History History of colonoscopy History of carpal tunnel surgery bilat History of cholecystectomy History of hip surgery from fracture to left hip > has alot of pain Family History Mother Cancer melanoma AMD (age related macular degeneration) Father Hypertension Denies family history of Diabetes Stroke Social History Smoking Status: Never smoker Second Hand Exposure: Yes (parents smoked); Do You Dip or Chew Tobacco: No; Hx Alcohol Use: No Hx Substance Use: No Preferred Language: Nigerien Communication Ability: Effective Ip Architect Required: No Beliefs That Will Affect Care: None marital status: Current Living Situation: Spouse How many Children do You have: 2 Feels Safe at Home: Yes Assistive Devices: Glasses, Walker and Wheelchair Physical Exam Vital Signs Vital Signs - 24 hr 06/21/23 12:53 06/21/23 15:23 06/21/23 15:58 Temperature 36.9 C Temperature Source Temporal Artery Scan Pulse Rate 91 H 81 Pulse Rate [Apical] 92 H Respiratory Rate 20 18 Respiratory Effort / Characteristics Non-Labored Non-Labored Respiratory Depth Normal Normal Blood Pressure 159/73 H Blood Pressure [Right Arm] 139/81 Blood Pressure Mean 101 Blood Pressure Mean [Right Arm] 100 Pulse Oximetry 96 91 Oxygen Delivery Method Room Air Room Air Sepsis Recent Fever Within 48 Hours No Sepsis New/Unexplained Change in Mental Status No Sepsis Action Taken by Nursing No Action Required Physical Exam CV: Normal rate, regular rhythm, normal heart sounds and intact distal pulses. There is no peripheral edema. Palpable radial pulses bue. PULM/CHEST: Effort normal and breath sounds normal. No respiratory distress. No stridor. She has no wheezes. She has no rales. ABD: Morbidly obese. There is a large left inguinal hernia. No overlying erythema or warmth. No fluctuant areas. NEURO: Course Course 1436: The patient was evaluated in room B6. A complete history and physical exam was performed Administered Medications Insulin Aspart (Insulin Aspart Per Unit Charge) 0 units SC ACHS LIZZY Stop: 07/21/23 20:59 Last Admin: 06/21/23 20:54 Dose: Not Given Documented By: MORA Co-signed By: PIPER Discontinued Medications Hydromorphone HCl (Hydromorphone Inj 1 Mg/Ml Syringe) 1 mg IV NOW STA Stop: 06/21/23 15:47 Last Admin: 06/21/23 15:49 Dose: 1 mg Documented By: NADJA Sodium Chloride (Nss) 500 mls @ 999 mls/hr IV .Q31M STA Stop: 06/21/23 13:27 Last Infusion: 06/21/23 14:17 Dose: Infused Documented By: Admin: 06/21/23 13:26 Dose: 999 mls/hr Documented By: PATTI Phytonadione 2.5 mg/ Dextrose 50.25 mls @ 100.5 mls/hr IV ONE ONE Stop: 06/21/23 17:29 Last Infusion: 06/21/23 18:05 Dose: Infused Documented By: Admin: 06/21/23 17:15 Dose: 100.5 mls/hr Documented By: JITENDRA Phytonadione (Phytonadione 5 Mg Tab) 5 mg PO NOW STA Stop: 06/21/23 15:47 Last Admin: 06/21/23 15:50 Dose: 5 mg Documented By: NITAW Potassium Chloride (Potassium Chloride Crtab 20 Meq Tabcr) 20 meq PO NOW STA Stop: 06/21/23 21:21 Last Admin: 06/21/23 21:28 Dose: 20 meq Documented By: MORA Medical Decision Making Medical Records Attestation: I reviewed the patient's medical records. External medical records were obtained from the [facility] system. Patient had an MRI of her pelvis done in April which showed enlargement of the perineum 18.5 x 15 cm of edema enhancement which are nonspecific and could be cellulitis. There is a large anterior abdominal wall hernia with multiple bowel wall loops without evidence of strangulation or perforation and was unchanged from the CT of the abdomen pelvis in November 2016. Laboratory Data Attestation: I reviewed the patient's lab results. 06/21/23 13:15 06/21/23 13:15 Lab Results 06/21/23 06/21/23 Range/Units 13:15 13:24 WBC 9.47 (4.8-10.8) K/ul RBC 5.36 (4.20-5.40) M/uL Hgb 14.9 (12.0-16.0) g/dl Hct 46.4 (37.0-47.0) % MCV 86.6 (80.0-100.0) fL MCH 27.8 (25.0-34.0) pg MCHC 32.1 (32.0-36.0) g/dL RDW Std Deviation 41.3 (36.4-46.3) fL RDW Coeff of Brittny 13.2 (11.5-14.5) % Plt Count 243 (130-400) K/uL MPV 9.4 (9.4-12.4) fL Immature Gran % (Auto) 0.2 % Neut % (Auto) 78.6 % Lymph % (Auto) 13.2 % [place] % (Auto) 7.0 % Eos % (Auto) 0.5 % Baso % (Auto) 0.5 % Neut # (Auto) 7.44 H (1.40-6.50) K/uL Lymph # (Auto) 1.25 (1.20-3.40) K/uL [place] # (Auto) 0.66 H (0.11-0.59) K/uL Eos # (Auto) 0.05 (0.00-0.50) K/uL Baso # (Auto) 0.05 (0.00-0.20) K/uL Immature Gran # (Auto) 0.02 (0.01-0.20) K/uL PT 86.9 H (9.0-12.0) Seconds INR 9.1 H* (0.9-1.1) APTT 56 H (21-31) Seconds PTT Ratio 2.0 Sodium 139 (136-145) mmol/L Potassium 3.9 (3.5-5.1) mmol/L Chloride 105 (98-107) mmol/L Carbon Dioxide 26 (21-32) mmol/L Anion Gap 8 (3-11) BUN 11 (6-23) mg/dl Creatinine 0.46 L (0.6-1.2) mg/dl Est Cr Clr Drug Dosing Not Reportable Est GFR ( Amer) 115.2 ml/min Est GFR (Non-Af Amer) 99.4 ml/min BUN/Creatinine Ratio 23.9 H (10-20) Glucose 95 (70-99(Fasting)) mg/dl Calcium 9.8 (8.6-10.3) mg/dl Magnesium 1.9 (1.7-2.4) mg/dl Total Bilirubin 0.6 (0.2-1.0) mg/dl AST 14 (13-39) U/L ALT 9 (7-52) U/L Alkaline Phosphatase 83 (34-104) U/L Troponin I High Sens 6.4 (0-14) pg/ml Total Protein 7.4 (6.0-8.3) gm/dl Albumin 4.0 (3.4-5.0) gm/dl Globulin 3.4 (2.5-4.0) gm/dl Albumin/Globulin Ratio 1.2 (0.9-2) TSH 2.643 (0.300-4.500) uIu/ml Urine Color Yellow Urine Appearance Clear (Clear) Urine pH 6.5 (4.5-7.5) Ur Specific [place] 1.007 (1.000-1.030) Urine Protein Negative (Negative) Urine Glucose (UA) Negative (Negative) Urine Ketones Negative (Negative) Urine Blood Trace H (Negative) Urine Nitrite Negative (Negative) Urine Bilirubin Negative (Negative) Urine Urobilinogen Negative (Negative) Ur Leukocyte Esterase 1+ H (Negative) Urine WBC (Auto) 5-10 H (0-5) /hpf Urine RBC (Auto) 0-4 (0-4) /hpf U Hyaline Cast (Auto) 0 (0-5) /lpf U Epithel Cells (Auto) >30 H (0-5) /lpf Urine Bacteria (Auto) Negative (Negative) Imaging Data Radiologist's Impression: Chest X-Ray 06/21/23 12:57 XR chest 1V not portable CLINICAL HISTORY: Chest pain, nonspecific TECHNIQUE: Single frontal radiograph of the chest was obtained. Comparison: Comparison is made to chest radiograph 11/20/2021 FINDINGS: Exam is limited by underpenetration. Cardiomegaly is noted. The lungs are clear. No evidence of pleural effusion or pneumothorax. IMPRESSION: No acute chest disease. ACT 112: Negative or not required by law. Electronically signed by: Otis Callaway M.D. 06/21/2023 2:07 PM Abdomen/Pelvis CT 06/21/23 14:05 CT abd pelvis wo con CLINICAL HISTORY: flank pain TECHNIQUE: Helical axial images of the abdomen and pelvis were obtained. Automated dose lowering techniques and/or adjustment according to patient size were utilized for this exam. This exam was performed without intravenous contrast. CT DOSE: 1644.89 mGy.cm COMPARISON: Comparison is made to CT abdomen pelvis 01/16/2020 FINDINGS: Lower chest: Cardiomegaly is partially visualized. Liver: Unremarkable. No focal lesions are seen. Gallbladder and biliary tree: Patient is status post cholecystectomy. No intra- or extrahepatic biliary ductal dilation. Pancreas: Unremarkable, no focal lesions. Spleen: Unremarkable. Adrenals: 27 mm left adrenal nodule is again seen. Kidneys and ureters: Nonobstructive nephrolithiasis is seen. Bladder: Unremarkable. Reproductive organs: Unremarkable. Bowel: Diverticulosis is seen without diverticulitis. The appendix is normal. A hiatal hernia is seen. Lymph nodes Retroperitoneal: Unremarkable. Pelvic: Unremarkable. Mesenteric: Unremarkable. Peritoneum: Normal. Vessels: Atherosclerotic calcifications are seen. Abdominal wall: Umbilical hernia contains nondilated loops of bowel. Bones: Degenerative changes in the visualized spine. Orthopedic hardware is seen in the left hip. IMPRESSION: No acute abnormality and in particular no evidence of hydronephrosis/hydroureter. Nonobstructive stones are seen. ACT 112: Negative or not required by law. Electronically signed by: Otis Callaway M.D. 06/21/2023 2:55 PM MDM Narrative Patient was seen during a time of extreme volume and extreme acuity. Nursing triage protocols were initiated labs and imaging was conducted by protocol in the triage area. Labs is significant for an INR of 9.1. Imaging shows no acute traumatic injuries. Discussed the case with radiology Dr. Tolentino who states there is no obstruction no fluid collection no signs of strangulation of the patient's inguinal hernia. External medical records were obtained from the [facility] system. Patient had an MRI of her pelvis done in April which showed enlargement of the perineum 18.5 x 15 cm of edema enhancement which are nonspecific and could be cellulitis. There is a large anterior abdominal wall hernia with multiple bowel wall loops without evidence of strangulation or perforation and was unchanged from the CT of the abdomen pelvis in November 2016. Patient and state that they cannot manage the patient at home and are requesting placement in a custodial/rehab facility. Spoke with director case management Eula who stated the patient needs to be admitted for this placement to occur. [facility]. Impression & Plan Hip pain, Morbid obesity Discharge Plan Visit Data Chief Complaint: Flank Pain Stated Complaint: L FLANK PAIN ED Provider: Gautam Rocha Discharge Problem: Hip pain, Morbid obesity Patient Disposition: Admitted As Inpatient Discharge Instructions Interventions: ED Discharge Assessment Last Done: 06/21/23 19:34 Discharge Problem: Hip pain Qualifiers: Laterality: left Qualified Code(s): M25.552 - Pain in left hip
[2023-06-21] MEDS: oxyCODONE HCL IR 5 MG TAB (IMMEDIATE RELEASE) PO PRN (23:23)
[2023-06-22] MEDS: MAGNESIUM SULFATE / D5W 1 GM/100 ML BAG IV ONE ×2 (01:12→02:26)
[2023-06-22] MEDS: ACETAMINOPHEN 325 MG TAB PO PRN (04:05)
[2023-06-22 04:10] LABS: BUN Creatinine Ratio 20.5 (10-20); Calcium 9.4 mg/dl (8.6-10.3); Creatinine Clr Calc Pharmacy 155.1 ml/min; Est GFR (African American) 116.9 ml/min; Est GFR (Non-African American) 100.8 ml/min; Hematocrit (blood only) 43.2 % (37.0-47.0); Magnesium 1.9 mg/dl (1.7-2.4); Mean Corpuscular Hemoglobin 28.3 pg (25.0-34.0); Mean Corpuscular Hgb Conc 32.4 g/dL (32.0-36.0); Mean Corpuscular Volume 87.4 fL (80.0-100.0); Mean Platelet Volume 9.8 fL (9.4-12.4); Phosphorus 3.1 mg/dl (2.5-4.9); Platelet Count 240 K/uL (130-400); Potassium 3.9 mmol/L (3.5-5.1); RDW Coefficient of Variation 13.3 % (11.5-14.5); RDW Standard Deviation 42.5 fL (36.4-46.3); Red Blood Count 4.94 M/uL (4.20-5.40); White Blood Count 11.31 K/ul (4.8-10.8)
[2023-06-22] MEDS: LEVOTHYROXINE SODIUM 75 MCG TABLET PO SCH (06:13)
[2023-06-22] MEDS: FUROSEMIDE 40 MG TAB PO SCH (08:06)
[2023-06-22] MEDS: POTASSIUM CHLORIDE 10 MEQ TABCR PO SCH (08:07)
[2023-06-22] MEDS: ATORVASTATIN 20 MG TAB PO SCH (08:07)
[2023-06-22] MEDS: FLUoxetine HCL 20 MG CAP PO SCH (08:07)
[2023-06-22] MEDS: lisinopril 5 MG TAB PO SCH (08:07)
--- NOTE | 2023-06-22 12:23 | Hospitalist Progress Note ---
Date of Service June 22, 2023 Assessment & Plan (1) Acute pain of left lower extremity: Plan Patient presented with left lower extremity pain, progressive in nature, affecting activities of daily living. 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 Lumbar spine CT with no acute finding. Recent outpatient MRI pelvis with severe osteoarthritis on the left. Pain management, PT/OT. Bowel regimen. Fall precaution Orthopedic consult,? Hip injection. Will follow. 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 Patient received p.o. and IV Coumadin at admission. INR today 3.4. Continue to hold Coumadin, PT/INR daily. Patient denies any blood in stool or urine. Other chronic medical conditions: T2DM, HLD, HTN, hypothyroidism, atrial fibrillation --- continue with/resume home meds as and when able DVT prophylaxis: Supratherapeutic INR, Coumadin on hold DNR/DNI Admission and Anticipated Discharge Date Admission Date: June 21, 2023 Subjective Patient was seen and examined at bedside. Patient was lying in bed, on room air, NAD. Patient reports eating okay and moving bowels okay. Patient reports left hip pain so severe that it has been affecting her activities of daily living. Patient did not participate with PT due to left hip pain. Left hip pain noted to have severe osteoarthritis. Orthopedic consult placed. Physical Exam Physical Exam: GENERAL: Alert and oriented x3. NAD, on RA. Obese class III. HEENT: No pallor, no icterus. Pupils equal, round and reactive to light. Oral mucosa moist. NECK: No JVD, no neck masses. HEART: S1 and S2 heard. Regular rate and rhythm. No murmur, no gallop. RESPIRATORY SYSTEM: Normal AP diameter. No accessory muscle use. No wheezing, no crackles. ABDOMEN: Soft, bowel sounds present, nontender, + distention/obese. Abdominal hernia noted CENTRAL NERVOUS SYSTEM: No facial droop. Speech is clear. Obeys simple commands. Moves extremities. EXTREMITIES: BLE lymphedema and chronic skin changes noted. Bilateral hip tender but no signs of infection or trauma. Results & Data Results & Data Vital Signs (Past 12 Hours) Vital Signs Temp Pulse Pulse Resp BP BP Pulse Ox 06/22/23 10:41 36.7 C 87 18 117/68 91 06/22/23 08:01 36.6 C 84 18 144/72 H 93 06/22/23 04:00 36.7 C 99 H 18 137/78 93 06/22/23 03:38 06/22/23 03:38 36.8 C 96 H 20 112/71 96 O2 Del Method 06/22/23 10:41 Room Air 06/22/23 08:01 Room Air 06/22/23 04:00 Room Air 06/22/23 03:38 Room Air 06/22/23 03:38 Room Air
--- NOTE | 2023-06-22 12:41 | Orthopedic Consultation ---
Date of Consultation June 22, 2023 Assessment & Plan (1) Hip pain: Patient and I discussed her exam findings. I did discuss and reviewed imaging, CT of abdomen and pelvis with Dr. Alvarado. She does have findings of arthritis with 2 screws in the left acetabulum. At this time we are recommending patient have imaging, x-ray of the pelvis and left hip to further assess hip. Based on patient's history and physical I do not believe her pain is generated from the hip. I do feel her pain is referred from her back. I would recommend at this time patient have a consultation with orthopedic spine for further assessment. I recommend patient participate in physical/occupation therapy as tolerated and weightbearing as tolerated utilizing a walker. Recommend pain management per primary. Patient can follow up with our services as an outpatient or with [facility] orthopedics given her history of being previously seen by them. Time reviewing chart/history/exam and discussion with Dr. Alvarado 35 minutes. Present on Admission?: Yes (2) Acute pain of left lower extremity: Supervising Physician Co-Signing Physician Notes I, Dr. Alvarado, saw and examined the patient. I discussed the management with my PA. I reviewed my PAs note and agree with the documented findings and attest to completing the substantive portion of medical decision making and plan of care I developed. PE: LLE: Sensation to light touch intact distally. Wiggling toes and ankle. BCR less 2 sec. Peripheral vascular changes lower leg. - log roll hip, causes discomfort in low back and lateral hip. +TTP lumbar spin in the mid-line, no noted step offs. IMPRESSION: LLE pain secondarily to lumbar etiology versus L hip OA PLAN: Recommend 1) conservative treatment for L hip OA, can follow up as an outpatient with one of my partners who preforms [facility] or with [facility] as she has been cared for by them in the past. 2) Will obtain AP pelvis and lateral hip, can be done as portable 3) Further work-up of her Lumbar spine by Ortho Spine. 4) PT/OT 5) WBAT with walker 6) Continue pain control per primary service. I, Dr. Alvarado, spent 35 minutes reviewing the chart, reading the imaging, evaluating the patient, discussing care plan with the patient and my PA. History of Present Illness Reason for Consultation: left hip OA Requesting Physician: Asad Alvarado MD Attending Physician: Fariha Benson MD History of Present Illness Patient is a 73-year-old female who was asked to be consulted due to left hip osteoarthritis, advanced. Patient was seen bedside this a.m. sitting upright in bedside chair. She explains that she has been having pain that progressively gotten worse yesterday in the left leg. She states her pain goes across to her low back down the left leg the whole way to the foot. She explains she does have pain that radiates in the right leg as well however it stops at the ankle. She denies any numbness. She feels this pain is constant and gets worse with moving the leg. She denies any fall or injury that provoked her symptoms. She is not complaining of any groin pain and denies any groin pain with standing or walking or moving the leg. She denies any new weakness in her legs. She states she has a hard time with transferring and has been utilizing a walker at home. She explains she has the history of having hip surgery by a surgeon in [facility] approximately 13 to 14 years ago for her left hip. She states she has not had problems since with the hip. She denies any back surgery or treatment to her back. She notes that she has a large hernia and is anticipated to have this removed in July by a physician in [facility]. She states that hernia has been there for 5 years and impedes in her functional activities. She does report taken Tylenol for her pain that did not give her any relief. She does have a history of A-fib and is on Coumadin which was supratherapeutic when she arrived at the ER. Allergies Allergy/AdvReac Type Severity Reaction Status Date / Time ciprofloxacin AdvReac Intermediate makes Verified 06/21/23 16:14 mouth feel funny metronidazole AdvReac Intermediate makes Verified 11/20/21 09:31 mouth feel funny Home Medications Medication Instructions Recorded Confirmed Type acetaminophen 500 mg tablet 1,000 mg PO TID PRN Pain 05/26/19 06/21/23 History (Tylenol Extra Strength) atorvastatin 20 mg tablet 20 mg PO QAM 01/16/20 06/21/23 History fluoxetine 20 mg capsule 20 mg PO QAM 01/16/20 06/21/23 History furosemide 40 mg tablet 40 mg PO QAM 01/16/20 06/21/23 History warfarin 2.5 mg tablet 2.5 mg PO UD #100 tabs 01/22/20 06/21/23 Rx warfarin 5 mg tablet 5 mg PO UD #100 tabs 01/22/20 06/21/23 Rx lisinopril 5 mg tablet (Zestril) 5 mg PO QAM 11/14/21 06/21/23 History levothyroxine 75 mcg tablet 75 mcg PO DAILYBB 06/21/23 06/21/23 History potassium chloride 10 mEq 10 meq PO QAM 06/21/23 06/21/23 History capsule,extended release semaglutide 1 mg/dose (4 mg/3 mL) 1 mg subcut WK 06/21/23 06/21/23 History subcutaneous pen injector (Ozempic) tramadol 50 mg tablet 50 mg PO Q6H PRN pain,moderate 06/21/23 06/21/23 History Patient History Medical History Diverticular disease ANTONIETTA (obstructive sleep apnea) pt unsure if Bipap or cpap Chronic respiratory failure with hypoxia and hypercapnia approx 2 yrs ago Hyperglycemia Morbid obesity due to excess calories Right heart failure no specialist Acute massive pulmonary embolism Dec 2019 > Warfarin > unknown cause Depression Lymphedema bilat legs in wraps at present, treated by wound center at [place]. Gets changed every wednesday Morbid obesity HLD (hyperlipidemia) HTN (hypertension) Surgical History History of colonoscopy History of carpal tunnel surgery bilat History of cholecystectomy History of hip surgery from fracture to left hip > has alot of pain Family History Mother Cancer melanoma AMD (age related macular degeneration) Father Hypertension Denies family history of Diabetes Stroke Social History Smoking Status: Never smoker Second Hand Exposure: Yes (parents smoked); Do You Dip or Chew Tobacco: No; Hx Alcohol Use: No Hx Substance Use: No Preferred Language: Portuguese Communication Ability: Effective 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 There is a large hernia between patient's legs. She is able to actively do hip flexion and extension with complaints of pain in her low back denies any groin pain. Her hip range of motion with internal and external rotation with active assist is limited due to flexibility in available range does not complain of any pain in the groin with these activities. She is able to do active knee flexion and extension as well as active dorsiflexion and plantarflexion. Her sensation is intact over L4-L5 and S1 bilaterally. She has a positive straight leg raise on the left negative on the right. She is able to hold against resistance for dorsiflexion and plantarflexion. Bilateral lower extremity strength is 4+/5. Patient is able to tolerate standing at walker. She has palpable tenderness over the low back and over the lumbar spine over L4-L5 and S1 bilaterally. Sciatic notch is tender more so on the left than the right. Dorsal pedis pulse is palpable 1+ bilaterally. Constitutional: + obese Eyes: EOM intact bilaterally Respiratory: normal respiratory effort Results & Data Vital Signs (Past 12 Hours) Vital Signs Temp Pulse Pulse Resp BP BP Pulse Ox 06/22/23 10:41 36.7 C 87 18 117/68 91 06/22/23 08:01 36.6 C 84 18 144/72 H 93 06/22/23 04:00 36.7 C 99 H 18 137/78 93 06/22/23 03:38 06/22/23 03:38 36.8 C 96 H 20 112/71 96 O2 Del Method 06/22/23 10:41 Room Air 06/22/23 08:01 Room Air 06/22/23 04:00 Room Air 06/22/23 03:38 Room Air 06/22/23 03:38 Room Air Laboratory Results 06/22/23 06/22/23 06/22/23 Range/Units 12:01 07:58 03:24 WBC 11.31 H (4.8-10.8) K/ul RBC 4.94 (4.20-5.40) M/uL Hgb 14.0 (12.0-16.0) g/dl Hct 43.2 (37.0-47.0) % MCV 87.4 (80.0-100.0) fL MCH 28.3 (25.0-34.0) pg MCHC 32.4 (32.0-36.0) g/dL RDW Std Deviation 42.5 (36.4-46.3) fL RDW Coeff of Brittny 13.3 (11.5-14.5) % Plt Count 240 (130-400) K/uL MPV 9.8 (9.4-12.4) fL Immature Gran % (Auto) % Neut % (Auto) % Lymph % (Auto) % Dale % (Auto) % Eos % (Auto) % Baso % (Auto) % Neut # (Auto) (1.40-6.50) K/uL Lymph # (Auto) (1.20-3.40) K/uL Dale # (Auto) (0.11-0.59) K/uL Eos # (Auto) (0.00-0.50) K/uL Baso # (Auto) (0.00-0.20) K/uL Immature Gran # (Auto) (0.01-0.20) K/uL PT (9.0-12.0) Seconds INR (0.9-1.1) APTT (21-31) Seconds PTT Ratio Sodium 138 (136-145) mmol/L Potassium 3.9 (3.5-5.1) mmol/L Chloride 105 (98-107) mmol/L Carbon Dioxide 27 (21-32) mmol/L Anion Gap 6 (3-11) BUN 9 (6-23) mg/dl Creatinine 0.44 L (0.6-1.2) mg/dl Est Cr Clr Drug Dosing 155.1 Est GFR ( Amer) 116.9 ml/min Est GFR (Non-Af Amer) 100.8 ml/min BUN/Creatinine Ratio 20.5 H (10-20) Glucose 89 (70-99(Fasting)) mg/dl POC Glucose 100 H 100 H (70-99) mg/dl Calcium 9.4 (8.6-10.3) mg/dl Phosphorus 3.1 (2.5-4.9) mg/dl Magnesium 1.9 (1.7-2.4) mg/dl Total Bilirubin (0.2-1.0) mg/dl AST (13-39) U/L ALT (7-52) U/L Alkaline Phosphatase (34-104) U/L Troponin I High Sens (0-14) pg/ml Total Protein (6.0-8.3) gm/dl Albumin (3.4-5.0) gm/dl Globulin (2.5-4.0) gm/dl Albumin/Globulin Ratio (0.9-2) Procalcitonin < 0.02 (0-0.5) ng/ml TSH (0.300-4.500) uIu/ml Urine Color Urine Appearance (Clear) Urine pH (4.5-7.5) Ur Specific [place] (1.000-1.030) Urine Protein (Negative) Urine Glucose (UA) (Negative) Urine Ketones (Negative) Urine Blood (Negative) Urine Nitrite (Negative) Urine Bilirubin (Negative) Urine Urobilinogen (Negative) Ur Leukocyte Esterase (Negative) Urine WBC (Auto) (0-5) /hpf Urine RBC (Auto) (0-4) /hpf U Hyaline Cast (Auto) (0-5) /lpf U Epithel Cells (Auto) (0-5) /lpf Urine Bacteria (Auto) (Negative) 06/21/23 06/21/23 06/21/23 Range/Units 20:55 20:39 17:55 WBC (4.8-10.8) K/ul RBC (4.20-5.40) M/uL Hgb (12.0-16.0) g/dl Hct (37.0-47.0) % MCV (80.0-100.0) fL MCH (25.0-34.0) pg MCHC (32.0-36.0) g/dL RDW Std Deviation (36.4-46.3) fL RDW Coeff of Brittny (11.5-14.5) % Plt Count (130-400) K/uL MPV (9.4-12.4) fL Immature Gran % (Auto) % Neut % (Auto) % Lymph % (Auto) % Dale % (Auto) % Eos % (Auto) % Baso % (Auto) % Neut # (Auto) (1.40-6.50) K/uL Lymph # (Auto) (1.20-3.40) K/uL Dale # (Auto) (0.11-0.59) K/uL Eos # (Auto) (0.00-0.50) K/uL Baso # (Auto) (0.00-0.20) K/uL Immature Gran # (Auto) (0.01-0.20) K/uL PT 34.2 H 81.3 H (9.0-12.0) Seconds INR 3.4 H 8.5 H* (0.9-1.1) APTT (21-31) Seconds PTT Ratio Sodium (136-145) mmol/L Potassium (3.5-5.1) mmol/L Chloride (98-107) mmol/L Carbon Dioxide (21-32) mmol/L Anion Gap (3-11) BUN (6-23) mg/dl Creatinine (0.6-1.2) mg/dl Est Cr Clr Drug Dosing Est GFR ( Amer) ml/min Est GFR (Non-Af Amer) ml/min BUN/Creatinine Ratio (10-20) Glucose (70-99(Fasting)) mg/dl POC Glucose 89 (70-99) mg/dl Calcium (8.6-10.3) mg/dl Phosphorus (2.5-4.9) mg/dl Magnesium (1.7-2.4) mg/dl Total Bilirubin (0.2-1.0) mg/dl AST (13-39) U/L ALT (7-52) U/L Alkaline Phosphatase (34-104) U/L Troponin I High Sens (0-14) pg/ml Total Protein (6.0-8.3) gm/dl Albumin (3.4-5.0) gm/dl Globulin (2.5-4.0) gm/dl Albumin/Globulin Ratio (0.9-2) Procalcitonin (0-0.5) ng/ml TSH (0.300-4.500) uIu/ml Urine Color Urine Appearance (Clear) Urine pH (4.5-7.5) Ur Specific [place] (1.000-1.030) Urine Protein (Negative) Urine Glucose (UA) (Negative) Urine Ketones (Negative) Urine Blood (Negative) Urine Nitrite (Negative) Urine Bilirubin (Negative) Urine Urobilinogen (Negative) Ur Leukocyte Esterase (Negative) Urine WBC (Auto) (0-5) /hpf Urine RBC (Auto) (0-4) /hpf U Hyaline Cast (Auto) (0-5) /lpf U Epithel Cells (Auto) (0-5) /lpf Urine Bacteria (Auto) (Negative) 06/21/23 06/21/23 06/21/23 Range/Units 17:11 13:24 13:15 WBC 9.47 (4.8-10.8) K/ul RBC 5.36 (4.20-5.40) M/uL Hgb 14.9 (12.0-16.0) g/dl Hct 46.4 (37.0-47.0) % MCV 86.6 (80.0-100.0) fL MCH 27.8 (25.0-34.0) pg MCHC 32.1 (32.0-36.0) g/dL RDW Std Deviation 41.3 (36.4-46.3) fL RDW Coeff of Brittny 13.2 (11.5-14.5) % Plt Count 243 (130-400) K/uL MPV 9.4 (9.4-12.4) fL Immature Gran % (Auto) 0.2 % Neut % (Auto) 78.6 % Lymph % (Auto) 13.2 % Dale % (Auto) 7.0 % Eos % (Auto) 0.5 % Baso % (Auto) 0.5 % Neut # (Auto) 7.44 H (1.40-6.50) K/uL Lymph # (Auto) 1.25 (1.20-3.40) K/uL Dale # (Auto) 0.66 H (0.11-0.59) K/uL Eos # (Auto) 0.05 (0.00-0.50) K/uL Baso # (Auto) 0.05 (0.00-0.20) K/uL Immature Gran # (Auto) 0.02 (0.01-0.20) K/uL PT 86.9 H (9.0-12.0) Seconds INR 9.1 H* (0.9-1.1) APTT 56 H (21-31) Seconds PTT Ratio 2.0 Sodium 139 (136-145) mmol/L Potassium 3.9 (3.5-5.1) mmol/L Chloride 105 (98-107) mmol/L Carbon Dioxide 26 (21-32) mmol/L Anion Gap 8 (3-11) BUN 11 (6-23) mg/dl Creatinine 0.46 L (0.6-1.2) mg/dl Est Cr Clr Drug Dosing Not Reportable Est GFR ( Amer) 115.2 ml/min Est GFR (Non-Af Amer) 99.4 ml/min BUN/Creatinine Ratio 23.9 H (10-20) Glucose 95 (70-99(Fasting)) mg/dl POC Glucose 85 (70-99) mg/dl Calcium 9.8 (8.6-10.3) mg/dl Phosphorus (2.5-4.9) mg/dl Magnesium 1.9 (1.7-2.4) mg/dl Total Bilirubin 0.6 (0.2-1.0) mg/dl AST 14 (13-39) U/L ALT 9 (7-52) U/L Alkaline Phosphatase 83 (34-104) U/L Troponin I High Sens 6.4 (0-14) pg/ml Total Protein 7.4 (6.0-8.3) gm/dl Albumin 4.0 (3.4-5.0) gm/dl Globulin 3.4 (2.5-4.0) gm/dl Albumin/Globulin Ratio 1.2 (0.9-2) Procalcitonin (0-0.5) ng/ml TSH 2.643 (0.300-4.500) uIu/ml Urine Color Yellow Urine Appearance Clear (Clear) Urine pH 6.5 (4.5-7.5) Ur Specific [place] 1.007 (1.000-1.030) Urine Protein Negative (Negative) Urine Glucose (UA) Negative (Negative) Urine Ketones Negative (Negative) Urine Blood Trace H (Negative) Urine Nitrite Negative (Negative) Urine Bilirubin Negative (Negative) Urine Urobilinogen Negative (Negative) Ur Leukocyte Esterase 1+ H (Negative) Urine WBC (Auto) 5-10 H (0-5) /hpf Urine RBC (Auto) 0-4 (0-4) /hpf U Hyaline Cast (Auto) 0 (0-5) /lpf U Epithel Cells (Auto) >30 H (0-5) /lpf Urine Bacteria (Auto) Negative (Negative) Diagnostic Findings Chest X-Ray 06/21/23 12:57 XR chest 1V not portable CLINICAL HISTORY: Chest pain, nonspecific TECHNIQUE: Single frontal radiograph of the chest was obtained. Comparison: Comparison is made to chest radiograph 11/20/2021 FINDINGS: Exam is limited by underpenetration. Cardiomegaly is noted. The lungs are clear. No evidence of pleural effusion or pneumothorax. IMPRESSION: No acute chest disease. ACT 112: Negative or not required by law. Electronically signed by: Otis Callaway M.D. 06/21/2023 2:07 PM Abdomen/Pelvis CT 06/21/23 14:05 CT abd pelvis wo con CLINICAL HISTORY: flank pain TECHNIQUE: Helical axial images of the abdomen and pelvis were obtained. Automated dose lowering techniques and/or adjustment according to patient size were utilized for this exam. This exam was performed without intravenous contrast. CT DOSE: 1644.89 mGy.cm COMPARISON: Comparison is made to CT abdomen pelvis 01/16/2020 FINDINGS: Lower chest: Cardiomegaly is partially visualized. Liver: Unremarkable. No focal lesions are seen. Gallbladder and biliary tree: Patient is status post cholecystectomy. No intra- or extrahepatic biliary ductal dilation. Pancreas: Unremarkable, no focal lesions. Spleen: Unremarkable. Adrenals: 27 mm left adrenal nodule is again seen. Kidneys and ureters: Nonobstructive nephrolithiasis is seen. Bladder: Unremarkable. Reproductive organs: Unremarkable. Bowel: Diverticulosis is seen without diverticulitis. The appendix is normal. A hiatal hernia is seen. Lymph nodes Retroperitoneal: Unremarkable. Pelvic: Unremarkable. Mesenteric: Unremarkable. Peritoneum: Normal. Vessels: Atherosclerotic calcifications are seen. Abdominal wall: Umbilical hernia contains nondilated loops of bowel. Bones: Degenerative changes in the visualized spine. Orthopedic hardware is seen in the left hip. IMPRESSION: No acute abnormality and in particular no evidence of hydronephrosis/hydroureter. Nonobstructive stones are seen. ACT 112: Negative or not required by law. Electronically signed by: Otis Callaway M.D. 06/21/2023 2:[address] 06/21/23 17:11 CT lumbar spine wo con CLINICAL HISTORY: LLE radicular pain TECHNIQUE: Multidetector row helical CT of the lumbar spine was performed without administration of intravenous contrast. Coronal and sagittal reformations were obtained. Automated dose lowering techniques and/or adjustment according to patient size were utilized for this exam. Comparison: Comparison is made to CT abdomen pelvis 06/21/2023 FINDINGS: For counting purposes, the last complete intervertebral disc space is considered L5-S1. No acute fractures are identified. Degenerative changes are noted in the visualized spine. Orthopedic hardware is seen on the left. Vertebral body alignment is within normal limits. Surrounding soft tissues are unremarkable. IMPRESSION: Degenerative changes without evidence of acute bony injury. ACT 112: Negative or not required by law. Electronically signed by: Otis Callaway M.D. 06/21/2023 6:04 PM (1) Hip pain Laterality: left Qualified Code(s): M25.552 - Pain in left hip
[2023-06-22 15:19] LABS: INR 1.4 (0.9-1.1); Prothrombin Time 15.1 Seconds (9.0-12.0)
[2023-06-22] MEDS ORDERED: WARFARIN SOD 2.5 MG TAB PO SCH (17:50)
[2023-06-22] MEDS ORDERED: Heparin IV Adult Wt-Based Low-Dose *NO* INITIAL Bolus Protocol IV SCH (17:51)
[2023-06-22] MEDS: HEPARIN SODIUM/DEXTROSE 25,000 UNITS/500 ML BAG IV SCH (18:37)
[2023-06-22 18:45] LABS: Basophils # (auto) 0.08 K/uL (0.00-0.20); Basophils % (auto) 0.6 %; Eosinophils # (auto) 0.05 K/uL (0.00-0.50); Eosinophils % (auto) 0.4 %; Hematocrit (blood only) 47.1 % (37.0-47.0); Hemoglobin 15.1 g/dl (12.0-16.0); Immature Granulocytes # (auto) 0.09 K/uL (0.01-0.20); Immature Granulocytes % (auto) 0.6 %; Lymphocytes # (auto) 1.95 K/uL (1.20-3.40); Lymphocytes % (auto) 13.8 %; Mean Corpuscular Hemoglobin 27.9 pg (25.0-34.0); Mean Corpuscular Hgb Conc 32.1 g/dL (32.0-36.0); Mean Corpuscular Volume 87.1 fL (80.0-100.0); Mean Platelet Volume 9.1 fL (9.4-12.4); Monocytes # (auto) 0.97 K/uL (0.11-0.59); Monocytes % (auto) 6.9 %; Neutrophils # (auto) 10.98 K/uL (1.40-6.50); Neutrophils % (auto) 77.7 %; Platelet Count 257 K/uL (130-400); RDW Coefficient of Variation 13.4 % (11.5-14.5); RDW Standard Deviation 42.8 fL (36.4-46.3); Red Blood Count 5.41 M/uL (4.20-5.40); White Blood Count 14.12 K/ul (4.8-10.8)
[2023-06-22 18:54] LABS: Partial Thromboplastin Ratio 1.1; Partial Thromboplastin Time 31 Seconds (21-31)
[2023-06-23 01:38] LABS: ANTI-Xa, UFH(UnfractionatedHep 0.15 IU/ml (0.3-0.7)
[2023-06-23] MEDS: HEPARIN IV BOLUS 3,000 UNITS in SYRINGE 0 ML IV ONE (02:29)
[2023-06-23 04:19] LABS: Hematocrit (blood only) 41.7 % (37.0-47.0); Hemoglobin 13.7 g/dl (12.0-16.0); Mean Corpuscular Hemoglobin 28.2 pg (25.0-34.0); Mean Corpuscular Hgb Conc 32.9 g/dL (32.0-36.0); Mean Platelet Volume 9.3 fL (9.4-12.4); Platelet Count 235 K/uL (130-400); RDW Coefficient of Variation 13.4 % (11.5-14.5); RDW Standard Deviation 41.9 fL (36.4-46.3); Red Blood Count 4.85 M/uL (4.20-5.40); White Blood Count 10.62 K/ul (4.8-10.8)
[2023-06-23 04:38] LABS: BUN Creatinine Ratio 33.3 (10-20); Calcium 8.7 mg/dl (8.6-10.3); Creatinine Clr Calc Pharmacy 159.9 ml/min; Est GFR (African American) 118.7 ml/min; Est GFR (Non-African American) 102.4 ml/min; Potassium 3.6 mmol/L (3.5-5.1)
--- NOTE | 2023-06-23 07:44 | Orthopedic Progress Note ---
Date of Service June 23, 2023 Assessment & Plan (1) Acute pain of left lower extremity: Plan: IMPRESSION: LLE pain secondarily to lumbar etiology versus L hip OA PLAN: Recommend 1) conservative treatment for L hip OA, can follow up as an outpatient with one of my partners who preforms [facility] or with [facility] as she has been cared for by them in the past. 2) Will obtain AP pelvis and lateral hip, can be done as portable 3) Further work-up of her Lumbar spine by Ortho Spine. 4) PT/OT 5) WBAT with walker 6) To consider Prednisone taper, do not want that to adversely affect her upcoming hernia surgery. 7) Continue pain control per primary service. Admission and Anticipated Discharge Date Admission Date: June 21, 2023 Subjective Pain mostly in the back. Slept a bit better last night. Physical Exam Physical Exam: LLE: Sensation to light touch intact distally. Wiggling toes and ankle. BCR less 2 sec. Peripheral vascular changes lower leg. - log roll hip, causes discomfort in low back and lateral hip. +TTP lumbar spin in the mid-line, no not ed step offs. Results & Data Vital Signs (Past 12 Hours) Vital Signs Temp Pulse Pulse Resp BP Pulse Ox O2 Del Method 06/23/23 03:24 36.9 C 87 18 147/66 H 92 Room Air 06/22/23 23:49 94 H 06/22/23 23:38 36.6 C 93 H 16 147/70 H 94 Room Air Diagnostic Findings Hip x-rays pending
--- NOTE | 2023-06-23 09:25 | XRay Report ---
SINGLE VIEW PELVIS; 2 VIEWS LEFT HIP CLINICAL HISTORY: Left hip pain. FINDINGS: An AP view of the pelvis with AP and frog leg views of the left hip are compared to study d ated 04/07/2009 [address] correlated with pelvic CT scans dated 06/21/2023 and 01/16/2020. The skeletal struc tures are osteopenic. No acute fracture is seen. There is a chronic/healed impacted subcapital fractu re of the left proximal femur which is unchanged from the 2019 CT scan. There is chronic posttraumat ic deformity of the left ilium/acetabular with 2 cortical [address] screws in place. Moderate to advanced o steoarthritic change and joint space narrowing seen in both hips, left greater than right. Lumbosacra l spondylosis is partially imaged. Degenerative sclerosis is noted in the sacroiliac joints. A cathet er projects over the pelvis. IMPRESSION: 1. No acute fracture is seen. 2. Chronic fractures of the left acetabulum and left proximal femur as above. Electronically signed by: Reyes Aldridge M.D. 06/23/2023 9:23 AM
[2023-06-23] MEDS ORDERED: methylPREDNISolone 4 MG TAB, 6 DAY TAPER PO SCH (10:00)
[2023-06-23 10:23] LABS: ANTI-Xa, UFH(UnfractionatedHep 0.22 IU/ml (0.3-0.7)
[2023-06-23] MEDS: methylPREDNISolone 4 MG TAB PO SCH (13:36)
--- NOTE | 2023-06-23 17:16 | Hospitalist Progress Note ---
Date of Service June 23, 2023 Assessment & Plan (1) Acute pain of left lower extremity: Plan Ms. Colin is a 73 year old woman with DMTII, HTN, HLD, hypothyroidism, PAF on Coumadin admitted for evaluation of acute on chronic back patient. Admitted on 06/21. Patient presented with left lower extremity pain, progressive in nature, affecting activities of daily living. She is being managed for the following: #LLE pain, 2/2 osteoarthritis v radiculopathy #Acute Low back pain Per patient, worsening LLE and low back pain x left-sided since about 1 week [employer]. 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 Lumbar spine CT with no acute finding, degenerative findings Recent outpatient MRI pelvis with severe osteoarthritis on the left. Hip Xray with chronic fractures noted Ortho: recommends steroid taper and Ortho Spine -No Spine coverage today, will determine response and consider OP v IP Pain management, PT/OT. Bowel regimen. Fall precaution #Supratherapeutic INR: #PAF on Coumadin Patient noted to have INR of 9.1 at admission, takes Coumadin 7.5 mg daily, recently tramadol was added as an outpatient in the last 1 week [employer]. Patient received p.o. and IV Coumadin at admission. INR today 3.4. Continue to hold Coumadin, PT/INR daily. Patient denies any blood in stool or urine. #HTN Home: Lisinopril 5mg, lasix daily #Large Ventral Hernia Undergoing medical optimization as OP for possible surgery in 07/2023 #T2DM Ozempic on sundays SSI while admitted #HLD -atorvastatin 20mg HTN, hypothyroidism, atrial fibrillation --- continue with/resume home meds as and when able #Hypothyroidism Continue Synthroid #Chronic Lymphedema Lasix daily at this time, usually TID #chronic hypoxic respiratory failure, 2L O2 qhs #Nocturnal hypoxia -2L O2 overnight #Morbid obesity BMI 51 Counseled DVT prophylaxis: Supratherapeutic INR, Coumadin on hold DNR/DNI Admission and Anticipated Discharge Date Admission Date: June 21, 2023 Subjective Patient evaluated at bedside Notes feeling a bit better and able to move a bit more than days prior. Reports "sharp" pain in legs much improved, but feels the bed is exacerbating pain Physical Exam Respiratory: normal respiratory effort, lungs clear to auscultation Cardiovascular: RRR, no murmur, no edema Gastrointestinal (Abdomen): normal bowel sounds, soft, nontender, no hepatosplenomegaly Skin: significant excess tissue of the mons pubis/pannus which hangs between her legs Results & Data Results & Data Vital Signs (Past 12 Hours) Vital Signs Temp Pulse Pulse Pulse Resp BP Pulse Ox 06/23/23 15:35 36.8 C 79 16 125/72 94 06/23/23 14:30 86 06/23/23 11:58 36.9 C 80 18 128/73 93 06/23/23 08:03 36.9 C 86 17 130/74 93 06/23/23 07:30 79 O2 Del Method 06/23/23 15:35 Room Air 06/23/23 14:30 06/23/23 11:58 Room Air 06/23/23 08:03 Room Air 06/23/23 07:30 Laboratory Results Short CBC 06/22/23 06/23/23 Range/Units 18:31 04:02 WBC 14.12 H 10.62 (4.8-10.8) K/ul Hgb 15.1 13.7 (12.0-16.0) g/dl Hct 47.1 H 41.7 (37.0-47.0) % Plt Count 257 235 (130-400) K/uL BMP 06/23/23 04:02 Sodium 137 Potassium 3.6 Chloride 103 Carbon Dioxide 28 BUN 14 Creatinine 0.42 L Glucose 111 H Calcium 8.7 Medications Administered Home Medications Medication Instructions Recorded Confirmed Last Taken acetaminophen 500 mg tablet 1,000 mg PO TID PRN Pain 05/26/19 06/21/23 11/19/21 (Tylenol Extra Strength) atorvastatin 20 mg tablet 20 mg PO QAM 01/16/20 06/21/23 11/19/21 fluoxetine 20 mg capsule 20 mg PO QAM 01/16/20 06/21/23 11/19/21 furosemide 40 mg tablet 40 mg PO QAM 01/16/20 06/21/23 11/19/21 warfarin 2.5 mg tablet 2.5 mg PO UD #100 tabs 01/22/20 06/21/23 11/14/21 warfarin 5 mg tablet 5 mg PO UD #100 tabs 01/22/20 06/21/23 11/14/21 lisinopril 5 mg tablet (Zestril) 5 mg PO QAM 11/14/21 06/21/23 11/19/21 levothyroxine 75 mcg tablet 75 mcg PO DAILYBB 06/21/23 06/21/23 Unknown potassium chloride 10 mEq 10 meq PO QAM 06/21/23 06/21/23 Unknown capsule,extended release semaglutide 1 mg/dose (4 mg/3 mL) 1 mg subcut WK 06/21/23 06/21/23 Unknown subcutaneous pen injector (Ozempic) tramadol 50 mg tablet 50 mg PO Q6H PRN pain,moderate 06/21/23 06/21/23 Unknown Active Medications Generic Name Dose Route Start Last Admin Trade Name Freq PRN Reason Stop Dose Admin Acetaminophen 650 mg 06/21/23 16:54 06/23/23 13:40 Acetaminophen 325 Mg Tab PO 07/21/23 16:53 650 mg Q4H PRN Administration Pain or Fever Atorvastatin Calcium 20 mg 06/22/23 09:00 06/23/23 09:38 Atorvastatin 20 Mg Tab PO 07/22/23 08:59 20 mg QAM LIZZY Administration Fluoxetine HCl 20 mg 06/22/23 09:00 06/23/23 09:38 Fluoxetine Hcl 20 Mg Cap PO 07/22/23 08:59 20 mg QAM LIZZY Administration Furosemide 40 mg 06/22/23 09:00 06/23/23 09:38 Furosemide 40 Mg Tab PO 07/22/23 08:59 40 mg QAM LIZZY Administration Heparin Sodium/Dextrose 25,000 units in 500 mls @ 25 mls/hr 06/22/23 18:15 06/23/23 12:28 Heparin Sodium/Dextrose IV 07/22/23 18:14 1,250 units/hr .Q20H LIZZY 25 mls/hr Titration Protocol 1,250 UNITS/HR Insulin Aspart 0 units 06/21/23 21:00 06/23/23 13:05 Insulin Aspart Per Unit Charge SC 07/21/23 20:59 Not Given ACHS LIZZY Levothyroxine Sodium 75 mcg 06/22/23 06:30 06/23/23 07:26 Levothyroxine Sodium 75 Mcg Tablet PO 07/22/23 06:29 75 mcg DAILYBB LIZZY Administration Lisinopril 5 mg 06/22/23 09:00 06/23/23 09:38 Lisinopril 5 Mg Tab PO 07/22/23 08:59 5 mg QAM LIZZY Administration Methylprednisolone 8 mg 06/23/23 13:00 06/23/23 13:36 Methylprednisolone 4 Mg Tab PO 06/23/23 21:01 8 mg 1300,1800,2100 LIZZY Administration Oxycodone HCl 5 mg 06/21/23 17:00 06/23/23 08:20 Oxycodone Hcl Ir 5 Mg Tab (Immediate Release) PO 07/05/23 16:59 5 mg Q4H PRN Administration Severe Pain (Scale 7, 8, 9,10) Potassium Chloride 10 meq 06/22/23 09:00 06/23/23 09:48 Potassium Chloride 10 Meq Tabcr PO 07/22/23 08:59 10 meq QAM LIZZY Administration
[2023-06-23 19:42] LABS: ANTI-Xa, UFH(UnfractionatedHep 0.23 IU/ml (0.3-0.7)
[2023-06-23] MEDS: WARFARIN SOD 2.5 MG TAB PO SCH (20:04)
[2023-06-24] MEDS ORDERED: Nursing to Pharmacy Communication SCH (04:00)
[2023-06-24 05:34] LABS: Hematocrit (blood only) 46.4 % (37.0-47.0); Hemoglobin 14.9 g/dl (12.0-16.0); Mean Corpuscular Hemoglobin 27.9 pg (25.0-34.0); Mean Corpuscular Hgb Conc 32.1 g/dL (32.0-36.0); Mean Corpuscular Volume 86.9 fL (80.0-100.0); Mean Platelet Volume 9.7 fL (9.4-12.4); Platelet Count 279 K/uL (130-400); RDW Coefficient of Variation 13.3 % (11.5-14.5); RDW Standard Deviation 42.2 fL (36.4-46.3); Red Blood Count 5.34 M/uL (4.20-5.40); White Blood Count 11.36 K/ul (4.8-10.8)
[2023-06-24 05:37] LABS: BUN Creatinine Ratio 34.1 (10-20); Calcium 9.7 mg/dl (8.6-10.3); Creatinine Clr Calc Pharmacy 152.6 ml/min; Est GFR (African American) 116.9 ml/min; Est GFR (Non-African American) 100.8 ml/min; Magnesium 1.9 mg/dl (1.7-2.4); Phosphorus 3.1 mg/dl (2.5-4.9)
[2023-06-24 05:40] LABS: ANTI-Xa, UFH(UnfractionatedHep < 0.10 IU/ml (0.3-0.7); INR 1.1 (0.9-1.1); Prothrombin Time 11.6 Seconds (9.0-12.0)
[2023-06-24] MEDS: methylPREDNISolone 4 MG TAB PO SCH ×2 (08:34→22:16)
--- NOTE | 2023-06-24 09:26 | Urology Consultation ---
<Statement entered by Shawn Hays MD - 06/24/23 16:07> I have seen and discussed Ms. Colin's case with MARYAM Holm and agree with the above documentation. Catheter seems to be in good position, draining well. Okay for hand irrigation if catheter becomes obstructed. Will be reasonable to remove as soon as she is more stable on her feet and able to transfer to a commode. She can alternatively try pure wick or CIC. Urology will coordinate outpatient follow-up for hematuria workup, stone management. Please call with any questions or concerns. -Shawn Hays MD. Date of Consultation June 24, 2023 Assessment & Plan (1) Gross hematuria: 73-year-old female admitted pain affecting activities of daily living Patient is afebrile with stable vitals Labs INR 1.1, Cr 0.44, WBC 11.36, Hemoglobin 14.9, Hematocrit 46.4 CT A/P on 06/21/2023 shows a 27 mm adrenal nodule, stable, nonobstructive nephrolithiasis with an unremarkable bladder Urine culture not completed in ER Owens draining rust color urine, no clots noted at bedside Hematuria possibly due to traumatic catheter in setting of anticoagulation but still merits hematuria workup Would recommend: May remove owens catheter when primary team deems necessary - no urological reason to maintain CIC or purewick for comfort once owens removed May hand irrigate if need for small clots Antibiotics per culture results We will coordinate outpatient hematuria work up after discharge with CT urogram and cystoscopy Gu will sign off, contact our service with any additional questions or concerns History of Present Illness Reason for Consultation: 73-year-old female consulted for hematuria. PBH with DMTII, HTN, HLD, hypothyroidism, PAF on Coumadin She was seen in the ER on 06/21/2023 for bilateral hip pain, she was admitted for pain affecting activities of daily living. Imaging showed no acute traumatic injuries. It was found she had an INR in the ER of 9.1. Outpatient she was on Coumadin 7.5 mg daily, recently tramadol was added on. INR has continued to trend down through hospital stay, Coumadin being held. UA in the ER on 06/21/23 was positive for trace blood, 1+ leuk esterase, 5-10 WBCs, greater than [address] A/P on 06/21/2023 shows a 27 mm stable adrenal nodule, nonobstructive nephrolithiasis with an unremarkable bladder Owens catheter was placed on 06/21/2023 due to limited mobility, draining clear yellow Per hospital team catheter was supposed to be removed on 06/23/2023 but patient was not ready Hospitalist team consulted urology for rust-colored urine and for how long owens catheter should be maintained on 06/24/2023 Urine analysis was rechecked on 06/24/2023 and noted to be positive for nitrates, urine culture was obtained Urine culture pending Labs reviewed: INR 06/24/2023 1.1 06/21/2023 9.1 Creatinine 06/24/2023 0.44 WBC 11.36 Hemoglobin 14.9 Hematocrit 46.4 Patient is seen and examined at bedside. She is awake, alert and oriented sitting in bedside chair. Owens is patent and draining rust colored urine without clots. She is denying abdominal or flank pain. She said gross hematuria in catheter bag yesterday with pink-colored urine. Denies fevers, chills, N/V. She has had no prior history of gross hematuria. She says catheter was placed inpatient due to lack of ability to get to the bathroom due to her bilateral hip and left leg pain. At home she voids spontaneously and wears adult depends, she does admit to urinary incontinence and urinary urgency at home. She is unaware of her stable adrenal nodule or nephrolithiasis. Attending Physician: Leslye Duncan MD Allergies Allergy/AdvReac Type Severity Reaction Status Date / Time ciprofloxacin AdvReac Intermediate makes Verified 06/21/23 16:14 mouth feel funny metronidazole AdvReac Intermediate makes Verified 11/20/21 09:31 mouth feel funny Home Medications Medication Instructions Recorded Confirmed Type acetaminophen 500 mg tablet 1,000 mg PO TID PRN Pain 05/26/19 06/21/23 History (Tylenol Extra Strength) atorvastatin 20 mg tablet 20 mg PO QAM 01/16/20 06/21/23 History fluoxetine 20 mg capsule 20 mg PO QAM 01/16/20 06/21/23 History furosemide 40 mg tablet 40 mg PO QAM 01/16/20 06/21/23 History warfarin 2.5 mg tablet 2.5 mg PO UD #100 tabs 01/22/20 06/21/23 Rx warfarin 5 mg tablet 5 mg PO UD #100 tabs 01/22/20 06/21/23 Rx lisinopril 5 mg tablet (Zestril) 5 mg PO QAM 11/14/21 06/21/23 History levothyroxine 75 mcg tablet 75 mcg PO DAILYBB 06/21/23 06/21/23 History potassium chloride 10 mEq 10 meq PO QAM 06/21/23 06/21/23 History capsule,extended release semaglutide 1 mg/dose (4 mg/3 mL) 1 mg subcut WK 06/21/23 06/21/23 History subcutaneous pen injector (Ozempic) tramadol 50 mg tablet 50 mg PO Q6H PRN pain,moderate 06/21/23 06/21/23 History Patient History Medical History Diverticular disease ANTONIETTA (obstructive sleep apnea) pt unsure if Bipap or cpap Chronic respiratory failure with hypoxia and hypercapnia approx 2 yrs ago Hyperglycemia Morbid obesity due to excess calories Right heart failure no specialist Acute massive pulmonary embolism Dec 2019 > Warfarin > unknown cause Depression Lymphedema bilat legs in wraps at present, treated by wound center at [place]. Gets changed every wednesday Morbid obesity HLD (hyperlipidemia) HTN (hypertension) Surgical History History of colonoscopy History of carpal tunnel surgery bilat History of cholecystectomy History of hip surgery from fracture to left hip > has alot of pain Family History Mother Cancer melanoma AMD (age related macular degeneration) Father Hypertension Denies family history of Diabetes Stroke Social History Smoking Status: Never smoker Second Hand Exposure: Yes (parents smoked); Do You Dip or Chew Tobacco: No; Hx Alcohol Use: No Hx Substance Use: No Preferred Language: [place] Communication Ability: Effective 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 Constitutional: Per HPI Genitourinary: Per HPI Physical Exam Constitutional: well developed, well nourished and + obese; no acute distress Eyes: + anicteric sclerae; pupils not irregula r Respiratory: normal respiratory effort; no respiratory distress, does not use accessory muscles and normal respiratory pattern Cardiovascular: well perfused Musculoskeletal: Extremities: extremities normal to inspection Neurologic: moves all extremities and awake Speech / Cognition: normal speech Psychiatric: Orientation: alert and oriented x 3 Eye Contact: good eye contact Genitourinary: Owens patent and draining rust colored urine Results & Data Vital Signs (Past 12 Hours) Vital Signs Temp Pulse Pulse Resp BP BP Pulse Ox 06/24/23 08:22 36.6 C 74 18 125/78 92 06/24/23 08:13 85 06/24/23 03:46 36.6 C 83 18 111/57 L 93 06/24/23 01:59 88 06/23/23 23:04 37.0 C 80 18 155/84 H 94 O2 Del Method 06/24/23 08:22 Room Air 06/24/23 08:13 06/24/23 03:46 Room Air 06/24/23 01:59 06/23/23 23:04 Room Air PG Care Time/CCT Total # of Minutes Spent Total Time Spent with Patient: Total time spent is greater than 50% in coordination of care (as documented) at patient's floor/unit and/or counseling patient: Coding Level of Care Code 47893 INT INP/OBS CARE 2/55MIN Diagnoses Gross hematuria R31.0
--- NOTE | 2023-06-24 11:06 | Hospitalist Progress Note ---
Date of Service June 24, 2023 Assessment & Plan (1) Acute pain of left lower extremity: Plan Ms. Colin is a 73 year old woman with DMTII, HTN, HLD, hypothyroidism, PAF on Coumadin admitted for evaluation of acute on chronic back patient. Admitted on 06/21. Patient presented with left lower extremity pain, progressive in nature, affecting activities of daily living. She is being managed for the following: #Hematuria -Noted overnight, thought to be traumatic s/p owens placement, on heparin; warfarin -Continue AC -OP follow up -Remove owens tomorrow #LLE pain, 2/2 osteoarthritis v radiculopathy #Acute Low back pain Per patient, worsening LLE and low back pain x left-sided since about 1 week [employer]MI[employer]. 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 Lumbar spine CT with no acute finding, degenerative findings Recent outpatient MRI pelvis with severe osteoarthritis on the left. Hip Xray with chronic fractures noted Ortho: recommends steroid taper and Ortho Spine -No Spine coverage today, will determine response and consider OP v IP Pain management, PT/OT. Bowel regimen. Fall precaution -Medrol dose pack started 06/23 #Supratherapeutic INR: #Permanent AF on Coumadin Patient noted to have INR of 9.1 at admission, takes Coumadin 7.5 mg daily, recently tramadol was added as an outpatient in the last 1 week [employer]. Patient received p.o. and IV Coumadin at admission. INR today 3.4. Continue to hold Coumadin, PT/INR daily. Patient denies any blood in stool or urine. #HTN Home: Lisinopril 5mg, lasix daily #Large Ventral Hernia Undergoing medical optimization as OP for possible surgery in 07/2023 #T2DM Ozempic on sundays SSI while admitted #HLD -atorvastatin 20mg HTN, hypothyroidism, atrial fibrillation --- continue with/resume home meds as and when able #Hypothyroidism Continue Synthroid #Chronic Lymphedema Lasix daily at this time, usually TID Resume routine dosing upon discharge #chronic hypoxic respiratory failure, 2L O2 qhs #Nocturnal hypoxia -2L O2 overnight #Morbid obesity BMI 51 Counseled DVT prophylaxis: resumed warfarin DNR/DNI Admission and Anticipated Discharge Date Admission Date: June 21, 2023 Subjective Patient evaluated sitting in bedside chair Notes improvement with steroid taper, denies any acute concerns this am Hematuria noted in owens overnight Physical Exam Constitutional: WD/WN, vitals as above Respiratory: normal respiratory effort, lungs clear to auscultation Cardiovascular: irregularly irregular Results & Data Results & Data Vital Signs (Past 12 Hours) Vital Signs Temp Pulse Pulse Resp BP BP Pulse Ox 06/24/23 08:22 36.6 C 74 18 125/78 92 06/24/23 08:13 85 06/24/23 03:46 36.6 C 83 18 111/57 L 93 06/24/23 01:59 88 06/23/23 23:04 37.0 C 80 18 155/84 H 94 O2 Del Method 06/24/23 08:22 Room Air 06/24/23 08:13 06/24/23 03:46 Room Air 06/24/23 01:59 06/23/23 23:04 Room Air Laboratory Results Short CBC 06/24/23 Range/Units 04:19 WBC 11.36 H (4.8-10.8) K/ul Hgb 14.9 (12.0-16.0) g/dl Hct 46.4 (37.0-47.0) % Plt Count 279 (130-400) K/uL BMP 06/24/23 04:19 Sodium 136 Potassium 4.0 Chloride 100 Carbon Dioxide 29 BUN 15 Creatinine 0.44 L Glucose 136 H Calcium 9.7 Medications Administered Home Medications Medication Instructions Recorded Confirmed Last Taken acetaminophen 500 mg tablet 1,000 mg PO TID PRN Pain 05/26/19 06/21/23 11/19/21 (Tylenol Extra Strength) atorvastatin 20 mg tablet 20 mg PO QAM 01/16/20 06/21/23 11/19/21 fluoxetine 20 mg capsule 20 mg PO QAM 01/16/20 06/21/23 11/19/21 furosemide 40 mg tablet 40 mg PO QAM 01/16/20 06/21/23 11/19/21 warfarin 2.5 mg tablet 2.5 mg PO UD #100 tabs 01/22/20 06/21/23 11/14/21 warfarin 5 mg tablet 5 mg PO UD #100 tabs 01/22/20 06/21/23 11/14/21 lisinopril 5 mg tablet (Zestril) 5 mg PO QAM 11/14/21 06/21/23 11/19/21 levothyroxine 75 mcg tablet 75 mcg PO DAILYBB 06/21/23 06/21/23 Unknown potassium chloride 10 mEq 10 meq PO QAM 06/21/23 06/21/23 Unknown capsule,extended release semaglutide 1 mg/dose (4 mg/3 mL) 1 mg subcut WK 06/21/23 06/21/23 Unknown subcutaneous pen injector (Ozempic) tramadol 50 mg tablet 50 mg PO Q6H PRN pain,moderate 06/21/23 06/21/23 Unknown Active Medications Generic Name Dose Route Start Last Admin Trade Name Freq PRN Reason Stop Dose Admin Acetaminophen 650 mg 06/21/23 16:54 06/24/23 06:02 Acetaminophen 325 Mg Tab PO 07/21/23 16:53 650 mg Q4H PRN Administration Pain or Fever Atorvastatin Calcium 20 mg 06/22/23 09:00 06/24/23 08:04 Atorvastatin 20 Mg Tab PO 07/22/23 08:59 20 mg QAM LIZZY Administration Fluoxetine HCl 20 mg 06/22/23 09:00 06/24/23 08:04 Fluoxetine Hcl 20 Mg Cap PO 07/22/23 08:59 20 mg QAM LIZZY Administration Furosemide 40 mg 06/22/23 09:00 06/23/23 09:38 Furosemide 40 Mg Tab PO 07/22/23 08:59 40 mg QAM LIZZY Administration Heparin Sodium/Dextrose 25,000 units in 500 mls @ 0 mls/hr 06/22/23 18:15 06/24/23 01:52 Heparin Sodium/Dextrose IV 07/22/23 18:14 0 units/hr .Q0M LIZZY 0 mls/hr Titration Protocol 0 UNITS/HR Insulin Aspart 0 units 06/21/23 21:00 06/24/23 08:34 Insulin Aspart Per Unit Charge SC 07/21/23 20:59 Not Given ACHS LIZZY Levothyroxine Sodium 75 mcg 06/22/23 06:30 06/24/23 06:03 Levothyroxine Sodium 75 Mcg Tablet PO 07/22/23 06:29 75 mcg DAILYBB LIZZY Administration Lisinopril 5 mg 06/22/23 09:00 06/24/23 08:35 Lisinopril 5 Mg Tab PO 07/22/23 08:59 5 mg QAM LIZZY Administration Methylprednisolone 4 mg 06/24/23 07:00 02/29/24 08:34 Methylprednisolone 4 Mg Tab PO 06/24/23 18:01 4 mg 0700,1300,1800 LIZZY Administration Oxycodone HCl 5 mg 06/21/23 17:00 06/24/23 06:02 Oxycodone Hcl Ir 5 Mg Tab (Immediate Release) PO 07/05/23 16:59 5 mg Q4H PRN Administration Severe Pain (Scale 7, 8, 9,10) Potassium Chloride 10 meq 06/22/23 09:00 06/24/23 08:37 Potassium Chloride 10 Meq Tabcr PO 07/22/23 08:59 10 meq QAM LIZZY Administration
[2023-06-24 13:42] LABS: Appearance Urine Turbid (Clear); Bacteria Urine Automated 1+ (Negative); Bilirubin Urine Negative (Negative); Blood Urine 3+ (Negative); Color Urine Red; Epithelial Cell Urine Auto >30 /lpf (0-5); Glucose Urine UA Negative (Negative); Ketones Urine Negative (Negative); Leukocyte Esterase Urine 3+ (Negative); Nitrite Urine Positive (Negative); Protein Urine 2+ (Negative); Specific Gravity Urine 1.009 (1.000-1.030); Urobilinogen Urine Negative (Negative); WBC Urine Automated >30 /hpf (0-5)
[2023-06-24 14:07] LABS: Cast Urine Automated 0 /lpf (0-5); RBC Urine Automated >30 /hpf (0-4)
[2023-06-24] MEDS: WARFARIN SOD 5 MG TAB PO SCH (16:54)
[2023-06-25 01:10] LABS: ANTI-Xa, UFH(UnfractionatedHep 0.31 IU/ml (0.3-0.7)
[2023-06-25] MEDS: methylPREDNISolone 4 MG TAB PO SCH (06:07)
[2023-06-25 06:38] LABS: Hematocrit (blood only) 46.2 % (37.0-47.0); Hemoglobin 15.2 g/dl (12.0-16.0); Mean Corpuscular Hemoglobin 28.1 pg (25.0-34.0); Mean Corpuscular Hgb Conc 32.9 g/dL (32.0-36.0); Mean Corpuscular Volume 85.4 fL (80.0-100.0); Mean Platelet Volume 9.8 fL (9.4-12.4); Platelet Count 272 K/uL (130-400); RDW Coefficient of Variation 13.3 % (11.5-14.5); RDW Standard Deviation 41.3 fL (36.4-46.3); Red Blood Count 5.41 M/uL (4.20-5.40); White Blood Count 11.58 K/ul (4.8-10.8)
[2023-06-25 07:18] LABS: Calcium 9.8 mg/dl (8.6-10.3); Creatinine Clr Calc Pharmacy 134.3 ml/min; Est GFR (African American) 112.1 ml/min; Est GFR (Non-African American) 96.7 ml/min; Potassium 4.2 mmol/L (3.5-5.1)
[2023-06-25 08:08] LABS: ANTI-Xa, UFH(UnfractionatedHep 0.41 IU/ml (0.3-0.7); INR 1.2 (0.9-1.1)
[2023-06-25] MEDS: POLYETHYLENE (MIRALAX) 17 GM PACK PO PRN (08:12)
[2023-06-25] MEDS: cefTRIAXone SODIUM 2,000 MG in DEXTROSE 5 % MINI-B 50 ML IV SCH (09:14)
--- NOTE | 2023-06-25 11:38 | Orthopedic Progress Note ---
Date of Service June 25, 2023 Assessment & Plan (1) Acute pain of left lower extremity: Plan: Patient, spouse , and I discussed her imaging findings of advanced hip osteoarthritis. Even though she has these findings I do not feel this is where her pain is generated from. We did discuss if in the future she should want to discuss any surgical intervention such as a total hip arthroplasty she can follow-up as an outpatient in our office. She would want to see Dr. Brock or Dr. Dejesus to discuss further and to see if she is a surgical candidate. She is anticipating having hernia surgery the end of July. She feels this is her priority once her pain is managed. She will continue with physical therapy and Occupational Therapy as tolerated. She will continue utilizing a walker. Discussed with patient she can discuss further with primary team and spine services possibly starting gabapentin may benefit patient to have better control of her nerve pain Patient was recommended on following advice from primary team as well as therapist on discharge planning home versus rehabilitation. We did discuss safety and building her strength once her pain is managed to provide optimal outcomes. Patient will consider. Continue with primary team for DVT prophylaxis and pain management control. Patient and spouse had ample time to ask questions. Patient and spouse verbalized understanding and are in agreement with plan. Please recall if any orthopedic issues. Admission and Anticipated Discharge Date Admission Date: June 21, 2023 Subjective Patient is a 73-year-old female who is seen this morning. She had been sitting on the bedside commode her is present. She is agreeable to have an exam at this time. She states that her pain is definitely better than what it had been however it still present. She states she has no groin pain and it continues to be in the right buttock down the leg the whole leg to the foot. She notes at times she will have numbness the way down the leg. She states this seems to be provoked with certain ways that she is sitting or laying. She states she is able to sleep in the recliner and this seemed to give her some relief and allow her to rest. She feels the steroids are helping however she is concerned once she gets off of this what her pain will be like. Her and son are recommending that she go to a retirement facility/rehabilitation however she is not interested in doing this. She rated her pain as 7/10 currently down the left leg. Review of Systems Review of Systems: Please refer to HPI Physical Exam Physical Exam: General: Patient is alert and oriented x 3 no acute distress Musculoskeletal: Sitting on bedside commode she is able to actively flex the hip and extend the knee without excruciating pain. She is able to actively dorsiflex and plantarflex ankle. Her sensation is unchanged in L4-L5 and S1. Results & Data Vital Signs (Past 12 Hours) Vital Signs Temp Pulse Pulse Resp BP Pulse Ox O2 Del Method 06/25/23 11:23 Room Air 06/25/23 07:40 36.5 C 85 15 140/80 95 Room Air 06/25/23 07:09 72 06/25/23 02:09 36.5 C 69 17 127/75 93 Room Air 06/24/23 23:35 36.7 C 82 16 116/69 94 Room Air Laboratory Results 06/25/23 06/25/23 06/25/23 Range/Units 08:17 06:01 00:27 WBC 11.58 H (4.8-10.8) K/ul RBC 5.41 H (4.20-5.40) M/uL Hgb 15.2 (12.0-16.0) g/dl Hct 46.2 (37.0-47.0) % MCV 85.4 (80.0-100.0) fL MCH 28.1 (25.0-34.0) pg MCHC 32.9 (32.0-36.0) g/dL RDW Std Deviation 41.3 (36.4-46.3) fL RDW Coeff of Brittny 13.3 (11.5-14.5) % Plt Count 272 (130-400) K/uL MPV 9.8 (9.4-12.4) fL PT 13.0 H (9.0-12.0) Seconds INR 1.2 H (0.9-1.1) Heparin Anti-Xa, Unfract 0.41 0.31 (0.3-0.7) IU/ml Sodium 137 (136-145) mmol/L Potassium 4.2 (3.5-5.1) mmol/L Chloride 99 (98-107) mmol/L Carbon Dioxide 29 (21-32) mmol/L Anion Gap 9 (3-11) BUN 18 (6-23) mg/dl Creatinine 0.50 L (0.6-1.2) mg/dl Est Cr Clr Drug Dosing 134.3 ml/min Est GFR ( Amer) 112.1 ml/min Est GFR (Non-Af Amer) 96.7 ml/min BUN/Creatinine Ratio 36.0 H (10-20) Glucose 124 H (70-99(Fasting)) mg/dl POC Glucose 117 H (70-99) mg/dl Calcium 9.8 (8.6-10.3) mg/dl Urine Color Urine Appearance (Clear) Urine pH (4.5-7.5) Ur Specific [place] (1.000-1.030) Urine Protein (Negative) Urine Glucose (UA) (Negative) Urine Ketones (Negative) Urine Blood (Negative) Urine Nitrite (Negative) Urine Bilirubin (Negative) Urine Urobilinogen (Negative) Ur Leukocyte Esterase (Negative) Urine WBC (Auto) (0-5) /hpf Urine RBC (Auto) (0-4) /hpf U Hyaline Cast (Auto) (0-5) /lpf U Epithel Cells (Auto) (0-5) /lpf Urine Bacteria (Auto) (Negative) Urine Yeast 06/24/23 06/24/23 06/24/23 Range/Units 20:20 16:47 13:00 WBC (4.8-10.8) K/ul RBC (4.20-5.40) M/uL Hgb (12.0-16.0) g/dl Hct (37.0-47.0) % MCV (80.0-100.0) fL MCH (25.0-34.0) pg MCHC (32.0-36.0) g/dL RDW Std Deviation (36.4-46.3) fL RDW Coeff of Brittny (11.5-14.5) % Plt Count (130-400) K/uL MPV (9.4-12.4) fL PT (9.0-12.0) Seconds INR (0.9-1.1) Heparin Anti-Xa, Unfract (0.3-0.7) IU/ml Sodium (136-145) mmol/L Potassium (3.5-5.1) mmol/L Chloride (98-107) mmol/L Carbon Dioxide (21-32) mmol/L Anion Gap (3-11) BUN (6-23) mg/dl Creatinine (0.6-1.2) mg/dl Est Cr Clr Drug Dosing ml/min Est GFR ( Amer) ml/min Est GFR (Non-Af Amer) ml/min BUN/Creatinine Ratio (10-20) Glucose (70-99(Fasting)) mg/dl POC Glucose 122 H 155 H (70-99) mg/dl Calcium (8.6-10.3) mg/dl Urine Color Red Urine Appearance Turbid A (Clear) Urine pH 6.0 (4.5-7.5) Ur Specific [place] 1.009 (1.000-1.030) Urine Protein 2+ H (Negative) Urine Glucose (UA) Negative (Negative) Urine Ketones Negative (Negative) Urine Blood 3+ H (Negative) Urine Nitrite Positive A (Negative) Urine Bilirubin Negative (Negative) Urine Urobilinogen Negative (Negative) Ur Leukocyte Esterase 3+ H (Negative) Urine WBC (Auto) >30 H (0-5) /hpf Urine RBC (Auto) >30 H (0-4) /hpf U Hyaline Cast (Auto) 0 (0-5) /lpf U Epithel Cells (Auto) >30 H (0-5) /lpf Urine Bacteria (Auto) 1+ H (Negative) Urine Yeast Not Reportable 06/24/23 Range/Units 12:11 WBC (4.8-10.8) K/ul RBC (4.20-5.40) M/uL Hgb (12.0-16.0) g/dl Hct (37.0-47.0) % MCV (80.0-100.0) fL MCH (25.0-34.0) pg MCHC (32.0-36.0) g/dL RDW Std Deviation (36.4-46.3) fL RDW Coeff of Brittny (11.5-14.5) % Plt Count (130-400) K/uL MPV (9.4-12.4) fL PT (9.0-12.0) Seconds INR (0.9-1.1) Heparin Anti-Xa, Unfract (0.3-0.7) IU/ml Sodium (136-145) mmol/L Potassium (3.5-5.1) mmol/L Chloride (98-107) mmol/L Carbon Dioxide (21-32) mmol/L Anion Gap (3-11) BUN (6-23) mg/dl Creatinine (0.6-1.2) mg/dl Est Cr Clr Drug Dosing ml/min Est GFR ( Amer) ml/min Est GFR (Non-Af Amer) ml/min BUN/Creatinine Ratio (10-20) Glucose (70-99(Fasting)) mg/dl POC Glucose 101 H (70-99) mg/dl Calcium (8.6-10.3) mg/dl Urine Color Urine Appearance (Clear) Urine pH (4.5-7.5) Ur Specific [place] (1.000-1.030) Urine Protein (Negative) Urine Glucose (UA) (Negative) Urine Ketones (Negative) Urine Blood (Negative) Urine Nitrite (Negative) Urine Bilirubin (Negative) Urine Urobilinogen (Negative) Ur Leukocyte Esterase (Negative) Urine WBC (Auto) (0-5) /hpf Urine RBC (Auto) (0-4) /hpf U Hyaline Cast (Auto) (0-5) /lpf U Epithel Cells (Auto) (0-5) /lpf Urine Bacteria (Auto) (Negative) Urine Yeast
--- NOTE | 2023-06-25 15:36 | Hospitalist Progress Note ---
Date of Service June 25, 2023 Assessment & Plan (1) Acute pain of left lower extremity: Plan Ms. Colin is a 73 year old woman with DMTII, HTN, HLD, hypothyroidism, PAF on Coumadin admitted for evaluation of acute on chronic back patient. Admitted on 06/21. Patient presented with left lower extremity pain, progressive in nature, affecting activities of daily living. 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 Lumbar spine CT with no acute finding, degenerative findings Recent outpatient MRI pelvis with severe osteoarthritis on the left. Hip Xray with chronic fractures noted Ortho: recommends steroid taper and Ortho Spine -No Spine coverage today, will determine response and consider OP v IP Pain management, PT/OT. Bowel regimen. 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 Patient denies any blood in stool or urine. Resume heparin and warfain, goal INR 2-3 #HTN Home: Lisinopril 5mg, lasix daily #Large Ventral Hernia Undergoing medical optimization as OP for possible surgery in 07/2023 #T2DM Ozempic on sundays SSI while admitted #HLD -atorvastatin 20mg HTN, hypothyroidism, atrial fibrillation --- continue with/resume home meds as and when able #Hypothyroidism Continue Synthroid #Chronic Lymphedema Lasix daily at this time, usually TID Resume routine dosing upon discharge #chronic hypoxic respiratory failure, 2L O2 qhs #Nocturnal hypoxia -2L O2 overnight #Morbid obesity BMI 51 Counseled DVT prophylaxis: resumed warfarin DNR/DNI Admission and Anticipated Discharge Date Admission Date: June 21, 2023 Subjective Patient evaluated at bedside She notes that she would like to consider rehab again. She was apprehensive, but it was emphasized that she is a risk at home to her , and she understands that she needs to get stronger to be safe at home She denies any acute concerns at this time otherwise and urinating well without owens in place Physical Exam Constitutional: WD/WN, vitals as above Respiratory: normal respiratory effort, lungs clear to auscultation Cardiovascular: RRR, bilateral legs with chronic lymphedema, dusky skin discoloration chronic Gastrointestinal (Abdomen): normal bowel sounds, soft, nontender, no hepatosplenomegaly Results & Data Results & Data Vital Signs (Past 12 Hours) Vital Signs Temp Pulse Pulse Resp BP Pulse Ox O2 Del Method 06/25/23 11:30 36.2 C L 94 H 14 132/77 96 Room Air 06/25/23 11:23 Room Air 06/25/23 07:40 36.5 C 85 15 140/80 95 Room Air 06/25/23 07:09 72 Laboratory Results Short CBC 06/25/23 Range/Units 06:01 WBC 11.58 H (4.8-10.8) K/ul Hgb 15.2 (12.0-16.0) g/dl Hct 46.2 (37.0-47.0) % Plt Count 272 (130-400) K/uL BMP 06/25/23 06:01 Sodium 137 Potassium 4.2 Chloride 99 Carbon Dioxide 29 BUN 18 Creatinine 0.50 L Glucose 124 H Calcium 9.8 Medications Administered Home Medications Medication Instructions Recorded Confirmed Last Taken acetaminophen 500 mg tablet 1,000 mg PO TID PRN Pain 05/26/19 06/21/23 11/19/21 (Tylenol Extra Strength) atorvastatin 20 mg tablet 20 mg PO QAM 01/16/20 06/21/23 11/19/21 fluoxetine 20 mg capsule 20 mg PO QAM 01/16/20 06/21/23 11/19/21 furosemide 40 mg tablet 40 mg PO QAM 01/16/20 06/21/23 11/19/21 warfarin 2.5 mg tablet 2.5 mg PO UD #100 tabs 01/22/20 06/21/23 11/14/21 warfarin 5 mg tablet 5 mg PO UD #100 tabs 01/22/20 06/21/23 11/14/21 lisinopril 5 mg tablet (Zestril) 5 mg PO QAM 11/14/21 06/21/23 11/19/21 levothyroxine 75 mcg tablet 75 mcg PO DAILYBB 06/21/23 06/21/23 Unknown potassium chloride 10 mEq 10 meq PO QAM 06/21/23 06/21/23 Unknown capsule,extended release semaglutide 1 mg/dose (4 mg/3 mL) 1 mg subcut WK 06/21/23 06/21/23 Unknown subcutaneous pen injector (Ozempic) tramadol 50 mg tablet 50 mg PO Q6H PRN pain,moderate 06/21/23 06/21/23 Unknown Active Medications Generic Name Dose Route Start Last Admin Trade Name Freq PRN Reason Stop Dose Admin Acetaminophen 650 mg 06/21/23 16:54 06/25/23 08:12 Acetaminophen 325 Mg Tab PO 07/21/23 16:53 650 mg Q4H PRN Administration Pain or Fever Atorvastatin Calcium 20 mg 06/22/23 09:00 06/25/23 08:13 Atorvastatin 20 Mg Tab PO 07/22/23 08:59 20 mg QAM LIZZY Administration Fluoxetine HCl 20 mg 06/22/23 09:00 06/25/23 08:13 Fluoxetine Hcl 20 Mg Cap PO 07/22/23 08:59 20 mg QAM LIZZY Administration Furosemide 40 mg 06/22/23 09:00 06/25/23 08:13 Furosemide 40 Mg Tab PO 07/22/23 08:59 40 mg QAM LIZZY Administration Heparin Sodium/Dextrose 25,000 units in 500 mls @ 27 mls/hr 06/22/23 18:15 06/25/23 07:04 Heparin Sodium/Dextrose IV 07/22/23 18:14 1,350 units/hr .[id number] LIZZY 27 mls/hr Titration Protocol 1,350 UNITS/HR Ceftriaxone Sodium 2,000 mg/ 50 mls @ 100 mls/hr 06/25/23 08:00 06/25/23 09:45 Dextrose IV 06/30/23 07:59 Infused Q24H LIZZY Infusion Protocol Insulin Aspart 0 units 06/21/23 21:00 06/25/23 13:08 Insulin Aspart Per Unit Charge SC 07/21/23 20:59 3 units ACHS LIZZY Administration Levothyroxine Sodium 75 mcg 06/22/23 06:30 06/25/23 06:06 Levothyroxine Sodium 75 Mcg Tablet PO 07/22/23 06:29 75 mcg DAILYBB LIZZY Administration Lisinopril 5 mg 06/22/23 09:00 06/25/23 08:13 Lisinopril 5 Mg Tab PO 07/22/23 08:59 5 mg QAM LIZZY Administration Methylprednisolone 4 mg 06/25/23 07:00 06/25/23 13:09 Methylprednisolone 4 Mg Tab PO 06/25/23 21:01 4 mg 0700,1300,1800,2100 LIZZY Administration Oxycodone HCl 5 mg 06/21/23 17:00 06/25/23 08:12 Oxycodone Hcl Ir 5 Mg Tab (Immediate Release) PO 07/05/23 16:59 5 mg Q4H PRN Administration Severe Pain (Scale 7, 8, 9,10) Polyethylene Glycol 17 gm 06/21/23 16:54 06/25/23 08:12 Polyethylene (Miralax) 17 Gm Pack PO 07/21/23 16:53 17 gm DAILY PRN Administration Constipation Potassium Chloride 10 meq 06/22/23 09:00 06/25/23 08:14 Potassium Chloride 10 Meq Tabcr PO 07/22/23 08:59 10 meq QAM LIZZY Administration Warfarin Sodium 5 mg 06/24/23 16:00 06/24/23 16:54 Warfarin Sod 5 Mg Tab PO 07/24/23 15:59 5 mg DAILY@1600 LIZZY Administration
[2023-06-26] MEDS: methylPREDNISolone 4 MG TAB PO SCH (06:07)
[2023-06-26 07:05] LABS: Hemoglobin 14.6 g/dl (12.0-16.0); Mean Corpuscular Hemoglobin 27.8 pg (25.0-34.0); Mean Corpuscular Hgb Conc 31.7 g/dL (32.0-36.0); Mean Corpuscular Volume 87.6 fL (80.0-100.0); Mean Platelet Volume 9.7 fL (9.4-12.4); Platelet Count 245 K/uL (130-400); RDW Coefficient of Variation 13.3 % (11.5-14.5); Red Blood Count 5.25 M/uL (4.20-5.40); White Blood Count 11.05 K/ul (4.8-10.8)
[2023-06-26 07:24] LABS: BUN Creatinine Ratio 37.7 (10-20); Calcium 9.4 mg/dl (8.6-10.3); Creatinine Clr Calc Pharmacy 126.7 ml/min; Est GFR (African American) 109.9 ml/min; Est GFR (Non-African American) 94.9 ml/min; Potassium 4.6 mmol/L (3.5-5.1)
[2023-06-26 07:54] LABS: ANTI-Xa, UFH(UnfractionatedHep 0.48 IU/ml (0.3-0.7); INR 1.4 (0.9-1.1); Prothrombin Time 15.5 Seconds (9.0-12.0)
--- NOTE | 2023-06-26 08:43 | Hospitalist Progress Note ---
Date of Service June 26, 2023 Assessment & Plan (1) Acute pain of left lower extremity: Plan Ms. Colin is a 73 year old woman with DMTII, HTN, HLD, hypothyroidism, PAF on Coumadin admitted for evaluation of acute on chronic back patient. Admitted on 06/21. Patient presented with left lower extremity pain, progressive in nature, affecting activities of daily living. 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 Lumbar spine CT with no acute finding, degenerative findings Recent outpatient MRI pelvis with severe osteoarthritis on the left. Hip Xray with chronic fractures noted Ortho: recommends steroid taper and Ortho Spine -No Spine coverage today, will determine response and consider OP v IP Pain management, PT/OT. Bowel regimen. 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 Patient denies any blood in stool or urine. Resume heparin and warfain, goal INR 2-3 INR 1.4, continue 5mg warfarin at this time #HTN Home: Lisinopril 5mg, lasix daily #Large Ventral Hernia Undergoing medical optimization as OP for possible surgery in 07/2023 #T2DM Ozempic on sundays SSI while admitted #HLD -atorvastatin 20mg HTN, hypothyroidism, atrial fibrillation --- continue with/resume home meds as and when able #Hypothyroidism Continue Synthroid #Chronic Lymphedema Lasix daily at this time, usually TID Resume routine dosing upon discharge #chronic hypoxic respiratory failure, 2L O2 qhs #Nocturnal hypoxia -2L O2 overnight #Morbid obesity BMI 51 Counseled DVT prophylaxis: resumed warfarin DNR/DNI Admission and Anticipated Discharge Date Admission Date: June 21, 2023 Subjective Patient evaluated at bedside Denies any acute concerns. Notes she is ready to get to rehab, but understands the wait Physical Exam Constitutional: WD/WN, vitals as above Respiratory: normal respiratory effort, lungs clear to auscultation Cardiovascular: RRR, no murmur, no edema Gastrointestinal (Abdomen): normal bowel sounds, soft, nontender, no hepatosplenomegaly Results & Data Results & Data Vital Signs (Past 12 Hours) Vital Signs Temp Pulse Pulse Resp BP Pulse Ox O2 Del Method 06/26/23 07:54 36.8 C 75 18 150/81 H 96 Room Air 06/26/23 03:57 36.5 C 87 16 133/72 94 Room Air 06/25/23 23:13 36.5 C 80 18 128/69 95 Room Air 06/25/23 23:03 Room Air 06/25/23 22:04 101 H Laboratory Results Short CBC 06/26/23 Range/Units 06:42 WBC 11.05 H (4.8-10.8) K/ul Hgb 14.6 (12.0-16.0) g/dl Hct 46.0 (37.0-47.0) % Plt Count 245 (130-400) K/uL BMP 06/26/23 06:42 Sodium 136 Potassium 4.6 Chloride 100 Carbon Dioxide 31 BUN 20 Creatinine 0.53 L Glucose 110 H Calcium 9.4 Medications Administered Home Medications Medication Instructions Recorded Confirmed Last Taken acetaminophen 500 mg tablet 1,000 mg PO TID PRN Pain 05/26/19 06/21/23 11/19/21 (Tylenol Extra Strength) atorvastatin 20 mg tablet 20 mg PO QAM 01/16/20 06/21/23 11/19/21 fluoxetine 20 mg capsule 20 mg PO QA 01/16/20 06/21/23 11/19/21 furosemide 40 mg tablet 40 mg PO QAM 01/16/20 06/21/23 11/19/21 warfarin 2.5 mg tablet 2.5 mg PO UD #100 tabs 01/22/20 06/21/23 11/14/21 warfarin 5 mg tablet 5 mg PO UD #100 tabs 01/22/20 06/21/23 11/14/21 lisinopril 5 mg tablet (Zestril) 5 mg PO QAM 07/22/22 02/26/24 07/27/22 levothyroxine 75 mcg tablet 75 mcg PO DAILYBB 06/21/23 06/21/23 Unknown potassium chloride 10 mEq 10 meq PO QAM 06/21/23 06/21/23 Unknown capsule,extended release semaglutide 1 mg/dose (4 mg/3 mL) 1 mg subcut WK 06/21/23 06/21/23 Unknown subcutaneous pen injector (Ozempic) tramadol 50 mg tablet 50 mg PO Q6H PRN pain,moderate 06/21/23 06/21/23 Unknown Active Medications Generic Name Dose Route Start Last Admin Trade Name Freq PRN Reason Stop Dose Admin Acetaminophen 650 mg 06/21/23 16:54 06/26/23 08:02 Acetaminophen 325 Mg Tab PO 07/21/23 16:53 650 mg Q4H PRN Administration Pain or Fever Atorvastatin Calcium 20 mg 06/22/23 09:00 06/26/23 08:03 Atorvastatin 20 Mg Tab PO 07/22/23 08:59 20 mg QAM LIZZY Administration Fluoxetine HCl 20 mg 06/22/23 09:00 06/26/23 08:03 Fluoxetine Hcl 20 Mg Cap PO 07/22/23 08:59 20 mg QAM LIZZY Administration Furosemide 40 mg 06/22/23 09:00 06/26/23 08:03 Furosemide 40 Mg Tab PO 07/22/23 08:59 40 mg QAM LIZZY Administration Heparin Sodium/Dextrose 25,000 units in 500 mls @ 27 mls/hr 06/22/23 18:15 06/26/23 07:09 Heparin Sodium/Dextrose IV 07/22/23 18:14 1,350 units/hr .[id number] LIZZY 27 mls/hr Titration Protocol 1,350 UNITS/HR Ceftriaxone Sodium 2,000 mg/ 50 mls @ 100 mls/hr 06/25/23 08:00 06/26/23 08:04 Dextrose IV 06/30/23 07:59 100 mls/hr Q24H LIZZY Administration Protocol Insulin Aspart 0 units 06/21/23 21:00 06/26/23 08:05 Insulin Aspart Per Unit Charge SC 07/21/23 20:59 Not Given ACHS LIZZY Levothyroxine Sodium 75 mcg 06/22/23 06:30 06/26/23 06:08 Levothyroxine Sodium 75 Mcg Tablet PO 07/22/23 06:29 75 mcg DAILYBB LIZZY Administration Lisinopril 5 mg 06/22/23 09:00 06/26/23 08:03 Lisinopril 5 Mg Tab PO 07/22/23 08:59 5 mg QAM LIZZY Administration Methylprednisolone 4 mg 06/26/23 07:00 06/26/23 06:07 Methylprednisolone 4 Mg Tab PO 06/26/23 21:01 4 mg 0700,1300,2100 LIZZY Administration Oxycodone HCl 5 mg 06/21/23 17:00 06/26/23 08:02 Oxycodone Hcl Ir 5 Mg Tab (Immediate Release) PO 07/05/23 16:59 5 mg Q4H PRN Administration Severe Pain (Scale 7, 8, 9,10) Polyethylene Glycol 17 gm 06/21/23 16:54 06/25/23 08:12 Polyethylene (Miralax) 17 Gm Pack PO 07/21/23 16:53 17 gm DAILY PRN Administration Constipation Potassium Chloride 10 meq 06/22/23 09:00 06/26/23 08:18 Potassium Chloride 10 Meq Tabcr PO 07/22/23 08:59 10 meq QAM LIZZY Administration Warfarin Sodium 5 mg 06/24/23 16:00 06/25/23 16:07 Warfarin Sod 5 Mg Tab PO 07/24/23 15:59 5 mg DAILY@1600 LIZZY Administration
[2023-06-27] MEDS: methylPREDNISolone 4 MG TAB PO SCH (05:46)
[2023-06-27 08:36] LABS: Hematocrit (blood only) 47.5 % (37.0-47.0); Hemoglobin 15.6 g/dl (12.0-16.0); Mean Corpuscular Hemoglobin 28.1 pg (25.0-34.0); Mean Corpuscular Hgb Conc 32.8 g/dL (32.0-36.0); Mean Corpuscular Volume 85.6 fL (80.0-100.0); Mean Platelet Volume 9.5 fL (9.4-12.4); Platelet Count 282 K/uL (130-400); RDW Coefficient of Variation 13.3 % (11.5-14.5); Red Blood Count 5.55 M/uL (4.20-5.40); White Blood Count 11.77 K/ul (4.8-10.8)
[2023-06-27 08:50] LABS: BUN Creatinine Ratio 38.9 (10-20); Calcium 9.6 mg/dl (8.6-10.3); Creatinine Clr Calc Pharmacy 124.3 ml/min; Est GFR (African American) 109.3 ml/min; Est GFR (Non-African American) 94.3 ml/min; Potassium 4.2 mmol/L (3.5-5.1)
[2023-06-27 09:00] LABS: ANTI-Xa, UFH(UnfractionatedHep 0.66 IU/ml (0.3-0.7); INR 1.6 (0.9-1.1); Prothrombin Time 17.1 Seconds (9.0-12.0)
[2023-06-27] MEDS ORDERED: bisacodyL 10 MG SUPP PR PRN (09:04)
[2023-06-27] MEDS: MAGNESIUM HYDROXIDE SUSP 30 ML UDC PO PRN (09:18)
[2023-06-27] MEDS: bisacodyL 5 MG TABEC PO ONE (09:18)
--- NOTE | 2023-06-27 13:17 | Hospitalist Progress Note ---
Date of Service June 27, 2023 Assessment & Plan (1) Acute pain of left lower extremity: Plan Ms. Colin is a 73 year old woman with DMTII, HTN, HLD, hypothyroidism, PAF on Coumadin admitted for evaluation of acute on chronic back patient. Admitted on 06/21. Patient presented with left lower extremity pain, progressive in nature, affecting activities of daily living. 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 Lumbar spine CT with no acute finding, degenerative findings Recent outpatient MRI pelvis with severe osteoarthritis on the left. Hip Xray with chronic fractures noted Ortho: recommends steroid taper and Ortho Spine -No Spine coverage today, will determine response and consider OP v IP Pain management, PT/OT. Bowel regimen. 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 Patient denies any blood in stool or urine. Resume heparin and warfain, goal INR 2-3 INR 1.6, continue 5mg warfarin at this time #HTN Home: Lisinopril 5mg, lasix daily #Large Ventral Hernia Undergoing medical optimization as OP for possible surgery in 07/2023 #T2DM Ozempic on sundays SSI while admitted #HLD -atorvastatin 20mg HTN, hypothyroidism, atrial fibrillation --- continue with/resume home meds as and when able #Hypothyroidism Continue Synthroid #Chronic Lymphedema Lasix daily at this time, usually TID Resume routine dosing upon discharge #chronic hypoxic respiratory failure, 2L O2 qhs #Nocturnal hypoxia -2L O2 overnight #Morbid obesity BMI 51 Counseled DVT prophylaxis: resumed warfarin DNR/DNI Patient pending discharge to rehab Admission and Anticipated Discharge Date Admission Date: June 21, 2023 Subjective Patient evaluated at bedside Reports feeling better day by day, but ready to go to rehab. Moving more to bedside commode Denies chest pain, urinary symptoms or other acute concerns Physical Exam Constitutional: WD/WN, vitals as above Respiratory: normal respiratory effort, lungs clear to auscultation Cardiovascular: RRR< bilateral lower extremity edema, nonpitting, dusky discoloration stable Gastrointestinal (Abdomen): normal bowel sounds, soft, nontender, no hepatosplenomegaly Results & Data Results & Data Vital Signs (Past 12 Hours) Vital Signs Temp Pulse Resp BP Pulse Ox O2 Del Method 06/27/23 12:02 36.6 C 84 18 103/65 96 Room Air 06/27/23 08:21 Room Air 06/27/23 07:45 36.4 C L 88 18 126/74 93 Room Air 06/27/23 03:00 36.7 C 73 19 122/75 96 Room Air Laboratory Results Short CBC 06/27/23 Range/Units 08:16 WBC 11.77 H (4.8-10.8) K/ul Hgb 15.6 (12.0-16.0) g/dl Hct 47.5 H (37.0-47.0) % Plt Count 282 (130-400) K/uL BMP 06/27/23 08:16 Sodium 135 L Potassium 4.2 Chloride 97 L Carbon Dioxide 32 BUN 21 Creatinine 0.54 L Glucose 106 H Calcium 9.6 Medications Administered Home Medications Medication Instructions Recorded Confirmed Last Taken acetaminophen 500 mg tablet 1,000 mg PO TID PRN Pain 05/26/19 06/21/23 11/19/21 (Tylenol Extra Strength) atorvastatin 20 mg tablet 20 mg PO QAM 01/16/20 06/21/23 11/19/21 fluoxetine 20 mg capsule 20 mg PO QAM 01/16/20 06/21/23 11/19/21 furosemide 40 mg tablet 40 mg PO QAM 01/16/20 06/21/23 11/19/21 warfarin 2.5 mg tablet 2.5 mg PO UD #100 tabs 01/22/20 06/21/23 11/14/21 warfarin 5 mg tablet 5 mg PO UD #100 tabs 01/22/20 06/21/23 11/14/21 lisinopril 5 mg tablet (Zestril) 5 mg PO QAM 11/14/21 06/21/23 11/19/21 levothyroxine 75 mcg tablet 75 mcg PO DAILYBB 06/21/23 06/21/23 Unknown potassium chloride 10 mEq 10 meq PO QAM 06/21/23 06/21/23 Unknown capsule,extended release semaglutide 1 mg/dose (4 mg/3 mL) 1 mg subcut WK 06/21/23 06/21/23 Unknown subcutaneous pen injector (Ozempic) tramadol 50 mg tablet 50 mg PO Q6H PRN pain,moderate 06/21/23 06/21/23 Unknown Active Medications Generic Name Dose Route Start Last Admin Trade Name Freq PRN Reason Stop Dose Admin Acetaminophen 650 mg 06/21/23 16:54 06/27/23 07:33 Acetaminophen 325 Mg Tab PO 07/21/23 16:53 650 mg Q4H PRN Administration Pain or Fever Atorvastatin Calcium 20 mg 06/22/23 09:00 06/27/23 07:34 Atorvastatin 20 Mg Tab PO 07/22/23 08:59 20 mg QAM LIZZY Administration Fluoxetine HCl 20 mg 06/22/23 09:00 06/27/23 07:34 Fluoxetine Hcl 20 Mg Cap PO 07/22/23 08:59 20 mg QAM LIZZY Administration Furosemide 40 mg 06/22/23 09:00 06/27/23 07:34 Furosemide 40 Mg Tab PO 07/22/23 08:59 40 mg QAM LIZZY Administration Heparin Sodium/Dextrose 25,000 units in 500 mls @ 27 mls/hr 06/22/23 18:15 06/27/23 06:55 Heparin Sodium/Dextrose IV 07/22/23 18:14 1,350 units/hr .[id number] LIZZY 27 mls/hr Titration Protocol 1,350 UNITS/HR Ceftriaxone Sodium 2,000 mg/ 50 mls @ 100 mls/hr 06/25/23 08:00 06/27/23 08:25 Dextrose IV 06/30/23 07:59 Infused Q24H [facility] Infusion Protocol Insulin Aspart 0 units 06/21/23 21:00 06/27/23 12:35 Insulin Aspart Per Unit Charge SC 07/21/23 20:59 Not Given ACHS LIZZY Levothyroxine Sodium 75 mcg 06/22/23 06:30 06/27/23 05:46 Levothyroxine Sodium 75 Mcg Tablet PO 07/22/23 06:29 75 mcg DAILYBB LIZZY Administration Lisinopril 5 mg 06/22/23 09:00 06/27/23 07:33 Lisinopril 5 Mg Tab PO 07/22/23 08:59 5 mg QAM LIZZY Administration Magnesium Hydroxide 30 ml 06/21/23 16:54 06/27/23 09:38 Magnesium Hydroxide Susp 30 Ml Udc PO 07/21/23 16:53 30 ml Q12H PRN Administration Constipation Methylprednisolone 4 mg 06/27/23 07:00 06/27/23 05:46 Methylprednisolone 4 Mg Tab PO 06/27/23 21:01 4 mg 0700,2100 LIZZY Administration Oxycodone HCl 5 mg 06/21/23 17:00 06/27/23 07:33 Oxycodone Hcl Ir 5 Mg Tab (Immediate Release) PO 07/05/23 16:59 5 mg Q4H PRN Administration Severe Pain (Scale 7, 8, 9,10) Polyethylene Glycol 17 gm 06/21/23 16:54 06/25/23 08:12 Polyethylene (Miralax) 17 Gm Pack PO 07/21/23 16:53 17 gm DAILY PRN Administration Constipation Potassium Chloride 10 meq 06/22/23 09:00 06/27/23 07:34 Potassium Chloride 10 Meq Tabcr PO 07/22/23 08:59 10 meq QAM LIZZY Administration Warfarin Sodium 5 mg 06/24/23 16:00 06/26/23 16:35 Warfarin Sod 5 Mg Tab PO 07/24/23 15:59 5 mg DAILY@1600 LIZZY Administration
[2023-06-28] MEDS: methylPREDNISolone 4 MG TAB PO SCH (05:15)
[2023-06-28 09:30] LABS: ANTI-Xa, UFH(UnfractionatedHep 0.66 IU/ml (0.3-0.7); INR 1.9 (0.9-1.1); Prothrombin Time 20.3 Seconds (9.0-12.0)
[2023-06-28] MEDS ORDERED: Nursing to Pharmacy Communication SCH (11:00)
--- NOTE | 2023-06-28 14:05 | Hospitalist Progress Note ---
Date of Service June 28, 2023 Assessment & Plan (1) Acute pain of left lower extremity: Plan Ms. Colin is a 73 year old woman with DMTII, HTN, HLD, hypothyroidism, PAF on Coumadin admitted for evaluation of acute on chronic back patient. Admitted on 06/21. Patient presented with left lower extremity pain, progressive in nature, affecting activities of daily living. 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 Lumbar spine CT with no acute finding, degenerative findings Recent outpatient MRI pelvis with severe osteoarthritis on the left. Hip Xray with chronic fractures noted Ortho: recommends steroid taper and Ortho Spine -No Spine coverage today, will determine response and consider OP v IP Pain management, PT/OT. Bowel regimen. 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 Patient denies any blood in stool or urine. Discontinue heparin goal INR 2-3 INR 1.9, continue 5mg warfarin at this time #HTN Home: Lisinopril 5mg, lasix daily #Large Ventral Hernia Undergoing medical optimization as OP for possible surgery in 07/2023 #T2DM Ozempic on sundays SSI while admitted #HLD -atorvastatin 20mg HTN, hypothyroidism, atrial fibrillation --- continue with/resume home meds as and when able #Hypothyroidism Continue Synthroid #Chronic Lymphedema Lasix daily at this time, usually TID Resume routine dosing upon discharge #chronic hypoxic respiratory failure, 2L O2 qhs #Nocturnal hypoxia -2L O2 overnight #Morbid obesity BMI 51 Counseled DVT prophylaxis: resumed warfarin DNR/DNI Patient pending discharge to rehab Admission and Anticipated Discharge Date Admission Date: June 21, 2023 Subjective Patient evaluated at bedside No acute concerns at this time, awaiting placement Physical Exam Constitutional: WD/WN, vitals as above Respiratory: normal respiratory effort, lungs clear to auscultation Cardiovascular: RRR, no murmur, no edema Results & Data Results & Data Vital Signs (Past 12 Hours) Vital Signs Temp Pulse Pulse Resp BP Pulse Ox O2 Del Method 06/28/23 11:54 36.7 C 89 18 101/63 95 Room Air 06/28/23 07:59 36.5 C 93 H 18 116/72 97 Room Air 06/28/23 07:00 70 Medications Administered Home Medications Medication Instructions Recorded Confirmed Last Taken acetaminophen 500 mg tablet 1,000 mg PO TID PRN Pain 05/26/19 06/21/23 11/19/21 (Tylenol Extra Strength) atorvastatin 20 mg tablet 20 mg PO QAM 01/16/20 06/21/23 11/19/21 fluoxetine 20 mg capsule 20 mg PO QAM 01/16/20 06/21/23 11/19/21 furosemide 40 mg tablet 40 mg PO QAM 01/16/20 06/21/23 11/19/21 warfarin 2.5 mg tablet 2.5 mg PO UD #100 tabs 01/22/20 06/21/23 11/14/21 warfarin 5 mg tablet 5 mg PO UD #100 tabs 01/22/20 06/21/23 11/14/21 lisinopril 5 mg tablet (Zestril) 5 mg PO QAM 11/14/21 06/21/23 11/19/21 levothyroxine 75 mcg tablet 75 mcg PO DAILYBB 06/21/23 06/21/23 Unknown potassium chloride 10 mEq 10 meq PO QAM 06/21/23 06/21/23 Unknown capsule,extended release semaglutide 1 mg/dose (4 mg/3 mL) 1 mg subcut WK 06/21/23 06/21/23 Unknown subcutaneous pen injector (Ozempic) tramadol 50 mg tablet 50 mg PO Q6H PRN pain,moderate 06/21/23 06/21/23 Unknown Active Medications Generic Name Dose Route Start Last Admin Trade Name Freq PRN Reason Stop Dose Admin Acetaminophen 650 mg 06/21/23 16:54 06/28/23 05:15 Acetaminophen 325 Mg Tab PO 07/21/23 16:53 650 mg Q4H PRN Administration Pain or Fever Atorvastatin Calcium 20 mg 06/22/23 09:00 06/28/23 08:17 Atorvastatin 20 Mg Tab PO 07/22/23 08:59 20 mg QAM LIZZY Administration Fluoxetine HCl 20 mg 06/22/23 09:00 06/28/23 08:17 Fluoxetine Hcl 20 Mg Cap PO 07/22/23 08:59 20 mg QAM LIZZY Administration Furosemide 40 mg 06/22/23 09:00 06/28/23 08:17 Furosemide 40 Mg Tab PO 07/22/23 08:59 40 mg QAM LIZZY Administration Ceftriaxone Sodium 2,000 mg/ 50 mls @ 100 mls/hr 06/25/23 08:00 06/28/23 08:20 Dextrose IV 06/30/23 07:59 0 mls/hr Q24H LIZZY Infusion Protocol Insulin Aspart 0 units 06/21/23 21:00 06/28/23 12:16 Insulin Aspart Per Unit Charge SC 07/21/23 20:59 Not Given ACHS LIZZY Levothyroxine Sodium 75 mcg 06/22/23 06:30 06/28/23 05:15 Levothyroxine Sodium 75 Mcg Tablet PO 07/22/23 06:29 75 mcg DAILYBB LIZZY Administration Lisinopril 5 mg 06/22/23 09:00 06/28/23 08:17 Lisinopril 5 Mg Tab PO 07/22/23 08:59 5 mg QAM LIZZY Administration Magnesium Hydroxide 30 ml 06/21/23 16:54 06/27/23 09:38 Magnesium Hydroxide Susp 30 Ml Udc PO 07/21/23 16:53 30 ml Q12H PRN Administration Constipation Oxycodone HCl 5 mg 06/21/23 17:00 06/28/23 11:36 Oxycodone Hcl Ir 5 Mg Tab (Immediate Release) PO 07/05/23 16:59 5 mg Q4H PRN Administration Severe Pain (Scale 7, 8, 9,10) Polyethylene Glycol 17 gm 06/21/23 16:54 06/25/23 08:12 Polyethylene (Miralax) 17 Gm Pack PO 07/21/23 16:53 17 gm DAILY PRN Administration Constipation Potassium Chloride 10 meq 06/22/23 09:00 06/28/23 08:19 Potassium Chloride 10 Meq Tabcr PO 07/22/23 08:59 10 meq QAM LIZZY Administration Warfarin Sodium 5 mg 06/24/23 16:00 06/27/23 16:43 Warfarin Sod 5 Mg Tab PO 07/24/23 15:59 5 mg DAILY@1600 LIZZY Administration
[2023-06-29 08:17] LABS: ANTI-Xa, UFH(UnfractionatedHep < 0.10 IU/ml (0.3-0.7); Prothrombin Time 21.2 Seconds (9.0-12.0)
--- NOTE | 2023-06-29 15:22 | Hospitalist Progress Note ---
Date of Service June 29, 2023 Assessment & Plan (1) Acute pain of left lower extremity: Plan Ms. Colin is a 73 year old woman with DMTII, HTN, HLD, hypothyroidism, PAF on Coumadin admitted for evaluation of acute on chronic back patient. Admitted on 06/21. Patient presented with left lower extremity pain, progressive in nature, affecting activities of daily living. 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 Lumbar spine CT with no acute finding, degenerative findings Recent outpatient MRI pelvis with severe osteoarthritis on the left. Hip Xray with chronic fractures noted Ortho: recommends steroid taper and Ortho Spine -Ortho spine consult placed Pain management, PT/OT. Bowel regimen. 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 Patient denies any blood in stool or urine. Discontinue heparin goal INR 2-3 INR 2, continue 5mg warfarin at this time #HTN Home: Lisinopril 5mg, lasix daily #Large Ventral Hernia Undergoing medical optimization as OP for possible surgery in 07/2023 #T2DM Ozempic on sundays SSI while admitted #HLD -atorvastatin 20mg HTN, hypothyroidism, atrial fibrillation --- continue with/resume home meds as and when able #Hypothyroidism Continue Synthroid #Chronic Lymphedema Lasix daily at this time, usually TID--increase as tolerated Resume routine dosing upon discharge #chronic hypoxic respiratory failure, 2L O2 qhs #Nocturnal hypoxia -2L O2 overnight #Morbid obesity BMI 51 Counseled DVT prophylaxis: resumed warfarin DNR/DNI Patient pending discharge to rehab Admission and Anticipated Discharge Date Admission Date: June 21, 2023 Subjective Patient evaluated at bedside No acute concerns at this time, awaiting placement--bed likely not available until Physical Exam Constitutional: WD/WN, vitals as above Respiratory: normal respiratory effort, lungs clear to auscultation Cardiovascular: RRR, stable edema in lower extremites Results & Data Results & Data Vital Signs (Past 12 Hours) Vital Signs Temp Pulse Pulse Resp BP BP Pulse Ox 06/29/23 14:59 37.0 C 91 H 18 101/63 94 06/29/23 11:29 06/29/23 10:53 36.7 C 80 18 114/60 94 06/29/23 08:15 36.5 C 84 18 119/72 96 06/29/23 07:00 68 06/29/23 04:10 36.6 C 81 18 100/68 95 O2 Del Method 06/29/23 14:59 Room Air 06/29/23 11:29 Room Air 06/29/23 10:53 Room Air 06/29/23 08:15 Room Air 06/29/23 07:00 06/29/23 04:10 Room Air Laboratory Results INR reviewed 2.0
[2023-06-29] MEDS: GABAPENTIN 100 MG CAP PO SCH (21:15)
[2023-06-30 06:35] LABS: Hematocrit (blood only) 45.6 % (37.0-47.0); Hemoglobin 15.4 g/dl (12.0-16.0); Mean Corpuscular Hemoglobin 28.9 pg (25.0-34.0); Mean Corpuscular Hgb Conc 33.8 g/dL (32.0-36.0); Mean Corpuscular Volume 85.6 fL (80.0-100.0); Mean Platelet Volume 9.9 fL (9.4-12.4); Platelet Count 256 K/uL (130-400); RDW Coefficient of Variation 13.6 % (11.5-14.5); RDW Standard Deviation 42.1 fL (36.4-46.3); Red Blood Count 5.33 M/uL (4.20-5.40); White Blood Count 12.42 K/ul (4.8-10.8)
[2023-06-30 06:51] LABS: BUN Creatinine Ratio 47.2 (10-20); Calcium 9.4 mg/dl (8.6-10.3); Creatinine Clr Calc Pharmacy 126.7 ml/min; Est GFR (African American) 109.9 ml/min; Est GFR (Non-African American) 94.9 ml/min; Potassium 4.4 mmol/L (3.5-5.1)
[2023-06-30 06:59] LABS: INR 2.1 (0.9-1.1); Prothrombin Time 21.5 Seconds (9.0-12.0)
--- NOTE | 2023-06-30 19:17 | Hospitalist Progress Note ---
Date of Service June 30, 2023 Assessment & Plan (1) Acute pain of left lower extremity: Plan Ms. Colin is a 73 year old woman with DMTII, HTN, HLD, hypothyroidism, PAF on Coumadin admitted for evaluation of acute on chronic back patient. Admitted on 06/21. Patient presented with left lower extremity pain, progressive in nature, affecting activities of daily living. 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 Lumbar spine CT with no acute finding, degenerative findings Recent outpatient MRI pelvis with severe osteoarthritis on the left. Hip Xray with chronic fractures noted Ortho: recommends steroid taper and Ortho Spine -Ortho spine consult placed Pain management, PT/OT. Bowel regimen. 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 Patient denies any blood in stool or urine. Discontinue heparin goal INR 2-3 INR 2, continue 5mg warfarin at this time #HTN Home: Lisinopril 5mg, lasix daily #Large Ventral Hernia Undergoing medical optimization as OP for possible surgery in 07/2023 #T2DM Ozempic on sundays SSI while admitted #HLD -atorvastatin 20mg HTN, hypothyroidism, atrial fibrillation --- continue with/resume home meds as and when able #Hypothyroidism Continue Synthroid #Chronic Lymphedema Lasix daily at this time, usually TID--increase as tolerated Resume routine dosing upon discharge #chronic hypoxic respiratory failure, 2L O2 qhs #Nocturnal hypoxia -2L O2 overnight #Morbid obesity BMI 51 Counseled DVT prophylaxis: resumed warfarin DNR/DNI Patient pending discharge to rehab Admission and Anticipated Discharge Date Admission Date: June 21, 2023 Results & Data Results & Data Vital Signs (Past 12 Hours) Vital Signs Temp Pulse Pulse Resp BP BP Pulse Ox 06/30/23 15:00 36.6 C 87 18 125/78 94 06/30/23 12:17 36.7 C 88 18 137/68 96 06/30/23 10:00 36.7 C 90 18 112/71 96 O2 Del Method 06/30/23 15:00 Room Air 06/30/23 12:17 Room Air 06/30/23 10:00 Room Air
--- NOTE | 2023-07-01 19:08 | Hospitalist Progress Note ---
Date of Service July 01, 2023 Assessment & Plan (1) Acute pain of left lower extremity: Plan per previous hospitalist notes with addendum: Ms. Colin is a 73 year old woman with DMTII, HTN, HLD, hypothyroidism, PAF on Coumadin admitted for evaluation of acute on chronic back patient. Admitted on 06/21. Patient presented with left lower extremity pain, progressive in nature, affecting activities of daily living. 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 Lumbar spine CT with no acute finding, degenerative findings Recent outpatient MRI pelvis with severe osteoarthritis on the left. Hip Xray with chronic fractures noted Ortho: recommends steroid taper and Ortho Spine -Ortho spine consult placed Pain management, PT/OT. Bowel regimen. 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 Patient denies any blood in stool or urine. Discontinue heparin goal INR 2-3 INR 2, continue 5mg warfarin at this time 06/30 continue coumadin #HTN Home: Lisinopril 5mg, lasix daily #Large Ventral Hernia Undergoing medical optimization as OP for possible surgery in 07/2023 #T2DM Ozempic on sundays SSI while admitted #HLD -atorvastatin 20mg HTN, hypothyroidism, atrial fibrillation --- continue with/resume home meds as and when able #Hypothyroidism Continue Synthroid #Chronic Lymphedema Lasix 40mg po daily Resume routine dosing upon discharge #chronic hypoxic respiratory failure, 2L O2 qhs #Nocturnal hypoxia -2L O2 overnight #Morbid obesity BMI 51 Counseled DVT prophylaxis: coumadin DNR/DNI Admission and Anticipated Discharge Date Admission Date: June 21, 2023 Subjective ff up for low back pain etc seen resting in chair, comfortable in good spirits states she feels fine overall low back pain adequately controlled no chest pain, dyspnea, palpitations, dizziness Review of Systems Review of Systems: all noted and negative except for above Physical Exam Physical Exam: General- oriented x 3, not in distress, speaks in sentences with no effort or accessory muscle use Eyes- anicteric Neck- no JVD Lungs- clear breath sounds bilaterally no rales/wheezing Heart- normal rate, regular rhythm; no murmurs Abdomen- normal bowel sounds, nondistended, soft, no tenderness Extremities-mild pretibial edema, no calf tenderness no erythema/warmth/tenderness Neuro- alert, oriented x 3; no gross focal neurologic deficits Skin- warm & dry Results & Data Results & Data Vital Signs (Past 12 Hours) Vital Signs Temp Pulse Resp BP Pulse Ox O2 Del Method 07/01/23 14:53 36.6 C 87 20 124/77 96 Room Air 07/01/23 07:14 36.4 C L 72 20 104/61 97 Room Air all noted and reviewed including below
[2023-07-01] MEDS: traMADol HCL 50 MG TABLET PO PRN (21:09)
[2023-07-02 07:42] LABS: INR 2.2 (0.9-1.1)
--- NOTE | 2023-07-02 11:45 | Discharge Summary ---
Discharge Summary Date of Service July 02, 2023 Notes For Next Care Provider Medication Changes From Visit Gabapentin PRN Oxycodone Admission HPI Per Admitting Provider 73-year-old female with PMH of T2DM on Ozempic, chronic hypoxemic respiratory failure, HLD, acquired hypothyroidism, HTN, atrial fibrillation on Coumadin, morbid obesity, lymphedema presented to the ED 06/21 with complaint of progressive BLE pain. Left more than right per patient. Per patient, she had her pain in the left lower back radiating down all the way to left ankle and it has been affecting her activities of daily living including sleep, ambulation [ambulates at baseline with walker], and using restroom. Patient does report progressive worsening since last 1 week. She denies any fever or numbness or tingling sensation or fall or trauma. She denies any chills or cough or chest pain or palpitation or abdominal pain. Patient reports her appetite has been so-and-so lately but no acute changes in her bowel or bladder habit. Patient denies use of tobacco/alcohol/recreational drugs Medications reviewed with the patient. She reports she takes 7.5 mg warfarin daily. DNR/DNI per my discussion with the patient. Admission Exam Per Admitting Provider GENERAL: Alert and oriented x3. NAD, on RA. Obese class III. HEENT: No pallor, no icterus. Pupils equal, round and reactive to light. Oral mucosa moist. NECK: No JVD, no neck masses. HEART: S1 and S2 heard. Regular rate and rhythm. No murmur, no gallop. RESPIRATORY SYSTEM: Normal AP diameter. No accessory muscle use. No wheezing, no crackles. ABDOMEN: Soft, bowel sounds present, nontender, + distention/obese. Abdominal hernia noted CENTRAL NERVOUS SYSTEM: No facial droop. Speech is clear. Obeys simple commands. Moves extremities. EXTREMITIES: BLE lymphedema and chronic skin changes noted. Bilateral hip tender but no signs of infection or trauma. Principal Dx & Hospital Course #1 = Principal Diagnosis (1) Acute pain of left lower extremity: Plan per previous hospitalist notes with addendum: Ms. Colin is a 73 year old woman with DMTII, HTN, HLD, hypothyroidism, PAF on Coumadin admitted for evaluation of acute on chronic back patient. Admitted on 06/21. Patient presented with left lower extremity pain, progressive in nature, affecting activities of daily living. 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 Lumbar spine CT with no acute finding, degenerative findings Recent outpatient MRI pelvis with severe osteoarthritis on the left. Hip Xray with chronic fractures noted Ortho: recommends steroid taper and Ortho Spine -Ortho spine consult placed Pain management, PT/OT. Bowel regimen. 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 Patient denies any blood in stool or urine. Discontinue heparin goal INR 2-3 INR 2, continue 5mg warfarin at this time 07/01 continue coumadin monitor INR #HTN Home: Lisinopril 5mg, lasix daily #Large Ventral Hernia Undergoing medical optimization as OP for possible surgery in 07/2023 #T2DM Ozempic on sundays SSI while admitted #HLD -atorvastatin 20mg #Hypothyroidism Continue Synthroid #Chronic Lymphedema Lasix 40mg po daily Resume routine dosing upon discharge #chronic hypoxic respiratory failure, 2L O2 qhs #Nocturnal hypoxia -2L O2 overnight #Morbid obesity BMI 51 Counseled DVT prophylaxis: coumadin DNR/DNI Discharge Exam General- oriented x 3, not in distress, speaks in sentences with no effort or accessory muscle use Eyes- anicteric Neck- no JVD Lungs- clear breath sounds bilaterally no rales/wheezing Heart- normal rate, regular rhythm; no murmurs Abdomen- normal bowel sounds, nondistended, soft, no tenderness Extremities-mild pretibial edema, no calf tenderness no erythema/warmth/tenderness Neuro- alert, oriented x 3; no gross focal neurologic deficits Skin- warm & dry Updated Medication List Medication Instructions Recorded Confirmed Type acetaminophen 500 mg tablet 1,000 mg PO TID PRN Pain 05/26/19 06/21/23 History (Tylenol Extra Strength) atorvastatin 20 mg tablet 20 mg PO QAM 01/16/20 06/21/23 History fluoxetine 20 mg capsule 20 mg PO QAM 01/16/20 06/21/23 History furosemide 40 mg tablet 40 mg PO QAM 01/16/20 06/21/23 History warfarin 2.5 mg tablet 2.5 mg PO UD #100 tabs 01/22/20 06/21/23 Rx warfarin 5 mg tablet 5 mg PO UD #100 tabs 01/22/20 06/21/23 Rx lisinopril 5 mg tablet (Zestril) 5 mg PO QAM 11/14/21 06/21/23 History levothyroxine 75 mcg tablet 75 mcg PO DAILYBB 06/21/23 06/21/23 History potassium chloride 10 mEq 10 meq PO QAM 06/21/23 06/21/23 History capsule,extended release semaglutide 1 mg/dose (4 mg/3 mL) 1 mg subcut WK 06/21/23 06/21/23 History subcutaneous pen injector (Ozempic) gabapentin 100 mg capsule 100 mg PO TID 21 days #63 caps 07/02/23 Rx oxycodone 5 mg tablet 5 mg PO Q4H PRN severe pain #20 07/02/23 Rx tabs polyethylene glycol 3350 17 gram 17 g PO DAILY PRN constipation #15 07/02/23 Rx oral powder packet (Miralax) ea tramadol 50 mg tablet 50 mg PO Q6H PRN pain,moderate #20 07/02/23 Rx tabs Hospital Stay Data Consultations 06/21/23 16:08 ED Decision to Admit Stat 06/22/23 11:14 Consult Orthopedic Surgery Routine 06/24/23 08:54 Consult Urology Routine 06/29/23 15:24 Consult Orthopedic Spine Surgery Routine Diagnostic Imagining Performed Laboratory Results WBC 12.42 K/ul (4.8-10.8) H 06/30/23 06:07 RBC 5.33 M/uL (4.20-5.40) 06/30/23 06:07 Hgb 15.4 g/dl (12.0-16.0) 06/30/23 06:07 Hct 45.6 % (37.0-47.0) 06/30/23 06:07 MCV 85.6 fL (80.0-100.0) 06/30/23 06:07 MCH 28.9 pg (25.0-34.0) 06/30/23 06:07 MCHC 33.8 g/dL (32.0-36.0) 06/30/23 06:07 RDW Std Deviation 42.1 fL (36.4-46.3) 06/30/23 06:07 RDW Coeff of Brittny 13.6 % (11.5-14.5) 06/30/23 06:07 Plt Count 256 K/uL (130-400) 06/30/23 06:07 MPV 9.9 fL (9.4-12.4) 06/30/23 06:07 Immature Gran % (Auto) 0.6 % 06/22/23 18:31 Neut % (Auto) 77.7 % 06/22/23 18:31 Lymph % (Auto) 13.8 % 06/22/23 18:31 [place] % (Auto) 6.9 % 06/22/23 18:31 Eos % (Auto) 0.4 % 06/22/23 18:31 Baso % (Auto) 0.6 % 06/22/23 18:31 Neut # (Auto) 10.98 K/uL (1.40-6.50) H 06/22/23 18:31 Lymph # (Auto) 1.95 K/uL (1.20-3.40) 06/22/23 18:31 [place] # (Auto) 0.97 K/uL (0.11-0.59) H 06/22/23 18:31 Eos # (Auto) 0.05 K/uL (0.00-0.50) 06/22/23 18:31 Baso # (Auto) 0.08 K/uL (0.00-0.20) 06/22/23 18:31 Immature Gran # (Auto) 0.09 K/uL (0.01-0.20) 06/22/23 18:31 PT 23.0 Seconds (9.0-12.0) H 07/02/23 06:31 INR 2.2 (0.9-1.1) H 07/02/23 06:31 APTT 31 Seconds (21-31) 06/22/23 18:31 PTT Ratio 1.1 06/22/23 18:31 Heparin Anti-Xa, LM Wt Cancelled 06/23/23 18:30 Heparin Anti-Xa, Unfract < 0.10 IU/ml (0.3-0.7) L 06/29/23 07:00 Sodium 134 mmol/L (136-145) L 06/30/23 06:07 Potassium 4.4 mmol/L (3.5-5.1) 06/30/23 06:07 Chloride 99 mmol/L (98-107) 06/30/23 06:07 Carbon Dioxide 29 mmol/L (21-32) 06/30/23 06:07 Anion Gap 6 (3-11) 06/30/23 06:07 BUN 25 mg/dl (6-23) H 06/30/23 06:07 Creatinine 0.53 mg/dl (0.6-1.2) L 06/30/23 06:07 Est Cr Clr Drug Dosing 126.7 ml/min 06/30/23 06:07 Est GFR ( Amer) 109.9 ml/min 06/30/23 06:07 Est GFR (Non-Af Amer) 94.9 ml/min 06/30/23 06:07 BUN/Creatinine Ratio 47.2 (10-20) H 06/30/23 06:07 Glucose 99 mg/dl (70-99(Fasting)) 06/30/23 06:07 POC Glucose 88 mg/dl (70-99) 07/02/23 08:04 Calcium 9.4 mg/dl (8.6-10.3) 06/30/23 06:07 Phosphorus 3.1 mg/dl (2.5-4.9) 06/24/23 04:19 Magnesium 1.9 mg/dl (1.7-2.4) 06/24/23 04:19 Total Bilirubin 0.6 mg/dl (0.2-1.0) 06/21/23 13:15 AST 14 U/L (13-39) 06/21/23 13:15 ALT 9 U/L (7-52) 06/21/23 13:15 Alkaline Phosphatase 83 U/L (34-104) 06/21/23 13:15 Troponin I High Sens 6.4 pg/ml (0-14) 06/21/23 13:15 Total Protein 7.4 gm/dl (6.0-8.3) 06/21/23 13:15 Albumin 4.0 gm/dl (3.4-5.0) 06/21/23 13:15 Globulin 3.4 gm/dl (2.5-4.0) 06/21/23 13:15 Albumin/Globulin Ratio 1.2 (0.9-2) 06/21/23 13:15 Procalcitonin < 0.02 ng/ml (0-0.5) 06/24/23 04:19 TSH 2.643 uIu/ml (0.300-4.500) 06/21/23 13:15 Urine Color Red 06/24/23 13:00 Urine Appearance Turbid (Clear) A 06/24/23 13:00 Urine pH 6.0 (4.5-7.5) 06/24/23 13:00 Ur Specific [place] 1.009 (1.000-1.030) 06/24/23 13:00 Urine Protein 2+ (Negative) H 06/24/23 13:00 Urine Glucose (UA) Negative (Negative) 06/24/23 13:00 Urine Ketones Negative (Negative) 06/24/23 13:00 Urine Blood 3+ (Negative) H 06/24/23 13:00 Urine Nitrite Positive (Negative) A 06/24/23 13:00 Urine Bilirubin Negative (Negative) 06/24/23 13:00 Urine Urobilinogen Negative (Negative) 06/24/23 13:00 Ur Leukocyte Esterase 3+ (Negative) H 06/24/23 13:00 Urine WBC (Auto) >30 /hpf (0-5) H 06/24/23 13:00 Urine RBC (Auto) >30 /hpf (0-4) H 06/24/23 13:00 U Hyaline Cast (Auto) 0 /lpf (0-5) 06/24/23 13:00 U Epithel Cells (Auto) >30 /lpf (0-5) H 06/24/23 13:00 Urine Bacteria (Auto) 1+ (Negative) H 06/24/23 13:00 Urine Yeast Not Reportable 06/24/23 13:00 Impressions Chest X-Ray 06/21/23 12:57 XR chest 1V not portable CLINICAL HISTORY: Chest pain, nonspecific TECHNIQUE: Single frontal radiograph of the chest was obtained. Comparison: Comparison is made to chest radiograph 11/20/2021 FINDINGS: Exam is limited by underpenetration. Cardiomegaly is noted. The lungs are clear. No evidence of pleural effusion or pneumothorax. IMPRESSION: No acute chest disease. ACT 112: Negative or not required by law. Electronically signed by: Otis Callaway M.D. 06/21/2023 2:07 PM Abdomen/Pelvis CT 06/21/23 14:05 CT abd pelvis wo con CLINICAL HISTORY: flank pain TECHNIQUE: Helical axial images of the abdomen and pelvis were obtained. Automated dose lowering techniques and/or adjustment according to patient size were utilized for this exam. This exam was performed without intravenous contrast. CT DOSE: 1644.89 mGy.cm COMPARISON: Comparison is made to CT abdomen pelvis 01/16/2020 FINDINGS: Lower chest: Cardiomegaly is partially visualized. Liver: Unremarkable. No focal lesions are seen. Gallbladder and biliary tree: Patient is status post cholecystectomy. No intra- or extrahepatic biliary ductal dilation. Pancreas: Unremarkable, no focal lesions. Spleen: Unremarkable. Adrenals: 27 mm left adrenal nodule is again seen. Kidneys and ureters: Nonobstructive nephrolithiasis is seen. Bladder: Unremarkable. Reproductive organs: Unremarkable. Bowel: Diverticulosis is seen without diverticulitis. The appendix is normal. A hiatal hernia is seen. Lymph nodes Retroperitoneal: Unremarkable. Pelvic: Unremarkable. Mesenteric: Unremarkable. Peritoneum: Normal. Vessels: Atherosclerotic calcifications are seen. Abdominal wall: Umbilical hernia contains nondilated loops of bowel. Bones: Degenerative changes in the visualized spine. Orthopedic hardware is seen in the left hip. IMPRESSION: No acute abnormality and in particular no evidence of hydronephrosis/hydroureter. Nonobstructive stones are seen. ACT 112: Negative or not required by law. Electronically signed by: Otis Callaway M.D. 06/21/2023 2:[address] 06/21/23 17:11 CT lumbar spine wo con CLINICAL HISTORY: LLE radicular pain TECHNIQUE: Multidetector row helical CT of the lumbar spine was performed without administration of intravenous contrast. Coronal and sagittal reformations were obtained. Automated dose lowering techniques and/or adjustment according to patient size were utilized for this exam. Comparison: Comparison is made to CT abdomen pelvis 06/21/2023 FINDINGS: For counting purposes, the last complete intervertebral disc space is considered L5-S1. No acute fractures are identified. Degenerative changes are noted in the visualized spine. Orthopedic hardware is seen on the left. Vertebral body alignment is within normal limits. Surrounding soft tissues are unremarkable. IMPRESSION: Degenerative changes without evidence of acute bony injury. ACT 112: Negative or not required by law. Electronically signed by: Otis Callaway M.D. 06/21/2023 6:04 PM Hip/Pelvis X-Ray 06/23/23 10:00 SINGLE VIEW PELVIS; 2 VIEWS LEFT HIP CLINICAL HISTORY: Left hip pain. FINDINGS: An AP view of the pelvis with AP and frog leg views of the left hip are compared to study dated 04/07/2009 [address] correlated with pelvic CT scans dated 06/21/2023 and 01/16/2020. The skeletal structures are osteopenic. No acute fracture is seen. There is a chronic/healed impacted subcapital fracture of the left proximal femur which is unchanged from the 2019 CT scan. There is chronic posttraumatic deformity of the left ilium/acetabular with [address]. Moderate to advanced osteoarthritic change and joint space narrowing seen in both hips, left greater than right. Lumbosacral spondylosis is partially imaged. Degenerative sclerosis is noted in the sacroiliac joints. A catheter projects over the pelvis. IMPRESSION: 1. No acute fracture is seen. 2. Chronic fractures of the left acetabulum and left proximal femur as above. Electronically signed by: Reyes Aldridge M.D. 06/23/2023 9:23 AM Pending Results Patient Have Any Pending Studies at Discharge: No Discharge Instructions Given to Patient (Per Discharging Provider) please refer to accompanying hospital discharge summary. Total Time Total Time Spent Total Time Spent (In Minutes): >30 minutes
== END 2023-07-02 16:01 | DRG 552 ==
LOC: ED 12:48 → EDINP 16:54 → SUATTDRO 16:54 → 2W 19:34 → 3N 06-30 15:03

== ENCOUNTER 2023-10-19 13:57 | Inpatient (IN) ==
--- NOTE | 2023-10-19 14:18 | Emergency Department Note ---
Impression & Plan Generalized weakness, Sepsis, Acute UTI (urinary tract infection) ED Provider Note ED Provider Note NAME: YISSEL VENEGAS AGE:73 SEX: Female : 1950 ARRIVES VIA: EMS INFORMANT: Patient ED PROVIDER(s): Esthela Duarte DO CHIEF COMPLAINT: Weakness, fever, unable to walk HPI: This is a 73-year-old female who presents emergency department via EMS due to concern for increasing weakness, inability to walk, and fevers. Family present at bedside states she has been dealing with a large hernia that she is scheduled to see a general surgeon as well as plastic surgeon for [facility] in [place] in November. She states that has fluid collections and has previously been biopsied. Family states due to the pain she has had difficulty moving and so sits most of the day. He states she has become increasingly weak and even with assistance is unable to get to her potty chair. Patient states she has increased pain and swelling in this area that keeps her up through the night as well. She has had difficulty with hygiene. PAST MEDICAL HISTORY:See Below PAST SURGICAL HISTORY:See Below FAMILY HISTORY:See Below SOCIAL HISTORY:See Below HOME MEDICATIONS:See Below ALLERGIES:See Below VITALS:See Below PHYSICAL EXAMINATION: GENERAL: alert, well appearing, well nourished, no distress, non-toxic, BMI 44 EYE EXAM: normal conjunctiva, PERRL and EOM's grossly intact OROPHARYNX: no exudate, no erythema, lips, buccal mucosa, and tongue normal and mucous membranes are moist NECK: supple, no nuchal rigidity, no adenopathy, non-tender LUNGS: Clear to auscultation. Normal chest wall mechanics, no w/r/r HEART: no murmurs, S1 normal and S2 normal ABDOMEN: abdomen soft, normo-active bowel sounds, no rebound or guarding, large protruding area inferiorly into the patient's perineum and what appears to involve the labia, b/l inguinal folds with excoriative and erythematous appearance of likely fungal infection but possible concurrent cellulitis BACK: Back is symmetrical on inspection and there is no deformity, no midline tenderness, no CVA tenderness. No sacral decubitus ulcer. SKIN: no rashes, petechiae, orbruising UPPER EXTREMITIES: upper extremities are grossly normal. FROM, nml pulses b/l. LOWER EXTREMITIES: No pitting edema. FROM, nml pulses b/l. NEURO EXAM: Normal sensorium, cranial nerves II-XII grossly intact, normal speech, no facial droop,nogross weakness of arms, no gross weakness of legs. Gross sensation intact. No ataxia. Vital Signs: reviewed and remarkable Differential Diagnosis: dehydration, anemia, hypoglycemia, hyponatremia, hypernatremia, urinary tract infection, pneumonia, bronchitis, sepsis, gastroenteritis, additional abdominal pathology, metabolic abnormalities, as well as others were considered MEDICAL DECISION MAKING: This is a 73-year-old female who presents emergency department due to concern for worsening weakness and pain. Patient tachycardic on arrival however otherwise hemodynamically stable. Labs drawn and sent, IV established, EKG and chest ray performed bedside interpreted by me and patient monitor on telemetry. Due to tachycardia, accompanying tachypnea which I suspect is secondary to pain and difficulty getting into a comfortable position as well as reported fever from family at home, cultures, procalcitonin, lactic acid also obtained for possible sepsis evaluation. Patient noted to have significant leukocytosis. She was started on vancomycin and cefepime. Urine obtained and sent additionally and does appear infected. Patient also with what I suspect were initially fungal infections which may have concurrent cellulitis in bilateral inguinal folds. Patient sent for CT of the abdomen pelvis due to hernia and protuberant mass noted to the labial and perineal region. Patient given cautious IV fluids due to history of congestive heart failure. She was initially given a 500 mL NSS bolus however once this was stopped her blood pressure did trend back down. She was then given another 500 mL bolus and blood pressure quickly improved however after this stop she trended back down again. She was given a third and then slowed to maintenance so as to not contribute any worsening CHF. She did ultimately receive 30 mill/KG on the emergency department. Heart rate improved with volume repletion and pain control. Patient does have a history of A-fib and is anticoagulated. She was noted to be supratherapeutic. Mild hyperglycemia noted, no evidence of DKA. Case discussed with the hospitalist team for additional evaluation and management. Consultation(s): 1834: Discussed with Cherelle Baez hospitalist team, for additional evaluation and management. ER Treatment Provided: See below Diagnostics Interpreted By Me: -ECG: Atrial fibrillation rate of 143, normal axis, normal QRS and QTc, nonspecific ST/T wave changes, PVC noted -Cardiac Monitoring: An order was placed for continuous cardiac monitoring. The monitor shows a rate of 104 with atrial fibrillation rhythm. -Laboratory studies: As stated above and show below. -Imaging studies: X-ray Chest: A single view study of the chest was reviewed and was negative for focal infiltrate, effusion, pulmonary edema, or wide mediastinum. Cardiomegaly noted. Triage Nursing Note Reviewed Prior/Outside Records Reviewed -prior discharge summary reviewed Critical Care: Critical care of 43 min performed to assess and manage high likelihood of life- threatening sepsis, involving labs and imaging performed with assessment to evaluate sepsis diagnosis with frequent reassessment. This time includes bedside time, treatment discussions with patient/family/consultants, documentation time and excludes procedure time. Past Med/Surg History Problem List (Updated 10/19/23 @ 23:05 by Stef Messer) History of pulmonary embolus (PE) Hypothyroidism Diabetes mellitus, type II Supratherapeutic INR Atrial flutter with rapid ventricular response Atrial fibrillation and flutter Adrenal nodule Hypomagnesemia Wound of sacral region Cellulitis Acute UTI (urinary tract infection) (Acute) Sepsis (Acute) Generalized weakness (Acute) Gross hematuria Hip pain (Acute) Acute pain of left lower extremity Encounter for pre-operative examination Hypoxia (Acute) Severe sepsis Acute respiratory failure with hypoxia Bilateral pulmonary embolism Acute respiratory acidosis Lactic acidosis (Acute) Elevated troponin (Acute) Rectal bleeding resolved Shock (Acute) resolved Diverticulosis Chronic respiratory failure with hypoxia and hypercapnia approx 2 yrs ago Hyperglycemia Morbid obesity due to excess calories Right heart failure no specialist Acute massive pulmonary embolism (Acute) Dec 2019 > Warfarin > unknown cause Depression Lymphedema bilat legs in wraps at present, treated by wound center at [place]. Gets changed every wednesday Morbid obesity (Acute) HLD (hyperlipidemia) HTN (hypertension) Medical History Diverticular disease [place] (obstructive sleep apnea) pt unsure if Bipap or cpap Surgical History History of colonoscopy History of carpal tunnel surgery bilat History of cholecystectomy History of hip surgery from fracture to left hip > has alot of pain Family History Mother Cancer melanoma AMD (age related macular degeneration) Father Hypertension Denies family history of Diabetes Stroke Social History Smoking Status: Never smoker Second Hand Exposure: No; Do You Dip or Chew Tobacco: No; Tobacco Cessation Education Requested by Patient: No Hx Alcohol Use: No Hx Substance Use: No Preferred Language: Montserratian Communication Ability: Effective 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: No Beliefs That Will Affect Care: None marital status: Current Living Situation: Spouse How many Children do You have: 2 Other Information That Helps Us Care for You: No Feels Safe at Home: Yes Safety Concerns: Feels Safe At This Time Assistive Devices: Lift Chair, Walker and Wheelchair Allergies Allergies Allergy/AdvReac Type Severity Reaction Status Date / Time ciprofloxacin AdvReac Intermediate makes Verified 06/21/23 16:14 mouth feel funny metronidazole AdvReac Intermediate makes Verified 11/20/21 09:31 mouth feel funny Home Meds Home Medications Medication Instructions Recorded Confirmed acetaminophen 500 mg tablet 1,000 mg PO TID PRN Pain 05/26/19 10/19/23 (Tylenol Extra Strength) atorvastatin 20 mg tablet 20 mg PO QAM 01/16/20 10/19/23 fluoxetine 20 mg capsule 20 mg PO QAM 01/16/20 10/19/23 furosemide 40 mg tablet 40 mg PO QAM 01/16/20 10/19/23 lisinopril 5 mg tablet (Zestril) 5 mg PO QAM 11/14/21 10/19/23 levothyroxine 75 mcg tablet 75 mcg PO DAILYBB 06/21/23 10/19/23 potassium chloride 10 mEq 10 meq PO QAM 06/21/23 10/19/23 capsule,extended release semaglutide 1 mg/dose (4 mg/3 mL) 1 mg subcut WK 06/21/23 10/19/23 subcutaneous pen injector (Ozempic) gabapentin 100 mg capsule 200 mg PO TID 10/19/23 10/19/23 warfarin 5 mg tablet 5 mg PO QPM 10/19/23 10/19/23 Previous Rx's Medication Instructions Recorded polyethylene glycol 3350 17 gram 17 g PO DAILY PRN constipation #15 07/02/23 oral powder packet (Miralax) ea tramadol 50 mg tablet 50 mg PO Q6H PRN pain,moderate #20 07/02/23 tabs Results & Data (ED) Vital Signs Vital Signs - 24 hr 10/19/23 14:22 10/19/23 14:30 10/19/23 14:30 Temperature Temperature Source Pulse Rate Pulse Rate from SpO2 Sensor Pulse Rhythm Respiratory Rate Blood Pressure 119/62 127/66 127/66 Blood Pressure Mean 93 78 78 Blood Pressure Position Pulse Oximetry Oxygen Delivery Method Sepsis Recent Fever Within 48 Hours Sepsis New/Unexplained Change in Mental Status Sepsis Action Taken by Nursing 10/19/23 14:30 10/19/23 14:30 10/19/23 14:31 Temperature Temperature Source Pulse Rate 125 H Pulse Rate from SpO2 Sensor Pulse Rhythm Respiratory Rate Blood Pressure 127/66 127/66 Blood Pressure Mean 78 78 Blood Pressure Position Pulse Oximetry Oxygen Delivery Method Sepsis Recent Fever Within 48 Hours Sepsis New/Unexplained Change in Mental Status Sepsis Action Taken by Nursing 10/19/23 14:36 10/19/23 14:36 10/19/23 14:36 Temperature 37.8 C H Temperature Source Oral Pulse Rate 135 H Pulse Rate from SpO2 Sensor Pulse Rhythm Irregular Respiratory Rate 26 H 26 H Blood Pressure 115/68 Blood Pressure Mean 83 Blood Pressure Position Sitting Pulse Oximetry 95 95 Oxygen Delivery Method Room Air Room Air Sepsis Recent Fever Within 48 Hours Yes Sepsis New/Unexplained Change in Mental Status Yes Sepsis Action Taken by Nursing Physician Notified 10/19/23 14:45 10/19/23 15:03 10/19/23 15:24 Temperature Temperature Source Pulse Rate 125 H 116 H 126 H Pulse Rate from SpO2 Sensor Pulse Rhythm Respiratory Rate 17 15 21 Blood Pressure Blood Pressure Mean Blood Pressure Position Pulse Oximetry Oxygen Delivery Method Sepsis Recent Fever Within 48 Hours Sepsis New/Unexplained Change in Mental Status Sepsis Action Taken by Nursing 10/19/23 15:30 10/19/23 15:30 10/19/23 15:30 Temperature Temperature Source Pulse Rate Pulse Rate from SpO2 Sensor Pulse Rhythm Respiratory Rate Blood Pressure 96/73 L 96/73 L 96/73 L Blood Pressure Mean 87 87 87 Blood Pressure Position Pulse Oximetry Oxygen Delivery Method Sepsis Recent Fever Within 48 Hours Sepsis New/Unexplained Change in Mental Status Sepsis Action Taken by Nursing 10/19/23 15:30 10/19/23 15:30 10/19/23 15:30 Temperature Temperature Source Pulse Rate Pulse Rate from SpO2 Sensor Pulse Rhythm Respiratory Rate Blood Pressure 96/73 L 96/73 L 96/73 L Blood Pressure Mean 87 87 87 Blood Pressure Position Pulse Oximetry Oxygen Delivery Method Sepsis Recent Fever Within 48 Hours Sepsis New/Unexplained Change in Mental Status Sepsis Action Taken by Nursing 10/19/23 15:36 10/19/23 16:00 10/19/23 16:00 Temperature Temperature Source Pulse Rate 145 H Pulse Rate from SpO2 Sensor Pulse Rhythm Respiratory Rate 29 H Blood Pressure 103/56 L 103/56 L Blood Pressure Mean 79 79 Blood Pressure Position Pulse Oximetry Oxygen Delivery Method Sepsis Recent Fever Within 48 Hours Sepsis New/Unexplained Change in Mental Status Sepsis Action Taken by Nursing 10/19/23 16:00 10/19/23 16:00 10/19/23 16:12 Temperature Temperature Source Pulse Rate 132 H 118 H Pulse Rate from SpO2 Sensor Pulse Rhythm Respiratory Rate 42 H 21 Blood Pressure 103/56 L Blood Pressure Mean 79 Blood Pressure Position Pulse Oximetry Oxygen Delivery Method Sepsis Recent Fever Within 48 Hours Sepsis New/Unexplained Change in Mental Status Sepsis Action Taken by Nursing 10/19/23 16:31 10/19/23 16:31 10/19/23 16:36 Temperature Temperature Source Pulse Rate 113 H Pulse Rate from SpO2 Sensor Pulse Rhythm Respiratory Rate 25 H Blood Pressure 85/66 L 85/66 L Blood Pressure Mean 72 72 Blood Pressure Position Pulse Oximetry Oxygen Delivery Method Sepsis Recent Fever Within 48 Hours Sepsis New/Unexplained Change in Mental Status Sepsis Action Taken by Nursing 10/19/23 16:48 10/19/23 16:49 10/19/23 16:49 Temperature Temperature Source Pulse Rate 119 H Pulse Rate from SpO2 Sensor Pulse Rhythm Respiratory Rate 17 Blood Pressure 91/52 L 91/52 L Blood Pressure Mean 58 58 Blood Pressure Position Pulse Oximetry Oxygen Delivery Method Sepsis Recent Fever Within 48 Hours Sepsis New/Unexplained Change in Mental Status Sepsis Action Taken by Nursing 10/19/23 16:49 10/19/23 16:51 10/19/23 17:00 Temperature Temperature Source Pulse Rate 136 H 118 H Pulse Rate from SpO2 Sensor Pulse Rhythm Respiratory Rate 25 H 25 H Blood Pressure 91/52 L Blood Pressure Mean 58 Blood Pressure Position Pulse Oximetry Oxygen Delivery Method Sepsis Recent Fever Within 48 Hours Sepsis New/Unexplained Change in Mental Status Sepsis Action Taken by Nursing 10/19/23 17:01 10/19/23 17:01 10/19/23 17:01 Temperature Temperature Source Pulse Rate Pulse Rate from SpO2 Sensor Pulse Rhythm Respiratory Rate Blood Pressure 116/59 L 116/59 L 116/59 L Blood Pressure Mean 84 84 84 Blood Pressure Position Pulse Oximetry Oxygen Delivery Method Sepsis Recent Fever Within 48 Hours Sepsis New/Unexplained Change in Mental Status Sepsis Action Taken by Nursing 10/19/23 17:01 10/19/23 17:01 10/19/23 17:01 Temperature Temperature Source Pulse Rate Pulse Rate from SpO2 Sensor Pulse Rhythm Respiratory Rate Blood Pressure 116/59 L 116/59 L 116/59 L Blood Pressure Mean 84 84 84 Blood Pressure Position Pulse Oximetry Oxygen Delivery Method Sepsis Recent Fever Within 48 Hours Sepsis New/Unexplained Change in Mental Status Sepsis Action Taken by Nursing 10/19/23 17:15 10/19/23 17:15 10/19/23 17:15 Temperature Temperature Source Pulse Rate 109 H Pulse Rate from SpO2 Sensor Pulse Rhythm Respiratory Rate 19 Blood Pressure 100/66 100/66 Blood Pressure Mean 81 81 Blood Pressure Position Pulse Oximetry Oxygen Delivery Method Sepsis Recent Fever Within 48 Hours Sepsis New/Unexplained Change in Mental Status Sepsis Action Taken by Nursing 10/19/23 17:15 10/19/23 17:15 10/19/23 17:15 Temperature Temperature Source Pulse Rate Pulse Rate from SpO2 Sensor Pulse Rhythm Respiratory Rate Blood Pressure 100/66 100/66 100/66 Blood Pressure Mean 81 81 81 Blood Pressure Position Pulse Oximetry Oxygen Delivery Method Sepsis Recent Fever Within 48 Hours Sepsis New/Unexplained Change in Mental Status Sepsis Action Taken by Nursing 10/19/23 17:15 10/19/23 17:15 10/19/23 17:15 Temperature Temperature Source Pulse Rate Pulse Rate from SpO2 Sensor Pulse Rhythm Respiratory Rate Blood Pressure 100/66 100/66 100/66 Blood Pressure Mean 81 81 81 Blood Pressure Position Pulse Oximetry Oxygen Delivery Method Sepsis Recent Fever Within 48 Hours Sepsis New/Unexplained Change in Mental Status Sepsis Action Taken by Nursing 10/19/23 17:30 10/19/23 17:30 10/19/23 17:30 Temperature Temperature Source Pulse Rate Pulse Rate from SpO2 Sensor Pulse Rhythm Respiratory Rate Blood Pressure 116/67 116/67 116/67 Blood Pressure Mean 82 82 82 Blood Pressure Position Pulse Oximetry Oxygen Delivery Method Sepsis Recent Fever Within 48 Hours Sepsis New/Unexplained Change in Mental Status Sepsis Action Taken by Nursing 10/19/23 17:30 10/19/23 17:30 10/19/23 17:30 Temperature Temperature Source Pulse Rate 105 H Pulse Rate from SpO2 Sensor Pulse Rhythm Respiratory Rate 32 H Blood Pressure 116/67 116/67 Blood Pressure Mean 82 82 Blood Pressure Position Pulse Oximetry Oxygen Delivery Method Sepsis Recent Fever Within 48 Hours Sepsis New/Unexplained Change in Mental Status Sepsis Action Taken by Nursing 10/19/23 17:45 10/19/23 17:45 10/19/23 17:45 Temperature Temperature Source Pulse Rate Pulse Rate from SpO2 Sensor Pulse Rhythm Respiratory Rate Blood Pressure 97/61 L 97/61 L 97/61 L Blood Pressure Mean 72 72 72 Blood Pressure Position Pulse Oximetry Oxygen Delivery Method Sepsis Recent Fever Within 48 Hours Sepsis New/Unexplained Change in Mental Status Sepsis Action Taken by Nursing 10/19/23 17:45 10/19/23 17:45 10/19/23 18:09 Temperature Temperature Source Pulse Rate 112 H 108 H Pulse Rate from SpO2 Sensor 103 H Pulse Rhythm Respiratory Rate 31 H 19 Blood Pressure 97/61 L Blood Pressure Mean 72 Blood Pressure Position Pulse Oximetry 94 Oxygen Delivery Method Sepsis Recent Fever Within 48 Hours Sepsis New/Unexplained Change in Mental Status Sepsis Action Taken by Nursing 10/19/23 18:16 10/19/23 18:16 10/19/23 18:16 Temperature Temperature Source Pulse Rate Pulse Rate from SpO2 Sensor Pulse Rhythm Respiratory Rate Blood Pressure 116/66 116/66 116/66 Blood Pressure Mean 75 75 75 Blood Pressure Position Pulse Oximetry Oxygen Delivery Method Sepsis Recent Fever Within 48 Hours Sepsis New/Unexplained Change in Mental Status Sepsis Action Taken by Nursing 10/19/23 18:30 10/19/23 18:30 10/19/23 18:30 Temperature Temperature Source Pulse Rate 102 H Pulse Rate from SpO2 Sensor Pulse Rhythm Respiratory Rate 18 Blood Pressure 131/77 131/77 131/77 Blood Pressure Mean 101 101 101 Blood Pressure Position Pulse Oximetry 98 Oxygen Delivery Method Sepsis Recent Fever Within 48 Hours Sepsis New/Unexplained Change in Mental Status Sepsis Action Taken by Nursing 10/19/23 18:30 10/19/23 18:35 10/19/23 19:03 Temperature 36.8 C Temperature Source Oral Pulse Rate 97 H 99 H Pulse Rate from SpO2 Sensor 106 H 97 H Pulse Rhythm Respiratory Rate 25 H 24 Blood Pressure 134/80 Blood Pressure Mean 98 Blood Pressure Position Pulse Oximetry 96 98 Oxygen Delivery Method Room Air Sepsis Recent Fever Within 48 Hours Sepsis New/Unexplained Change in Mental Status Sepsis Action Taken by Nursing Laboratory Data 10/21/23 05:37 10/21/23 05:37 Lab Results 10/19/23 10/19/23 10/19/23 Range/Units 14:30 14:52 16:58 WBC 24.09 H (4.8-10.8) K/ul RBC 4.31 (4.20-5.40) M/uL Hgb 12.3 (12.0-16.0) g/dl Hct 37.8 (37.0-47.0) % MCV 87.7 (80.0-100.0) fL MCH 28.5 (25.0-34.0) pg MCHC 32.5 (32.0-36.0) g/dL RDW Std Deviation 41.1 (36.4-46.3) fL RDW Coeff of Brittny 12.7 (11.5-14.5) % Plt Count 346 (130-400) K/uL MPV 9.4 (9.4-12.4) fL Immature Gran % (Auto) 0.7 % Neut % (Auto) 89.8 % Lymph % (Auto) 2.9 % [place] % (Auto) 6.3 % Eos % (Auto) 0.0 % Baso % (Auto) 0.3 % Neut # (Auto) 21.61 H (1.40-6.50) K/uL Lymph # (Auto) 0.70 L (1.20-3.40) K/uL [place] # (Auto) 1.52 H (0.11-0.59) K/uL Eos # (Auto) 0.01 (0.00-0.50) K/uL Baso # (Auto) 0.07 (0.00-0.20) K/uL Immature Gran # (Auto) 0.18 (0.01-0.20) K/uL PT 60.3 H (9.0-12.0) Seconds INR 6.6 H* (0.9-1.1) VBG pH 7.43 H (7.36-7.41) VBG pCO2 42 (38-50) mmHg VBG pO2 20 mmHg VBG HCO3 28 mmol/L VBG O2 Saturation < 60.0 % VBG Base Excess 3.2 mEq/L Sodium 134 L (136-145) mmol/L Potassium 3.7 (3.5-5.1) mmol/L Chloride 99 (98-107) mmol/L Carbon Dioxide 26 (21-32) mmol/L Anion Gap 9 (3-11) BUN 7 (6-23) mg/dl Creatinine 0.48 L (0.6-1.2) mg/dl Est Cr Clr Drug Dosing 137.8 ml/min Est GFR ( Amer) 113.6 ml/min Est GFR (Non-Af Amer) 98.0 ml/min BUN/Creatinine Ratio 14.6 (10-20) Glucose 151 H (70-99(Fasting)) mg/dl Lactate 2.9 H* (0.4-2.0) mmol/L Calcium 8.7 (8.6-10.3) mg/dl Magnesium 1.4 L (1.7-2.4) mg/dl Total Bilirubin 0.8 (0.2-1.0) mg/dl Direct Bilirubin 0.3 H (0-0.2) mg/dl AST 14 (13-39) U/L ALT 11 (7-52) U/L Alkaline Phosphatase 114 H (34-104) U/L Troponin I High Sens 12.7 (0-14) pg/ml Total Protein 6.4 (6.0-8.3) gm/dl Albumin 3.0 L (3.4-5.0) gm/dl Procalcitonin 0.10 (0-0.5) ng/ml TSH (0.300-4.500) uIu/ml Urine Color Dark Yellow Urine Appearance Cloudy A (Clear) Urine pH 5.5 (4.5-7.5) Ur Specific [place] 1.029 (1.000-1.030) Urine Protein 1+ H (Negative) Urine Glucose (UA) Negative (Negative) Urine Ketones Trace H (Negative) Urine Blood 1+ H (Negative) Urine Nitrite Positive A (Negative) Urine Bilirubin 1+ H (Negative) Urine Urobilinogen Negative (Negative) Ur Leukocyte Esterase 1+ H (Negative) Urine WBC (Auto) 11-20 H (0-5) /hpf Urine RBC (Auto) 0-2 (0-2) /hpf U Hyaline Cast (Auto) 3-5 H (0-2) /lpf U Epithel Cells (Auto) 0-2 (0-2) /hpf Urine Bacteria (Auto) 4+ H (None Seen) Urine Mucus Present A (None Prsent) 10/19/23 10/19/23 Range/Units 17:44 17:45 WBC (4.8-10.8) K/ul RBC (4.20-5.40) M/uL Hgb (12.0-16.0) g/dl Hct (37.0-47.0) % MCV (80.0-100.0) fL MCH (25.0-34.0) pg MCHC (32.0-36.0) g/dL RDW Std Deviation (36.4-46.3) fL RDW Coeff of Brittny (11.5-14.5) % Plt Count (130-400) K/uL MPV (9.4-12.4) fL Immature Gran % (Auto) % Neut % (Auto) % Lymph % (Auto) % [place] % (Auto) % Eos % (Auto) % Baso % (Auto) % Neut # (Auto) (1.40-6.50) K/uL Lymph # (Auto) (1.20-3.40) K/uL [place] # (Auto) (0.11-0.59) K/uL Eos # (Auto) (0.00-0.50) K/uL Baso # (Auto) (0.00-0.20) K/uL Immature Gran # (Auto) (0.01-0.20) K/uL PT (9.0-12.0) Seconds INR (0.9-1.1) VBG pH (7.36-7.41) VBG pCO2 (38-50) mmHg VBG pO2 mmHg VBG HCO3 mmol/L VBG O2 Saturation % VBG Base Excess mEq/L Sodium (136-145) mmol/L Potassium (3.5-5.1) mmol/L Chloride (98-107) mmol/L Carbon Dioxide (21-32) mmol/L Anion Gap (3-11) BUN (6-23) mg/dl Creatinine (0.6-1.2) mg/dl Est Cr Clr Drug Dosing ml/min Est GFR ( Amer) ml/min Est GFR (Non-Af Amer) ml/min BUN/Creatinine Ratio (10-20) Glucose (70-99(Fasting)) mg/dl Lactate 2.1 H* (0.4-2.0) mmol/L Calcium (8.6-10.3) mg/dl Magnesium (1.7-2.4) mg/dl Total Bilirubin (0.2-1.0) mg/dl Direct Bilirubin (0-0.2) mg/dl AST (13-39) U/L ALT (7-52) U/L Alkaline Phosphatase (34-104) U/L Troponin I High Sens (0-14) pg/ml Total Protein (6.0-8.3) gm/dl Albumin (3.4-5.0) gm/dl Procalcitonin (0-0.5) ng/ml TSH 1.628 (0.300-4.500) uIu/ml Urine Color Urine Appearance (Clear) Urine pH (4.5-7.5) Ur Specific [place] (1.000-1.030) Urine Protein (Negative) Urine Glucose (UA) (Negative) Urine Ketones (Negative) Urine Blood (Negative) Urine Nitrite (Negative) Urine Bilirubin (Negative) Urine Urobilinogen (Negative) Ur Leukocyte Esterase (Negative) Urine WBC (Auto) (0-5) /hpf Urine RBC (Auto) (0-2) /hpf U Hyaline Cast (Auto) (0-2) /lpf U Epithel Cells (Auto) (0-2) /hpf Urine Bacteria (Auto) (None Seen) Urine Mucus (None Prsent) Administered Medications Acetaminophen (Acetaminophen 325 Mg Tab) 650 mg PO Q4H PRN PRN Reason: Pain or Fever Stop: 11/18/23 23:13 Last Admin: 10/20/23 21:20 Dose: 650 mg Documented By: AMADO Atorvastatin Calcium (Atorvastatin 20 Mg Tab) 20 mg PO [facility] Stop: 11/19/23 08:59 Last Admin: 10/21/23 08:38 Dose: 20 mg Documented By: Admin: 10/20/23 08:02 Dose: 20 mg Documented By: EZEKIEL Fluoxetine HCl (Fluoxetine Hcl 20 Mg Cap) 20 mg PO [facility] Stop: 11/19/23 08:59 Last Admin: 10/21/23 08:38 Dose: 20 mg Documented By: Admin: 10/20/23 08:02 Dose: 20 mg Documented By: EZEKIEL Gabapentin (Gabapentin 100 Mg Cap) 200 mg PO TID [facility] Stop: 11/18/23 23:13 Last Admin: 10/21/23 13:37 Dose: 200 mg Documented By: Admin: 10/21/23 08:38 Dose: 200 mg Documented By: Admin: 10/20/23 21:14 Dose: 200 mg Documented By: Admin: 10/20/23 13:02 Dose: 200 mg Documented By: Admin: 10/20/23 08:02 Dose: 200 mg Documented By: Admin: 10/20/23 00:07 Dose: 200 mg Documented By: MG Cefepime HCl 2,000 mg/ Syringe 20 mls @ 5 mls/min IV Q8H [facility]; Protocol Stop: 10/22/23 00:00 Last Admin: 10/21/23 08:41 Dose: 5 mls/min Documented By: Admin: 10/21/23 00:02 Dose: 5 mls/min Documented By: Admin: 10/20/23 16:25 Dose: 5 mls/min Documented By: Admin: 10/20/23 08:02 Dose: 5 mls/min Documented By: Admin: 10/20/23 00:08 Dose: 5 mls/min Documented By: MG Doxycycline Hyclate 100 mg/ (Dextrose) 100 mls @ 50 mls/hr IV Q12H [facility] Stop: 10/28/23 11:59 Last Infusion: 10/21/23 15:04 Dose: Infused Documented By: Admin: 10/21/23 12:46 Dose: 50 mls/hr Documented By: CIARA Insulin Aspart (Insulin Aspart Per Unit Charge) 0 units SC ACHS [facility] Stop: 11/18/23 23:13 Last Admin: 10/21/23 12:55 Dose: Not Given Documented By: Admin: 10/21/23 08:41 Dose: 4 units Documented By: CIARA Co-signed By: SONALI Admin: 10/20/23 21:15 Dose: Not Given Documented By: Admin: 10/20/23 17:55 Dose: Not Given Documented By: Admin: 10/20/23 12:41 Dose: Not Given Documented By: Admin: 10/20/23 08:35 Dose: Not Given Documented By: Admin: 10/20/23 00:07 Dose: Not Given Documented By: MG Lactobacillus Acidophilus (Advanced Probiotic 625 Mg Capsule) 1,250 mg PO DAILY [facility] Stop: 11/20/23 12:44 Last Admin: 10/21/23 13:37 Dose: 1,250 mg Documented By: HM Levothyroxine Sodium (Levothyroxine Sodium 75 Mcg Tablet) 75 mcg PO DAILYBB [facility] Stop: 11/19/23 06:29 Last Admin: 10/21/23 06:25 Dose: 75 mcg Documented By: Admin: 10/20/23 05:50 Dose: 75 mcg Documented By: MG Miconazole Nitrate (Miconazole Nitrate Powder 85 Gm) 1 appln EXT PRN PRN PRN Reason: Affected Skin Folds Stop: 11/18/23 23:33 Last Admin: 10/20/23 00:08 Dose: 1 appln Documented By: MG Tramadol HCl (Tramadol Hcl 50 Mg Tablet) 50 mg PO Q6H PRN PRN Reason: Mod-Sev Pain (Scale 4-10) Stop: 11/18/23 23:13 Last Admin: 10/20/23 22:22 Dose: 50 mg Documented By: Admin: 10/20/23 01:00 Dose: 50 mg Documented By: MG Discontinued Medications Docusate Sodium (Docusate Sodium 100 Mg Cap) 100 mg PO BID [facility] Stop: 11/19/23 13:14 Last Admin: 10/21/23 08:38 Dose: 100 mg Documented By: Admin: 10/20/23 21:15 Dose: Not Given Documented By: Admin: 10/20/23 14:20 Dose: 100 mg Documented By: EZEKIEL Sodium Chloride (Nss) 500 mls @ 999 mls/hr IV .Q31M ONE Stop: 10/19/23 14:45 Last Infusion: 10/19/23 15:10 Dose: Infused Documented By: Admin: 10/19/23 14:21 Dose: 999 mls/hr Documented By: JITENDRA Sodium Chloride (Nss) 1,000 mls @ 125 mls/hr IV .Q8H [facility] Stop: 11/18/23 14:29 Last Admin: 10/19/23 23:33 Dose: Not Given Documented By: Infusion: 10/19/23 22:00 Dose: Infused Documented By: Admin: 10/19/23 14:21 Dose: 125 mls/hr Documented By: MMG Acetaminophen (Ofirmev) 1,000 mg in 100 mls @ 400 mls/hr IV NOW STA Stop: 10/19/23 15:04 Last Infusion: 10/19/23 15:31 Dose: Infused Documented By: Admin: 10/19/23 15:16 Dose: 400 mls/hr Documented By: HS Cefepime HCl (Maxipime) 2,000 mg in 20 mls @ 5 mls/min IV NOW STA; Protocol Stop: 10/19/23 15:03 Last Admin: 10/19/23 15:16 Dose: 5 mls/min Documented By: HS Magnesium Sulfate/Dextrose (Magnesium Sulfate / D5w) 1 gm in 100 mls @ 100 mls/hr IV Q1H [facility] Stop: 10/19/23 17:11 Last Infusion: 10/19/23 18:57 Dose: Infused Documented By: Admin: 10/19/23 16:39 Dose: 100 mls/hr Documented By: Infusion: 10/19/23 16:16 Dose: Infused Documented By: Admin: 10/19/23 15:16 Dose: 100 mls/hr Documented By: HS Vancomycin HCl 2,500 mg/ (Sodium Chloride) 550 mls @ 200 mls/hr IV NOW ONE Stop: 10/19/23 18:17 Last Infusion: 10/19/23 18:57 Dose: Infused Documented By: Admin: 10/19/23 15:56 Dose: 200 mls/hr Documented By: HS Sodium Chloride (Nss) 500 mls @ 999 mls/hr IV .Q31M ONE Stop: 10/19/23 16:10 Last Infusion: 10/19/23 18:57 Dose: Infused Documented By: Admin: 10/19/23 15:56 Dose: 999 mls/hr Documented By: HS Sodium Chloride (Nss) 1,000 mls @ 999 mls/hr IV .Q1H1M ONE Stop: 10/19/23 23:02 Last Infusion: 10/19/23 23:25 Dose: Infused Documented By: Admin: 10/19/23 22:24 Dose: 999 mls/hr Documented By: KMF Sodium Chloride (Nss) 1,000 mls @ 100 mls/hr IV .Q10H [facility] Stop: 10/20/23 09:13 Last Infusion: 10/20/23 12:26 Dose: Infused Documented By: Admin: 10/20/23 00:08 Dose: 100 mls/hr Documented By: MG Vancomycin HCl 1,250 mg/ (Sodium Chloride) 275 mls @ 200 mls/hr IV Q12H [facility] Stop: 10/22/23 01:59 Last Infusion: 10/20/23 02:25 Dose: Infused Documented By: Admin: 10/20/23 01:00 Dose: 200 mls/hr Documented By: MG Vancomycin HCl 1,500 mg/ (Sodium Chloride) 530 mls @ 200 mls/hr IV Q12H [facility] Stop: 10/22/23 01:59 Last Infusion: 10/21/23 02:50 Dose: Infused Documented By: Admin: 10/21/23 00:08 Dose: 200 mls/hr Documented By: Infusion: 10/20/23 16:06 Dose: Infused Documented By: Admin: 10/20/23 13:01 Dose: 200 mls/hr Documented By: EZEKIEL Ioversol (Optiray 320 100ml) 89 ml IV ONCE ONE Stop: 10/19/23 17:56 Last Admin: 10/19/23 17:57 Dose: 89 ml Documented By: KOMAL Potassium Chloride (Potassium Chloride Crtab 20 Meq Tabcr) 40 meq PO ONE ONE Stop: 10/20/23 10:03 Last Admin: 10/20/23 10:51 Dose: 40 meq Documented By: HEENA Imaging Data Radiologist's Impression: Chest X-Ray 10/19/23 14:12 SINGLE VIEW CHEST CLINICAL HISTORY: Sepsis FINDINGS: An AP, portable, upright chest radiograph is compared to study dated 06/21/2023. The heart is markedly enlarged noting atherosclerotic calcification of the thoracic aorta. There is pulmonary vascular congestion. Scarring/atelectasis is noted at the lung bases. No airspace consolidation or large pleural effusion is identified. No pneumothorax is seen. The skeletal structures are osteopenic. The bony thorax is grossly intact. Arthritic change is seen in the shoulders. IMPRESSION: Cardiomegaly with pulmonary vascular congestion. ACT 112: Negative or not required by law. Electronically signed by: Reyes Aldridge M.D. 10/19/2023 3:05 PM Abdomen/Pelvis CT 10/19/23 14:38 CT abd pelvis IV con only CLINICAL HISTORY: left inguinal heria/labia mass TECHNIQUE: Helical axial images of the abdomen and pelvis were obtained and displayed. Automated dose lowering techniques and/or adjustment according to patient size were utilized for this exam. This exam was performed with intravenous contrast. CT DOSE: 2577.92 mGy.cm COMPARISON: Comparison is made to CT abdomen pelvis 06/21/2023 FINDINGS: Lower chest: Cardiomegaly and biatrial enlargement is seen. Liver: Unremarkable. No focal lesions are seen. Gallbladder and biliary tree: Patient is status post cholecystectomy. No intra- or extrahepatic biliary ductal dilation. Pancreas: Unremarkable, no focal lesions. Spleen: Unremarkable. Adrenals: 26 mm left adrenal nodule is seen. Kidneys and ureters: Nonobstructive nephrolithiasis is seen. Bladder: Horn catheter is seen. Reproductive organs: Unremarkable. Bowel: Diverticulosis is seen without diverticulitis. The appendix is normal. Lymph nodes Retroperitoneal: Unremarkable. Pelvic: Unremarkable. Mesenteric: Unremarkable. Peritoneum: Normal. Vessels: Unremarkable. Abdominal wall: Fat and bowel containing infraumbilical hernia is seen. Ill- defined right sided gluteal/labial fluid collections are seen. Bones: Degenerative changes in the visualized spine. IMPRESSION: 1. Soft tissue edema is seen in the right gluteal and labial regions, nonspecific, but not without features of a mature abscess. Correlation with physical exam is recommended. 2. Prominent infraumbilical hernia. 3. Diverticulosis without diverticulitis. 4. Left adrenal nodule is seen. If not previously evaluated, nonemergent adrenal mass protocol can be performed. ACT 112: Negative or not required by law. Electronically signed by: Otis Callaway M.D. 10/19/2023 6:18 PM Discharge Plan Visit Data Chief Complaint: Illness ED Provider: Esthela Duarte Discharge Problem: Generalized weakness, Sepsis, Acute UTI (urinary tract infection) Patient Disposition: Admitted As Inpatient Discharge Instructions Interventions: ED Discharge Assessment Last Done: 10/19/23 22:30
[2023-10-19] MEDS: SODIUM CHLORIDE 0.9% 1,000 ML IV SCH (14:21)
[2023-10-19] MEDS: SODIUM CHLORIDE 0.9% 500 ML IV ONE ×2 (14:21→15:56)
[2023-10-19 14:53] LABS: Hematocrit (blood only) 37.8 % (37.0-47.0); Hemoglobin 12.3 g/dl (12.0-16.0); Mean Corpuscular Hemoglobin 28.5 pg (25.0-34.0); Mean Corpuscular Hgb Conc 32.5 g/dL (32.0-36.0); Mean Corpuscular Volume 87.7 fL (80.0-100.0); Mean Platelet Volume 9.4 fL (9.4-12.4); Platelet Count 346 K/uL (130-400); RDW Coefficient of Variation 12.7 % (11.5-14.5); RDW Standard Deviation 41.1 fL (36.4-46.3); Red Blood Count 4.31 M/uL (4.20-5.40); White Blood Count 24.09 K/ul (4.8-10.8)
[2023-10-19 15:04] LABS: Base Excess VBG 3.2 mEq/L; HCO3 VBG 28 mmol/L; Oxygen Saturation VBG < 60.0 %; PCO2 VBG 42 mmHg (38-50); PO2 VBG 20 mmHg; pH VBG 7.43 (7.36-7.41)
--- NOTE | 2023-10-19 15:06 | XRay Report ---
SINGLE VIEW CHEST CLINICAL HISTORY: Sepsis FINDINGS: An AP, portable, upright chest radiograph is compared to study dated 06/21/2023. The heart i s markedly enlarged noting atherosclerotic calcification of the thoracic aorta. There is pulmonary va scular congestion. Scarring/atelectasis is noted at the lung bases. No airspace consolidation or larg e pleural effusion is identified. No pneumothorax is seen. The skeletal structures are osteopenic. Th e bony thorax is grossly intact. Arthritic change is seen in the shoulders. IMPRESSION: Cardiomegaly with pulmonary vascular congestion. ACT 112: Negative or not required by law. Electronically signed by: Reyes Aldridge M.D. 10/19/2023 3:05 PM
[2023-10-19 15:10] LABS: BUN Creatinine Ratio 14.6 (10-20); Bilirubin Direct 0.3 mg/dl (0-0.2); Bilirubin,Total 0.8 mg/dl (0.2-1.0); Calcium 8.7 mg/dl (8.6-10.3); Creatinine Clr Calc Pharmacy 137.8 ml/min; Est GFR (African American) 113.6 ml/min; Magnesium 1.4 mg/dl (1.7-2.4); Potassium 3.7 mmol/L (3.5-5.1); Total Protein 6.4 gm/dl (6.0-8.3)
[2023-10-19 15:12] LABS: Basophils # (auto) 0.07 K/uL (0.00-0.20); Basophils % (auto) 0.3 %; Eosinophils # (auto) 0.01 K/uL (0.00-0.50); Immature Granulocytes # (auto) 0.18 K/uL (0.01-0.20); Immature Granulocytes % (auto) 0.7 %; Lymphocytes % (auto) 2.9 %; Monocytes # (auto) 1.52 K/uL (0.11-0.59); Monocytes % (auto) 6.3 %; Neutrophils # (auto) 21.61 K/uL (1.40-6.50); Neutrophils % (auto) 89.8 %
[2023-10-19 15:16] LABS: Troponin I High Sensitivity 12.7 pg/ml (0-14)
[2023-10-19] MEDS: CEFEPIME 2,000 MG/20 ML VIAL IV STA (15:16)
[2023-10-19] MEDS: MAGNESIUM SULFATE / D5W 1 GM/100 ML BAG IV SCH (15:16)
[2023-10-19] MEDS: ACETAMINOPHEN 1,000 MG/100 ML VIAL IV STA (15:16)
[2023-10-19 15:21] LABS: Prothrombin Time 60.3 Seconds (9.0-12.0)
[2023-10-19 15:28] LABS: INR 6.6 (0.9-1.1)
[2023-10-19] MEDS ORDERED: VANCOMYCIN CONSULT ACTIVE PRN ×2 (15:33→23:14)
[2023-10-19] MEDS ORDERED: fentaNYL citrate PF 100 MCG/2 ML VIAL IV PRN (15:40)
--- NOTE | 2023-10-19 15:45 | Electrocardiogram Report ---
Test Reason : Blood Pressure : / mmHG Vent. 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 rate has increased BY 62 BPM Confirmed by Larry Durant ([id number]) on 10/19/2023 3:45:23 PM Referred By: REFERRED SELF Confirmed By:Larry Durant
[2023-10-19] MEDS: VANCOMYCIN HCL 2,500 MG in SODIUM CHLORIDE 0.9% 500 ML IV ONE (15:56)
[2023-10-19 17:34] LABS: Appearance Urine Cloudy (Clear); Bacteria Urine Automated 4+ (None Seen); Bilirubin Urine 1+ (Negative); Blood Urine 1+ (Negative); Color Urine Dark Yellow; Epithelial Cell Urine Auto 0-2 /hpf (0-2); Glucose Urine UA Negative (Negative); Ketones Urine Trace (Negative); Leukocyte Esterase Urine 1+ (Negative); Mucus Urine Present (None Prsent); Nitrite Urine Positive (Negative); Protein Urine 1+ (Negative); RBC Urine Automated 0-2 /hpf (0-2); Specific Gravity Urine 1.029 (1.000-1.030); Urobilinogen Urine Negative (Negative); pH Urine 5.5 (4.5-7.5)
[2023-10-19] MEDS: OPTIRAY 320 100ml IV ONE (17:57)
--- NOTE | 2023-10-19 18:19 | CT Scan Report ---
CT abd pelvis IV con only CLINICAL HISTORY: left inguinal heria/labia mass TECHNIQUE: Helical axial images of the abdomen and pelvis were obtained and displayed. Automated dose lowering techniques and/or adjustment according to patient size were utilized for this exam. This e xam was performed with intravenous contrast. CT DOSE: 2577.92 mGy.cm COMPARISON: Comparison is made to CT abdomen pelvis 06/21/2023 FINDINGS: Lower chest: Cardiomegaly and biatrial enlargement is seen. Liver: Unremarkable. No focal lesions are seen. Gallbladder and biliary tree: Patient is status post cholecystectomy. No intra- or extrahepatic bilia ry ductal dilation. Pancreas: Unremarkable, no focal lesions. Spleen: Unremarkable. Adrenals: 26 mm left adrenal nodule is seen. Kidneys and ureters: Nonobstructive nephrolithiasis is seen. Bladder: Horn catheter is seen. Reproductive organs: Unremarkable. Bowel: Diverticulosis is seen without diverticulitis. The appendix is normal. Lymph nodes Retroperitoneal: Unremarkable. Pelvic: Unremarkable. Mesenteric: Unremarkable. Peritoneum: Normal. Vessels: Unremarkable. Abdominal wall: Fat and bowel containing infraumbilical hernia is seen. Ill-defined right sided glute al/labial fluid collections are seen. Bones: Degenerative changes in the visualized spine. IMPRESSION: 1. Soft tissue edema is seen in the right gluteal and labial regions, nonspecific, but not without f eatures of a mature abscess. Correlation with physical exam is recommended. 2. Prominent infraumbilical hernia. 3. Diverticulosis without diverticulitis. 4. Left adrenal nodule is seen. If not previously evaluated, nonemergent adrenal mass protocol can b e performed. ACT 112: Negative or not required by law. Electronically signed by: Otis Callaway M.D. 10/19/2023 6:18 PM
--- NOTE | 2023-10-19 18:48 | History & Physical Report ---
Date of Service October 19, 2023 Assessment & Plan (1) Sepsis: (2) Acute UTI (urinary tract infection): (3) Cellulitis: Plan: Patient is 73-year-old female with PMH DM II, HTN, HLD, permanent atrial fibrillation anticoagulated on Coumadin, history PE chronically anticoagulated on Coumadin, hypothyroidism, lymphedema, morbid obesity, ventral hernia and others listed below presented to ER with c/o dysuria x 1 week. Also reports painful "lump" and reddened area to buttocks region for past 2 weeks with slight cream drainage. Worsening groin erythema In ER T: 37.8C, P: 135, R: 26, BP: 115/68, 95% on RA. BP dropped to 91/52 during ER course. WBC: 24, UA +nitrite, +1 leuk esterase, 4+bacteria CXR: no acute infiltrate CT abd/pelvis: Soft tissue edema is seen in the right gluteal and labial regions, nonspecific, but not without features of a mature abscess. Prominent infraumbilical hernia. Diverticulosis without diverticulitis. In ER given cefepime, vancomycin and 1500ml NSS, IV Tylenol Suspect sepsis secondary to UTI. +Groin cellulitis as well Upon my reassessment at 18:58 HR: 108, BP: 134/80, R: 18, O2 sat: 95% on RA after 1500ml NSS given. Lungs clear. HR irregularly irregular and tachycardic at 108. Is alert and oriented. 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 INR: 6.6. No melena, hematochezia, hematuria, epistaxis After IVF in ER HR down in 90's Not on rate controlling medication Hold Coumadin INR in am Magnesium replaced in ER TSH pending Monitor on telemetry 09/09/2022 echo: EF: 55%, no significant valvular stenosis or insufficiency however was limited evaluation, proximal ascending thoracic aorta mildly enlarged at 4.1 cm (8) Hypomagnesemia: Plan: Magnesium: 1.4 In ER received 2GM magnesium sulfate Magnesium lab in AM (9) Diabetes mellitus, type II: Plan: A1c: 6.1 on 04/28/23 Hold home Ozempic Novolog sliding scale per protocol A1c in AM (10) Adrenal nodule: Plan: CT abd/pelvis: Left adrenal 26mm nodule is seen. Of note was measured at 27mm in 05/2023 and noted to be present on imaging dating back to 2014 and appears to be stable Will need outpatient continued follow up (11) HTN (hypertension): Plan: BP's soft in ER and responded well to IVF and normal range Hold home lisinopril and Lasix and reassess tomorrow (12) HLD (hyperlipidemia): Plan: Continue atorvastatin (13) Lymphedema: Plan: Hold hold Lasix and reassess tomorrow (14) History of pulmonary embolus (PE): Plan: On chronic Coumadin INR 6.6. Holding Coumadin currently INR in am (15) Depression: Plan: Continue fluoxetine (16) Morbid obesity: Plan: BMI: 46 On Ozempic at home (17) Hypothyroidism: Plan: TSH pending continue levothyroxine DVT Prophylaxis Currently INR supratherapeutic. will monitor INR DNR/DNI as per discussion with pt Follows with Dr Mg for routine care Pt was seen and care coordinated with Dr Dean. See addendum I spent a total of 79 minutes reviewing notes, outpatient records, labs, medication, coordinating, documenting and providing care for this patient excluding time spent in the performance of separately billed services. History of Present Illness Chief Complaint: Dysuria Primary Care Provider: Dalila Mg DO Patient is 73-year-old female with PMH DM II, HTN, HLD, permanent atrial fibrillation anticoagulated on Coumadin, history PE chronically anticoagulated on Coumadin, hypothyroidism, lymphedema, morbid obesity, ventral hernia and others listed below presented to ER with c/o dysuria x 1 week. History obtained from patient and inpatient and outpatient chart review. States chronic urinary frequency from Lasix but denies urinary hesitancy or retention. Also reports painful "lump" and reddened area to buttocks region for past 2 weeks. Having some slight cream color drainage from area past couple days. She reports chronic erythema to groin skin folds that are intermittently tender. Uses OTC Desitin to area. Reports chronic bulging from mons pubis region and is following with outpatient general surgery and scheduled to see plastic surgery at [facility] to address. She feels the redness is worse for past week and somewhat tender. Denies other abdominal pain. Has BM every 2-3 days. Last was 2 days ago. Today upon ER arrival had nausea that self resolved. Denies vomiting or diarrhea. Denies cough or known fever or chills at home. Reported history of chronic hypoxic respiratory failure however patient reports hasn't used oxygen for "awhile". She states chronic ambulatory dysfunction and limited mobility at home. Uses walker and mostly wheelchair. This week states she was trying to ambulate more and states when getting up out of chair her legs would feel week and she fell a couple of times. Denies hitting her head or any LOC. Denies any injury from falls. Denies dizziness, CP, SOB prior to falls. Denies diaphoresis, NUNN, syncope, vision changes, neck pain, CP, SOB, palpitations, hemoptysis, sore throat, choking, otalgia, abdominal pain, increased extremity edema, hematuria, urinary retention, melena, hematochezia, epistaxis Allergies Allergy/AdvReac Type Severity Reaction Status Date / Time ciprofloxacin AdvReac Intermediate makes Verified 06/21/23 16:14 mouth feel funny metronidazole AdvReac Intermediate makes Verified 11/20/21 09:31 mouth feel funny Home Medications Medication Instructions Recorded Confirmed Type acetaminophen 500 mg tablet 1,000 mg PO TID PRN Pain 05/26/19 10/19/23 History (Tylenol Extra Strength) atorvastatin 20 mg tablet 20 mg PO QAM 01/16/20 10/19/23 History fluoxetine 20 mg capsule 20 mg PO QAM 01/16/20 10/19/23 History furosemide 40 mg tablet 40 mg PO QAM 01/16/20 10/19/23 History lisinopril 5 mg tablet (Zestril) 5 mg PO QAM 11/14/21 10/19/23 History levothyroxine 75 mcg tablet 75 mcg PO DAILYBB 06/21/23 10/19/23 History potassium chloride 10 mEq 10 meq PO QAM 06/21/23 10/19/23 History capsule,extended release semaglutide 1 mg/dose (4 mg/3 mL) 1 mg subcut WK 06/21/23 10/19/23 History subcutaneous pen injector (Ozempic) polyethylene glycol 3350 17 gram 17 g PO DAILY PRN constipation #15 07/02/23 10/19/23 Rx oral powder packet (Miralax) ea tramadol 50 mg tablet 50 mg PO Q6H PRN pain,moderate #20 07/02/23 10/19/23 Rx tabs gabapentin 100 mg capsule 200 mg PO TID 10/19/23 10/19/23 History warfarin 5 mg tablet 5 mg PO QPM 10/19/23 10/19/23 History Past Med/Surg History Problem List (Updated 10/19/23 @ 20:42 by Arline Boland PA-C) History of pulmonary embolus (PE) Hypothyroidism Diabetes mellitus, type II Supratherapeutic INR Atrial flutter with rapid ventricular response Atrial fibrillation and flutter Adrenal nodule Hypomagnesemia Wound of sacral region Cellulitis Acute UTI (urinary tract infection) (Acute) Sepsis (Acute) Generalized weakness (Acute) Gross hematuria Hip pain (Acute) Acute pain of left lower extremity Encounter for pre-operative examination Hypoxia (Acute) Severe sepsis Acute respiratory failure with hypoxia Bilateral pulmonary embolism Acute respiratory acidosis Lactic acidosis (Acute) Elevated troponin (Acute) Rectal bleeding resolved Shock (Acute) resolved Diverticulosis Chronic respiratory failure with hypoxia and hypercapnia approx 2 yrs ago Hyperglycemia Morbid obesity due to excess calories Right heart failure no specialist Acute massive pulmonary embolism (Acute) Dec 2019 > Warfarin > unknown cause Depression Lymphedema bilat legs in wraps at present, treated by wound center at [place]. Gets changed every wednesday Morbid obesity (Acute) HLD (hyperlipidemia) HTN (hypertension) Medical History Diverticular disease [place] (obstructive sleep apnea) pt unsure if Bipap or cpap Surgical History History of colonoscopy History of carpal tunnel surgery bilat History of cholecystectomy History of hip surgery from fracture to left hip > has alot of pain Family History Mother Cancer melanoma AMD (age related macular degeneration) Father Hypertension Denies family history of Diabetes Stroke Social History Smoking Status: Never smoker Second Hand Exposure: Yes (parents smoked); Do You Dip or Chew Tobacco: No; Hx Alcohol Use: No Hx Substance Use: No Preferred Language: Taiwanese Communication Ability: Effective Energy Professional Required: No Beliefs That Will Affect Care: None marital status: Current Living Situation: Spouse How many Children do You have: 2 Feels Safe at Home: Yes Assistive Devices: Glasses, Oxygen - at Night and Walker Review of Systems Review of Systems: All systems reviewed & are unremarkable except as noted in HPI & below Physical Exam Physical Exam: General: no acute distress, chronic ill appearing elderly female, obese Head: normocephalic, atraumatic Eyes: PERRL, EOM's intact, conjunctiva non-injected, anicteric ENT: normal inspection external ears, nose, mucous membranes moist Neck: supple, trachea midline Lungs: clear, no respiratory distress, no wheezing/rhonchi/rales CV: irregularly irregular, no pitting pretibial edema Abd: normal BS, soft, non-tender Ext: BLE large with chronic skin discoloration without acute erythema noted and are non-tender Neuro: A&O x 3, no focal deficits noted, normal affect Skin: warm, dry; Groin: +erythema to skin fold under pannus and in groin folds with warmth and tenderness. +very large protrusion extending from mons pubis the posterior aspect of this with erythema and stage one pressure wound. Buttock: +superior gluteal cleft with small opening sinus tract with surrounding erythema without drainage at this time Results & Data Results & Data Vital Signs (Past 12 Hours) Vital Signs Temp Pulse Resp BP Pulse Ox O2 Del Method 10/19/23 18:30 97 H 25 H 96 10/19/23 18:30 131/77 10/19/23 18:30 102 H 18 131/77 98 10/19/23 18:30 131/77 10/19/23 18:16 116/66 10/19/23 18:16 116/66 06/25/24 18:16 116/66 10/19/23 18:09 108 H 19 94 10/19/23 17:45 112 H 31 H 10/19/23 17:45 97/61 L 10/19/23 17:45 97/61 L 10/19/23 17:45 97/61 L 10/19/23 17:45 97/61 L 10/19/23 17:30 105 H 32 H 10/19/23 17:30 116/67 10/19/23 17:30 116/67 10/19/23 17:30 116/67 10/19/23 17:30 116/67 10/19/23 17:30 116/67 10/19/23 17:15 100/66 10/19/23 17:15 100/66 10/19/23 17:15 100/66 10/19/23 17:15 100/66 10/19/23 17:15 100/66 10/19/23 17:15 100/66 10/19/23 17:15 100/66 10/19/23 17:15 100/66 10/19/23 17:15 109 H 19 10/19/23 17:01 116/59 L 10/19/23 17:01 116/59 L 10/19/23 17:01 116/59 L 10/19/23 17:01 116/59 L 10/19/23 17:01 116/59 L 10/19/23 17:01 116/59 L 10/19/23 17:00 118 H 25 H 10/19/23 16:51 136 H 25 H 10/19/23 16:49 91/52 L 10/19/23 16:49 91/52 L 10/19/23 16:49 91/52 L 10/19/23 16:48 119 H 17 10/19/23 16:36 113 H 25 H 10/19/23 16:31 85/66 L 10/19/23 16:31 85/66 L 10/19/23 16:12 118 H 21 10/19/23 16:00 132 H 42 H 10/19/23 16:00 103/56 L 10/19/23 16:00 103/56 L 10/19/23 16:00 103/56 L 06/25/24 15:36 145 H 29 H 10/19/23 15:30 96/73 L 10/19/23 15:30 96/73 L 10/19/23 15:30 96/73 L 10/19/23 15:30 96/73 L 10/19/23 15:30 96/73 L 10/19/23 15:30 96/73 L 10/19/23 15:24 126 H 21 10/19/23 15:03 116 H 15 10/19/23 14:45 125 H 17 10/19/23 14:36 26 H 10/19/23 14:36 95 Room Air 10/19/23 14:36 37.8 C H 135 H 26 H 115/68 95 Room Air 10/19/23 14:31 125 H 10/19/23 14:30 127/66 10/19/23 14:30 127/66 10/19/23 14:30 127/66 10/19/23 14:30 127/66 10/19/23 14:22 119/62 Laboratory Results Short CBC 10/19/23 Range/Units 14:30 WBC 24.09 H (4.8-10.8) K/ul Hgb 12.3 (12.0-16.0) g/dl Hct 37.8 (37.0-47.0) % Plt Count 346 (130-400) K/uL BMP 10/19/23 14:30 Sodium 134 L Potassium 3.7 Chloride 99 Carbon Dioxide 26 BUN 7 Creatinine 0.48 L Glucose 151 H Calcium 8.7 Liver Function 10/19/23 Range/Units 14:30 Total Bilirubin 0.8 (0.2-1.0) mg/dl Direct Bilirubin 0.3 H (0-0.2) mg/dl AST 14 (13-39) U/L ALT 11 (7-52) U/L Alkaline Phosphatase 114 H (34-104) U/L Albumin 3.0 L (3.4-5.0) gm/dl Urine 10/19/23 Range/Units 16:58 Urine Color Dark Yellow Urine Appearance Cloudy A (Clear) Urine pH 5.5 (4.5-7.5) Ur Specific [place] 1.029 (1.000-1.030) Urine Protein 1+ H (Negative) Urine Glucose (UA) Negative (Negative) Diagnostic Findings Chest X-Ray 10/19/23 14:12 SINGLE VIEW CHEST CLINICAL HISTORY: Sepsis FINDINGS: An AP, portable, upright chest radiograph is compared to study dated 06/21/2023. The heart is markedly enlarged noting atherosclerotic calcification of the thoracic aorta. There is pulmonary vascular congestion. Scarring/atelectasis is noted at the lung bases. No airspace consolidation or large pleural effusion is identified. No pneumothorax is seen. The skeletal structures are osteopenic. The bony thorax is grossly intact. Arthritic change is seen in the shoulders. IMPRESSION: Cardiomegaly with pulmonary vascular congestion. ACT 112: Negative or not required by law. Electronically signed by: Reyes Aldridge M.D. 10/19/2023 3:05 PM Abdomen/Pelvis CT 10/19/23 14:38 CT abd pelvis IV con only CLINICAL HISTORY: left inguinal heria/labia mass TECHNIQUE: Helical axial images of the abdomen and pelvis were obtained and displayed. Automated dose lowering techniques and/or adjustment according to patient size were utilized for this exam. This exam was performed with intravenous contrast. CT DOSE: 2577.92 mGy.cm COMPARISON: Comparison is made to CT abdomen pelvis 06/21/2023 FINDINGS: Lower chest: Cardiomegaly and biatrial enlargement is seen. Liver: Unremarkable. No focal lesions are seen. Gallbladder and biliary tree: Patient is status post cholecystectomy. No intra- or extrahepatic biliary ductal dilation. Pancreas: Unremarkable, no focal lesions. Spleen: Unremarkable. Adrenals: 26 mm left adrenal nodule is seen. Kidneys and ureters: Nonobstructive nephrolithiasis is seen. Bladder: Ohrn catheter is seen. Reproductive organs: Unremarkable. Bowel: Diverticulosis is seen without diverticulitis. The appendix is normal. Lymph nodes Retroperitoneal: Unremarkable. Pelvic: Unremarkable. Mesenteric: Unremarkable. Peritoneum: Normal. Vessels: Unremarkable. Abdominal wall: Fat and bowel containing infraumbilical hernia is seen. Ill- defined right sided gluteal/labial fluid collections are seen. Bones: Degenerative changes in the visualized spine. IMPRESSION: 1. Soft tissue edema is seen in the right gluteal and labial regions, nonspecific, but not without features of a mature abscess. Correlation with physical exam is recommended. 2. Prominent infraumbilical hernia. 3. Diverticulosis without diverticulitis. 4. Left adrenal nodule is seen. If not previously evaluated, nonemergent adrenal mass protocol can be performed. ACT 112: Negative or not required by law. Electronically signed by: Otis Callaway M.D. 10/19/2023 6:18 PM ECG Additional Comments: atrial flutter, rate 148, diffuse t wave changes reviewed and interpreted by myself Supervising Physician Co-Signing Physician Notes Patient was seen and examined with Arline ZUÑIGA at bedside. Chart reviewed. Case discussed with Arline ZUÑIGA and agree with the documentation above. In summary, this is a 73 year old female who is being admitted for sepsis due to UTI and cellulitis. Initially BP soft, improved with volume resuscitation and antibiotic. Vital stable. Lab and imaging reviewed. Will admit with empiric broad IV ABx while awaiting clx results. INR supratherapeutic and hold coumadin, no need for reversal, check in am. On exam, lying in bed, AAO, no acute distress, chest clear, tachycardic and irregular HS, abdomen benign, Pannus, B/L groin with erythema, Horn with guy urine, Hernia in mons pubis area, some pressure ulcers on back, LE lymphedema. Rest as per the note above.
[2023-10-19] MEDS: SODIUM CHLORIDE 0.9% 1,000 ML IV ONE (22:24)
[2023-10-19] MEDS ORDERED: GLUCOSE 40% GEL 15 GM TUBE PO PRN (23:14)
[2023-10-19] MEDS ORDERED: CARBOHYDRATES FOR HYPOGLYCEMIA PO PRN (23:14)
[2023-10-19] MEDS ORDERED: ONDANSETRON INJ 2 MG/ML 2 ML VIAL IV PRN (23:14)
[2023-10-19] MEDS ORDERED: GLUCOSE 10 TAB/TUBE PO PRN (23:14)
[2023-10-19] MEDS ORDERED: GLUCAGON FOR INJ 1 MG VIAL SQ PRN (23:14)
[2023-10-19] MEDS ORDERED: POLYETHYLENE (MIRALAX) 17 GM PACK PO PRN (23:14)
[2023-10-19] MEDS ORDERED: DEXTROSE 50% 50 ML SYRINGE IV PRN (23:14)
[2023-10-20] MEDS: GABAPENTIN 100 MG CAP PO SCH (00:07)
[2023-10-20] MEDS: INSULIN ASPART PER UNIT CHARGE SC SCH (00:07)
[2023-10-20] MEDS: CEFEPIME 2,000 MG in SYRINGE 0 ML IV SCH (00:08)
[2023-10-20] MEDS: MICONAZOLE NITRATE POWDER 85 GM EXT PRN (00:08)
[2023-10-20] MEDS: SODIUM CHLORIDE 0.9% 1,000 ML IV SCH (00:08)
[2023-10-20] MEDS: traMADol HCL 50 MG TABLET PO PRN (01:00)
[2023-10-20] MEDS: VANCOMYCIN HCL 1,250 MG in SODIUM CHLORIDE 0.9% 250 ML IV SCH (01:00)
--- OUTSIDE RECORDS SUMMARY | 2023-10-20 01:51 | External Medical Summary ---
Author Name UNSPECIFIED Address Unknown Organization [facility] History of Encounters Reason for Assessment: Discharge from [facility] Inpatient Facility where the patient been admitted: No inpatient facility admission Discharge Disposition: Patient remained in the community (without formal assistive services) Functional Assessment When Dyspneic: When walking more th an 20 feet, climbing stairs Bowel Incontinence Frequency: Very rarel y or never has bowel incontinence Cognitive and Behavioral and Psychiatric Symptoms: None Current Ability: Bathing: able to partic ipate in bathing self in shower or tub, but requires presence of another person throughout the bath for assistance or supervision. Current Ability: Ambulation: Requires us e of a two-handed device (e.g., walker or crutches) to walk alone on a level surface and/or requires human supervision or assistance to negotiate stairs or steps or uneven surfaces. Current: Management Of Oral Medications: Able to independently take the correct oral medication(s) and proper dosage(s) at the correct time
--- OUTSIDE RECORDS SUMMARY | 2023-10-20 01:51 | External Medical Summary ---
Author Name UNSPECIFIED Address Unknown Organization [facility] History of Encounters Reason for Assessment: Start of care - f urther visits planned Inpatient discharge facility: Past 14 Da ys: Discharged from [facility] Facility Most Recent Inpatient Discharge Date: Functional Assessment Patient Living Situation: Patient lives with other person(s) in the home: Around the clock When Dyspneic: With moderate exerti on (e.g., while dressing, using commode or bedpan, walking distances less than 20 feet) Bowel Incontinence Frequency: Very rarel y or never has bowel incontinence Cognitive and Behavioral and Psychiatric Symptoms: None Current Ability: Bathing: able to partic ipate in bathing self in shower or tub, but requires presence of another person throughout the bath for assistance or supervision. Current Ability: Ambulation: Able to wal k only with the supervision or assistance of another person at all times. Current: Management Of Oral Medications: Able to take medication(s) at the correct times if: (a) individual dosages are prepared in advance by another person; OR (b) another person develops a drug diary or chart Current: Management Of Injec table Medications: Able to take injectable medication(s) at the correct times if: (a) individual syringes are prepared in advance by another person; OR (b) another person develops a drug diary or chart. Problems Primary Home Care Diagnosis ICD Code: G8 9.29, Other chronic pain Home Care Diagnosis 1: ICD Code: M54.50^ ^ Home Care Diagnosis 1: Severity Ratin Home Care Diagnosis 2: ICD Code: R53.1, Weakness Home Care Diagnosis 2: Severity Ratin Home Care Diagnosis 3: ICD Code: M25.552 , Pain in left hip Home Care Diagnosis 3: Severity Ratin Home Care Diagnosis 4: ICD Code: I89.0, Lymphedema, not elsewhere classified Home Care Diagnosis 4: Severity Ratin Home Care Diagnosis 5: ICD Code: R26.2, Difficulty in walking, not elsewhere classified Home Care Diagnosis 5: Severity Ratin
[2023-10-20] MEDS: LEVOTHYROXINE SODIUM 75 MCG TABLET PO SCH (05:50)
[2023-10-20 06:18] LABS: Basophils # (auto) 0.05 K/uL (0.00-0.20); Basophils % (auto) 0.3 %; Eosinophils # (auto) 0.02 K/uL (0.00-0.50); Eosinophils % (auto) 0.1 %; Hematocrit (blood only) 33.5 % (37.0-47.0); Hemoglobin 10.7 g/dl (12.0-16.0); Immature Granulocytes # (auto) 0.43 K/uL (0.01-0.20); Immature Granulocytes % (auto) 2.3 %; Lymphocytes # (auto) 0.64 K/uL (1.20-3.40); Lymphocytes % (auto) 3.4 %; Mean Corpuscular Hemoglobin 28.2 pg (25.0-34.0); Mean Corpuscular Hgb Conc 31.9 g/dL (32.0-36.0); Mean Corpuscular Volume 88.4 fL (80.0-100.0); Mean Platelet Volume 9.3 fL (9.4-12.4); Monocytes # (auto) 0.96 K/uL (0.11-0.59); Monocytes % (auto) 5.1 %; Neutrophils # (auto) 16.84 K/uL (1.40-6.50); Neutrophils % (auto) 88.8 %; Platelet Count 280 K/uL (130-400); RDW Standard Deviation 42.4 fL (36.4-46.3); Red Blood Count 3.79 M/uL (4.20-5.40); White Blood Count 18.94 K/ul (4.8-10.8)
[2023-10-20 06:26] LABS: BUN Creatinine Ratio 17.5 (10-20); Calcium 7.8 mg/dl (8.6-10.3); Creatinine Clr Calc Pharmacy 163.2 ml/min; Est GFR (African American) 120.6 ml/min; Est GFR (Non-African American) 104.1 ml/min; Magnesium 1.7 mg/dl (1.7-2.4); Potassium 3.2 mmol/L (3.5-5.1)
[2023-10-20 06:37] LABS: Prothrombin Time 70.7 Seconds (9.0-12.0)
[2023-10-20 07:32] LABS: Estimated Average Glucose 114 mg/dl; Hemoglobin A1C 5.6 % (4.5-5.6)
[2023-10-20] MEDS: ATORVASTATIN 20 MG TAB PO SCH (08:02)
[2023-10-20] MEDS: FLUoxetine HCL 20 MG CAP PO SCH (08:02)
[2023-10-20 08:05] LABS: INR 7.8 (0.9-1.1)
--- NOTE | 2023-10-20 09:16 | Pharmacy Report ---
Pharmacy PK ABX Note - Date of Service October 20, 2023 - Assessment and Plan Assessment 73 year old F receiving vancomycin/cefepime for treatment of sepsis/sacral wound/uti. Pertinent microbiologic data includes: blood and urine culture pending. Initial WBC 24, downtrending. Plan Vancomycin * Loading dose: 2500 mg IV x 1 * Maintenance dose: 1500 mg IV every 12 hours * Regimen is predicted to achieve target AUC/PRINCESS of 400-600 mg/L.hr * Random level scheduled for 10/20@ 1200 Pharmacy will continue to follow and will adjust dose/frequency as necessary. Thank you. Pharmacy has transitioned to AUC monitoring for vancomycin. AUC/PRINCESS is the preferred PK/PD target and is associated with decreased risk of nephrotoxicity compared to traditional trough targets.
--- NOTE | 2023-10-20 10:01 | Electrocardiogram Report ---
Test Reason : Blood Pressure : / mmHG Vent. Rate : 104 BPM Atrial Rate : 104 BPM P-R Int : 000 ms QRS Dur : 070 ms QT Int : 338 ms P-R-T Axes : 000 -23 075 degrees QTc Int : 444 ms Atrial flutter Low voltage QRS Abnormal ECG When compared with ECG of 19-OCT-2023 14:32, HR has decreased by 39 bpm Confirmed by Larry Durant ([id number]) on 10/20/2023 10:01:08 AM Referred By: REFERRED SELF Confirmed By:Larry Durant
[2023-10-20] MEDS: POTASSIUM CHLORIDE CRTAB 20 MEQ TABCR PO ONE (10:51)
[2023-10-20] MEDS: VANCOMYCIN HCL 1,500 MG in SODIUM CHLORIDE 0.9% 500 ML IV SCH (13:01)
[2023-10-20 13:36] LABS: A calco-baum cmplx NotReported Not Detected (NotDetected); Bact fragilis Not Reported Not Detected (NotDetected); Blood Culture Id Panel See PCR Comment (NotDetected); C auris Not Reported Not Detected (NotDetected); Calbicans Not Reported Not Detected (NotDetected); Candida glabrata Not Reported Not Detected (NotDetected); Candida krusei Not Reported Not Detected (NotDetected); Cneoformans/gatti Not Reported Not Detected (NotDetected); Cparapsilosis Not Reported Not Detected (NotDetected); E cloacae compx Not Reported Not Detected (NotDetected); Efaecalis Not Reported Not Detected (NotDetected); Efaecium Not Reported Not Detected (NotDetected); Enterobacterales Not Reported Not Detected (NotDetected); Escherichia coli Not Reported Not Detected (NotDetected); H influenzae Not Reported Not Detected (NotDetected); K aerogenes Not Reported Not Detected (NotDetected); Koxytoca Not Reported Not Detected (NotDetected); Kpneumoniae grp Not Reported Not Detected (NotDetected); Lmonocyt Not Reported Not Detected (NotDetected); N meningitidis Not Reported Not Detected (NotDetected); P aeruginosa Not Reported Not Detected (NotDetected); Proteus spp Not Reported Not Detected (NotDetected); Salmonella spp Not Reported Not Detected (NotDetected); Staph lugdunensis Not Reported Not Detected (NotDetected); Staph spp. Not Reported DETECTED (NotDetected); Staphaureus Not Reported DETECTED (NotDetected); Staphepi Not Reported Not Detected (NotDetected); Staphylococcus spp. DETECTED (NotDetected); Stenmaltophilia Not Reported Not Detected (NotDetected); Strep agal(GrpB) Not Reported Not Detected (NotDetected); Strep pneum Not Reported Not Detected (NotDetected); Strep pyog (GrpA) Not Reported Not Detected (NotDetected); Strep spp Not Reported Not Detected (NotDetected); mecAC+MREJ Resistant Gene MRSA Not Detected (NotDetected)
[2023-10-20] MEDS: DOCUSATE SODIUM 100 MG CAP PO SCH (14:20)
--- NOTE | 2023-10-20 18:15 | Hospitalist Progress Note ---
Date of Service October 20, 2023 Assessment & Plan (1) Sepsis: (2) Acute UTI (urinary tract infection): (3) Cellulitis: Plan: Patient is 73-year-old female with PMH DM II, HTN, HLD, permanent atrial fibrillation anticoagulated on Coumadin, history PE chronically anticoagulated on Coumadin, hypothyroidism, lymphedema, morbid obesity, ventral hernia and others listed below presented to ER with c/o dysuria x 1 week. Also reports painful "lump" and reddened area to buttocks region for past 2 weeks with slight cream drainage. Worsening groin erythema Sepsis Multifactorial UTI Groin Cellulitis Abnormal Blood Culture: ? Contamination --CXR: no acute infiltrate --CT abd/pelvis: Soft tissue edema is seen in the right gluteal and labial regions, nonspecific, but not without features of a mature abscess. Prominent infraumbilical hernia. Diverticulosis without diverticulitis. --Blood Cx: 04/29: Gram positive cocci in clusters --Urine Cx: Gram negative bacilli --Biofire: Staph aureus not MRSA Initial lactate 2.9 with repeat at 2.1 received IVF Continue cefepime, vancomycin Day #2 Continue wound Care Pressure Wound to Bulging mass in groin Chronic Continue wound care Follows with general surgery as outpatient and scheduled to see plastic surgery at [facility] [place] (4) Wound of sacral region: Plan: Appears to be pilonidal sinus with possible surrounding cellulitis Wound consult Antibiotics as above Follow up as outpatient (5) Atrial fibrillation and flutter: (6) Atrial flutter with rapid ventricular response: (7) Supratherapeutic INR: Plan: 09/09/2022 echo: EF: 55%, no significant valvular stenosis or insufficiency however was limited evaluation, proximal ascending thoracic aorta mildly enlarged at 4.1 cm In ER noted to have aflutter RVR Supratherapeutic INR:6.6>>7.8 Normal TSH Coumadin on hold No bleeding issues Not on rate controlling medications at home Monitor and replace electrolytes as needed (8) Hypomagnesemia: Plan: Hypokalemiaplace and Monitor (9) Diabetes mellitus, type II: Plan: A1c: 5.6 Hold home Ozempic Continue Insulin per protocol Monitor BGs (10) Adrenal nodule: Plan: CT abd/pelvis: Left adrenal 26mm nodule is seen. Of note was measured at 27mm in 05/2023 and noted to be present on imaging dating back to 2014 and appears to be stable Will need outpatient follow up (11) HTN (hypertension): Plan: Hold Lisinopril and Lasix for now Monitor BP (12) HLD (hyperlipidemia): Plan: Continue atorvastatin (13) Lymphedema: Plan: Resume Lasix as able (14) History of pulmonary embolus (PE): Plan: INR supratherapeutic Hold Coumadin (15) Depression: Plan: Continue fluoxetine (16) Morbid obesity: Plan: BMI: 46 On Ozempic at home (17) Hypothyroidism: Plan: continue levothyroxine DVT Px INR supratherapeutic Code Status DNR/DNI Admission and Anticipated Discharge Date Admission Date: October 19, 2023 Subjective Patient is seen and examined at bedside States feeling better today Dysuria resolved Denies any chest pain, dyspnea, dizziness, nausea, abd pain Family at bedside Review of Systems Review of Systems: All systems reviewed & are unremarkable except as noted in Subjective Physical Exam Physical Exam: Physical Exam: Vitals signs as noted above General Appearance:Morbidly obese, no apparent distress Head: normocephalic, Atraumatic Eyes: normal inspection, EOMI Neck: supple, Trachea midline Respiratory/Chest: Normal breath sounds, CTA, No accessory muscle use Cardiovascular: Irregularly, Irregular, No murmur Abdomen/GI:Soft, Non tender, + B/L groin erythema, groin mass, Bowel sounds present Extremities/Musculoskeletal:normal inspection, no edema Neurologic/Psych:AAOX3, grossly no focal neurological deficits Skin: normal color, warm,+ Gluteal pressure ulcer Results & Data Results & Data Vital Signs (Past 12 Hours) Vital Signs Temp Pulse Pulse Resp BP Pulse Ox O2 Del Method 10/20/23 15:37 36.6 C 109 H 20 116/58 L 91 Room Air 10/20/23 11:08 36.9 C 102 H 18 132/63 94 Room Air 10/20/23 08:00 109 H 10/20/23 08:00 Room Air 10/20/23 07:50 37.4 C 82 18 116/60 92 Room Air Laboratory Results Short CBC 10/20/23 Range/Units 05:34 WBC 18.94 H (4.8-10.8) K/ul Hgb 10.7 L (12.0-16.0) g/dl Hct 33.5 L (37.0-47.0) % Plt Count 280 (130-400) K/uL BMP 10/20/23 05:34 Sodium 136 Potassium 3.2 L Chloride 107 Carbon Dioxide 23 BUN 7 Creatinine 0.40 L Glucose 125 H Calcium 7.8 L
[2023-10-20] MEDS: ACETAMINOPHEN 325 MG TAB PO PRN (21:20)
[2023-10-21 06:12] LABS: Basophils # (auto) 0.05 K/uL (0.00-0.20); Basophils % (auto) 0.3 %; Eosinophils # (auto) 0.15 K/uL (0.00-0.50); Eosinophils % (auto) 0.9 %; Hematocrit (blood only) 32.5 % (37.0-47.0); Hemoglobin 10.2 g/dl (12.0-16.0); Immature Granulocytes # (auto) 0.16 K/uL (0.01-0.20); Immature Granulocytes % (auto) 0.9 %; Lymphocytes # (auto) 0.91 K/uL (1.20-3.40); Lymphocytes % (auto) 5.3 %; Mean Corpuscular Hemoglobin 28.3 pg (25.0-34.0); Mean Corpuscular Hgb Conc 31.4 g/dL (32.0-36.0); Mean Corpuscular Volume 90.3 fL (80.0-100.0); Mean Platelet Volume 9.5 fL (9.4-12.4); Monocytes % (auto) 5.2 %; Neutrophils # (auto) 15.13 K/uL (1.40-6.50); Neutrophils % (auto) 87.4 %; Platelet Count 261 K/uL (130-400)
[2023-10-21 06:40] LABS: Calcium 8.2 mg/dl (8.6-10.3); Magnesium 1.8 mg/dl (1.7-2.4); Potassium 3.7 mmol/L (3.5-5.1); Prothrombin Time 72.7 Seconds (9.0-12.0)
[2023-10-21 06:46] LABS: BUN Creatinine Ratio 24.4 (10-20); Creatinine Clr Calc Pharmacy 155.7 ml/min; Est GFR (African American) 119.6 ml/min; Est GFR (Non-African American) 103.2 ml/min
[2023-10-21 06:49] LABS: INR 8.1 (0.9-1.1)
[2023-10-21] MEDS: DOXYCYCLINE HYCLATE 100 MG in D5W MINI-B 100 ML (Q12H) IV SCH (12:46)
[2023-10-21] MEDS: ADVANCED PROBIOTIC 625 MG CAPSULE PO SCH (13:37)
--- NOTE | 2023-10-21 16:24 | Hospitalist Progress Note ---
Date of Service October 21, 2023 Assessment & Plan (1) Sepsis: (2) Acute UTI (urinary tract infection): (3) Cellulitis: Plan: Patient is 73-year-old female with PMH DM II, HTN, HLD, permanent atrial fibrillation anticoagulated on Coumadin, history PE chronically anticoagulated on Coumadin, hypothyroidism, lymphedema, morbid obesity, ventral hernia and others listed below presented to ER with c/o dysuria x 1 week. Also reports painful "lump" and reddened area to buttocks region for past 2 weeks with slight cream drainage. Worsening groin erythema Sepsis Multifactorial UTI Groin Cellulitis Abnormal Blood Culture: MSSA bacteremia Vs ? Contamination --CXR: no acute infiltrate --CT abd/pelvis: Soft tissue edema is seen in the right gluteal and labial regions, nonspecific, but not without features of a mature abscess. Prominent infraumbilical hernia. Diverticulosis without diverticulitis. --Blood Cx: 04/29: MSSA --Urine Cx: Pansensitive E. coli --Biofire: Staph aureus not MRSA Initial lactate 2.9 with repeat at 2.1 received IVF Continue cefepime, vancomycin Day #2>> transition to Cefepime Day #3, Doxycycline Day #1 Continue wound Care Will repeat blood cultures tomorrow Consulted ID for further recommendations Check resting echo Pressure Wound to Bulging mass in groin Chronic Continue wound care Follows with general surgery as outpatient and scheduled [place] [facility] [place]) Wound of sacral region: Plan: Appears to be pilonidal sinus with possible surrounding cellulitis Wound consult Antibiotics as above Follow up as outpatient (5) Atrial fibrillation and flutter: (6) Atrial flutter with rapid ventricular response: (7) Supratherapeutic INR: Plan: 09/09/2022 echo: EF: 55%, no significant valvular stenosis or insufficiency however was limited evaluation, proximal ascending thoracic aorta mildly enlarged at 4.1 cm In ER noted to have aflutter RVR Supratherapeutic INR:6.6>>7.8>8.1 Normal TSH Coumadin on hold No bleeding issues Not on rate controlling medications at home Monitor and replace electrolytes as needed (8) Hypomagnesemia: Plan: Hypokalemia replace and Monitor (9) Diabetes mellitus, type II: Plan: A1c: 5.6 Hold home Ozempic Continue Insulin per protocol Monitor BGs (10) Adrenal nodule: Plan: CT abd/pelvis: Left adrenal 26mm nodule is seen. Of note was measured at 27mm in 05/2023 and noted to be present on imaging dating back to 2014 and appears to be stable Will need outpatient follow up (11) HTN (hypertension): Plan: Hold Lisinopril and Lasix for now Monitor BP (12) HLD (hyperlipidemia): Plan: Continue atorvastatin (13) Lymphedema: Plan: Resume Lasix as able (14) History of pulmonary embolus (PE): Plan: INR supratherapeutic Hold Coumadin (15) Depression: Plan: Continue fluoxetine (16) Morbid obesity: Plan: BMI: 46 On Ozempic at home (17) Hypothyroidism: Plan: continue levothyroxine DVT Px INR supratherapeutic Code Status DNR/DNI Admission and Anticipated Discharge Date Admission Date: October 19, 2023 Subjective Patient is seen and examined at bedside States having generalized body ache Still has some dysuria Also reports generalized weakness Had loose BMs today Slept better overnight per patient Denies any chest pain, dyspnea, dizziness, nausea, abd pain No other complaints Review of Systems Review of Systems: All systems reviewed & are unremarkable except as noted in Subjective Physical Exam Physical Exam: Physical Exam: Vitals signs as noted above General Appearance:Morbidly obese, no apparent distress Head: normocephalic, Atraumatic Eyes: normal inspection, EOMI Neck: supple, Trachea midline Respiratory/Chest: Normal breath sounds, CTA, No accessory muscle use Cardiovascular: Irregularly, Irregular, No murmur Abdomen/GI:Soft, Non tender, + B/L groin erythema, groin mass, Bowel sounds present Extremities/Musculoskeletal:normal inspection, no edema Neurologic/Psych:AAOX3, grossly no focal neurological deficits Skin: normal color, warm,+ Gluteal pressure ulcer Results & Data Results & Data Vital Signs (Past 12 Hours) Vital Signs Temp Pulse Pulse Resp BP Pulse Ox O2 Del Method 10/21/23 15:13 36.6 C 106 H 19 108/58 L 94 Nasal Cannula 10/21/23 10:59 36.7 C 102 H 18 109/65 98 Nasal Cannula 10/21/23 08:00 87 10/21/23 08:00 Room Air 10/21/23 07:13 36.5 C 89 18 95/57 L 99 Nasal Cannula O2 Flow Rate 10/21/23 15:13 2 10/21/23 10:59 2 10/21/23 08:00 10/21/23 08:00 10/21/23 07:13 2 Laboratory Results Short CBC 10/21/23 Range/Units 05:37 WBC 17.30 H (4.8-10.8) K/ul Hgb 10.2 L (12.0-16.0) g/dl Hct 32.5 L (37.0-47.0) % Plt Count 261 (130-400) K/uL BMP 10/21/23 05:37 Sodium 136 Potassium 3.7 Chloride 108 H Carbon Dioxide 22 BUN 10 Creatinine 0.41 L Glucose 102 H Calcium 8.2 L
[2023-10-21] MEDS: DOXYCYCLINE HYCLATE 100 MG CAP PO SCH (21:27)
[2023-10-22] MEDS: LEVALBUTEROL 1.25 MG/3 ML NEB NEB PRN (00:36)
[2023-10-22] MEDS ORDERED: guaiFENesin SUGAR FREE 200 MG/10 ML UDC PO PRN (01:06)
[2023-10-22] MEDS: FUROSEMIDE INJ 20 MG/2 ML VIAL IV ONE (01:30)
[2023-10-22 04:56] LABS: Hematocrit (blood only) 34.6 % (37.0-47.0); Hemoglobin 10.9 g/dl (12.0-16.0); Mean Corpuscular Hemoglobin 28.8 pg (25.0-34.0); Mean Corpuscular Hgb Conc 31.5 g/dL (32.0-36.0); Mean Corpuscular Volume 91.5 fL (80.0-100.0); Mean Platelet Volume 10.7 fL (9.4-12.4); Platelet Count 253 K/uL (130-400); RDW Coefficient of Variation 13.1 % (11.5-14.5); RDW Standard Deviation 43.8 fL (36.4-46.3); Red Blood Count 3.78 M/uL (4.20-5.40); White Blood Count 13.76 K/ul (4.8-10.8)
[2023-10-22 05:14] LABS: BUN Creatinine Ratio 18.2 (10-20); Calcium 8.3 mg/dl (8.6-10.3); Est GFR (African American) 116.9 ml/min; Est GFR (Non-African American) 100.8 ml/min; Potassium 3.5 mmol/L (3.5-5.1)
[2023-10-22 05:35] LABS: Prothrombin Time 59.3 Seconds (9.0-12.0)
[2023-10-22 06:34] LABS: INR 6.4 (0.9-1.1)
--- NOTE | 2023-10-22 07:08 | XRay Report ---
XR chest 1V portable CLINICAL HISTORY: Shortness of breath. COMPARISON STUDY: Chest radiograph October 19, 2023. Chest CT January 16, 2020. FINDINGS: Lung volumes are normal. Lungs are clear. There is no pneumothorax or pleural effusion. Car diomegaly is again noted. Mediastinal contours are normal. There is no evidence for pulmonary edema. IMPRESSION: No acute cardiopulmonary findings. Cardiomegaly. ACT 112: Negative or not required by law. Electronically signed by: Kem Tolentino M.D. 10/22/2023 7:06 AM
--- NOTE | 2023-10-22 15:53 | Hospitalist Progress Note ---
Date of Service October 22, 2023 Assessment & Plan (1) Sepsis: (2) Acute UTI (urinary tract infection): (3) Cellulitis: Plan: Patient is 73-year-old female with PMH DM II, HTN, HLD, permanent atrial fibrillation anticoagulated on Coumadin, history PE chronically anticoagulated on Coumadin, hypothyroidism, lymphedema, morbid obesity, ventral hernia and others listed below presented to ER with c/o dysuria x 1 week. Also reports painful "lump" and reddened area to buttocks region for past 2 weeks with slight cream drainage. Worsening groin erythema Sepsis Multifactorial UTI Groin Cellulitis MSSA bacteremia --CXR: no acute infiltrate --CT abd/pelvis: Soft tissue edema is seen in the right gluteal and labial regions, nonspecific, but not without features of a mature abscess. Prominent infraumbilical hernia. Diverticulosis without diverticulitis. --Blood Cx: 2/4: MSSA, gram-positive cocci in clusters --Repeat blood cultures pending --Urine Cx: Pansensitive E. coli --Biofire: Staph aureus not MRSA Initial lactate 2.9 with repeat at 2.1 --ECHO: No evidence of valvular vegetation within limitation of imaging modality. received IVF Continue cefepime, vancomycin Day #2>> transition to Cefepime Day #4, Doxycycline Day #2 Continue wound Care Consulted ID for further recommendations Clinically stable Will titrate antibiotics based on ID recommendations Consider KRYSTAL if needed Pressure Wound to Bulging mass in groin Chronic Continue wound care Follows with general surgery as outpatient and scheduled to see plastic [place] [facility] [place] (4) Wound of sacral region: Plan: Appears to be pilonidal sinus with possible surrounding cellulitis Wound consult Antibiotics as above Follow up as outpatient (5) Atrial fibrillation and flutter: (6) Atrial flutter with rapid ventricular response: (7) Supratherapeutic INR: Plan: 09/09/2022 echo: EF: 55%, no significant valvular stenosis or insufficiency howev er was limited evaluation, proximal ascending thoracic aorta mildly enlarged at 4.1 cm In ER noted to have aflutter RVR Supratherapeutic INR:6.6>>7.8>8.1>6.4 Normal TSH Coumadin on hold No bleeding issues Not on rate controlling medications at home Monitor and replace electrolytes as needed (8) Hypomagnesemia: Plan: Hypokalemia replace and Monitor (9) Diabetes mellitus, type II: Plan: A1c: 5.6 Hold home Ozempic Continue Insulin per protocol Monitor BGs (10) Adrenal nodule: Plan: CT abd/pelvis: Left adrenal 26mm nodule is seen. Of note was measured at 27mm in 05/2023 and noted to be present on imaging dating back to 2014 and appears to be stable Will need outpatient follow up (11) HTN (hypertension): Plan: Hold Lisinopril Monitor BP (12) HLD (hyperlipidemia): Plan: Continue atorvastatin (13) Lymphedema: Plan: Resume Lasix tomorrow (14) History of pulmonary embolus (PE): Plan: INR supratherapeutic Hold Coumadin (15) Depression: Plan: Continue fluoxetine (16) Morbid obesity: Plan: BMI: 46 On Ozempic at home (17) Hypothyroidism: Plan: continue levothyroxine DVT Px INR supratherapeutic Code Status DNR/DNI Admission and Anticipated Discharge Date Admission Date: October 19, 2023 Subjective Patient is seen and examined at bedside States feeling tired Also reports having some dyspnea overnight Saturating well on 2 L supplemental oxygen No other new complaints Denies any chest pain, dyspnea, dizziness, nausea, abd pain Family at bedside during my encounter Review of Systems Review of Systems: All systems reviewed & are unremarkable except as noted in Subjective Physical Exam Physical Exam: Physical Exam: Vitals signs as noted above General Appearance:Morbidly obese, no apparent distress Head: normocephalic, Atraumatic Eyes: normal inspection, EOMI Neck: supple, Trachea midline Respiratory/Chest: Normal breath sounds, CTA, No accessory muscle use Cardiovascular: Irregularly, Irregular, No murmur Abdomen/GI:Soft, Non tender, + B/L groin erythema, groin mass, Bowel sounds present Extremities/Musculoskeletal:normal inspection, no edema Neurologic/Psych:AAOX3, grossly no focal neurological deficits Skin: normal color, warm,+ Gluteal pressure ulcer Results & Data Results & Data Vital Signs (Past 12 Hours) Vital Signs Temp Pulse Resp BP Pulse Ox O2 Del Method O2 Flow Rate 10/22/23 15:20 37.0 C 94 H 18 118/67 95 Nasal Cannula 2 10/22/23 08:00 Nasal Cannula 2 10/22/23 07:17 36.6 C 92 H 18 113/53 L 95 Nasal Cannula 2 Laboratory Results Short CBC 10/22/23 Range/Units 04:05 WBC 13.76 H (4.8-10.8) K/ul Hgb 10.9 L (12.0-16.0) g/dl Hct 34.6 L (37.0-47.0) % Plt Count 253 (130-400) K/uL BMP 10/22/23 04:05 Sodium 138 Potassium 3.5 Chloride 106 Carbon Dioxide 24 BUN 8 Creatinine 0.44 L Glucose 96 Calcium 8.3 L
--- NOTE | 2023-10-22 17:23 | Infectious Disease Consult ---
Date of Service October 22, 2023 Telehealth Information I performed this visit using a real-time telehealth connection between my location and the patients location ([facility]). After connecting through interactive tele-video, patient was identified by name and date of and/or wristband check.Patient (or authorized healthcare customer service representative) was informed that this was a telemedicine visit and it was being conducted confidentially over secure lines. My office door was closed and no one else was present in the room with me.Patient (or authorized healthcare customer service representative) provided consent to proceed with the visit, expressed an understanding of privacy and security of the telemedicine visit, and gave permission to have a hospital customer service representative in the room in order to assist with the visit and to conduct portions of the visit, as needed. I informed the patient (or authorized healthcare customer service representative) that I reviewed their record and presented the opportunity for them to ask any questions regarding the visit today. The patient agreed to participate. Assessment & Plan (1) MSSA bacteremia: (2) Cellulitis, gluteal, right: (3) Cystitis: (4) Morbid obesity: Plan Since the E. coli is susceptible to cefazolin and the staph aureus growing in the blood is MSSA, I would recommend stopping all of the current antibiotics and starting on IV cefazolin. If not done yet, please obtain a transthoracic echo. He will require at least 2 weeks of IV cefazolin to treat her right gluteal abscess and MSSA bacteremia. Continue to send blood culture every 48 hours until it has been negative for 48 hours. Thank you for consulting infectious disease. We will continue to follow. History of Present Illness History of Present Illness Ms. Duong is a 73-year-old woman with medical history of type 2 diabetes, HTN, hyperlipidemia, atrial fibrillation and history of PE, hypothyroidism, morbid obesity, lymphedema, and ventral abdominal hernia who was admitted to [facility] because of swelling and pain in her right lower buttock and perineum. On presentation, she was afebrile but tachycardic at 125 and tachypneic at around 26. A CT scan of the abdomen and pelvis was performed which showed soft tissue edema in the right gluteal and labial regions without any evidence of an abscess. Shortly after admission, 1 set of blood culture came back positive for MSSA via [email or web address]. While in the hospital, she was complaining of dysuria and urine culture was sent which came back positive for E. coli. ID was consulted for further recommendations and to help guide antibiotic treatment. Allergies Allergy/AdvReac Type Severity Reaction Status Date / Time ciprofloxacin AdvReac Intermediate makes Verified 06/21/23 16:14 mouth feel funny metronidazole AdvReac Intermediate makes Verified 11/20/21 09:31 mouth feel funny Home Medications Medication Instructions Recorded Confirmed Type acetaminophen 500 mg tablet 1,000 mg PO TID PRN Pain 05/26/19 10/19/23 History (Tylenol Extra Strength) atorvastatin 20 mg tablet 20 mg PO QAM 01/16/20 10/19/23 History fluoxetine 20 mg capsule 20 mg PO QAM 01/16/20 10/19/23 History furosemide 40 mg tablet 40 mg PO QAM 01/16/20 10/19/23 History lisinopril 5 mg tablet (Zestril) 5 mg PO QAM 11/14/21 10/19/23 History levothyroxine 75 mcg tablet 75 mcg PO DAILYBB 06/21/23 10/19/23 History potassium chloride 10 mEq 10 meq PO QAM 06/21/23 10/19/23 History capsule,extended release semaglutide 1 mg/dose (4 mg/3 mL) 1 mg subcut WK 06/21/23 10/19/23 History subcutaneous pen injector (Ozempic) polyethylene glycol 3350 17 gram 17 g PO DAILY PRN constipation #15 07/02/23 10/19/23 Rx oral powder packet (Miralax) ea tramadol 50 mg tablet 50 mg PO Q6H PRN pain,moderate #20 07/02/23 10/19/23 Rx tabs gabapentin 100 mg capsule 200 mg PO TID 10/19/23 10/19/23 History warfarin 5 mg tablet 5 mg PO QPM 10/19/23 10/19/23 History Patient History Medical History Diverticular disease ANTONIETTA (obstructive sleep apnea) pt unsure if Bipap or cpap Surgical History History of colonoscopy History of carpal tunnel surgery bilat History of cholecystectomy History of hip surgery from fracture to left hip > has alot of pain Family History Mother Cancer melanoma AMD (age related macular degeneration) Father Hypertension Denies family history of Diabetes Stroke Social History Smoking Status: Never smoker Second Hand Exposure: No; Do You Dip or Chew Tobacco: No; Tobacco Cessation Education Requested by Patient: No Hx Alcohol Use: No Hx Substance Use: No Preferred Language: Yoruba Communication Ability: Effective Fraud Representative Required: No Beliefs That Will Affect Care: None marital status: Current Living Situation: Spouse How many Children do You have: 2 Other Information That Helps Us Care for You: No Feels Safe at Home: Yes Safety Concerns: Feels Safe At This Time Assistive Devices: Lift Chair, Walker and Wheelchair Review of Systems Constitutional: No fever or chills Cardiovascular: No chest pain or palpitations Respiratory: Shortness of breath, but no cough Abdominal: no abdominal pain or diarrhea Urinary tract: dysuria, but no urgency or frequency Musculoskeletal: No muscle pain or rash Physical Exam Couldn't be performed as the visit was done via telemed. Results & Data Vital Signs (Past 12 Hours) Vital Signs Temp Pulse Pulse Resp BP Pulse Ox O2 Del Method 10/22/23 16:00 95 H 10/22/23 15:20 37.0 C 94 H 18 118/67 95 Nasal Cannula 10/22/23 08:00 Nasal Cannula 10/22/23 07:17 36.6 C 92 H 18 113/53 L 95 Nasal Cannula O2 Flow Rate 10/22/23 16:00 10/22/23 15:20 2 10/22/23 08:00 2 10/22/23 07:17 2 Laboratory Results Microbiology: 10/18: 2 out of 4 bottles of blood culture positive for Staph aureus (identified via [employer]) 10/18: Urine culture growing E. coli 10/21: 2 sets of blood culture pending Diagnostic Findings Ct abd/pelvis on 10/18: 1. Soft tissue edema is seen in the right gluteal and labial regions, nonspecific, but not without features of a mature abscess. Correlation with physical exam is recommended. 2. Prominent infraumbilical hernia. 3. Diverticulosis without diverticulitis.
[2023-10-23 05:54] LABS: Hematocrit (blood only) 33.6 % (37.0-47.0); Hemoglobin 10.7 g/dl (12.0-16.0); Mean Corpuscular Hemoglobin 28.2 pg (25.0-34.0); Mean Corpuscular Hgb Conc 31.8 g/dL (32.0-36.0); Mean Corpuscular Volume 88.7 fL (80.0-100.0); Mean Platelet Volume 9.4 fL (9.4-12.4); Platelet Count 296 K/uL (130-400); RDW Coefficient of Variation 12.9 % (11.5-14.5); RDW Standard Deviation 41.8 fL (36.4-46.3); Red Blood Count 3.79 M/uL (4.20-5.40); White Blood Count 13.73 K/ul (4.8-10.8)
[2023-10-23 06:13] LABS: BUN Creatinine Ratio 21.9 (10-20); Calcium 8.2 mg/dl (8.6-10.3); Creatinine Clr Calc Pharmacy 203.2 ml/min; Est GFR (African American) 129.8 ml/min; Potassium 3.2 mmol/L (3.5-5.1)
[2023-10-23 06:15] LABS: INR 4.6 (0.9-1.1); Prothrombin Time 43.8 Seconds (9.0-12.0)
[2023-10-23] MEDS: FUROSEMIDE 40 MG TAB PO SCH (08:05)
[2023-10-23] MEDS ORDERED: POTASSIUM CHLORIDE CRTAB 20 MEQ TABCR PO ONE (09:43)
[2023-10-23] MEDS: POTASSIUM CHLORIDE 20 MEQ/15 ML UDC PO ONE (11:14)
[2023-10-23] MEDS: ceFAZolin 2000MG 2,000 MG/15 ML SYR IV SCH (11:15)
--- NOTE | 2023-10-23 15:42 | Hospitalist Progress Note ---
Date of Service October 23, 2023 Assessment & Plan (1) Sepsis: (2) Acute UTI (urinary tract infection): (3) Cellulitis: Plan: Patient is 73-year-old female with PMH DM II, HTN, HLD, permanent atrial fibrillation anticoagulated on Coumadin, history PE chronically anticoagulated on Coumadin, hypothyroidism, lymphedema, morbid obesity, ventral hernia and others listed below presented to ER with c/o dysuria x 1 week. Also reports painful "lump" and reddened area to buttocks region for past 2 weeks with slight cream drainage. Worsening groin erythema Sepsis Multifactorial UTI Groin Cellulitis MSSA bacteremia --CXR: no acute infiltrate --CT abd/pelvis: Soft tissue edema is seen in the right gluteal and labial regions, nonspecific, but not without features of a mature abscess. Prominent infraumbilical hernia. Diverticulosis without diverticulitis. --Blood Cx: 2/: MSSA, gram-positive cocci in clusters --Repeat blood cultures : Negative to date --Urine Cx: Pansensitive E. coli --Biofire: Staph aureus not MRSA Initial lactate 2.9 with repeat at 2.1 --ECHO: No evidence of valvular vegetation within limitation of imaging modality. 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 with possible surrounding cellulitis Wound consult Antibiotics as above Follow up as outpatient (5) Atrial fibrillation and flutter: (6) Atrial flutter with rapid ventricular response: (7) Supratherapeutic INR: Plan: 09/09/2022 echo: EF: 55%, no significant valvular stenosis or insufficiency however was limited evaluation, proximal ascending thoracic aorta mildly enlarged at 4.1 cm In ER noted to have aflutter RVR Supratherapeutic INR:6.6>>7.8>8.1>6.4>4.6 Normal TSH Coumadin on hold No bleeding issues Not on rate controlling medications at home Monitor and replace electrolytes as needed (8) Hypomagnesemia: Plan: Hypokalemia replace and Monitor (9) Diabetes mellitus, type II: Plan: A1c: 5.6 Hold home Ozempic Continue Insulin per protocol Monitor BGs (10) Adrenal nodule: Plan: CT abd/pelvis: Left adrenal 26mm nodule is seen. Of note was measured at 27mm in 05/2023 and noted to be present on imaging dating back to 2014 and appears to be stable Will need outpatient follow up (11) HTN (hypertension): Plan: Continue Lisinopril Monitor BP (12) HLD (hyperlipidemia): Plan: Continue atorvastatin (13) Lymphedema: Plan: continue Lasix (14) History of pulmonary embolus (PE): Plan: INR supratherapeutic Hold Coumadin (15) Depression: Plan: Continue fluoxetine (16) Morbid obesity: Plan: BMI: 46 On Ozempic at home (17) Hypothyroidism: Plan: continue levothyroxine DVT Px INR supratherapeutic Code Status DNR/DNI Admission and Anticipated Discharge Date Admission Date: October 19, 2023 Subjective Patient is seen and examined at bedside No new complaints Family at bedside States having some pain at gluteal region Denies any chest pain, dyspnea, dizziness, nausea, abd pain Review of Systems Review of Systems: All systems reviewed & are unremarkable except as noted in Subjective Physical Exam Physical Exam: Physical Exam: Vitals signs as noted above General Appearance:Morbidly obese, no apparent distress Head: normocephalic, Atraumatic Eyes: normal inspection, EOMI Neck: supple, Trachea midline Respiratory/Chest: Normal breath sounds, CTA, No accessory muscle use Cardiovascular: Irregularly, Irregular, No murmur Abdomen/GI:Soft, Non tender, + B/L groin erythema, groin mass, Bowel sounds present Extremities/Musculoskeletal:normal inspection, no edema Neurologic/Psych:AAOX3, grossly no focal neurological deficits Skin: normal color, warm,+ Gluteal pressure ulcer Results & Data Results & Data Vital Signs (Past 12 Hours) Vital Signs Temp Pulse Pulse Resp BP Pulse Ox O2 Del Method 10/23/23 15:21 36.8 C 105 H 22 147/77 H 94 Nasal Cannula 10/23/23 14:54 96 H 10/23/23 13:37 94 H 20 93 Nasal Cannula 10/23/23 11:34 104 H 10/23/23 11:03 36.8 C 78 24 124/65 92 Nasal Cannula 10/23/23 07:55 36.7 C 99 H 16 103/64 95 Nasal Cannula 10/23/23 07:21 Nasal Cannula O2 Flow Rate 10/23/23 15:21 2 10/23/23 14:54 10/23/23 13:37 2 10/23/23 11:34 10/23/23 11:03 2 10/23/23 07:55 2 10/23/23 07:21 2 Laboratory Results Short CBC 10/23/23 Range/Units 05:07 WBC 13.73 H (4.8-10.8) K/ul Hgb 10.7 L (12.0-16.0) g/dl Hct 33.6 L (37.0-47.0) % Plt Count 296 (130-400) K/uL BMP 10/23/23 05:07 Sodium 140 Potassium 3.2 L Chloride 106 Carbon Dioxide 27 BUN 7 Creatinine 0.32 L Glucose 99 Calcium 8.2 L
[2023-10-23] MEDS: lisinopril 5 MG TAB PO SCH (16:29)
[2023-10-24] MEDS: PHENAZOPYRIDINE HCL 200 MG TAB PO PRN (00:14)
[2023-10-24 06:23] LABS: Hematocrit (blood only) 35.2 % (37.0-47.0); Hemoglobin 11.2 g/dl (12.0-16.0); Mean Corpuscular Hemoglobin 28.4 pg (25.0-34.0); Mean Corpuscular Hgb Conc 31.8 g/dL (32.0-36.0); Mean Corpuscular Volume 89.3 fL (80.0-100.0); Mean Platelet Volume 9.8 fL (9.4-12.4); Platelet Count 269 K/uL (130-400); RDW Standard Deviation 42.9 fL (36.4-46.3); Red Blood Count 3.94 M/uL (4.20-5.40)
[2023-10-24 06:35] LABS: Calcium 8.4 mg/dl (8.6-10.3); Est GFR (Non-African American) 108.7 ml/min; Potassium 3.3 mmol/L (3.5-5.1); Prothrombin Time 38.4 Seconds (9.0-12.0)
[2023-10-24] MEDS: POTASSIUM CHLORIDE PWD 20 MEQ PACK PO ONE (10:30)
[2023-10-24] MEDS: SODIUM CHLORIDE 0.9% 1,000 ML IV ONE (13:04)
--- NOTE | 2023-10-24 13:37 | Hospitalist Progress Note ---
Date of Service October 24, 2023 Assessment & Plan (1) Sepsis: (2) Acute UTI (urinary tract infection): (3) Cellulitis: Plan: Patient is 73-year-old female with PMH DM II, HTN, HLD, permanent atrial fibrillation anticoagulated on Coumadin, history PE chronically anticoagulated on Coumadin, hypothyroidism, lymphedema, morbid obesity, ventral hernia and others listed below presented to ER with c/o dysuria x 1 week. Also reports painful "lump" and reddened area to buttocks region for past 2 weeks with slight cream drainage. Worsening groin erythema Sepsis Multifactorial UTI Groin Cellulitis MSSA bacteremia --CXR: no acute infiltrate --CT abd/pelvis: Soft tissue edema is seen in the right gluteal and labial regions, nonspecific, but not without features of a mature abscess. Prominent infraumbilical hernia. Diverticulosis without diverticulitis. --Blood Cx: 2/: MSSA, gram-positive cocci in clusters --Repeat blood cultures : Negative to date --Urine Cx: Pansensitive E. coli --Biofire: Staph aureus not MRSA Initial lactate 2.9 with repeat at 2.1 --ECHO: No evidence of valvular vegetation within limitation of imaging modality. 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 with possible surrounding cellulitis Wound consult Antibiotics as above Follow up as outpatient (5) Atrial fibrillation and flutter: (6) Atrial flutter with rapid ventricular response: (7) Supratherapeutic INR: Plan: 09/09/2022 echo: EF: 55%, no significant valvular stenosis or insufficiency however was limited evaluation, proximal ascending thoracic aorta mildly enlarged at 4.1 cm In ER noted to have aflutter RVR Supratherapeutic INR:6.6>>7.8>8.1>6.4>4.6>4.0 Normal TSH Coumadin on hold No bleeding issues Not on rate controlling medications at home Monitor and replace electrolytes as needed (8) Hypomagnesemia: Plan: Hypokalemia replace and Monitor (9) Diabetes mellitus, type II: Plan: A1c: 5.6 Hold home Ozempic Continue Insulin per protocol Monitor BGs (10) Adrenal nodule: Plan: CT abd/pelvis: Left adrenal 26mm nodule is seen. Of note was measured at 27mm in 05/2023 and noted to be present on imaging dating back to 2014 and appears to be stable Will need outpatient follow up (11) HTN (hypertension): Plan: Given low BP, hold lisinopril monitor BP (12) HLD (hyperlipidemia): Plan: Continue atorvastatin (13) Lymphedema: Plan: Hold Lasix today Resume diuretics as able (14) History of pulmonary embolus (PE): Plan: INR supratherapeutic Hold Coumadin (15) Depression: Plan: Continue fluoxetine (16) Morbid obesity: Plan: BMI: 46 On Ozempic at home (17) Hypothyroidism: Plan: continue levothyroxine DVT Px INR supratherapeutic Code Status DNR/DNI Admission and Anticipated Discharge Date Admission Date: October 19, 2023 Subjective Patient is seen and examined at bedside Blood pressure low today Patient feels tired Poor oral intake Family at bedside No other complaints Denies any chest pain, dyspnea, dizziness, nausea, abd pain Afebrile Review of Systems Review of Systems: All systems reviewed & are unremarkable except as noted in Subjective Physical Exam Physical Exam: Physical Exam: Vitals signs as noted above General Appearance:Morbidly obese, no apparent distress Head: normocephalic, Atraumatic Eyes: normal inspection, EOMI Neck: supple, Trachea midline Respiratory/Chest: Normal breath sounds, CTA, No accessory muscle use Cardiovascular: Irregularly, Irregular, No murmur Abdomen/GI:Soft, Non tender, + B/L groin erythema, groin mass, Bowel sounds present Extremities/Musculoskeletal:normal inspection, no edema Neurologic/Psych:AAOX3, grossly no focal neurological deficits Skin: normal color, warm,+ Gluteal pressure ulcer Results & Data Results & Data Vital Signs (Past 12 Hours) Vital Signs Temp Pulse Pulse Resp BP Pulse Ox O2 Del Method 10/24/23 11:31 96 H 10/24/23 11:20 36.7 C 94 H 16 100/57 L 94 Nasal Cannula 10/24/23 08:53 89/53 L 10/24/23 08:00 Nasal Cannula 10/24/23 07:17 36.7 C 98 H 16 92/59 L 94 Nasal Cannula 10/24/23 03:01 36.6 C 105 H 23 101/69 93 Nasal Cannula O2 Flow Rate 10/24/23 11:31 10/24/23 11:20 2 10/24/23 08:53 10/24/23 08:00 2 10/24/23 07:17 2 10/24/23 03:01 Laboratory Results Short CBC 10/24/23 Range/Units 05:25 WBC 13.00 H (4.8-10.8) K/ul Hgb 11.2 L (12.0-16.0) g/dl Hct 35.2 L (37.0-47.0) % Plt Count 269 (130-400) K/uL BMP 10/24/23 05:25 Sodium 141 Potassium 3.3 L Chloride 104 Carbon Dioxide 31 BUN 7 Creatinine 0.35 L Glucose 94 Calcium 8.4 L
[2023-10-25 06:37] LABS: Hematocrit (blood only) 34.2 % (37.0-47.0); Hemoglobin 10.9 g/dl (12.0-16.0); Mean Corpuscular Hemoglobin 28.6 pg (25.0-34.0); Mean Corpuscular Hgb Conc 31.9 g/dL (32.0-36.0); Mean Corpuscular Volume 89.8 fL (80.0-100.0); Mean Platelet Volume 9.4 fL (9.4-12.4); Platelet Count 323 K/uL (130-400); RDW Standard Deviation 42.7 fL (36.4-46.3); Red Blood Count 3.81 M/uL (4.20-5.40); White Blood Count 12.15 K/ul (4.8-10.8)
[2023-10-25 07:41] LABS: INR 2.8 (0.9-1.1); Prothrombin Time 27.6 Seconds (9.0-12.0)
--- NOTE | 2023-10-25 15:10 | Hospitalist Progress Note ---
Date of Service October 25, 2023 Assessment & Plan (1) Sepsis: (2) Acute UTI (urinary tract infection): (3) Cellulitis: Plan: Patient is 73-year-old female with PMH DM II, HTN, HLD, permanent atrial fibrillation anticoagulated on Coumadin, history PE chronically anticoagulated on Coumadin, hypothyroidism, lymphedema, morbid obesity, ventral hernia and others listed below presented to ER with c/o dysuria x 1 week. Also reports painful "lump" and reddened area to buttocks region for past 2 weeks with slight cream drainage. Worsening groin erythema Sepsis Multifactorial UTI Groin Cellulitis MSSA bacteremia --CXR: no acute infiltrate --CT abd/pelvis: Soft tissue edema is seen in the right gluteal and labial regions, nonspecific, but not without features of a mature abscess. Prominent infraumbilical hernia. Diverticulosis without diverticulitis. --Blood Cx: 2/: MSSA, gram-positive cocci in clusters --Repeat blood cultures : Negative to date --Urine Cx: Pansensitive E. coli --Biofire: Staph aureus not MRSA Initial lactate 2.9 with repeat at 2.1 --ECHO: No evidence of valvular vegetation within limitation of imaging modality. Continue cefepime, vancomycin Day #2>> Cefepime Day #4>> cefazolin Day #3 Continue wound Care Appreciate ID Input BP better today Discussed with ID Dr. Corona today. No KRYSTAL required. 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 with possible surrounding cellulitis Wound consult Antibiotics as above Follow up as outpatient (5) Atrial fibrillation and flutter: (6) Atrial flutter with rapid ventricular response: (7) Supratherapeutic INR: Plan: 09/09/2022 echo: EF: 55%, no significant valvular stenosis or insufficiency however was limited evaluation, proximal ascending thoracic aorta mildly enlarged at 4.1 cm In ER noted to have aflutter RVR Supratherapeutic INR:6.6>>7.8>8.1>6.4>4.6>4.0>2.8 Normal TSH No bleeding issues Not on rate controlling medications at home Monitor and replace electrolytes as needed Resume Coumadin today (8) Hypomagnesemia: Plan: Hypokalemia replace and Monitor (9) Diabetes mellitus, type II: Plan: A1c: 5.6 Hold home Ozempic Continue Insulin per protocol Monitor BGs (10) Adrenal nodule: Plan: CT abd/pelvis: Left adrenal 26mm nodule is seen. Of note was measured at 27mm in 05/2023 and noted to be present on imaging dating back to 2014 and appears to be stable Will need outpatient follow up (11) HTN (hypertension): Plan: Given low BP hold lisinopril for now monitor BP (12) HLD (hyperlipidemia): Plan: Continue atorvastatin (13) Lymphedema: Plan: Hold Lasix today Resume diuretics as able (14) History of pulmonary embolus (PE): Plan: INR supratherapeutic--resolved Resume Coumadin (15) Depression: Plan: Continue fluoxetine (16) Morbid obesity: Plan: BMI: 46 On Ozempic at home (17) Hypothyroidism: Plan: continue levothyroxine DVT Px Coumadin Code Status DNR/DNI Disposition Will likely need SNF placement Admission and Anticipated Discharge Date Admission Date: October 19, 2023 Subjective Patient is seen and examined at bedside Blood pressure better today Reports transient dizziness this morning States feeling tired Poor sleep overnight Had PT evaluation earlier today Discussed with ID today Denies any chest pain, dyspnea, dizziness, nausea, abd pain Review of Systems Review of Systems: All systems reviewed & are unremarkable except as noted in Subjective Physical Exam Physical Exam: Physical Exam: Vitals signs as noted above General Appearance:Morbidly obese, no apparent distress Head: normocephalic, Atraumatic Eyes: normal inspection, EOMI Neck: supple, Trachea midline Respiratory/Chest: Normal breath sounds, CTA, No accessory muscle use Cardiovascular: Irregularly, Irregular, No murmur Abdomen/GI:Soft, Non tender, + B/L groin erythema, groin mass, Bowel sounds present Extremities/Musculoskeletal:normal inspection, no edema Neurologic/Psych:AAOX3, grossly no focal neurological deficits Skin: normal color, warm,+ Gluteal pressure ulcer Results & Data Results & Data Vital Signs (Past 12 Hours) Vital Signs Temp Pulse Pulse Resp BP Pulse Ox O2 Del Method 10/25/23 11:00 36.6 C 83 20 118/65 91 Nasal Cannula 10/25/23 08:16 Nasal Cannula 10/25/23 08:00 36.4 C L 83 19 107/64 93 Nasal Cannula 10/25/23 07:00 97 H 10/25/23 03:40 36.8 C 98 H 18 115/70 93 Nasal Cannula O2 Flow Rate 10/25/23 11:00 2 10/25/23 08:16 2 10/25/23 08:00 2 10/25/23 07:00 10/25/23 03:40 2 Laboratory Results Short CBC 10/25/23 Range/Units 05:35 WBC 12.15 H (4.8-10.8) K/ul Hgb 10.9 L (12.0-16.0) g/dl Hct 34.2 L (37.0-47.0) % Plt Count 323 (130-400) K/uL
--- NOTE | 2023-10-25 15:20 | Communication Note ---
Date of Service: October 25, [address] infectious disease Dr[address] Corona today. Recommends to complete 4- week course of IV cefazolin from first negative culture.
[2023-10-25] MEDS: WARFARIN SOD 2.5 MG TAB PO SCH (16:55)
[2023-10-25] MEDS: DOCUSATE SODIUM 100 MG CAP PO PRN (20:35)
[2023-10-26 05:58] LABS: Hematocrit (blood only) 35.3 % (37.0-47.0); Mean Corpuscular Hemoglobin 28.1 pg (25.0-34.0); Mean Corpuscular Hgb Conc 31.2 g/dL (32.0-36.0); Mean Corpuscular Volume 90.1 fL (80.0-100.0); Mean Platelet Volume 9.2 fL (9.4-12.4); Platelet Count 333 K/uL (130-400); RDW Standard Deviation 42.7 fL (36.4-46.3); Red Blood Count 3.92 M/uL (4.20-5.40); White Blood Count 10.13 K/ul (4.8-10.8)
[2023-10-26 06:08] LABS: INR 2.2 (0.9-1.1); Prothrombin Time 22.2 Seconds (9.0-12.0)
[2023-10-26 06:14] LABS: Calcium 8.1 mg/dl (8.6-10.3); Potassium 3.2 mmol/L (3.5-5.1)
[2023-10-26 06:20] LABS: BUN Creatinine Ratio 14.3 (10-20); Creatinine Clr Calc Pharmacy 183.8 ml/min; Est GFR (Non-African American) 108.7 ml/min
[2023-10-26] MEDS: POTASSIUM CHLORIDE PWD 20 MEQ PACK PO ONE (10:49)
[2023-10-26] MEDS: WARFARIN SOD 3 MG TAB PO SCH (15:17)
--- NOTE | 2023-10-26 15:46 | Hospitalist Progress Note ---
Date of Service October 26, 2023 Assessment & Plan (1) Sepsis: (2) Acute UTI (urinary tract infection): (3) Cellulitis: Plan: Patient is 73-year-old female with PMH DM II, HTN, HLD, permanent atrial fibrillation anticoagulated on Coumadin, history PE chronically anticoagulated on Coumadin, hypothyroidism, lymphedema, morbid obesity, ventral hernia and others listed below presented to ER with c/o dysuria x 1 week. Also reports painful "lump" and reddened area to buttocks region for past 2 weeks with slight cream drainage. Worsening groin erythema Sepsis Multifactorial UTI Groin Cellulitis MSSA bacteremia --CXR: no acute infiltrate --CT abd/pelvis: Soft tissue edema is seen in the right gluteal and labial regions, nonspecific, but not without features of a mature abscess. Prominent infraumbilical hernia. Diverticulosis without diverticulitis. --Blood Cx: 05/30: MSSA, gram-positive cocci in clusters --Repeat blood cultures : Negative to date --Urine Cx: Pansensitive E. coli --Biofire: Staph aureus not MRSA Initial lactate 2.9 with repeat at 2.1 --ECHO: No evidence of valvular vegetation within limitation of imaging modality. Continue cefepime, vancomycin Day #2>> Cefepime Day #4>> cefazolin Day #4 Continue wound Care Appreciate ID Input Discussed with ID Dr. Corona on 10/26/23. No KRYSTAL required. Recommends to complete 4-week course of IV cefazolin from negative blood culture Continue IV cefazolin to complete on 11/19/23 Waiting for rehab placement Pressure Wound to Bulging mass in groin Chronic Continue wound care Follows with general surgery as outpatient and scheduled to see plastic surgery at [facility] [place] (4) Wound of sacral region: Plan: Appears to be pilonidal sinus with possible surrounding cellulitis Wound consult Antibiotics as above Follow up as outpatient (5) Atrial fibrillation and flutter: (6) Atrial flutter with rapid ventricular response: (7) Supratherapeutic INR: Plan: 09/09/2022 echo: EF: 55%, no significant valvular stenosis or insufficiency however was limited evaluation, proximal ascending thoracic aorta mildly enlarged at 4.1 cm In ER noted to have aflutter RVR Supratherapeutic INR:6.6>>7.8>8.1>6.4>4.6>4.0>2.8>2.2 Normal TSH No bleeding issues Not on rate controlling medications at home Monitor and replace electrolytes as needed Resumed Coumadin on 10/25/23 Adjust Coumadin dose as needed (8) Hypomagnesemia: Plan: Hypokalemia replace and Monitor (9) Diabetes mellitus, type II: Plan: A1c: 5.6 Hold home Ozempic Continue Insulin per protocol Monitor BGs (10) Adrenal nodule: Plan: CT abd/pelvis: Left adrenal 26mm nodule is seen. Of note was measured at 27mm in 05/2023 and noted to be present on imaging dating back to 2014 and appears to be stable Will need outpatient follow up (11) HTN (hypertension): Plan: Given relatively low BP hold lisinopril for now monitor BP (12) HLD (hyperlipidemia): Plan: Continue atorvastatin (13) Lymphedema: Plan: on Lasix (14) History of pulmonary embolus (PE): Plan: Continue Coumadin (15) Depression: Plan: Continue fluoxetine (16) Morbid obesity: Plan: BMI: 46 On Ozempic at home (17) Hypothyroidism: Plan: continue levothyroxine DVT Px Coumadin Code Status DNR/DNI Disposition Plan to discharge to SNF when accepted Admission and Anticipated Discharge Date Admission Date: October 19, 2023 Subjective Patient is seen and examined at bedside Dizziness resolved No new complaints today Waiting for rehab placement Denies any chest pain, dyspnea, dizziness, nausea, abd pain Review of Systems Review of Systems: All systems reviewed & are unremarkable except as noted in Subjective Physical Exam Physical Exam: Physical Exam: Vitals signs as noted above General Appearance:Morbidly obese, no apparent distress Head: normocephalic, Atraumatic Eyes: normal inspection, EOMI Neck: supple, Trachea midline Respiratory/Chest: Normal breath sounds, CTA, No accessory muscle use Cardiovascular: Irregularly, Irregular, No murmur Abdomen/GI:Soft, Non tender, + B/L groin erythema, groin mass, Bowel sounds present Extremities/Musculoskeletal:normal inspection, no edema Neurologic/Psych:AAOX3, grossly no focal neurological deficits Skin: normal color, warm,+ Gluteal pressure ulcer Results & Data Results & Data Vital Signs (Past 12 Hours) Vital Signs Temp Pulse Pulse Resp BP BP Pulse Ox 10/26/23 15:14 36.7 C 90 19 123/68 92 10/26/23 11:09 36.9 C 76 19 108/66 93 10/26/23 08:15 90 18 95 10/26/23 07:33 83 10/26/23 07:11 36.7 C 59 L 17 127/76 95 O2 Del Method O2 Flow Rate 10/26/23 15:14 Room Air 10/26/23 11:09 Nasal Cannula 2 10/26/23 08:15 Nasal Cannula 2 10/26/23 07:33 10/26/23 07:11 Nasal Cannula 2 Laboratory Results Short CBC 10/26/23 Range/Units 05:31 WBC 10.13 (4.8-10.8) K/ul Hgb 11.0 L (12.0-16.0) g/dl Hct 35.3 L (37.0-47.0) % Plt Count 333 (130-400) K/uL BMP 10/26/23 05:31 Sodium 142 Potassium 3.2 L Chloride 103 Carbon Dioxide 35 H BUN 5 L Creatinine 0.35 L Glucose 106 H Calcium 8.1 L
[2023-10-27 06:53] LABS: Hemoglobin 11.3 g/dl (12.0-16.0); Mean Corpuscular Hemoglobin 28.5 pg (25.0-34.0); Mean Corpuscular Hgb Conc 31.4 g/dL (32.0-36.0); Mean Corpuscular Volume 90.7 fL (80.0-100.0); Mean Platelet Volume 9.3 fL (9.4-12.4); Platelet Count 322 K/uL (130-400); RDW Coefficient of Variation 13.1 % (11.5-14.5); RDW Standard Deviation 43.4 fL (36.4-46.3); Red Blood Count 3.97 M/uL (4.20-5.40); White Blood Count 8.24 K/ul (4.8-10.8)
[2023-10-27 07:08] LABS: BUN Creatinine Ratio 16.7 (10-20); Calcium 7.9 mg/dl (8.6-10.3); Creatinine Clr Calc Pharmacy 178.3 ml/min; Est GFR (African American) 124.9 ml/min; Est GFR (Non-African American) 107.7 ml/min; Potassium 3.7 mmol/L (3.5-5.1)
[2023-10-27 07:19] LABS: INR 2.3 (0.9-1.1); Prothrombin Time 23.6 Seconds (9.0-12.0)
--- NOTE | 2023-10-27 11:30 | Discharge Summary ---
Discharge Summary Date of Service October 27, 2023 Principal Dx & Hospital Course #1 = Principal Diagnosis (1) Sepsis: (2) Acute UTI (urinary tract infection): (3) Cellulitis: Ms. Colin is a 73-year-old female with PMH DM II, HTN, HLD, permanent atrial fibrillation anticoagulated on Coumadin, history PE chronically anticoagulated on Coumadin, hypothyroidism, lymphedema, morbid obesity, ventral hernia who was admitted for sepsis of multifactorial etiology. Patient was found to have acute complicated cystitis, groin cellulitis, and MSSA bacteremia. ID consulted, ECHO was without concern for vegetation and left midline placed for EOT 11/18 with cefazolin. Patient reports issues with transfer and notes sore on inguinal hernia, therefore patient maintained owens for void trial at SNF after strength and transfers improve to prevent soiling of wound on hernia as habitus complicates hygiene. On day of discharge, patient denied any acute concerns. #Sepsis, likely multifactorial #Acute complicated cystitis #Groin Cellulitis #MSSA bacteremia --CXR: no acute infiltrate --CT abd/pelvis: Soft tissue edema is seen in the right gluteal and labial regions, nonspecific, but not without features of a mature abscess. Prominent infraumbilical hernia. Diverticulosis without diverticulitis. --Blood Cx: 05/30: MSSA, gram-positive cocci in clusters --Repeat blood cultures : Negative to date --Urine Cx: Pansensitive E. coli --Biofire: Staph aureus not MRSA --ECHO: No evidence of valvular vegetation within limitation of imaging modality. 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 with possible surrounding cellulitis Wound consult Antibiotics as above Follow up as outpatient (5) Atrial fibrillation and flutter: (6) Atrial flutter with rapid ventricular response: (7) Supratherapeutic INR: 09/09/2022 echo: EF: 55%, no significant valvular stenosis or insufficiency however was limited evaluation, proximal ascending thoracic aorta mildly enlarged at 4.1 cm In ER noted to have aflutter RVR Supratherapeutic INR:6.6>>7.8>8.1>6.4>4.6>4.0>2.8>2.2 Normal TSH No bleeding issues Not on rate controlling medications at home Monitor and replace electrolytes as needed Resumed Coumadin on 10/25/23 (8) Hypomagnesemia: Hypokalemia replace and Monitor (9) Diabetes mellitus, type II: A1c: 5.6 Hold home Ozempic Continue Insulin per protocol Monitor BGs (10) Adrenal nodule: CT abd/pelvis: Left adrenal 26mm nodule is seen. Of note was measured at 27mm in 05/2023 and noted to be present on imaging dating back to 2014 and appears to be stable Will need outpatient follow up (11) HTN (hypertension): Given relatively low BP Held lisinopril, discuss resumption as OP (12) HLD (hyperlipidemia): Continue atorvastatin (13) Lymphedema: on Lasix (14) History of pulmonary embolus (PE): Continue Coumadin (15) Depression: Continue fluoxetine (16) Morbid obesity: BMI: 46 On Ozempic at home (17) Hypothyroidism: continue levothyroxine Notes For Next Care Provider CT abd/pelvis: Left adrenal 26mm nodule is seen. Of note was measured at 27mm in 05/2023 and noted to be present on imaging dating back to 2014 and appears to be stable Will need outpatient follow up Medication Changes From Visit Held lisinopril, discuss resumption as OP Admission HPI Per Admitting Provider Patient is 73-year-old female with PMH DM II, HTN, HLD, permanent atrial fibrillation anticoagulated on Coumadin, history PE chronically anticoagulated on Coumadin, hypothyroidism, lymphedema, morbid obesity, ventral hernia and others listed below presented to ER with c/o dysuria x 1 week. History obtained from patient and inpatient and outpatient chart review. States chronic urinary frequency from Lasix but denies urinary hesitancy or retention. Also reports painful "lump" and reddened area to buttocks region for past 2 weeks. Having some slight cream color drainage from area past couple days. She reports chronic erythema to groin skin folds that are intermittently tender. Uses OTC Desitin to area. Reports chronic bulging from mons pubis region and is following with outpatient general surgery and scheduled to see plastic surgery at [facility] to address. She feels the redness is worse for past week and somewhat tender. Denies other abdominal pain. Has BM every 2-3 days. Last was 2 days ago. Today upon ER arrival had nausea that self resolved. Denies vomiting or diarrhea. Denies cough or known fever or chills at home. Reported history of chronic hypoxic respiratory failure however patient reports hasn't used oxygen for "awhile". She states chronic ambulatory dysfunction and limited mobility at home. Uses walker and mostly wheelchair. This week states she was trying to ambulate more and states when getting up out of chair her legs would feel week and she fell a couple of times. Denies hitting her head or any LOC. Denies any injury from falls. Denies dizziness, CP, SOB prior to falls. Denies diaphoresis, NUNN, syncope, vision changes, neck pain, CP, SOB, palpitations, hemoptysis, sore throat, choking, otalgia, abdominal pain, increased extremity edema, hematuria, urinary retention, melena, hematochezia, epistaxis Admission Exam Per Admitting Provider General: no acute distress, chronic ill appearing elderly female, obese Head: normocephalic, atraumatic Eyes: PERRL, EOM's intact, conjunctiva non-injected, anicteric ENT: normal inspection external ears, nose, mucous membranes moist Neck: supple, trachea midline Lungs: clear, no respiratory distress, no wheezing/rhonchi/rales CV: irregularly irregular, no pitting pretibial edema Abd: normal BS, soft, non-tender Ext: BLE large with chronic skin discoloration without acute erythema noted and are non-tender Neuro: A&O x 3, no focal deficits noted, normal affect Skin: warm, dry; Groin: +erythema to skin fold under pannus and in groin folds with warmth and tenderness. +very large protrusion extending from mons pubis the posterior aspect of this with erythema and stage one pressure wound. Buttock: +superior gluteal cleft with small opening sinus tract with surrounding erythema without drainage at this time Discharge Exam Constitutional WD/WN, vitals as above Respiratory normal respiratory effort, lungs clear to auscultation Cardiovascular irregularly irregular Gastrointestinal (Abdomen) large inguinal hernia extending in to groin, small pressure wound with granulation tissue on posterior surface of hernia, no signs of incarcertion Skin left midline, owens Updated Medication List Medication Instructions Recorded Confirmed Type acetaminophen 500 mg tablet 1,000 mg PO TID PRN Pain 05/26/19 10/19/23 History (Tylenol Extra Strength) atorvastatin 20 mg tablet 20 mg PO QAM 01/16/20 10/19/23 History fluoxetine 20 mg capsule 20 mg PO QAM 01/16/20 10/19/23 History furosemide 40 mg tablet 40 mg PO QAM 01/16/20 10/19/23 History lisinopril 5 mg tablet (Zestril) 5 mg PO QAM 11/14/21 10/19/23 History levothyroxine 75 mcg tablet 75 mcg PO DAILYBB 06/21/23 10/19/23 History potassium chloride 10 mEq 10 meq PO QAM 06/21/23 10/19/23 History capsule,extended release semaglutide 1 mg/dose (4 mg/3 mL) 1 mg subcut WK 06/21/23 10/19/23 History subcutaneous pen injector (Ozempic) polyethylene glycol 3350 17 gram 17 g PO DAILY PRN constipation #15 07/02/23 10/19/23 Rx oral powder packet (Miralax) ea tramadol 50 mg tablet 50 mg PO Q6H PRN pain,moderate #20 07/02/23 10/19/23 Rx tabs gabapentin 100 mg capsule 200 mg PO TID 10/19/23 10/19/23 History warfarin 5 mg tablet 5 mg PO QPM 10/19/23 10/19/23 History L.acidop,casei,lactis,rham-B.lact,marielos 1 cap PO DAILY #30 caps 10/27/23 Rx 625 mg (10 billion cell) capsule (Advanced Probiotic) cefazolin 2 gram intravenous 2 g IV Q8H 24 days 10/27/23 Rx solution docusate sodium 100 mg capsule 100 mg PO BID PRN constipation #60 10/27/23 Rx caps miconazole nitrate 2 % topical 1 applic EXT PRN PRN skin 10/27/23 Rx powder (Desenex) irritation #85 grams Hospital Stay Data Consultations 10/19/23 18:36 ED Decision to Admit Stat 10/21/23 16:23 Consult Infectious Diseases Routine Diagnostic Imagining Performed 10/19/23 14:38 CT abd pelvis IV con only Stat Pending Results Patient Have Any Pending Studies at Discharge: No Discharge Instructions Given to Patient (Per Discharging Provider) You were admitted for sepsis due to cellulitis and urinary tract infection. You were noted to have a bacterial infection in your blood as well called "bacteremia." Given the bacteriemia, you will continue long course of IV antibiotics. You have a midline placed in your left arm to facilitate this administration. You will continue IV antibiotics until 11/18. -Cefazolin 2g IV every 8 hours, next dose 1730 on 10/26, end of treatment 11/19/2023 Given the irritation that you have on your groin and hernia, you will leave with the owens catheter in place. The rehab will work on your ability to transfer [facility] prior to removing catheter. Your blood pressure is on the low-normal range. Therefore your lisinopril has been held. This can potentially be resumed at a later date, but in the interim please do not continue at this time. Total Time Total Time Spent Total Time Spent (In Minutes): 45
== END 2023-10-27 14:10 | DRG 872 ==
LOC: ED 13:57 → 4W 19:23 → SUATTDRO 19:23 → 4W 22:30
DX: Z68.42 Body mass index [BMI] 45.0-49.9, adult; E11.9 Type 2 diabetes mellitus without complications; N30.00 Acute cystitis without hematuria; Z79.890 Hormone replacement therapy; L03.314 Cellulitis of groin; A41.01 Sepsis due to Methicillin susceptible Staphylococcus aureus; I48.92 Unspecified atrial flutter; E66.01 Morbid (severe) obesity due to excess calories; Z79.899 Other long term (current) drug therapy; E03.9 Hypothyroidism, unspecified; E83.42 Hypomagnesemia; Z79.01 Long term (current) use of anticoagulants; I48.21 Permanent atrial fibrillation; L05.91 Pilonidal cyst without abscess; E78.5 Hyperlipidemia, unspecified; I89.0 Lymphedema, not elsewhere classified; K43.9 Ventral hernia without obstruction or gangrene; Z86.711 Personal history of pulmonary embolism; Z88.1 Allergy status to other antibiotic agents; E87.6 Hypokalemia; R93.89 Abnormal findings on diagnostic imaging of other specified body structures; Z79.85 Long-term (current) use of injectable non-insulin antidiabetic drugs; I10 Essential (primary) hypertension; Z66 Do not resuscitate; F32.A Depression, unspecified; B96.20 Unspecified Escherichia coli [E. coli] as the cause of diseases classified elsewhere; L89.890 Pressure ulcer of other site, unstageable